=== PATIENT | male | born 1935 | race Hispanic/Latino ===

== ENCOUNTER 2017-01-18 07:43 | Day surgery (SDC) | payer MEDICARE, BC ==
[2017-01-09 13:12] VITALS: BMI 25.7
[2017-01-18] MEDS ORDERED: Propofol 10 mg/ml Inj (20 ML) ONE ×2 (09:16→09:31)
[2017-01-18] MEDS ORDERED: Lactated Ringer's 1,000 ML IV SCH (09:58)
[2017-01-18 11:49] VITALS: BP 160/62; PULSE 56; RESP 14; TEMP 97.8; O2SAT 98
== END 2017-01-18 11:45 | disposition home or self-care (01) ==
LOC: ENDO 07:43
PROVIDERS: ATTEND Specialist
DX: Z12.11 Encounter for screening for malignant neoplasm of colon (principal); D12.4 Benign neoplasm of descending colon; D12.3 Benign neoplasm of transverse colon; K64.8 Other hemorrhoids; K57.30 Diverticulosis of large intestine without perforation or abscess without bleeding; I10 Essential (primary) hypertension; M48.00 Spinal stenosis, site unspecified

== ENCOUNTER 2017-08-25 08:06 | Inpatient (IN) | payer MEDICARE, BC ==
--- NOTE | 2017-08-25 08:29 | ED PDOC ---
Arrival/HPI - General Chief Complaint: Abdominal Pain Time Seen by Provider: 08/25/17 08:14 Historian: Patient - History of Present Illness Narrative History of Present Illness (Text): 08/25/17 08:25 A 82 year old male, whose past medical history includes hypertension, presents to the emergency department complaining of intermittent abdominal pain for 1 month. Patient reports taking Gaviscon prescribed by his PMD with mild improvement of symptom. Patient notes poor appetite and weight loss but denies any fever, chills, nausea, vomiting, diarrhea, chest pain, shortness of breath or any other complaints. PMD: Dr. Bridgette Sanz Powerhouse Laborer: Dr. Prado Time/Duration: Other (1 month) Symptom Course: Unchanged, Intermittent Quality: Other Context: Home Past Medical History - Provider Review Nursing Documentation Reviewed: Yes - Infectious Disease Hx of Infectious Diseases: None - Cardiac Hx Pacemaker: No - Neurological Hx Paralysis: No - Hematological/Oncological Hx Blood Transfusions: No Hx Blood Transfusion Reaction: No - Musculoskeletal/Rheumatological Hx Musculoskeletal Disorders: Yes (SPINAL STENOSIS) - Gastrointestinal Hx Gastroesophageal Reflux: Yes - Psychiatric Hx Emotional Abuse: No Hx Physical Abuse: No Hx Substance Use: No - Anesthesia Hx Anesthesia Reactions: No Hx Malignant Hyperthermia: No - Suicidal Assessment Feels Threatened In Home Enviroment: No Family/Social History - Physician Review Nursing Documentation Reviewed: Yes Family/Social History: No Known Family HX Smoking Status: Unknown If Ever Smoked Hx Alcohol Use: Yes ("ALCOHOLIC" QUIT 40 YRS AGO) Hx Substance Use: No Allergies/Home Meds Allergies/Adverse Reactions: Allergies No Known Allergies Allergy (Verified 08/25/17 08:19) Home Medications: Home Meds Medication Instructions Recorded Confirmed Omeprazole [Prilosec] 40 mg PO QAM 11/04/15 08/25/17 Review of Systems - Physician Review All systems were reviewed & negative as marked: Yes - Review of Systems Constitutional: Weight Change. absent: Fevers, Night Sweats Respiratory: absent: SOB Cardiovascular: absent: Chest Pain Gastrointestinal: Abdominal Pain, Appetite Changes. absent: Diarrhea, Nausea, Vomiting Physical Exam Vital Signs Reviewed: Yes Vital Signs Temp Pulse Resp BP Pulse Ox 08/25/17 10:13 77 17 157/85 H 99 08/25/17 08:06 97.6 F 94 H 18 121/86 97 Temperature: Afebrile Blood Pressure: Normal Pulse: Tachycardic Respiratory Rate: Normal Appearance: Positive for: Well-Appearing, Non-Toxic, Comfortable Pain Distress: None Mental Status: Positive for: Alert and Oriented X 3 - Systems Exam Head: Present: Atraumatic, Normocephalic Pupils: Present: PERRL Extroacular Muscles: Present: EOMI Conjunctiva: Present: Normal Mouth: Present: Moist Mucous Membranes Neck: Present: Normal Range of Motion Respiratory/Chest: Present: Clear to Auscultation, Good Air Exchange. No: Respiratory Distress, Accessory Muscle Use Cardiovascular: Present: Regular Rate and Rhythm, Normal S1, S2. No: Murmurs Abdomen: Present: Normal Bowel Sounds. No: Tenderness, Distention, Peritoneal Signs Back: Present: Normal Inspection Upper Extremity: Present: Normal Inspection. No: Cyanosis, Edema Lower Extremity: Present: Normal Inspection. No: Edema Neurological: Present: GCS=15, CN II-XII Intact, Speech Normal Skin: Present: Warm, Dry, Normal Color. No: Rashes Psychiatric: Present: Alert, Oriented x 3, Normal Insight, Normal Concentration Medical Decision Making ED Course and Treatment: 08/25/17 08:25 Impression: A 82 year old male with intermittent abdominal for 1 month Plan: -- CT angio -- EKG -- Labs -- Urinalysis -- IV fluids -- Reassess and disposition Prior Visits: Notes and results from previous visits were reviewed. Patient had an outpatient CT on 08/18/17 which showed: Report Date : 08/18/2017 11:34:12 PROCEDURE: CT Abdomen and Pelvis without intravenous contrast Dictator : Cisco Zhang MD IMPRESSION: No bowel obstruction. 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 It is likely that the renal arteries arise from the true lumen. Additional minor findings as above. Progress Notes: EKG shows NSR at 99 BPM with RBBB. Interpreted by me. Report Date : 08/25/2017 10:50:51 PROCEDURE: CT Angiography Chest, Abdomen and Pelvis with and without intravenous contrast Dictator : Burt Garibay MD IMPRESSION: No evidence of aortic aneurysm or dissection. Focal stenoses at the origin of the celiac axis. Prominent abnormal appearing pancreatic head with dilated pancreatic duct. Elective follow-up MRI MRCP advised. 08/25/17 16:58 cta shows no e/o of dissection compared to outpt study. accepted by dr isael castro for onc and gi eval. - Lab Interpretations Lab Results: 08/25/17 08:40 08/25/17 08:40 Lab Results 08/25/17 10:30: Urine Color Yellow, Urine Appearance Clear, Urine pH 7.0, Ur Specific Spicer 1.010, Urine Protein Negative, Urine Glucose (UA) Negative, Urine Ketones Negative, Urine Blood Trace-intact H, Urine Nitrate Negative, Urine Bilirubin Negative, Urine Urobilinogen 0.2, Ur Leukocyte Esterase Negative , Urine RBC 0 - 2, Urine WBC Negative 08/25/17 09:05: PT 12.7 H, INR 1.15 H, APTT 34.8 08/25/17 08:40: Sodium 138, Potassium 4.6, Chloride 100, Carbon Dioxide 25, Anion Gap 18, BUN 17, Creatinine 1.3, Est GFR ( Amer) > 60, Est GFR (Non- Af Amer) 53, Random Glucose 156 H, Calcium 10.1, Total Bilirubin 1.5 H, AST 28, ALT 32, Alkaline Phosphatase 70, Lactate Dehydrogenase 335, Total Creatine Kinase 53, Troponin I 0.02, Total Protein 7.4, Albumin 4.4, Globulin 3.1, Albumin/Globulin Ratio 1.4, Amylase 79, Lipase 470 H 08/25/17 08:40: WBC 7.9, RBC 4.99, Hgb 15.3, Hct 44.8, MCV 89.8, MCH 30.7, MCHC 34.2, RDW 12.4, Plt Count 268, MPV 9.9, Gran % 68.2 H, Lymph % (Auto) 21.3 L, Noble % (Auto) 9.0 H, Eos % (Auto) 1.0 L, Baso % (Auto) 0.5, Gran # 5.36, Lymph # 1.7, Noble # 0.7 H, Eos # 0.1, Baso # 0.04 I have reviewed the lab results: Yes - RAD Interpretation Radiology Orders: 08/25/17 09:07 ANGIOGRAPHY DISECTION PROTOCOL [CT] Stat - Medication Orders Current Medication Orders: Pantoprazole Sodium (Protonix Inj) 40 mg IVP DAILY AIMEE Last Admin: 08/25/17 11:28 Dose: 40 mg IVP Administration Document 08/25/17 11:28 CNR (Rec: 08/25/17 11:28 CNR [id number]) Charges for Administration # of IVP Administrations 1 Discontinued Medications Sodium Chloride (Sodium Chloride 0.9%) 1,000 mls @ 250 mls/hr IV .Q4H ONE Stop: 08/25/17 12:58 Last Admin: 08/25/17 09:07 Dose: 250 mls/hr eMAR Start Stop Document 08/25/17 09:07 CNR (Rec: 08/25/17 09:07 CNR [id number]) Intravenous Solution Start Date 08/25/17 Start Time 09:07 Pneumococcal Polyvalent Vaccine (Pneumovax 23 Vaccine) 0.5 ml IM .ONCE ONE Stop: 08/25/17 13:20 - Scribe Statement The provider has reviewed the documentation as recorded by the Scribe Jaye Parra Provider Scribe Attestation: All medical record entries made by the Scribe were at my direction and personally dictated by me. I have reviewed the chart and agree that the record accurately reflects my personal performance of the history, physical exam, medical decision making, and the department course for this patient. I have also personally directed, reviewed, and agree with the discharge instructions and disposition. Disposition/Present on Arrival - Present on Arrival Any Indicators Present on Arrival: No History of DVT/PE: No History of Uncontrolled Diabetes: No Urinary Catheter: No History of Decub. Ulcer: No History Surgical Site Infection Following: None - Disposition Have Diagnosis and Disposition been Completed?: Yes Diagnosis: Abdominal pain, Elevated lipase Disposition: HOSPITALIZED Disposition Time: :29 Patient Problems: Current Active Problems Problem Status Onset Abdominal pain Acute Elevated lipase Acute Condition: STABLE
[2017-08-25 08:54] LABS: BASO # 0.04 K/mm3 (0.0-2.0); BASO % 0.5 % (0.0-3.0); EOS # 0.1 (0.0-0.7); GRAN # 5.36 (1.4-6.5); GRAN % 68.2 % (50.0-68.0); HEMOGLOBIN 15.3 g/dL (14.0-18.0); LYMPH # 1.7 (1.2-3.4); LYMPH % 21.3 % (22.0-35.0); MEAN CELL VOLUME 89.8 fl (80.0-105.0); MEAN CORPUSCULAR HEMOGLOBIN 30.7 pg (25.0-35.0); MEAN CORPUSCULAR HGB CONC 34.2 g/dl (31.0-37.0); MEAN PLATELET VOLUME 9.9 fl (7.0-11.0); MONO # 0.7 (0.1-0.6); RBC 4.99 10^6/uL (3.5-6.1); RED CELL DISTRIBUTION WIDTH 12.4 % (11.5-14.5); WHITE BLOOD COUNT 7.9 10^3/ul (4.5-11.0)
[2017-08-25] MEDS ORDERED: Sodium Chloride 0.9% 1,000 ML IV ONE (08:59)
[2017-08-25 09:03] LABS: ALB/GLOB RATIO 1.4 (1.1-1.8); ALBUMIN 4.4 g/dL (3.0-4.8); ALT/SGPT 32 U/L (7-56); AMYLASE 79 U/L (35-125); AST/SGOT 28 U/L (17-59); BLOOD UREA NITROGEN 17 mg/dL (7-21); CALCIUM 10.1 mg/dL (8.4-10.5); GFR AFRICAN-AMERICAN > 60; GFR NON-AFRICAN AMERICAN 53; LIPASE 470 U/L (23-300)
[2017-08-25 09:14] LABS: TROPONIN I 0.02 ng/mL
[2017-08-25 09:39] LABS: INR 1.15 (0.93-1.08); PARTIAL THROMBOPLASTIN TIME 34.8 Seconds (25.1-36.5); PROTHROMBIN TIME 12.7 SECONDS (9.4-12.5)
[2017-08-25 10:17] LABS: URINE BILIRUBIN NEGATIVE (NEGATIVE); URINE BLOOD TRACE-INTACT (NEGATIVE); URINE GLUCOSE (UA) NEGATIVE (NEGATIVE); URINE LEUKOCYTE ESTERASE NEGATIVE Leu/uL (NEGATIVE); URINE NITRATE NEGATIVE (NEGATIVE); URINE PROTEIN NEGATIVE mg/dL (<30 mg/dL); URINE UROBILINOGEN 0.2 E.U./dL (<1 E.U./dL)
[2017-08-25 10:42] LABS: URINE APPEARANCE CLEAR (CLEAR); URINE COLOR YELLOW (YELLOW); URINE RBC 0 - 2 /hpf (0-2); URINE WBC NEGATIVE /hpf (0-6)
--- NOTE | 2017-08-25 10:52 | CT ---
PROCEDURE: CT Angiography Chest, Abdomen and Pelvis with and without intravenous contrast Elliptical none HISTORY: Abdominal pain, aortic dissection suspected. COMPARISON: 08/18/2017 CT abdomen and pelvis. Summary of findings on the comparison examination. 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 It is likely that the renal arteries arise from the true lumen. TECHNIQUE: Contiguous axial images of the chest, abdomen and pelvis were obtained in the phase of aortic enhancement. A noncontrast enhanced CT of the chest was also obtained to evaluate for possible intramural thrombus. Coronal and sagittal reformats were generated. IV dose administered: 150 cc Omnipaque 350 Radiation dose: Total exam DLP = 758.40 mGy-cm. This CT exam was performed using one or more of the following dose reduction techniques: Automated exposure control, adjustment of the mA and/or kV according to patient size, and/or use of iterative reconstruction technique. FINDINGS: CT ANGIOGRAPHY OF THE CHEST WITH & WITHOUT CONTRAST: AORTA (CHEST AND ABDOMEN): The thoracic and abdominal aorta are unremarkable, without aneurysm, dissection or rupture. No intramural thrombus identified in the thoracic aorta on the non-contrast ct of the chest. The celiac axis, superior mesenteric artery, inferior mesenteric artery and the renal arteries are widely patent. The pelvic arteries are unremarkable. LUNGS: Clear. No nodule, mass or consolidation. 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 Normal luminal caliber descending aorta maximum diameter 2.6 cm. No evidence of dissection. LYMPH NODES: Unremarkable. PLEURA: Unremarkable. No pneumothorax. No pleural fluid. BONES: Non marginal osteophyte formation the overall appearance suggests ankylosing spondylitis. OTHER FINDINGS: None. CT ANGIOGRAPHY OF THE ABDOMEN AND PELVIS WITH CONTRAST: LIVER: Unremarkable. No gross lesion or ductal dilatation. GALLBLADDER AND BILE DUCTS: Unremarkable. PANCREAS: The pancreatic head is enlarged with abnormal contrast-enhancing characteristics. AP diameter 3.7 cm. Distal pancreatic duct is dilated 3.6 mm. Elective follow-up with abdominal MRI advised. SPLEEN: Unremarkable. ADRENALS: Unremarkable. No mass. KIDNEYS AND URETERS: Unremarkable. No hydronephrosis. No solid mass. Incidental finding(s): Simple right renal cysts. VASCULATURE: No evidence of abdominal aortic aneurysm or dissection. Maximum diameter of the abdominal aorta 2.5 cm. Focal narrowing at the origin of the celiac axis. Superior mesenteric artery widely patent common no branch vessel abnormalities identified. Patent and unremarkable renal arteries and branch vessels. STOMACH AND BOWEL: Unremarkable. No obstruction. No gross mural thickening. Postoperative, surgical changes likely related to resection, surgery of the right hemicolon. APPENDIX: Normal appendix. PERITONEUM: Unremarkable. No free fluid. No free air. LYMPH NODES: Unremarkable. No enlarged lymph nodes. BLADDER: Unremarkable. REPRODUCTIVE: Unremarkable. BONES: No acute fracture. OTHER FINDINGS: None. IMPRESSION: No evidence of aortic aneurysm or dissection. Focal stenoses at the origin of the celiac axis. Prominent abnormal appearing pancreatic head with dilated pancreatic duct. Elective follow-up MRI MRCP advised.
[2017-08-25 13:19] VITALS: BMI 22.1
[2017-08-25] MEDS ORDERED: Pneumococcal 23-Valent Vaccine IM ONE (13:19)
[2017-08-25] MEDS ORDERED: Influenza Vaccine 60 mcg/0.5 mL SYR (4YR UP) IM ONE (13:19)
--- NOTE | 2017-08-25 18:19 | CARD ---
APPROVED REPORT EKG Measurement Heart [id number] <Conclusion> Normal sinus rhythm Right bundle branch block Abnormal ECG
[2017-08-25] MEDS: Sodium Chloride 0.9% 1,000 ML IV SCH (18:29)
--- NOTE | 2017-08-26 02:51 | CON ---
DATE: 08/25/2017 REASON FOR CONSULTATION: Abdominal pain, weight loss. HISTORY OF PRESENT ILLNESS: This 82-year-old patient with past medical history of hypertension, status post EGD and colonoscopy this year, complaining of some epigastric discomfort. He said he has been seen by Dr. Robles and given omeprazole to take. He said it is not helping him and in fact only TUMS is helping him. The patient had a CAT scan done on 08/18/2017 a week ago and noticed to have suspected short segment of dissection of the abdominal aorta at the level of renal artery measuring about 3.[address] was done without a contrast, subsequently this admission, the patient had an CT angio done and no evidence of aneurysm or dissection noticed. Celiac. Superior mesenteric artery was widely patent. The patient was also noticed to have enlarged pancreatic head with abnormal contrast characteristics. Distal pancreatic duct dilated to 3.6 mm. The patient also gives reporting history of weight loss in the last 4 to 6 weeks and lost about 16 pounds in weight. The patient's was at the bedside. PAST MEDICAL HISTORY: Other past medical history significant as above. The patient had endoscopy done on 11/04/[address] Nolan Robles, found to have LA grade esophagitis and small hiatus hernia. He had a colonoscopy done on 01/20/2017, he was found to have multiple colonic polyps and also diverticulosis. ALLERGIES: NO KNOWN DRUG ALLERGIES. SOCIAL HISTORY: He was alcoholic heavy, quit about 40 years ago. No recent smoking. REVIEW OF SYSTEMS: Positive as above. Other systems reviewed. PHYSICAL EXAMINATION VITAL SIGNS: Temperature is afebrile. Blood pressure 159/83, pulse 74, respirations 20, O2 saturation 97%. HEENT: Atraumatic. Anicteric. NECK: Supple. HEART: S1 and S2 heard. LUNGS: Bilateral air entry present. ABDOMEN: Soft. There is no mass palpable. EXTREMITIES: No edema. No cyanosis. NEUROLOGICAL: Alert, oriented, moves all the extremities. LABORATORY DATA: Hemoglobin 15.3, hematocrit 44.8, WBC 7.9, platelets 268. Chemistry shows total bilirubin 1.5, blood glucose 156, otherwise unremarkable. Platelet is mildly elevated to 470. CEA was 4.1. CT scan findings were as described above. IMPRESSION: This 82-year-old patient admitted with abdominal discomfort, status post esophagogastroduodenoscopy, colonoscopy before, on proton pump inhibitor, not helping him much. He states significant weight loss, questionable abnormalities of the CT showing possible abnormalities in the pancreatic head. The initial CT done without a contrast was suggestive of dissection of the aorta, but repeat CT with the contrast was negative. Would recommend at this point; 1. Continue the hydration and we will repeat the MRI of the abdomen with and without contrast with the MRCP to further evaluate the pancreas. 2. We also consider endoscopic ultrasound after reviewing the above workup. Followup of the LFTs. The patient's bilirubin only was mildly elevated. We will also request for direct bilirubin in a.m., also request for ultrasound scan to further evaluate. Thank you very much for allowing us to participate in the care of the patient. Keon Prado MD [facility]
[2017-08-26 08:02] LABS: IRON 79 ug/dL (45-180)
[2017-08-26 08:04] LABS: BASO # 0.03 K/mm3 (0.0-2.0); BASO % 0.4 % (0.0-3.0); EOS # 0.1 (0.0-0.7); EOS % 1.5 % (1.5-5.0); GRAN # 5.55 (1.4-6.5); GRAN % 69.3 % (50.0-68.0); HEMOGLOBIN 14.8 g/dL (14.0-18.0); LYMPH # 1.7 (1.2-3.4); LYMPH % 21.8 % (22.0-35.0); MEAN CELL VOLUME 89.5 fl (80.0-105.0); MEAN CORPUSCULAR HEMOGLOBIN 30.5 pg (25.0-35.0); MEAN CORPUSCULAR HGB CONC 34.1 g/dl (31.0-37.0); MEAN PLATELET VOLUME 10.1 fl (7.0-11.0); MONO # 0.6 (0.1-0.6); RBC 4.85 10^6/uL (3.5-6.1); RED CELL DISTRIBUTION WIDTH 12.3 % (11.5-14.5)
[2017-08-26 08:05] LABS: BLOOD UREA NITROGEN 15 mg/dL (7-21); CALCIUM 9.6 mg/dL (8.4-10.5); GFR AFRICAN-AMERICAN > 60; GFR NON-AFRICAN AMERICAN 58
[2017-08-26 08:11] LABS: % IRON SATURATION 33 % (20-55); TOTAL IRON BINDING CAPACITY 240 ug/dL (261-462)
[2017-08-26] MEDS: Sodium Chloride 0.9% 1,000 ML IV SCH (09:26)
[2017-08-26] MEDS ORDERED: Gadodiamide 287 MG/ML VIAL (20ML) IV ONE (13:30)
--- NOTE | 2017-08-26 16:04 | MRI ---
PROCEDURE: Magnetic Resonance Cholangiopancreatography HISTORY: COMPARISON: None available. TECHNIQUE: Multiplanar, multisequence MR images of the abdomen were obtained, including heavily T2 weighted MRCP images of the biliary system. Rotating maximum intensity projection images of the biliary system were generated. FINDINGS: MRCP: Common bile duct normal in caliber. No intrahepatic biliary dilatation. No evidence of choledocholithiasis. LIVER: Normal size, contour and signal intensity. Small nonspecific high signal mass in the lateral left hepatic lobe, 8 mm diameter. Possible cyst. No other mass identified. Smooth contour. GALLBLADDER: Unremarkable. SPLEEN: Unremarkable. PANCREAS: There is a mass in the pancreatic head measuring roughly 2.7 x 3.2 cm in the transverse plane. It is relatively low in signal compared to enhancing pancreas on early post gadolinium images. There is dilatation of the pancreatic duct in the body and tail distal to this mass. This is strongly suspicious for a pancreatic malignancy. There is no involvement of the superior mesenteric artery or portal vein. There is no other pancreatic mass identified. There is no peripancreatic fluid or edema appreciated. ADRENALS: Unremarkable. KIDNEYS: 2.1 cm right upper pole renal cortical cyst. Several additional smaller right renal cortical cysts. Tiny left parapelvic renal cyst. No hydronephrosis. AORTA: No aneurysm. ASCITES: None. OTHER FINDINGS: None. IMPRESSION: 3.2 cm mass in the pancreatic head obstructing the pancreatic duct, with dilatation of the pancreatic duct in the body and tail of the pancreas. Strongly suspicious for pancreatic malignancy. Additional minor findings as above.
[2017-08-26 19:14] LABS: ALB/GLOB RATIO 1.5 (1.1-1.8); ALBUMIN 4.1 g/dL (3.0-4.8); BLOOD UREA NITROGEN 15 mg/dL (7-21); CALCIUM 9.7 mg/dL (8.4-10.5); GFR AFRICAN-AMERICAN > 60; GFR NON-AFRICAN AMERICAN 58
[2017-08-26 19:15] LABS: ALT/SGPT 29 U/L (7-56); AST/SGOT 30 U/L (17-59); LIPASE 655 U/L (23-300)
[2017-08-27] MEDS ORDERED: Sodium Chloride 0.9% 1,000 ML IV SCH (15:27)
--- NOTE | 2017-08-27 23:50 | PN ---
DATE: 08/27/2017 SUBJECTIVE: This patient was seen and evaluated earlier today. The patient's was at the bedside. No complaints of any abdominal pain. PHYSICAL EXAMINATION GENERAL: Tolerating the diet. VITAL SIGNS: Temperature is 97.6, blood pressure 135/75, pulse 70, respirations 18, and O2 saturation 97%. HEENT: Atraumatic. Anicteric. NECK: Supple. HEART: S1 and S2 heard. LUNGS: Bilateral air entry present. ABDOMEN: Soft. There is no tenderness. EXTREMITIES: No cyanosis. No clubbing. No edema. LABORATORY DATA: There is no recent labs now. IMPRESSION: The MRI scan was reviewed, it shows 3.2cm mass in the pancreatic head obstructing the pancreatic duct with the dilation of the pancreatic duct. Suspicious for malignancy. The patient's CA 19-9 was also significantly elevated. 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 The patient would benefit from endoscopic ultrasound with the possible fine needle aspiration of the lesion. I have discussed with the Dr. Berrios. The patient is very anxious, nervous and has been twice in the Emergency Room with the abdominal pain. It is reasonable to keep the patient in the hospital and the patient has been scheduled for the endoscopic ultrasound fine needle aspiration on Monday. We will keep the patient n.p.o. tomorrow midnight for the procedure. Keon Prado MD [facility]
[2017-08-28 13:57] LABS: BASO # 0.02 K/mm3 (0.0-2.0); BASO % 0.2 % (0.0-3.0); EOS # 0.1 (0.0-0.7); EOS % 1.4 % (1.5-5.0); GRAN # 6.92 (1.4-6.5); GRAN % 75.2 % (50.0-68.0); HEMOGLOBIN 14.2 g/dL (14.0-18.0); LYMPH # 1.5 (1.2-3.4); LYMPH % 16.1 % (22.0-35.0); MEAN CELL VOLUME 90.4 fl (80.0-105.0); MEAN CORPUSCULAR HEMOGLOBIN 30.2 pg (25.0-35.0); MEAN CORPUSCULAR HGB CONC 33.4 g/dl (31.0-37.0); MEAN PLATELET VOLUME 9.9 fl (7.0-11.0); MONO # 0.7 (0.1-0.6); MONO % 7.1 % (1.0-6.0); RBC 4.7 10^6/uL (3.5-6.1); RED CELL DISTRIBUTION WIDTH 12.4 % (11.5-14.5); WHITE BLOOD COUNT 9.2 10^3/ul (4.5-11.0)
[2017-08-28 14:01] LABS: IRON 56 ug/dL (45-180)
[2017-08-28 14:03] LABS: CALCIUM 9.6 mg/dL (8.4-10.5)
[2017-08-28 14:10] LABS: % IRON SATURATION 23 % (20-55); TOTAL IRON BINDING CAPACITY 241 ug/dL (261-462)
--- NOTE | 2017-08-28 23:04 | HP ---
DATE OF EVALUATION: 08/25/2017 HISTORY OF PRESENT ILLNESS: Mr. Bentley is an 82-year-old male, admitted to the hospital with abdominal pain which was for past 1 month. He had a CAT scan of the abdomen without contrast as an outpatient, which showed aortic dissection. He was admitted to the hospital for evaluation of aortic aneurysm. Repeat CAT scan CT angio with IV contrast did not show any aneurysm, but there was suspicion for pancreatic head mass and dilatation of biliary duct. He has 20-pound weight loss in past 1 month. No appetite. Occasional nausea. No vomiting. No fever, no cough with expectoration. He has hypertension which is controlled with current medications. He has history of spinal stenosis, has been asymptomatic from that. His sister of breast cancer. PAST MEDICAL HISTORY: Hypertension, spinal stenosis. PAST SURGICAL HISTORY: None. FAMILY HISTORY: Sister of breast cancer. PERSONAL HISTORY: Never smoked. No history of alcohol abuse. ALLERGIES: NO KNOWN DRUG ALLERGIES. HOME MEDICATIONS: Omeprazole 40 mg daily. REVIEW OF SYSTEMS: As per HPI. Rest of 12-point review of systems reviewed and negative. PHYSICAL EXAMINATION: GENERAL: Comfortable in bed, in no acute distress. VITAL SIGNS: Temperature 97.6, heart rate is 94 per minute, respiratory rate 18 per minute, blood pressure 120/86, and oxygen saturation 97% on room air. HEENT: Normal. No pallor. NECK: No lymphadenopathy. CHEST: Air entry present and equal bilaterally. No added sounds. CARDIOVASCULAR: S1 and S2 normal. No murmur. No gallop. ABDOMEN: Soft, nontender. No hepatosplenomegaly. EXTREMITIES: No edema. SPINE: Nontender. SKIN: No petechiae. No rash. CT of the abdomen and pelvis with IV contrast, CT angio protocol did not show any aortic dissection. EKG normal. LABORATORY DATA: White count 7.9, hemoglobin 15.3, hematocrit 44.8, blood sugar 268. UA negative. Total bilirubin 1.5, amylase 79, lipase 49. ASSESSMENT AND PLAN 1. Pancreatic head mass. 2. Hypertension. 3. Abnormal weight loss 20 pounds. 3. Nausea and vomiting. PLAN: He will be admitted to the hospital. We will get GI consultation with Dr. Prado. He had colonoscopy and EGD done recently with no abnormality. MRCP ordered for today. We will do the tumor markers, CEA, CA19-9. IV fluids at 80 mL an hour, Protonix 40 mg IV daily, liquid diet. Further plan will be as per [facility] results. Paty Berrios MD
--- NOTE | 2017-08-28 23:13 | PN ---
DATE: 08/26/2017 SUBJECTIVE: He is comfortable in bed, in no acute distress. No nausea and no vomiting. No abdominal pain. He is ambulating in the room. He reports 20 pounds of weight loss and no appetite. No difficulty in swallowing. CA 19.9 elevated to 2300 and CEA of 4.1. REVIEW OF SYSTEMS: As per HPI. Rest of 12-point review of systems reviewed and negative. MEDICATIONS: IV fluids at 6 mL an hour and Protonix 40 mg IV daily. PHYSICAL EXAMINATION: GENERAL: He is comfortable in bed, in no acute distress. VITAL SIGNS: Stable temperature of 98.7, heart rate of 80 per minute, blood pressure of 110/70, afebrile, and pulse oximetry is 98% room air. HEENT: Pallor positive. NECK: No lymphadenopathy. CHEST: Air entry is present and equal bilaterally. No added sounds. CARDIOVASCULAR: S1 and S2 normal. No murmur. No gallop. GASTROINTESTINAL: Abdomen is soft and nontender. No hepatosplenomegaly. EXTREMITIES: No edema. CENTRAL NERVOUS SYSTEM: Alert and oriented x3. No focal sensory or motor deficit. LABORATORY DATA: Sodium is 138, potassium is 4.6, and creatinine is 1.2. CA 19.9 is 2320. White count is 8000, hemoglobin is 14.8, hematocrit is 43.3, and platelets of 250. ASSESSMENT AND PLAN: 1. Pancreatic head mass. 2. Abnormal weight loss. 3. Hypertension. 4. Abdominal pain chronic for 1 month. PLAN: MRCP showed pancreatic head mass, I discussed at length with the and the patient about possibility of pancreatic cancer, he is very concerned and he has anxiety. He kept asking how much I have to live. I explained to him the workup in progress. He will need endoscopic biopsy, Dr. Prado's note appreciated. He will schedule EUS biopsy on Monday. He will need a PET scan which will be scheduled as an outpatient upon discharge from the hospital. Encourage ambulation: We will give morphine p.r.n. for abdominal pain and Zofran 4 mg IV p.r.n. for nausea. Paty Berrios MD [facility] # [id number]
--- NOTE | 2017-08-28 23:44 | PN ---
DATE OF EVALUATION: 08/28/2017 SUBJECTIVE: He is comfortable in bed, in no acute distress. He is very depressed since the news of pancreatic head tumor was disclosed to him. He is saying that his friend of pancreatic cancer recently, and he is not very hopeful that he will survive with this. He has family history of sister dying with breast cancer. His has non-Hodgkin's lymphoma. REVIEW OF SYSTEMS: As per HPI. Rest of 12-point review of systems reviewed and negative. PHYSICAL EXAMINATION GENERAL: Comfortable in bed, in no acute distress. VITAL SIGNS: Temperature 98.8, heart rate is 65 per minute, blood pressure 120/70, respiratory rate 18 per minute, and oxygen saturation 98% on room air HEENT: Normal. NECK: No lymphadenopathy. CHEST: Air entry present and equal bilateral. No added sounds. CARDIOVASCULAR: S1 and S2 normal. No murmur. No gallop. ABDOMEN: Soft, nontender. No hepatosplenomegaly. EXTREMITIES: No edema. GANG SUPERVISOR: Alert and oriented x3. No focal sensory or motor deficit. SPINE: Nontender. LABORATORY DATA: White count 9.2, hemoglobin 14.2, hematocrit 42.5, and platelet count 269. Sodium 136, potassium 4.5, creatinine 1.4, calcium 9.6, iron 79, iron saturation 33. MEDICATIONS: IV fluids of normal saline at 60 mL an hour, Protonix 40 mg IV daily. ASSESSMENT: 1. Pancreatic head mass. 2. Abnormal weight loss, 20 pounds. 3. Hypertension. PLAN: EUS with pancreatic head mass, FNA planned for tomorrow, he will be n.p.o. after midnight, IV fluids at 80 mL an hour starting in the morning, 6 a.m. in the morning. We will continue Zofran p.r.n. and Protonix IV daily. I had again a lengthy discussion with the patient about the treatment options. If it is pancreatic cancer, he was insistent on knowing the treatment option, I told him we do not even have a diagnosis, what kind of pancreatic mass is that. If it is a neuroendocrine tumor, it will be surgical resection. If it is pancreatic adenocarcinoma, then treatment options are surgical resection, chemotherapy and radiation therapy. I also discussed with him that due to his advanced age of 82 years, he might not be a candidate for surgery, which leads to option of chemotherapy plus/minus radiation therapy if it is pancreatic adenocarcinoma. We will schedule the PET scan as an outpatient upon discharge from the hospital. I answered all his questions to his satisfaction. We will continue to follow this. Paty Berrios MD
[2017-08-29] MEDS ORDERED: Sodium Chloride 0.9% 1,000 ML IV SCH ×2 (06:00→13:15)
--- NOTE | 2017-08-29 10:14 | PN ---
DATE: 08/26/2017 SUBJECTIVE: This patient was seen and evaluated earlier today. Patient is comfortable, had just finished the MRCP. At the time of the examination, patient's was at bedside. PHYSICAL EXAMINATION VITAL SIGNS: Temperature is 99, pulse is 80, blood pressure is 168/84. HEENT: Atraumatic and anicteric. NECK: Supple. HEART: S1, S2. LUNGS: Bilateral air entry present. ABDOMEN: Soft. There is no mass palpable or tenderness. EXTREMITIES: No cyanosis, no clubbing. NEUROLOGIC: Alert, oriented, moves all the extremities. LABORATORY DATA: Hemoglobin 14.8, hematocrit 43.4, WBC 8.0, platelets 250. Chemistry showed iron saturation 33 and CA 19-9 is significantly elevated 2320 and CEA is 4.1. IMPRESSION: This 82-year-old patient admitted with epigastric discomfort, had two CAT scans done, initially thought to be dissection, subsequent CAT scan with IV contrast did not show any dissection but however showed some iatrogenic signal in the head of the pancreas. Patient with some distal pancreatic ductal dilation. Patient had significant elevated CA 19-9. MRCP was ordered and results pending. We will review the study. 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 Patient had recently EGD and colonoscopy done by Dr. Robles. RECOMMENDATIONS: 1. Followup of the MRI report. 2. Patient would need endoscopical evaluation, which we will consider after reviewing the MRI scan. We would repeat the LFTs. LFTs were normal yesterday except total bilirubin 1.5. Thank you very much for allowing us to participate in the care of this patient. Keon Prado MD
[2017-08-29] MEDS ORDERED: Succinylcholine 200 mg/10 ml Inj IV ONE (10:30)
[2017-08-29] MEDS ORDERED: Etomidate 20 mg/10ml Inj IV ONE (10:31)
[2017-08-29] MEDS ORDERED: ePHEDrine 50 mg/ml Inj ONE ×2 (10:47→12:51)
--- NOTE | 2017-08-29 10:47 | PN ---
SUBJECTIVE: This patient was comfortable, tolerating the diet. Family was at bedside. PHYSICAL EXAMINATION VITAL SIGNS: Temperature was 98.7, pulse 74, blood pressure 129/79. HEENT: Atraumatic. Anicteric. NECK: Supple. HEART: S1, S2 heard. LUNGS: Bilateral air entry present. ABDOMEN: Soft. There is no tenderness. EXTREMITIES: No edema. No cyanosis. LABORATORY DATA: Hemoglobin 14.2, hematocrit 42.5, WBC 9.2, platelets 269, BUN 18, creatinine 1.4. IMPRESSION: This 82-year-old patient who has 3.2 cm mass in the pancreatic head obstructing the pancreatic duct with a very high elevated CA 19-9 clinically more suggestive of pancreatic malignancy. Patient is scheduled for an endoscopic ultrasound-guided FNA in a.m. I had a detailed discussion with the patient's son and also patient's , and patient agreed for the procedure. Risks, benefits, alternatives explained. I have also discussed with Dr. Berrios further evaluation and management will be based on the results after reviewing the findings of the EUS and also the biopsy report. Keon Prado MD MTDD
[2017-08-29 16:22] VITALS: BP 131/70; PULSE 88; RESP 18; TEMP 98.3; O2SAT 96
--- NOTE | 2017-08-30 08:45 | PN ---
DATE: 08/29/2017 This patient had an upper GI endoscopic ultrasound evaluation done. The patient had grade A esophagitis. Endoscopic ultrasound revealed 3 cm mass in the head of the pancreas, it is involving portal vein noticed. Three trials of FNA done but there was a concern about the adequacy of the biopsy of the specimen. The patient subsequently had 2 passes of fine-needle aspiration biopsy done using Condomani Acquire needle. The patient tolerated the procedure well. PLAN: Discussed with the patient the findings of the biopsy. Discussed with the patient postprocedure. Also, discussed with Dr. Berrios follow up of the pathology. Thank you very much for allowing us to participate in the care of the patient. Keon Prado MD BETH
== END 2017-08-29 18:41 | disposition home or self-care (01) | DRG 437 ==
LOC: ED 08:06 → ERH 10:59 → 5RSO 12:46 → OBSVTOIN 08-28 12:22
PROVIDERS: ADMIT Hospitalist; ATTEND Internal Medicine Medical Oncology
PROC: 0F9G8ZZ Drainage of Pancreas, Via Natural or Artificial Opening Endoscopic (ICD-10-PCS; principal; 2017-08-29 09:00)
PROC: 0DJ08ZZ Inspection of Upper Intestinal Tract, Via Natural or Artificial Opening Endoscopic (ICD-10-PCS; 2017-08-29 09:00)
DX: C25.9 Malignant neoplasm of pancreas, unspecified (principal); F32.89 Other specified depressive episodes; I10 Essential (primary) hypertension; K57.30 Diverticulosis of large intestine without perforation or abscess without bleeding; I71.9 Aortic aneurysm of unspecified site, without rupture; K21.0 Gastro-esophageal reflux disease with esophagitis; Z79.899 Other long term (current) drug therapy; Z80.3 Family history of malignant neoplasm of breast; Z86.010 Personal history of colon polyps; R40.2412 Glasgow coma scale score 13-15, at arrival to emergency department; K20.9 Esophagitis, unspecified; K29.70 Gastritis, unspecified, without bleeding

== ENCOUNTER 2017-09-08 11:48 | Inpatient (IN) | payer MEDICARE, BC ==
--- NOTE | 2017-09-08 12:28 | ED PDOC ---
Arrival/HPI - General Chief Complaint: Trauma Time Seen by Provider: 09/08/17 12:11 Historian: Patient - History of Present Illness Narrative History of Present Illness (Text): 09/08/17 12:21 82 year old male, with past medical history of spinal stenosis and GERD, presents to the Emergency department accompanied by complaining of left lower back discomfort secondary to fall prior to arrival. Patient states he slipped and fell on his back while attempting to tie his shoe standing up. Patient informs being ambulatory after the fall but experienced mild discomfort on his left lower back/flank when breathing. Patient denies any dizziness/ lightheadedness during the event or loss of consciousness. Patient denies any head trauma, fever, chills, nausea, vomiting, chills, abdominal pain, chest pain , shortness of breath, changes in appetite or any other complaints. Time/Duration: Prior to Arrival Symptom Onset: Sudden Symptom Course: Unchanged Context: Home Past Medical History - Provider Review Nursing Documentation Reviewed: Yes - Infectious Disease Hx of Infectious Diseases: None - Cardiac Hx Pacemaker: No - Neurological Hx Paralysis: No - HEENT Hx HEENT Disorder: Yes ([place] b/l hearing aids) - Hematological/Oncological Hx Blood Transfusions: No Hx Blood Transfusion Reaction: No Other/Comment: pacrease mass - Integumentary Other/Comment: thick hard toenails, tatoo right arm - Musculoskeletal/Rheumatological Hx Musculoskeletal Disorders: Yes (SPINAL STENOSIS) - Gastrointestinal Hx Gastroesophageal Reflux: Yes - Psychiatric Hx Emotional Abuse: No Hx Physical Abuse: No Hx Substance Use: No - Surgical History Other/Comment: epidural 04/2015, multiple colonoscopies last one on 01/18/17 with polypectomy dx hemorrhoids, diverticulosis, egd x7 - Anesthesia Hx Anesthesia Reactions: No Hx Malignant Hyperthermia: No - Suicidal Assessment Feels Threatened In Home Enviroment: No Family/Social History - Physician Review Nursing Documentation Reviewed: Yes Family/Social History: No Known Family HX Smoking Status: Unknown If Ever Smoked Hx Alcohol Use: Yes ("ALCOHOLIC" QUIT 40 YRS AGO) Hx Substance Use: No Allergies/Home Meds Allergies/Adverse Reactions: Allergies No Known Allergies Allergy (Verified 09/08/17 12:04) Home Medications: Home Meds Medication Instructions Recorded Confirmed Omeprazole [Prilosec] 40 mg PO QAM 11/04/15 09/08/17 Review of Systems - Physician Review All systems were reviewed & negative as marked: Yes - Review of Systems Constitutional: absent: Fevers Eyes: absent: Vision Changes ENT: absent: Sore Throat, Rhinorrhea Respiratory: absent: SOB, Cough Cardiovascular: Chest Pain. absent: CHARLES Gastrointestinal: absent: Abdominal Pain, Diarrhea, Nausea, Vomiting, Appetite Changes Musculoskeletal: Back Pain. absent: Neck Pain Skin: absent: Rash Neurological: absent: Headache, Dizziness Endocrine: absent: Polyuria, Polydipsia Hemo/Lymphatic: absent: Easy Bleeding Psychiatric: absent: Depression Physical Exam Vital Signs Reviewed: Yes Vital Signs Temp Pulse Resp BP Pulse Ox 09/08/17 15:13 90 18 121/67 100 09/08/17 13:48 97 H 18 136/79 99 09/08/17 12:00 98.4 F 96 H 20 100/56 L 98 Temperature: Afebrile Blood Pressure: Hypotensive Pulse: Regular Respiratory Rate: Normal Appearance: Positive for: Well-Appearing, Non-Toxic, Comfortable Pain Distress: Mild Mental Status: Positive for: Alert and Oriented X 3 - Systems Exam Head: Present: Atraumatic Pupils: Present: PERRL Mouth: Present: Moist Mucous Membranes Pharnyx: No: ERYTHEMA Nose (Internal): Present: Normal Inspection Neck: Present: Normal Range of Motion Respiratory/Chest: Present: Clear to Auscultation, Good Air Exchange. No: Respiratory Distress, Accessory Muscle Use, Wheezes, Decreased Breath Sounds, Retracting, Rhonchi, Tachypneic, Tender to Palpation Cardiovascular: Present: Regular Rate and Rhythm Abdomen: No: Tenderness, Distention Rectal: No: Gross Blood Upper Extremity: No: Cyanosis, Edema Lower Extremity: No: Edema, CALF TENDERNESS Neurological: Present: Motor Func Grossly Intact, Normal Sensory Function Skin: Present: Warm Psychiatric: Present: Alert, Oriented x 3, Normal Insight, Normal Concentration Medical Decision Making ED Course and Treatment: 09/08/17 12:33 Impression: 82 year old male presents to the Emergency department for left back and chest pain after fall Plan: -- EKG -- Labs -- X-Ray of left ribs -- Reassess and disposition Prior Visits: Notes and results from previous visits were reviewed. On 08/25/17 patient presented to the Emergency department for intermittent abdominal pain. Patient was hospitalized for abdominal pain and elevated lipase. Progress Notes: Patient's prior admission noted. He reports that he feels "dizziness every morning for the past year" and is adamant he did not have acute dizziness or any symptoms prior to fall. He states that he was bending over when he fell onto his left side. On exam there is NO PALPABLE CHEST OR BACK PAIN. No crepitus. No ecchymosis or edema. Xray ordered for left sided pain. Pain is worse with movement and deep breaths. 09/08/17 13:57 X-Ray of left ribs and chest reviewed by radiologist, shows small left-sided pneumothorax. No visible rib fracture. 09/08/17 14:14 Upon reassessment, patient denies any pain or shortness of breath. He is saturating at 99% in room air and is currently cardiovascularly stable with BP of 125/70. Given associated co-morbidities, he will be admitted to Telemetry Observation for evaluation of pneumothorax with pulmonary and surgery consult. Case discussed with Dr. Escalera, who is aware and agrees with plan. Surgery and pulmunology consulted. Case d/w Dr. Warren. Patient with serial exams with no headache no abdominal pain, no urinary symptoms. - Lab Interpretations Lab Results: 09/08/17 12:30 09/08/17 12:30 Lab Results 09/08/17 12:30: Sodium 134, Potassium 4.3, Chloride 97 L, Carbon Dioxide 25, Anion Gap 16, BUN 27 H, Creatinine 1.3, Est GFR ( Amer) > 60, Est GFR ( Non-Af Amer) 53, Random Glucose 158 H, Calcium 9.8, Total Bilirubin 1.3, AST 39 , ALT 34, Alkaline Phosphatase 56, Lactate Dehydrogenase 380, Total Creatine Kinase 70, Troponin I 0.02, Total Protein 6.6, Albumin 4.0, Globulin 2.6, Albumin/Globulin Ratio 1.6 09/08/17 12:30: PT 12.7 H, INR 1.10 H, APTT 31.7 09/08/17 12:30: WBC 9.9, RBC 4.56, Hgb 13.8 L, Hct 40.9 L, MCV 89.7, MCH 30.3, MCHC 33.7, RDW 12.7, Plt Count 282, MPV 9.3, Gran % 79.8 H, Lymph % (Auto) 11.5 L, Gila % (Auto) 8.3 H, Eos % (Auto) 0.3 L, Baso % (Auto) 0.1, Gran # 7.86 H, Lymph # 1.1 L, Gila # 0.8 H, Eos # 0.0, Baso # 0.01 - RAD Interpretation Radiology Orders: 09/08/17 12:23 RIBS LEFT & PA CHEST [RAD] Stat Fire Investigation Lieutenant: ED Physician, Radiologist - EKG Interpretation EKG Interpretation (Text): EKG at 12:29 normal sinus rhythm rate of 90 with right bundle branch block Interpreted by ED Physician: Yes Type: 12 lead EKG - Medication Orders Current Medication Orders: Discontinued Medications Pneumococcal Polyvalent Vaccine (Pneumovax 23 Vaccine) 0.5 ml IM .ONCE ONE Stop: 09/08/17 19:46 - Scribe Statement The provider has reviewed the documentation as recorded by the Scribe Av Sims. All medical record entries made by the Scribe were at my direction and personally dictated by me. I have reviewed the chart and agree that the record accurately reflects my personal performance of the history, physical exam, medical decision making, and the department course for this patient. I have also personally directed, reviewed, and agree with the discharge instructions and disposition. Disposition/Present on Arrival - Present on Arrival Any Indicators Present on Arrival: No History of DVT/PE: No History of Uncontrolled Diabetes: No Urinary Catheter: No History of Decub. Ulcer: No History Surgical Site Infection Following: None - Disposition Have Diagnosis and Disposition been Completed?: Yes Diagnosis: Pneumothorax Disposition: HOSPITALIZED Disposition Time: 14:00 Patient Plan: Admission Condition: FAIR
[2017-09-08 12:46] LABS: BASO # 0.01 K/mm3 (0.0-2.0); BASO % 0.1 % (0.0-3.0); EOS % 0.3 % (1.5-5.0); GRAN # 7.86 (1.4-6.5); GRAN % 79.8 % (50.0-68.0); HEMOGLOBIN 13.8 g/dL (14.0-18.0); LYMPH # 1.1 (1.2-3.4); LYMPH % 11.5 % (22.0-35.0); MEAN CELL VOLUME 89.7 fl (80.0-105.0); MEAN CORPUSCULAR HEMOGLOBIN 30.3 pg (25.0-35.0); MEAN CORPUSCULAR HGB CONC 33.7 g/dl (31.0-37.0); MEAN PLATELET VOLUME 9.3 fl (7.0-11.0); MONO # 0.8 (0.1-0.6); MONO % 8.3 % (1.0-6.0); RBC 4.56 10^6/uL (3.5-6.1); RED CELL DISTRIBUTION WIDTH 12.7 % (11.5-14.5); WHITE BLOOD COUNT 9.9 10^3/ul (4.5-11.0)
[2017-09-08 12:58] LABS: INR 1.1 (0.93-1.08); PARTIAL THROMBOPLASTIN TIME 31.7 Seconds (25.1-36.5); PROTHROMBIN TIME 12.7 SECONDS (9.4-12.5)
[2017-09-08 13:08] LABS: TROPONIN I 0.02 ng/mL
[2017-09-08 13:12] LABS: ALB/GLOB RATIO 1.6 (1.1-1.8); ALT/SGPT 34 U/L (7-56); AST/SGOT 39 U/L (17-59); BLOOD UREA NITROGEN 27 mg/dL (7-21); CALCIUM 9.8 mg/dL (8.4-10.5); GFR AFRICAN-AMERICAN > 60; GFR NON-AFRICAN AMERICAN 53
--- NOTE | 2017-09-08 13:44 | RAD ---
PROCEDURE: Radiographs of the Chest and Left Ribs. HISTORY: left sided chest pain after fall COMPARISON: None available. TECHNIQUE: Frontal radiograph of the chest and multiple oblique radiographs of the left ribs were obtained. FINDINGS: LEFT RIBS: No fracture or focal lesion visualized. LUNGS: Clear. PLEURA: There is a small left-sided pneumothorax. The edge of the lung is 9 mm from the chest wall. This was discussed with Dr. Mahmood at 1:40 p.m. CARDIOVASCULAR: Normal sized heart. No pulmonary vascular congestion. OTHER FINDINGS: None. IMPRESSION: Small left-sided pneumothorax. No visible rib fracture
[2017-09-08 19:45] VITALS: BMI 22.3
[2017-09-08] MEDS ORDERED: Pneumococcal 23-Valent Vaccine IM ONE (19:45)
[2017-09-08] MEDS ORDERED: Influenza Vaccine 60 mcg/0.5 mL SYR (4YR UP) IM ONE (19:45)
--- NOTE | 2017-09-08 20:01 | CARD ---
APPROVED REPORT EKG Measurement Heart [id number] ID [id number] <Conclusion> Normal sinus rhythm Right bundle branch block Abnormal ECG
--- NOTE | 2017-09-09 13:12 | RAD ---
HISTORY: pneumo thorax COMPARISON: 09/08/2017 TECHNIQUE: Chest PA and lateral FINDINGS: LUNGS: There has been an increase in the left-sided pneumothorax. The edge of the lung is now 23 mm from the chest wall and was previously 9 mm. There is no mediastinal shift PLEURA: No significant pleural effusion identified. No pneumothorax apparent. CARDIOVASCULAR: Normal. OSSEOUS STRUCTURES: No significant abnormalities. VISUALIZED UPPER ABDOMEN: Normal. OTHER FINDINGS: None. IMPRESSION: There has been an increase in the left-sided pneumothorax. The edge of the lung is now 23 mm from the chest wall and was previously 9 mm. There is no mediastinal shift
--- NOTE | 2017-09-09 14:46 | CP.PCM.CON ---
History of Present Illness - History of Present Illness History of Present Illness: Surgery Consult: Dr. Warren Pt is an 82M with PMHx of spinal stenosis & GERD who presented to [facility] [place] s/p fall onto his left side. As per the pt, he has been getting dizzy spells lately and yesterday that's what caused him to fall onto his left side while standing in the kitchen. He denies any LOC and states that the only reason he came was secondary to the pain on the Left side of his chest. He states he has not been having any difficulty breathing and pain has improved since admission. He denies any other complaints. Tolerating diet, denies N/V, F/C. In the ER, pt had a CXR that showed small apical L pneumothorax, surgery consulted to evaluate. PMHx: as stated above PSHx: denies SocialHx: hx of alcohol abuse in the past All: denies Review of Systems - Review of Systems All systems: reviewed and no additional remarkable complaints except (as per HPI ) Past Patient History - Infectious Disease Hx of Infectious Diseases: None - Past Social History Smoking Status: Unknown If Ever Smoked - CARDIAC Hx Pacemaker: No - NEUROLOGICAL Hx Paralysis: No - HEENT Hx HEENT Problems: Yes ([place] wears b/l hearing aids) - HEMATOLOGICAL/ONCOLOGICAL Hx Blood Transfusions: No Hx Blood Transfusion Reaction: No Other/Comment: pacrease mass - INTEGUMENTARY Other/Comment: thick hard toenails, tatoo right arm - MUSCULOSKELETAL/RHEUMATOLOGICAL Hx Musculoskeletal Disorders: Yes (SPINAL STENOSIS) - GASTROINTESTINAL Hx Gastroesophageal Reflux: Yes - PSYCHIATRIC Hx Emotional Abuse: No Hx Physical Abuse: No Hx Substance Use: No - SURGICAL HISTORY Other/Comment: epidural 04/2015, multiple colonoscopies last one on 01/18/17 with polypectomy dx hemorrhoids, diverticulosis, egd x7 - ANESTHESIA Hx Anesthesia Reactions: No Hx Malignant Hyperthermia: No Meds Allergies/Adverse Reactions: Allergies Allergy/AdvReac Type Severity Reaction Status Date / Time No Known Allergies Allergy Verified 09/08/17 12:04 - Medications Medications: Current Medications Acetaminophen (Tylenol 325mg Tab) 650 mg PO Q4H PRN PRN Reason: Pain, Mild (1-3) Pantoprazole Sodium (Protonix Ec Tab) 40 mg PO QAM AIMEE Physical Exam - Constitutional Appears: Well, No Acute Distress - Head Exam Head Exam: ATRAUMATIC, NORMOCEPHALIC - Eye Exam Eye Exam: Normal appearance - ENT Exam ENT Exam: Mucous Membranes Moist - Respiratory Exam Respiratory Exam: Chest Wall Tenderness, Clear to Auscultation Bilateral, NORMAL BREATHING PATTERN. absent: Accessory Muscle Use, Decreased Breath Sounds - Cardiovascular Exam Cardiovascular Exam: RRR - GI/Abdominal Exam GI & Abdominal Exam: Soft. absent: Tenderness - Extremities Exam Extremities exam: Positive for: full ROM. Negative for: tenderness - Neurological Exam Neurological exam: Alert, Oriented x3 - Skin Skin Exam: Dry, Warm Results - Vital Signs Recent Vital Signs: Last Vital Signs Temp 98.3 F 09/09/17 06:00 Pulse 74 09/09/17 10:00 Resp 18 09/09/17 06:00 BP 128/67 09/09/17 06:00 Pulse Ox 96 09/09/17 06:00 - Labs Result Diagrams: 09/08/17 12:30 09/08/17 12:30 - Imaging and Cardiology Chest x-ray Status: Image reviewed by me, Report reviewed by me Assessment & Plan - Assessment and Plan (Free Text) Assessment: 82M with small L sided pneumothorax s/p fall at home Plan: - f/u CT chest to better assess pneumo - pt currently stable and does not need a chest tube - work up for syncopal episode per medicine - encourage IS Talita Barreto, PGY-3 Surgery
--- NOTE | 2017-09-09 15:26 | CT ---
PROCEDURE: CT Chest without contrast HISTORY: L Chest Pneumothorax COMPARISON: 08/18/2017 TECHNIQUE: Contiguous axial images were obtained through the chest without intravenous contrast enhancement. Sagittal and coronal reconstructions were performed. Radiation dose (DLP): 425 mGy-cm. This CT exam was performed using one or more of the following dose reduction techniques: Automated exposure control, adjustment of the mA and/or kV according to patient size, and/or use of iterative reconstruction technique. FINDINGS: LUNGS: There is a small to moderate left-sided pneumothorax. The edge of the lung is 3 cm from the anterior chest wall as seen on image 76 series 3. There is no mediastinal shift MEDIASTINUM: Unremarkable thoracic aorta. No aneurysm. Normal sized heart. Main pulmonary artery unremarkable. No vascular congestion. No lymphadenopathy. PLEURA: As above BONES: There is no evidence of rib fracture UPPER ABDOMEN: Grossly unremarkable. OTHER FINDINGS: None. IMPRESSION: Small to moderate left-sided pneumothorax. No evidence of lung lesion or rib fracture.
[2017-09-09 17:52] VITALS: RESP 20
--- NOTE | 2017-09-09 22:45 | CON ---
DATE: HISTORY OF PRESENT ILLNESS: The patient is admitted for a spontaneous pneumothorax. Presently, he has no chest pain, shortness of breath, PND or orthopnea. He is an 82-year-old gentleman, who was recently diagnosed with a pancreatic mass, cytology x2 showed atypical cells, but not clearly defined as cancer. There is obstruction of his pancreatic duct. He is being worked up by Dr. Prado at this time. Presently, he had a little fall, not hitting his head, arms, legs but might have hit his chest, it s a little bit unclear. PAST MEDICAL HISTORY: Remarkable for multiple colonoscopies and polypectomy, hemorrhoids, diverticulosis and epidural. FAMILY HISTORY: Relatively unremarkable. SOCIAL HISTORY: He was an alcoholic but quit 40 years ago, was a smoker over 40 years ago. ALLERGIES: NONE. PHYSICAL EXAMINATION: VITAL SIGNS: Vital signs are normal. O2 saturation on room air is 96, 151 pounds. Pulse ox 100%. HEENT: Negative. CHEST: Clear. HEART: Without murmur. ABDOMEN: Soft, nontender. EXTREMITIES: No clubbing, cyanosis or edema. RECTAL: Deferred. LABORATORY DATA: White count is 9, hemoglobin 13.8. PT normal. SMA-18 Shows a BUN of 27 and a glucose of 158. There is an x-ray that showed minimal x-ray on the left side that is recorded by 10%, by . IMPRESSION: Spontaneous pneumothorax. I am not inclined to put a chest tube in because I can barely see on the CAT scan. Repeat the x-ray in the morning, if it is improved would discharge. At the moment, he has no chest pain or shortness of breath. Evin Warren MD
--- NOTE | 2017-09-10 00:03 | HP ---
HISTORY OF PRESENT ILLNESS: Mr. Bentley is 82 meters old male recently discharged from the hospital, and he was found to have pancreatic head mass. He presented to the ED with lower left back discomfort secondary to fall prior to arrival to the hospital. He slipped and fell, it was a mechanical fall. Chest x-ray showed left-sided pneumothorax. Denies any shortness of breath. No chest pain. No nausea, no vomiting. He has history of 20-pound weight loss in past 1 month. Pancreatic head mass was biopsied and pathology is inconclusive. There is high suspicion for pancreatic carcinoma. 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 PAST MEDICAL HISTORY: Pancreatic head mass, spinal stenosis, GERD. PAST SURGICAL HISTORY: Epidural injection, polypectomy, hemorrhoidectomy, multiple colonoscopies. FAMILY HISTORY: Noncontributory. No positive family history in mother and father. ALLERGIES: NO KNOWN DRUG ALLERGIES. PERSONAL HISTORY: Nonsmoker. No history of alcohol abuse. REVIEW OF SYSTEMS: As per HPI. Rest of 12-point review of systems reviewed negative. HOME MEDICATIONS: Omeprazole 40 mg daily. PHYSICAL EXAMINATION: GENERAL: Comfortable in bed, in no acute distress. VITAL SIGNS: Temperature 98.4, heart rate is 96 per minute, respiratory 20 per minute, blood pressure 100/56, pulse ox is 98% room air. HEENT: Pallor positive. NECK: No lymphadenopathy. CHEST: Air entry present and equal bilaterally. No added sounds. CARDIOVASCULAR: S1, S2 normal. No murmur. No gallop. ABDOMEN: Soft, nontender. No hepatosplenomegaly. EXTREMITIES: No edema. SECURITY TRAINER: Alert and oriented x3. No focal sensorimotor deficit. SKIN: No petechiae. No rash. Spine nontender. Chest x-ray showed small left-sided pneumothorax. LABORATORY DATA: White count 9.9, hemoglobin 13.8, hematocrit 40.9, platelet 282. Sodium 134, potassium 3.4, BUN 27, creatinine 1.3, glucose 158. ASSESSMENT/PLAN: 1. Left-sided pneumothorax. 2. 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 3. Gastroesophageal reflux disease. 4. Spinal stenosis. PLAN: He will be admitted to the hospital. Repeat CT scan of the chest ordered. CT chest reviewed small left-sided [id number] size pneumothorax. Surgery consultation Dr. Warren requested.: Tylenol 650 q. 6 hours p.r.n. for pain. Senna and Colace, Protonix 40 mg daily. We will continue to monitor for shortness of breath. If stable, we will plan discharge tomorrow. Discussed with the patient and . Paty Berrios MD
[2017-09-10 06:41] VITALS: O2SAT 96
[2017-09-10] MEDS ORDERED: Pantoprazole 40 mg EC Tab PO SCH (10:00)
[2017-09-10] MEDS ORDERED: POLYETHYLENE GLYCOL 3350 17 GM/Dose PACKET PO SCH (10:00)
--- NOTE | 2017-09-10 10:05 | RAD ---
HISTORY: interval changes, L pneumo COMPARISON: 09/09/2017 TECHNIQUE: Chest PA and lateral FINDINGS: LUNGS: There is improvement in the left-sided pneumothorax. The edge of the lung is 7 mm from the chest wall PLEURA: No significant pleural effusion identified. No pneumothorax apparent. CARDIOVASCULAR: Normal. OSSEOUS STRUCTURES: No significant abnormalities. VISUALIZED UPPER ABDOMEN: Normal. OTHER FINDINGS: None. IMPRESSION: Improved left-sided pneumothorax
[2017-09-10 12:36] VITALS: BP 171/93; TEMP 97.1
[2017-09-10 14:40] VITALS: PULSE 83
--- NOTE | 2017-09-10 15:26 | CP.PCM.CON ---
History of Present Illness - History of Present Illness History of Present Illness: Mr. Bentley ayo 82 y/o fabian with pancreatic head mass s/p non-diagnostic EUS guided FNA biopsy currently admitted to the hospital after a mechanical fall and subsequetnly found to have a CXR L-sided pneumothorax. There is suspicion for pancreatic carcinoma. Patient currently breathing fine on room air w/o and problems ROS: 12 ROS negative Pain: denies Review of Systems - Constitutional Constitutional: absent: As Per HPI, Anorexia, Chills, Daytime Sleepiness, Excessive Sweating, Fatigue, Fever, Frequent Falls, Headache, Increased Appetite , Lethargy, Malaise, Night Sweats, Snoring, Sleep Apnea, Weight Gain, Weight Loss, Weakness, Other - Cardiovascular Cardiovascular: As Per HPI - Respiratory Respiratory: absent: Cough, Hemoptysis, Wheezing - Gastrointestinal Gastrointestinal: As Per HPI - Genitourinary Genitourinary: As Per HPI, Hematuria - Musculoskeletal Musculoskeletal: As Per HPI Past Patient History - Infectious Disease Hx of Infectious Diseases: None - Past Social History Smoking Status: Unknown If Ever Smoked - CARDIAC Hx Pacemaker: No - NEUROLOGICAL Hx Paralysis: No - HEENT Hx HEENT Problems: Yes ([place] wears b/l hearing aids) - HEMATOLOGICAL/ONCOLOGICAL Hx Blood Transfusions: No Hx Blood Transfusion Reaction: No Other/Comment: pacrease mass - INTEGUMENTARY Other/Comment: thick hard toenails, tatoo right arm - MUSCULOSKELETAL/RHEUMATOLOGICAL Hx Musculoskeletal Disorders: Yes (SPINAL STENOSIS) - GASTROINTESTINAL Hx Gastroesophageal Reflux: Yes - PSYCHIATRIC Hx Emotional Abuse: No Hx Physical Abuse: No Hx Substance Use: No - SURGICAL HISTORY Other/Comment: epidural 04/2015, multiple colonoscopies last one on 01/18/17 with polypectomy dx hemorrhoids, diverticulosis, egd x7 - ANESTHESIA Hx Anesthesia Reactions: No Hx Malignant Hyperthermia: No Meds Allergies/Adverse Reactions: Allergies Allergy/AdvReac Type Severity Reaction Status Date / Time No Known Allergies Allergy Verified 09/08/17 12:04 Physical Exam - Head Exam Head Exam: ATRAUMATIC - Respiratory Exam Respiratory Exam: Accessory Muscle Use, Clear to Auscultation Bilateral. absent : Chest Wall Tenderness, Respiratory Distress - GI/Abdominal Exam GI & Abdominal Exam: Normal Bowel Sounds. absent: Diminished Bowel Sounds, Hypoactive Bowel Sounds, Tenderness Results - Vital Signs Recent Vital Signs: Last Vital Signs Temp 97.1 F L 09/10/17 12:00 Pulse 83 09/10/17 14:00 Resp 20 09/10/17 12:00 BP 171/93 H 09/10/17 12:00 Pulse Ox 96 09/10/17 06:00 - Labs Result Diagrams: 09/08/17 12:30 09/08/17 12:30 Assessment & Plan - Assessment and Plan (Free Text) Assessment: Height ayo 82 y/o fabian with pancreatic head mass s/p non-diagnostic FNA biopsy currently admitted to the hospital after a mechanical fall and subsequently found to have a CXR L-sided pneumothorax. There is suspcion for pancreatic carcinoma. Patient will be scheduled as an outpatient fora repeat biopsy either endoscopcially our via intervnetional radiology. Interim agree with surgical consultation and medical management for pneumothorax which while slightly increased in size -- the patient shows no clinical change. [facility]
--- NOTE | 2017-09-10 15:30 | CP.PCM.PN ---
Subjective - Date & Time of Evaluation Date of Evaluation: 09/10/17 Time of Evaluation: 14:00 - Subjective Subjective: No acute issues. Continues to have no problem breathing. On room air. ROS: 12 ROS negative Pain: denies Objective - Vital Signs/Intake and Output Vital Signs (last 24 hours): Temp Pulse Resp BP Pulse Ox 97.1 F L 83 20 171/93 H 96 09/10/17 12:00 09/10/17 14:00 09/10/17 12:00 09/10/17 12:00 09/10/17 06:00 Intake and Output: 09/10/17 09/10/17 06:59 18:59 Intake Total 240 Output Total 3 Balance 237 - Labs Labs: PT 12.7 SECONDS (9.4-12.5) H 09/08/17 12:30 INR 1.10 (0.93-1.08) H 09/08/17 12:30 APTT 31.7 Seconds (25.1-36.5) 09/08/17 12:30 - Constitutional Appears: Well - Head Exam Head Exam: ATRAUMATIC - Neck Exam Neck Exam: Full ROM - Respiratory Exam Respiratory Exam: Clear to Ausculation Bilateral. absent: Accessory Muscle Use , Chest Wall Tenderness, Wheezes, Respiratory Distress - GI/Abdominal Exam GI & Abdominal Exam: Soft, Normal Bowel Sounds. absent: Tenderness - Extremities Exam Extremities Exam: Full ROM, Normal Capillary Refill, Normal Inspection. absent : Joint Swelling, Pedal Edema Assessment and Plan - Assessment and Plan (Free Text) Assessment: Height ayo 82 y/o fabian with pancreatic head mass s/p non-diagnostic FNA biopsy currently admitted to the hospital after a mechanical fall and subsequently found to have a CXR L-sided pneumothorax. There is suspicion for pancreatic carcinoma. Patient will be scheduled as an outpatient fora repeat biopsy either endoscopically our via interventional radiology. Repeat CXR shows PTX decreasing in size and per surgical team patient will be discharged home ( no need for chest tube placement). Will follow up patient with regarding on going oncologic w/up and evaluation [facility]
--- NOTE | 2017-09-10 17:43 | CP.PCM.PN ---
Subjective - Date & Time of Evaluation Date of Evaluation: 09/10/17 Time of Evaluation: 07:00 - Subjective Subjective: GENERAL SURGERY PROGRESS NOTE FOR DR. HUANG Patient seen and examined at bedside. He denies SOB or CP. He is using the IS and ambulating. He wants to go home. Objective - Vital Signs/Intake and Output Vital Signs (last 24 hours): Temp Pulse Resp BP Pulse Ox 97.1 F L 83 20 171/93 H 96 09/10/17 12:00 09/10/17 14:00 09/10/17 12:00 09/10/17 12:00 09/10/17 06:00 Intake and Output: 09/10/17 09/10/17 06:59 18:59 Intake Total 240 Output Total 3 Balance 237 - Labs Labs: PT 12.7 SECONDS (9.4-12.5) H 09/08/17 12:30 INR 1.10 (0.93-1.08) H 09/08/17 12:30 APTT 31.7 Seconds (25.1-36.5) 09/08/17 12:30 - Constitutional Appears: Well, Non-toxic, No Acute Distress - Head Exam Head Exam: ATRAUMATIC, NORMAL INSPECTION - Respiratory Exam Respiratory Exam: NORMAL BREATHING PATTERN. absent: Respiratory Distress - Cardiovascular Exam Cardiovascular Exam: +S1, +S2 - GI/Abdominal Exam GI & Abdominal Exam: Soft. absent: Tenderness - Neurological Exam Neurological Exam: Alert, Awake - Psychiatric Exam Psychiatric exam: Normal Affect, Normal Mood Assessment and Plan - Assessment and Plan (Free Text) Assessment: 82yo M with left pneumothorax - CXR this AM showed improving left pneumothorax - Patient asymptomatic - No chest tube necessary at this time - Recommend follow up with thoracic surgery as outpatient - Discussed plan with Dr. Kelvin Salinas PGY-3
--- NOTE | 2017-09-10 19:17 | DS ---
DISCHARGE DIAGNOSES: 1. Left-sided pneumothorax. 2. Pancreatic head mass. 3. Gastritis. 4. History of spinal stenosis. HOSPITAL COURSE: The patient was admitted to the hospital after he fell. He tripped at the house and fell. He got serial chest x-rays and CAT scan of the chest. Pneumothorax has been stable for past 2 x-rays. He does not have chest pain or shortness of breath. He was followed by Surgery, Dr. Warren. He was cleared by Surgery for discharge home. PHYSICAL EXAMINATION: GENERAL: Comfortable in bed in no acute distress. VITAL SIGNS: Temperature 98.7, heart rate 80 per minute, blood pressure 120/70, respiratory rate 16 per minute. HEENT: Normal. NECK: No lymphadenopathy. CHEST: Fair entry present and equal bilateral. No added sounds. CARDIOVASCULAR: S1 and S2 normal. No murmur, no gallop. ABDOMEN: Soft, nontender. No hepatosplenomegaly. EXTREMITIES: No edema. SPINE: Nontender. SKIN: No petechiae. No rash. CONDITION ON DISCHARGE: Stable. DISPOSITION: Discharged home. FOLLOWUP: With Dr. Weinstein in one week. DIET: As tolerated. DISCHARGE MEDICATIONS: Continue home medications. Discussed with the patient. Discussed with the staff nurse. Time spent in preparing discharge and coordinating care, 50 minutes. Paty Berrios MD
--- NOTE | 2017-09-11 09:23 | CON ---
DATE: 09/09/2017 PULMONARY CONSULTATION We were asked by Dr. Escalera, music agent to evaluate and treat this 82-year-old man who was admitted to [facility] with diagnosis of chest contusion and right-sided pneumothorax. ALLERGIES: NO KNOWN ALLERGIES. ACTIVE MEDICATIONS: He is only on omeprazole at home. SOCIAL HISTORY: He is a former smoker and former alcohol user. No drugs. FAMILY HISTORY: Negative for inherited diseases. HISTORY OF PRESENT ILLNESS: The patient was admitted via Emergency Room. He was brought in by his after sustaining a fall at home. He was attempting to tie his shoes when he slipped and fell injuring his right chest. He denied shortness of breath and admitted only to mild discomfort. There was no loss of consciousness. PAST MEDICAL HISTORY: The patient denied any serious illnesses in the past. REVIEW OF SYSTEMS: Conducted by reviewing all sources. CONSTITUTIONAL: No fevers or chills. EYES, EARS, NOSE AND THROAT: Negative. RESPIRATORY: Denies shortness of breath. Denies cough. CARDIOVASCULAR: Chest pain present secondary to fall. GASTROINTESTINAL: No diarrhea. No nausea. No vomiting. The rest of the systems were reviewed and found to be negative. PHYSICAL EXAMINATION VITAL SIGNS: His temperature is 98.4, pulse is 90, respirations are 18, blood pressure 120/70 and pulse oximetry is 99% on room air. HEENT: His head is atraumatic and normocephalic. NECK: Supple with no jugular vein distention. CHEST: Symmetrical. There is mild right-sided tenderness on palpation. LUNGS: Clear on auscultation. CARDIOVASCULAR: S1 and S2. No S3, regular. GASTROINTESTINAL: Soft and nontender. No organomegaly. EXTREMITIES: No pedal edema. NEUROLOGIC: No focal deficits. SKIN: Clear with no skin rashes. No cyanosis. LABORATORY DATA: I reviewed his laboratory data. His hemoglobin is 13.8, white count is 9.9 and platelet count is 282,000. His chemistries are all normal. Evaluation of chest x-ray reveals no infiltrates, no cardiomegaly and small right-sided pneumothorax is reported by Radiology. The patient had also rib series, which were reviewed by me. The amount of air in his chest appears minimal and requires a followup chest x-ray. The followup chest x-ray will be ordered. ASSESSMENT: Status post fall, small loculated pneumothorax, but does not produce any shortness of breath or any instability. Unless the pneumothorax worsens, the patient is stable enough for discharge disposition. The discharged plans will be per Dr. Escalera. Marshall Rocha MD
--- NOTE | 2017-09-11 09:43 | PN ---
DATE: 09/10/2017 PULMONARY PROGRESS NOTE SUBJECTIVE: The patient was seen and examined at the bedside. He is still asymptomatic. He does not have shortness of breath. He does not have pleuritic chest pain. The breath sounds are slightly diminished on left side. PHYSICAL EXAMINATION: VITAL SIGNS: Other than his oxygen saturation on room air is 96%. HEENT: Head normocephalic and atraumatic. NECK: Supple with no jugular vein distention. No adenopathy. CARDIAC: S1, S2. No S3. Regular. GASTROINTESTINAL: Soft, nontender. No organomegaly. EXTREMITIES: No clubbing, cyanosis or edema. NEUROLOGIC: No focal deficits. LABORATORY DATA: WBC is 9, hemoglobin 13.8, glucose is slightly elevated to 158. X-ray reviewed. There was slight increase in the left-sided pneumothorax compared to yesterday's chest x-ray. ASSESSMENT: The patient is still asymptomatic; however, the pneumothorax has increased slightly on chest x-ray. Close followup is required with repeat chest x-ray. I also reviewed his CT chest, which reveals small to moderate pneumothorax continues to increase or does not resolve. The options are aspiration by Interventional Radiology. Second option is placement of PleurX catheter, catheter evaluation. Third, surgical chest tube by Dr. Warren. This will be discussed further after new x-ray is available. Marshall Rocha MD
== END 2017-09-10 15:06 | disposition home or self-care (01) | DRG 200 ==
LOC: ED 11:48 → ERH 13:45 → 2RSO 15:30
PROVIDERS: ADMIT Internal Medicine Nephrology; ATTEND Internal Medicine Nephrology
DX: S27.0XXA Traumatic pneumothorax, initial encounter (principal); C25.0 Malignant neoplasm of head of pancreas; K21.9 Gastro-esophageal reflux disease without esophagitis; K29.70 Gastritis, unspecified, without bleeding; M48.00 Spinal stenosis, site unspecified; S20.219A Contusion of unspecified front wall of thorax, initial encounter; W01.0XXA Fall on same level from slipping, tripping and stumbling without subsequent striking against object, initial encounter; Y92.000 Kitchen of unspecified non-institutional (private) residence as the place of occurrence of the external cause; Z87.891 Personal history of nicotine dependence

== ENCOUNTER 2017-09-15 08:55 | Day surgery (SDC) | payer MEDICARE, BC ==
[2017-09-12 11:44] VITALS: BMI 21.0
[2017-09-15 09:23] LABS: BASO # 0.05 K/mm3 (0.0-2.0); BASO % 0.5 % (0.0-3.0); EOS # 0.4 (0.0-0.7); EOS % 3.4 % (1.5-5.0); GRAN # 7.02 (1.4-6.5); GRAN % 69.1 % (50.0-68.0); HEMOGLOBIN 15.3 g/dL (14.0-18.0); LYMPH % 19.3 % (22.0-35.0); MEAN CELL VOLUME 90.4 fl (80.0-105.0); MEAN CORPUSCULAR HEMOGLOBIN 31.2 pg (25.0-35.0); MEAN CORPUSCULAR HGB CONC 34.5 g/dl (31.0-37.0); MEAN PLATELET VOLUME 9.5 fl (7.0-11.0); MONO # 0.8 (0.1-0.6); MONO % 7.7 % (1.0-6.0); RBC 4.91 10^6/uL (3.5-6.1); RED CELL DISTRIBUTION WIDTH 12.9 % (11.5-14.5); WHITE BLOOD COUNT 10.2 10^3/ul (4.5-11.0)
[2017-09-15 09:27] LABS: CALCIUM 9.9 mg/dL (8.4-10.5); GFR AFRICAN-AMERICAN > 60; GFR NON-AFRICAN AMERICAN 58; INR 1.14 (0.93-1.08); PARTIAL THROMBOPLASTIN TIME 32.9 Seconds (25.1-36.5); PROTHROMBIN TIME 13.2 SECONDS (9.4-12.5)
[2017-09-15 09:35] LABS: BLOOD UREA NITROGEN 26 mg/dL (7-21)
[2017-09-15 09:36] VITALS: RESP 18
[2017-09-15] MEDS ORDERED: Midazolam 2 MG/2 ML VIAL ONE (11:25)
[2017-09-15] MEDS ORDERED: Oxycodone/Acetaminophen 5/325 mg Tab PO PRN (12:07)
[2017-09-15] MEDS ORDERED: Sodium Chloride 0.45% 1,000 ML IV SCH (12:15)
[2017-09-15 13:04] VITALS: TEMP 98.1; O2SAT 98
--- NOTE | 2017-09-15 14:00 | RAD ---
HISTORY: r/o rt PTX post pancreatic bx COMPARISON: No prior. FINDINGS: LUNGS: No active pulmonary disease. PLEURA: No significant pleural effusion identified, no pneumothorax apparent. CARDIOVASCULAR: Normal. OSSEOUS STRUCTURES: No significant abnormalities. VISUALIZED UPPER ABDOMEN: Normal. OTHER FINDINGS: None. IMPRESSION: No evidence of pneumothorax
[2017-09-15 14:20] VITALS: BP 144/78; PULSE 72
--- NOTE | 2017-09-15 18:20 | CT ---
PROCEDURE: CT guided pancreatic biopsy. HISTORY: 3.7 cm mass in the head of the pancreas. Evaluate for malignancy PHYSICIAN(S): Cisco Leonard MD. TECHNIQUE: The relative risks and indications of the procedure were explained to the patient and consent obtained. The patient was placed prone on the CT scanner and preliminary images through the upper abdomen obtained. Conscious sedation and monitoring were provided throughout the procedure by a nurse. There is a 3.7 cm solid mass in the head of the pancreas.. A right paraspinal approach was selected and the area prepped and draped in the usual sterile fashion. 1% Xylocaine was used to anesthetize the skin and soft tissues. A 17-gauge guiding needle was advanced into the a 0.7 cm pancreatic mass lateral segment of the left lobe of the liver. Its position was confirmed with CT. Using coaxial technique, multiple core biopsies were obtained. The postprocedure images show no evidence of significant hemorrhage. IMPRESSION: 1. CT-guided pancreatic biopsy as described above.
== END 2017-09-15 15:00 | disposition home or self-care (01) ==
LOC: SDS 08:55
PROVIDERS: ATTEND Radiology Vascular & Interventional Radiology
DX: C25.0 Malignant neoplasm of head of pancreas (principal); I10 Essential (primary) hypertension; K21.9 Gastro-esophageal reflux disease without esophagitis
CPT/HCPCS: 36415; 48102; 71045; 77012; 80048; 85025; 85610; 85730; 88307; J2250; J2405; J3010; J7030

== ENCOUNTER 2017-10-20 10:03 | Observation (INO) | payer MEDICARE, BC ==
[2017-10-20] MEDS ORDERED: Sodium Chloride 0.9% 500 ML IV STA (10:15)
--- NOTE | 2017-10-20 10:19 | ED PDOC ---
Arrival/HPI - General Chief Complaint: Trauma Time Seen by Provider: 10/20/17 10:12 Historian: Patient, Spouse - History of Present Illness Narrative History of Present Illness (Text): 10/20/17 10:20 pt is a [facility] patient, was at outpatient radiation treatment facility just prior to ED arrival, pt states he felt very dizzy/lightheaded and proceeded to fall, brace his fall with his arms and knees, pt states no head injury; pt awoke this morning not feeling well, stating he felt very dizzy/lightheaded, no headache, no neck pain, no vision changes, + weakness/fatigued, no cp/sob/ palpitations, no abd pain, no n/v, no numbness/tingling, no urinary/bowel changes, no sick contact, no travel; pt states for the past month, he would occasionally get these violent spasms to his mid abd section; and it happened this morning prior to arriving at the outpt clinic facility; pt is scheduled for his 14th radiation therapy session and also receiving chemo treatment as well for his pancreatic CA. pt did not receive his radiation treatment session today PCP: Thuy Escalera/Dr Neil pt is right hand dominate 10/20/17 10:39 Time/Duration: Prior to Arrival Symptom Onset: Sudden Symptom Course: Improving Activities at Onset: Other (while walking) Context: Other (at the outpt facility of the hospital) Past Medical History - Provider Review Nursing Documentation Reviewed: Yes - Travel History Have you recently traveled outside [place] w/in the past 3 mons?: No - Past History Past History: No Previous - Infectious Disease Hx of Infectious Diseases: None - Cardiac Hx Pacemaker: No - Neurological Hx Paralysis: No - HEENT Hx HEENT Disorder: Yes ([place] wears b/l hearing aids) - Hematological/Oncological Hx Blood Transfusions: No Hx Blood Transfusion Reaction: No - Integumentary Other/Comment: thick hard toenails, tatoo right arm - Musculoskeletal/Rheumatological Hx Musculoskeletal Disorders: Yes (SPINAL STENOSIS) - Gastrointestinal Hx Gastroesophageal Reflux: Yes - Psychiatric Hx Emotional Abuse: No Hx Physical Abuse: No Hx Substance Use: No - Surgical History Other/Comment: epidural 04/2015, multiple colonoscopies last one on 01/18/17 with polypectomy dx hemorrhoids, diverticulosis, egd x7 - Anesthesia Hx Anesthesia: Yes Hx Anesthesia Reactions: No Hx Malignant Hyperthermia: No - Suicidal Assessment Feels Threatened In Home Enviroment: No Family/Social History - Physician Review Nursing Documentation Reviewed: Yes Family/Social History: No Known Family HX Smoking Status: Unknown If Ever Smoked Hx Alcohol Use: Yes ("ALCOHOLIC" QUIT 40 YRS AGO) Hx Substance Use: No Hx Substance Use Treatment: No Allergies/Home Meds Allergies/Adverse Reactions: Allergies No Known Allergies Allergy (Verified 09/08/17 12:04) Home Medications: Home Meds Medication Instructions Recorded Confirmed Omeprazole [Prilosec] 40 mg PO QAM 11/04/15 10/20/17 Alprazolam [Xanax] 0.25 mg PO BID PRN 10/20/17 10/20/17 Meclizine [Antivert] 12.5 mg PO BID 10/20/17 10/20/17 Ondansetron HCl [Zofran] 4 mg PO Q8 PRN 10/20/17 10/20/17 Progesterone, Micronized [Crinone] 3,000 units PO PC 10/20/17 10/20/17 Review of Systems - Review of Systems Constitutional: Fatigue. absent: Fevers, Night Sweats Eyes: Normal ENT: Normal Respiratory: Normal Cardiovascular: Normal Gastrointestinal: Normal Genitourinary Male: Normal Musculoskeletal: Normal Skin: Normal Neurological: Dizziness. absent: Headache, Focal Weakness Endocrine: Normal Hemo/Lymphatic: Normal Psychiatric: Normal Physical Exam Vital Signs Reviewed: Yes Vital Signs Temp Pulse Resp BP Pulse Ox 10/20/17 12:09 86 18 155/73 H 97 10/20/17 10:03 98.1 F 92 H 18 108/63 98 Temperature: Afebrile Blood Pressure: Hypotensive Pulse: Regular Respiratory Rate: Normal Appearance: Positive for: Other (thin male, alert/awake, cooperative, follows command with ease, NAD, mildly uncomfortable) Pain Distress: None Mental Status: Positive for: Alert and Oriented X 3 - Systems Exam Head: Present: Atraumatic, Normocephalic, Other (mild bi-temporal wasting) Pupils: Present: PERRL, Other (no nystagmu, no photophobia, visual field intact b/l) Extroacular Muscles: Present: EOMI Conjunctiva: Present: Icteric, Other (slight icteric) Ears: Present: Normal Mouth: Present: Other (dry oral mucosa, fair dentitions, no drooling/stridor, no exudate/lesions) Pharnyx: Present: Normal Nose (External): Present: Atraumatic Nose (Internal): Present: Normal Inspection Neck: Present: Normal Range of Motion, Trachea Midline, Other (no step off, no meningeal signs, no midline tenderness, no nuchal rigidity). No: MIDLINE TENDERNESS Respiratory/Chest: Present: Clear to Auscultation, Good Air Exchange, Other ( CTA b/l, no w/r/r, no accessory muscle use noted, no tachypenia) Cardiovascular: Present: Regular Rate and Rhythm, Murmurs (+3/6 systolic murmur) , Normal S1, S2 Abdomen: Present: Normal Bowel Sounds, Other (thin male, + mid abd tenderness, no zepeda's sign, no mcburney's point tenderness, no masses/rebound/guarding/ rigidity) Back: Present: Normal Inspection. No: Midline Tenderness Upper Extremity: Present: Normal Inspection, Normal ROM, NORMAL PULSES, Neurovascularly Intact, Capillary Refill < 2s Lower Extremity: Present: Normal Inspection, NORMAL PULSES, Normal ROM, Neurovascularly Intact, Capillary Refill < 2 s, Other (strength 5/5 grossly intact in all limbs, neurovasc intact b/l, reflex +2/2 b/l; no swelling/edema noted) Neurological: Present: GCS=15, CN II-XII Intact, Speech Normal, Other (NIH stroke scale ~ 0) Skin: Present: Warm, Other (cap refill ~ 1sec, no pallor noted, no lesions/ ulcerations, no petechiae) Psychiatric: Present: Alert, Oriented x 3 Medical Decision Making ED Course and Treatment: 10/20/17 10:16 Impression: dizziness, fall, pancreatic ca patient i have consider all the differential diagnosis regarding pt's chief medical complaints/clinical findings, including but are not limited to: dizziness, fall A/P: dizziness, fall, pancreatic ca patient - labs - iv - xray - ct - ekg - acs eval - observe - supportive care 10/20/2017 10:[address] IMPRESSION: No acute findings. Dictator: Rodrigo Alonso MD 10/20/2017 12:09 Chest X-ray IMPRESSION: No active disease. Dictator: Rodrigo Alonso MD 10/20/17 12:46 pt is feeling slight improvement pt's vital signs is improving pt/ are made aware of pt's medical results agrees with admission/obs I spoke with Dr Escalera, pt's PCP, made aware, agrees with admission/obs placement Re-evaluation Time: 11:49 Reassessment Condition: Improved - Lab Interpretations Lab Results: 10/20/17 10:15 10/20/17 10:15 Lab Results 10/20/17 12:05: Urine Color Yellow, Urine Appearance Clear, Urine pH 6.5, Ur Specific [place] 1.010, Urine Protein Negative, Urine Glucose (UA) Negative, Urine Ketones Negative, Urine Blood Negative, Urine Nitrate Negative, Urine Bilirubin Negative, Urine Urobilinogen 0.2, Ur Leukocyte Esterase Negative 10/20/17 10:15: Sodium 133, Chloride 98, Potassium 4.2, Carbon Dioxide 23, Anion Gap 16, BUN 26 H, Creatinine 1.0, Est GFR ( Amer) > 60, Est GFR ( Non-Af Amer) > 60, Random Glucose 208 H, Calcium 9.6, Phosphorus 3.2, Magnesium 2.2, Total Bilirubin 1.1, AST 23, ALT 37, Alkaline Phosphatase 55, Troponin I 0.04 D, NT-Pro-B Natriuret Pep 867 H, Total Protein 6.0, Albumin 3.4, Globulin 2.5, Albumin/Globulin Ratio 1.4, Lipase < 10 L 10/20/17 10:15: pO2 34, VBG pH 7.34, VBG pCO2 45.0, VBG HCO3 24.3, VBG Total CO2 25.7, VBG O2 Sat (Calc) 71.1 H, VBG Base Excess -1.7 L, VBG Potassium 4.2, Sodium 130.0 L, Chloride 100.0, Glucose 223 H, Lactate 2.7 H, FiO2 21.0, Venous Blood Potassium 4.2 10/20/17 10:15: PT 11.7, INR 1.02, APTT 27.9 10/20/17 10:15: WBC 5.3 D, RBC 3.46 L, Hgb 10.6 L D, Hct 31.5 L, MCV 91.0, MCH 30.6, MCHC 33.7, RDW 12.9, Plt Count 174, MPV 9.9, Gran % 92.1 H, Lymph % (Auto ) 6.6 L, Rogers % (Auto) 1.1, Eos % (Auto) 0.2 L, Baso % (Auto) 0.0, Gran # 4.89, Lymph # (Auto) 0.4 L, Rogers # (Auto) 0.1, Eos # (Auto) 0.0, Baso # (Auto) 0.00, Neutrophils % (Manual) Pending, Lymphocytes % (Manual) Pending, Monocytes % ( Manual) Pending I have reviewed the lab results: Yes Interpretation: Abnormal lab values (slightly elevated BNP/lactate) - RAD Interpretation Narrative RAD Interpretations (Text): 10/20/17 11:40 PROCEDURE: CT HEAD WITHOUT CONTRAST. HISTORY: near syncope COMPARISON: None available. TECHNIQUE: Axial computed tomography images were obtained through the head/brain without intravenous contrast. Radiation dose: Total exam DLP = 1004 mGy-cm. This CT exam was performed using one or more of the following dose reduction techniques: Automated exposure control, adjustment of the mA and/or kV according to patient size, and/or use of iterative reconstruction technique. FINDINGS: HEMORRHAGE: No intracranial hemorrhage. BRAIN: No mass effect or edema. No atrophy or chronic microvascular ischemic changes. VENTRICLES: Unremarkable. No hydrocephalus. CALVARIUM: Unremarkable. PARANASAL SINUSES: Unremarkable as visualized. No significant inflammatory changes. MASTOID AIR CELLS: Unremarkable as visualized. No inflammatory changes. OTHER FINDINGS: None. IMPRESSION: No acute finding 10/20/17 12:45 HISTORY: ??Sepsis Patient/dizziness COMPARISON: No prior. TECHNIQUE: Chest PA and lateral FINDINGS: LUNGS: No active pulmonary disease. PLEURA: No significant pleural effusion identified. No pneumothorax apparent. CARDIOVASCULAR: Normal. OSSEOUS STRUCTURES: No significant abnormalities. VISUALIZED UPPER ABDOMEN: Normal. OTHER FINDINGS: None. IMPRESSION: No active disease. Radiology Orders: 10/20/17 10:13 CHEST TWO VIEWS (PA/LAT) [RAD] Stat 10/20/17 10:19 HEAD W/O CONTRAST [CT] Stat Coding Compliance Auditor: Radiologist - EKG Interpretation EKG Interpretation (Text): 10/20/17 10:31 NSR at 75 bpm, LAD, no ectopy, RBBB, non-specific st-t changes, ABNL EKG; unchanged compare with old ekg 08/2017 Interpreted by ED Physician: Yes Type: 12 lead EKG Comparison: Similar to previous EKG - Medication Orders Current Medication Orders: Sodium Chloride (Sodium Chloride 0.9%) 1,000 mls @ 100 mls/hr IV .Q10H [facility] Last Admin: 10/20/17 11:52 Dose: 100 mls/hr eMAR Start Stop Document 10/20/17 11:52 SRE (Rec: 10/20/17 11:52 SRE [id number]) Intravenous Solution Start Date 10/20/17 Start Time 11:52 Discontinued Medications Sodium Chloride (Sodium Chloride 0.9%) 500 mls @ 999 mls/hr IV .Q31M STA Stop: 10/20/17 10:45 Last Admin: 10/20/17 10:38 Dose: 999 mls/hr eMAR Start Stop Document 10/20/17 10:38 SRE (Rec: 10/20/17 10:38 SRE [id number]) Intravenous Solution Start Date 10/20/17 Start Time 10:30 End Date 10/20/17 End time 11:00 Total Infusion Time 30 Disposition/Present on Arrival - Present on Arrival Any Indicators Present on Arrival: No History of DVT/PE: No History of Uncontrolled Diabetes: No Urinary Catheter: No History of Decub. Ulcer: No History Surgical Site Infection Following: None - Disposition Have Diagnosis and Disposition been Completed?: Yes Diagnosis: Near syncope, Dizziness, Pancreatic cancer Disposition: HOSPITALIZED Disposition Time: 12:30 Patient Plan: Admission, Observation Patient Problems: Current Active Problems Problem Status Onset Dizziness Acute Near syncope Acute Condition: STABLE Referrals: Bridgette Sanz MD [Primary Care Provider] - Follow up with primary Forms: [employer] (Kyrgyz)
[2017-10-20 10:43] LABS: VENOUS BLOOD GAS BASE EXCESS -1.7 mmol/L (0.0-2.0); VENOUS BLOOD GAS PO2 34 mm/Hg (30-55); VENOUS BLOOD PH 7.34 (7.32-7.43)
[2017-10-20 10:55] LABS: ALB/GLOB RATIO 1.4 (1.1-1.8); ALBUMIN 3.4 g/dL (3.0-4.8); ALT/SGPT 37 U/L (7-56); AST/SGOT 23 U/L (17-59); BLOOD UREA NITROGEN 26 mg/dL (7-21); CALCIUM 9.6 mg/dL (8.4-10.5); GFR AFRICAN-AMERICAN > 60; GFR NON-AFRICAN AMERICAN > 60; LIPASE < 10 U/L (23-300); MAGNESIUM 2.2 mg/dL (1.7-2.2)
[2017-10-20 10:59] LABS: INR 1.02 (0.93-1.08); PARTIAL THROMBOPLASTIN TIME 27.9 Seconds (25.1-36.5); PROTHROMBIN TIME 11.7 SECONDS (9.4-12.5)
--- NOTE | 2017-10-20 10:59 | CT ---
PROCEDURE: CT HEAD WITHOUT CONTRAST. HISTORY: near syncope COMPARISON: None available. TECHNIQUE: Axial computed tomography images were obtained through the head/brain without intravenous contrast. Radiation dose: Total exam DLP = 1004 mGy-cm. This CT exam was performed using one or more of the following dose reduction techniques: Automated exposure control, adjustment of the mA and/or kV according to patient size, and/or use of iterative reconstruction technique. FINDINGS: HEMORRHAGE: No intracranial hemorrhage. BRAIN: No mass effect or edema. No atrophy or chronic microvascular ischemic changes. VENTRICLES: Unremarkable. No hydrocephalus. CALVARIUM: Unremarkable. PARANASAL SINUSES: Unremarkable as visualized. No significant inflammatory changes. MASTOID AIR CELLS: Unremarkable as visualized. No inflammatory changes. OTHER FINDINGS: None. IMPRESSION: No acute finding
[2017-10-20 11:03] LABS: EOS % 0.2 % (1.5-5.0); GRAN # 4.89 (1.4-6.5); GRAN % 92.1 % (50.0-68.0); HEMOGLOBIN 10.6 g/dL (14.0-18.0); LYMPH # 0.4 (1.2-3.4); LYMPH % 6.6 % (22.0-35.0); MEAN CORPUSCULAR HEMOGLOBIN 30.6 pg (25.0-35.0); MEAN CORPUSCULAR HGB CONC 33.7 g/dl (31.0-37.0); MEAN PLATELET VOLUME 9.9 fl (7.0-11.0); MONO # 0.1 (0.1-0.6); MONO % 1.1 % (1.0-6.0); PLATELET COUNT 174 10^3/uL (120.0-450.0); RBC 3.46 10^6/uL (3.5-6.1); RED CELL DISTRIBUTION WIDTH 12.9 % (11.5-14.5); WHITE BLOOD COUNT 5.3 10^3/ul (4.5-11.0)
[2017-10-20 11:05] LABS: B-TYPE NATRIURETIC PEPTIDE 867 pg/mL (0-450); TROPONIN I 0.04 ng/mL
[2017-10-20] MEDS: Sodium Chloride 0.9% 1,000 ML IV SCH ×2 (11:52→22:56)
--- NOTE | 2017-10-20 12:11 | RAD ---
HISTORY: ??Sepsis Patient/dizziness COMPARISON: No prior. TECHNIQUE: Chest PA and lateral FINDINGS: LUNGS: No active pulmonary disease. PLEURA: No significant pleural effusion identified. No pneumothorax apparent. CARDIOVASCULAR: Normal. OSSEOUS STRUCTURES: No significant abnormalities. VISUALIZED UPPER ABDOMEN: Normal. OTHER FINDINGS: None. IMPRESSION: No active disease.
[2017-10-20 12:23] LABS: PH,URINE 6.5 (4.7-8.0); URINE APPEARANCE CLEAR (CLEAR); URINE BILIRUBIN NEGATIVE (NEGATIVE); URINE BLOOD NEGATIVE (NEGATIVE); URINE COLOR YELLOW (YELLOW); URINE GLUCOSE (UA) NEGATIVE (NEGATIVE); URINE LEUKOCYTE ESTERASE NEGATIVE Leu/uL (NEGATIVE); URINE NITRATE NEGATIVE (NEGATIVE); URINE PROTEIN NEGATIVE mg/dL (<30 mg/dL); URINE UROBILINOGEN 0.2 E.U./dL (<1 E.U./dL)
[2017-10-20 13:26] LABS: LYMPHOCYTE 2 % (22.0-35.0); MONOCYTE 4 % (1.0-6.0); NEUTROPHIL 94 % (50.0-70.0); PLATELET ESTIMATE NORMAL (NORMAL)
[2017-10-20 14:00] LABS: VENOUS BLOOD GAS PO2 43 mm/Hg (30-55); VENOUS BLOOD PH 7.38 (7.32-7.43)
[2017-10-20 14:09] VITALS: BMI 20.5
[2017-10-20] MEDS ORDERED: Pneumococcal 23-Valent Vaccine IM ONE (14:09)
[2017-10-20] MEDS ORDERED: Influenza Vaccine 60 mcg/0.5 mL SYR (4YR UP) IM ONE (14:09)
--- NOTE | 2017-10-20 19:03 | CON ---
DATE: 10/20/2017 NEUROLOGY CONSULTATION CHIEF COMPLAINT: Near syncope. HISTORY OF PRESENT ILLNESS: This is an 82-year-old man with past medical history of vertigo in the past, on meclizine; history of spinal stenosis, status post epidural injection in 04/2015; history of multiple colonoscopies with polypectomies, hemorrhoids, diverticulosis; questionable pancreatic CA, undergoing radiation therapy and chemotherapy. He came from an outpatient treatment facility today because the patient felt light headed prior and proceeded to fall arms and his knees. The patient had no head injury. He said when he woke up this morning, he felt generalized weakness, lightheadedness, fatigued, and was mildly dehydrated his CAT scan of the head showed no acute intracranial abnormalities. We will recommend orthostatic vital signs and also recommend him to get dehydration throughout the day. PAST MEDICAL HISTORY: As above. SOCIAL HISTORY: No illicit drug use, smoking, or EtOH abuse. ALLERGIES: NO KNOWN DRUG ALLERGIES. MEDICATIONS: Reviewed by nurse's reconciliation sheet. REVIEW OF SYSTEMS: A 14-point review of systems is negative except as per the HPI. FAMILY HISTORY: Noncontributory. PHYSICAL EXAMINATION: VITAL SIGNS: Temperature is 98.1, pule is 72, blood pressure of 108/60, respiratory rate 18, oxygen saturation 98% by room air. GENERAL: The patient is sitting up in bed, in no acute distress. HEENT: Head is atraumatic, normocephalic. PERRLA. Extraocular muscles intact. NECK: Supple. No JVD, no adenopathy noted. LUNGS: Clear to auscultation. No adventitious sounds. HEART: S1 and S2. Normal rate and rhythm. No murmurs, rubs, or gallops. ABDOMEN: Soft, nontender, nondistended. Bowel sounds are present. EXTREMITIES: No clubbing, no cyanosis. Peripheral pulses 2+ felt bilaterally. NEUROLOGIC: The patient is alert and oriented to person, place, month, and year. Speech is fluent without any errors. Cranial nerves II through XII intact. Motor exam: Moves all extremities equally. No pronator drift seen. Sensory exam: Light touch, pinprick, proprioception and vibration intact. DTRs are 1+ throughout. Coordination: Zocfsx-of-ndxv intact. Gait is deferred for now. LABORATORY DATA: Sodium is 133, potassium is 4.2, chloride of 98, carbon dioxide 23. BUN of 26, creatinine 1. Random glucose 208. ASSESSMENT AND PLAN: An 82-year-old man with history of spinal stenosis, underwent epidural; diverticulosis; hypertension; pancreatic cancer, undergoing chemotherapy and magnesium therapy; had a near syncopal event where he felt light headed and generalized weakness and proceeded to fall his arms and knees, do not have any head injury, he is mildly dehydrated as well. At this time, he had a near syncopal event causing mild vasovagal component response with a possible to hyperperfusion of the brain. At this time, recommend; 1. Adequate hydration. 2. Orthostatic vital signs. 3. Carotid Dopplers. 4. Follow with PT/OT evaluation. 5. Follow with Oncology. Thank you for this consult. Jan Richardson MD
--- NOTE | 2017-10-20 22:28 | CARD ---
APPROVED REPORT EKG Measurement Heart [id number] <Conclusion> Poor data quality, interpretation may be adversely affected Normal sinus rhythm Right bundle branch block Minimal voltage criteria for LVH, may be normal variant Abnormal ECG
[2017-10-21] MEDS ORDERED: Pantoprazole 40 mg EC Tab PO SCH (07:30)
--- NOTE | 2017-10-21 10:17 | PCM.FALL ---
Post Fall Progress Note - Post Fall Fall Date: 10/20/17 - Post Fall Exam Vital Sign: Temp Pulse Resp BP Pulse Ox 97.5 F L 81 20 126/79 99 10/21/17 07:58 10/21/17 07:58 10/21/17 07:58 10/21/17 07:58 10/21/17 07:58 Skull Exam: Negative for: Scalp wound, Scalp hematoma, Scalp depression, Ridge in skull Eye Exam: Positive for: Pupils equal, Pupils reactive Ear Exam: Negative for: Discharge, Bleeding Nose Exam: Negative for: Discharge, Bleeding Skin Exam: Negative for: Colour, Lacerations, Grazes, Bruising Mouth Exam: Negative for: Tongue bitten, Teeth dislodge Neck Exam: Negative for: Tenderness, Tingling, Weakness Spinal Exam: Negative for: Tenderness, Tingling, Weakness Chest Exam: Negative for: Difficulty breathing, Tenderness in collar bones, Tenderness in ribs Abdomen Exam: Negative for: Tenderness Pelvic Exam: Negative for: Tenderness, Hematuria Arm Exam: Negative for: Deformity, Alteration in range of movement Leg Exam: Negative for: Deformity, Alteration in range of movement
--- NOTE | 2017-10-21 12:31 | US ---
PROCEDURE: Bilateral carotid artery duplex ultrasound HISTORY: Carotid stenosis PHYSICIAN(S): Cisco Leonard MD. TECHNIQUE: Duplex sonography and color-flow Doppler were used to evaluate the carotid bifurcations and limited segments of the vertebral arteries bilaterally. FINDINGS: There is moderate to extensive smooth diffuse heterogeneous plaque noted at the carotid bifurcations bilaterally. The origins of the internal carotid arteries are somewhat obscured by shadowing plaque The peak systolic velocity in the proximal right internal carotid artery is 97cm/sec. This corresponds to a 20 to 39% proximal right ICA stenosis. Normal systolic velocities are noted in the proximal right external carotid artery. There is antegrade flow in the right vertebral artery. The peak systolic velocity in the proximal left internal carotid artery is 76 cm/sec. This corresponds to a 20 to 39% proximal left ICA stenosis. Normal systolic velocities are noted in the proximal left external carotid artery. There is antegrade flow in the left vertebral artery. IMPRESSION: 1. Bilateral 20-39% proximal ICA stenoses. 2. Antegrade flow in both vertebral arteries.
[2017-10-21] MEDS ORDERED: Sucralfate 1 gm/10 ml Oral Susp UD PO ONE (14:15)
[2017-10-21] MEDS: Sucralfate 1 gm/10 ml Oral Susp UD PO SCH ×2 (15:33→22:26)
[2017-10-21 16:27] LABS: EOS % 0.5 % (1.5-5.0); GRAN # 6.03 (1.4-6.5); GRAN % 94.6 % (50.0-68.0); HEMOGLOBIN 11.8 g/dL (14.0-18.0); LYMPH # 0.3 (1.2-3.4); LYMPH % 4.6 % (22.0-35.0); MEAN CELL VOLUME 89.5 fl (80.0-105.0); MEAN CORPUSCULAR HGB CONC 34.6 g/dl (31.0-37.0); MEAN PLATELET VOLUME 8.9 fl (7.0-11.0); MONO % 0.3 % (1.0-6.0); RBC 3.81 10^6/uL (3.5-6.1); RED CELL DISTRIBUTION WIDTH 12.9 % (11.5-14.5); WHITE BLOOD COUNT 6.4 10^3/ul (4.5-11.0)
[2017-10-21 16:33] LABS: ALB/GLOB RATIO 1.3 (1.1-1.8); ALBUMIN 3.3 g/dL (3.0-4.8); ALT/SGPT 39 U/L (7-56); AST/SGOT 23 U/L (17-59); BLOOD UREA NITROGEN 21 mg/dL (7-21); CALCIUM 9.3 mg/dL (8.4-10.5); GFR AFRICAN-AMERICAN > 60; GFR NON-AFRICAN AMERICAN > 60
--- NOTE | 2017-10-21 21:38 | HP ---
HISTORY OF PRESENT ILLNESS: Mr. Bentley is an 82-year-old male, presented to ED with history of dizziness, light headedness and tendency to fall. CAT scan of the head done in the ED was unremarkable. He has history of pancreatic cancer, currently undergoing radiation treatment. He has poor appetite, also complaining of epigastric pain. PAST MEDICAL HISTORY: Pancreatic cancer, abnormal weight loss, history of spinal stenosis, GE reflux. PAST SURGICAL HISTORY: Multiple colonoscopy, polypectomy, diverticulosis, hemorrhoids. ALLERGIES: NO KNOWN DRUG ALLERGIES. HOME MEDICATIONS: Prilosec 40 mg daily, Xanax 0.25 mg p.o. b.i.d, meclizine 12.5 mg p.o. b.i.d., Zofran p.r.n. REVIEW OF SYSTEMS: As per HPI. Rest of the 12-point review of systems reviewed and negative. PHYSICAL EXAMINATION: GENERAL: Comfortable in bed, in no acute distress. VITAL SIGNS: Temperature is 98.1, heart rate is 86 per minute, respiratory rate 18 per minute, blood pressure 155/70, pulse ox is 98% on room air. HEENT: Pallor positive. NECK: No lymphadenopathy. CHEST: Air entry present and equal bilaterally. No added sound. CARDIOVASCULAR: S1 and S2 normal. No murmur. No gallop. ABDOMEN: Soft, nontender. No hepatosplenomegaly. EXTREMITIES: No edema. CENTRAL NERVOUS SYSTEM: Alert and oriented x3. No focal sensory or motor deficit. SKIN: No petechiae. No rash. SPINE: Nontender. LABORATORY DATA: White count 5.3, hemoglobin 10.6, hematocrit 31.5, platelets 174. Sodium 133, potassium 4.2, BUN 26, creatinine 1, glucose 208. IMAGING DATA: As per HPI. ASSESSMENT AND PLAN: 1. Pancreatic cancer. 2. Dizziness. 3. Syncope. 4. Epigastric pain. PLAN: He will be admitted to the hospital. IV fluid 800 mL an hour. He has poor nutrition, poor p.o. intake. Protonix 40 mg IV b.i.d. We will add Carafate to the regimen 1 g p.o. q.i.d. Zofran 4 mg IV q.6 hours scheduled. Antivert to continue 12.5 mg p.o. b.i.d., Xanax 2.5 mg b.i.d. Blood count stable. He is not leukopenic. Hemoglobin and hematocrit stable, platelet count good. Renal function is within normal limits. UA negative. Neurology consultation, Dr. Richardson requested. Paty Berrios MD MTDD
[2017-10-22] MEDS: Sucralfate 1 gm/10 ml Oral Susp UD PO SCH ×4 (06:27→21:29)
[2017-10-22 07:23] LABS: EOS % 0.6 % (1.5-5.0); GRAN # 4.3 (1.4-6.5); GRAN % 89.6 % (50.0-68.0); HEMOGLOBIN 10.6 g/dL (14.0-18.0); LYMPH # 0.4 (1.2-3.4); LYMPH % 8.5 % (22.0-35.0); MEAN CORPUSCULAR HEMOGLOBIN 30.3 pg (25.0-35.0); MEAN CORPUSCULAR HGB CONC 33.7 g/dl (31.0-37.0); MONO # 0.1 (0.1-0.6); MONO % 1.3 % (1.0-6.0); RBC 3.5 10^6/uL (3.5-6.1); RED CELL DISTRIBUTION WIDTH 12.7 % (11.5-14.5); WHITE BLOOD COUNT 4.8 10^3/ul (4.5-11.0)
[2017-10-22 07:38] LABS: BLOOD UREA NITROGEN 21 mg/dL (7-21); GFR AFRICAN-AMERICAN > 60; GFR NON-AFRICAN AMERICAN > 60
[2017-10-22 07:59] VITALS: O2SAT 98
[2017-10-22] MEDS: Sodium Chloride 0.9% 1,000 ML IV SCH (10:21)
--- NOTE | 2017-10-22 17:37 | CP.PCM.PN ---
Subjective - Date & Time of Evaluation Date of Evaluation: 10/22/17 Time of Evaluation: 11:00 - Subjective Subjective: 10/22/2014 HISTORY OF PRESENT ILLNESS: Mr. Bentley is an 82-year-old male, presented to ED with history of dizziness, light headedness and tendency to fall. CAT scan of the head done in the ED was unremarkable. He has history of pancreatic cancer, currently undergoing radiation treatment. Epigastric pain resolved. nausea resolved. No diziness today. carotid USG no stenosis. PAST MEDICAL HISTORY: Pancreatic cancer, abnormal weight loss, history of spinal stenosis, GE reflux. PAST SURGICAL HISTORY: Multiple colonoscopy, polypectomy, diverticulosis, hemorrhoids. ALLERGIES: NO KNOWN DRUG ALLERGIES. HOME MEDICATIONS: reviewed. REVIEW OF SYSTEMS: As per HPI. Rest of the 12-point review of systems reviewed and negative. PHYSICAL EXAMINATION: GENERAL: Comfortable in bed, in no acute distress. VITAL SIGNS: reviewed HEENT: Pallor positive. NECK: No lymphadenopathy. CHEST: Air entry present and equal bilaterally. No added sound. CARDIOVASCULAR: S1 and S2 normal. No murmur. No gallop. ABDOMEN: Soft, nontender. No hepatosplenomegaly. EXTREMITIES: No edema. CENTRAL NERVOUS SYSTEM: Alert and oriented x3. No focal sensory or motor deficit. SKIN: No petechiae. No rash. SPINE: Nontender. LABORATORY DATA: reviewed. IMAGING DATA: As per HPI. ASSESSMENT AND PLAN: 1. Pancreatic cancer. 2. Dizziness. 3. Syncope. 4. Epigastric pain likely radiation induced. 5. Nausea PLAN: Continue IVF 100 NS Protonix 40 mg IV b.i.d. Carafate 1 g p.o. q.i.d. Zofran 4 mg IV q.6 hours scheduled. Epigastric pain and nausea resolved. Antivert to continue 12.5 mg p.o. b.i.d., Xanax 2.5 mg b.i.d. Blood count stable. He is not leukopenic. Hemoglobin and hematocrit stable, platelet count good. Renal function is within normal limits. UA negative. Neurology consultation, Dr. Richardson appreciated. CT head unremarkable. Carotid , vertebral doppler no stenosis. Hold radiation for few days. He is stating that he shakes right before radiation. Likely he has anxiety. Xanax prn. Possible discharge tomorrow. Paty Berrios MD Objective - Vital Signs/Intake and Output Vital Signs (last 24 hours): Temp Pulse Resp BP Pulse Ox 98.3 F 78 20 127/68 98 10/22/17 16:00 10/22/17 16:00 10/22/17 16:00 10/22/17 16:00 10/22/17 16:00 Intake and Output: 10/22/17 10/22/17 06:59 18:59 Intake Total 120 480 Output Total 525 500 Balance -405 -20 - Medications Medications: Current Medications Alprazolam (Xanax) 0.25 mg PO BID PRN; Protocol PRN Reason: Anxiety Stop: 10/27/17 15:59 Sodium Chloride (Sodium Chloride 0.9%) 1,000 mls @ 100 mls/hr IV .Q10H [facility] Last Admin: 10/22/17 10:21 Dose: 100 mls/hr Meclizine HCl (Antivert) 12.5 mg PO BID PRN PRN Reason: Dizziness Ondansetron HCl (Zofran Inj) 4 mg IVP Q6H [facility] Last Admin: 10/22/17 10:27 Dose: 4 mg Oxybutynin Chloride (Ditropan Tab) 5 mg PO DAILY [facility] Last Admin: 10/22/17 10:20 Dose: 5 mg Pantoprazole Sodium (Protonix Inj) 40 mg IVP Q12 [facility] Last Admin: 10/22/17 10:21 Dose: 40 mg Sucralfate (Carafate Oral Susp) 1 gm PO 0630,1130,1630,2200 [facility] Last Admin: 10/22/17 12:30 Dose: 1 gm - Labs Labs: 10/22/17 07:00 10/22/17 07:00 PT 11.7 SECONDS (9.4-12.5) 10/20/17 10:15 INR 1.02 (0.93-1.08) 10/20/17 10:15 APTT 27.9 Seconds (25.1-36.5) 10/20/17 10:15
[2017-10-23] MEDS: Sucralfate 1 gm/10 ml Oral Susp UD PO SCH ×2 (05:51→13:44)
[2017-10-23 08:27] VITALS: BP 137/78; RESP 18; TEMP 98.2
--- NOTE | 2017-10-23 09:41 | PN ---
DATE: 10/23/2017 SUBJECTIVE: The patient has no complaints of any chest pain, no shortness of breath, no headaches or dizziness. He says that he has a difficult time in tasting. PHYSICAL EXAMINATION VITAL SIGNS: Temperature is 98.2, pulse of 89, blood pressure is 137/78, respirations 18. O2 saturation 98%. GENERAL: The patient is lying in bed, flat, comfortable. HEENT: No oral lesion. Anicteric sclerae. Moist mucosa. NECK: No JVD, adenopathy, or thyromegaly. CARDIOVASCULAR: S1 and S2, regular. No murmurs, rubs, or gallops. LUNGS: Clear to auscultation bilaterally. No wheeze, rales, or rhonchi. ABDOMEN: Bowel sounds are positive, soft, nontender and nondistended. EXTREMITIES: No cyanosis, clubbing or edema. ASSESSMENT: 1. Pancreatic cancer. 2. Dizziness. 3. Gait dysfunction. PLAN: The patient is currently comfortable. He is on meclizine for dizziness. The patient has received flu shot, pneumococcal shot. The patient is going to be on Protonix. He is on Xanax as needed. He is waiting for physical therapy. We will assess to see if he qualifies for TCU or rehab. I will discontinue the IV fluids. Augie Escalera MD
[2017-10-23 12:00] VITALS: PULSE 76
== END 2017-10-23 15:52 | disposition home or self-care (01) ==
LOC: ED 10:03 → ERH 12:43 → 3RNO 15:11
PROVIDERS: ADMIT Internal Medicine Nephrology; ATTEND Internal Medicine Nephrology
DX: E86.0 Dehydration (principal); I10 Essential (primary) hypertension; K21.9 Gastro-esophageal reflux disease without esophagitis; R10.13 Epigastric pain; Y84.2 Radiological procedure and radiotherapy as the cause of abnormal reaction of the patient, or of later complication, without mention of misadventure at the time of the procedure; C25.9 Malignant neoplasm of pancreas, unspecified; Z79.899 Other long term (current) drug therapy; R42 Dizziness and giddiness; R26.9 Unspecified abnormalities of gait and mobility
CPT/HCPCS: 36415; 70450; 71046; 80048; 80053; 81003; 82803; 83690; 83735; 83880; 84100; 84145; 84484; 85025; 85610; 85730; 87086; 93005; 93880; 99285; C9113; G0378; J2405; J7040

== ENCOUNTER 2017-10-28 14:21 | Emergency (ER) | payer MEDICARE, BC ==
[2017-10-28 14:22] VITALS: BMI 20.5
[2017-10-28 14:44] VITALS: TEMP 97.7; O2SAT 100
[2017-10-28] MEDS ORDERED: Sodium Chloride 0.9% 1,000 ML IV STA (15:08)
[2017-10-28 15:27] LABS: EOS # 0.1 (0.0-0.7); EOS % 1.8 % (1.5-5.0); GRAN # 3.36 (1.4-6.5); GRAN % 87.8 % (50.0-68.0); HEMOGLOBIN 9.8 g/dL (14.0-18.0); LYMPH # 0.4 (1.2-3.4); LYMPH % 9.4 % (22.0-35.0); MEAN CELL VOLUME 91.7 fl (80.0-105.0); MEAN CORPUSCULAR HEMOGLOBIN 31.3 pg (25.0-35.0); MEAN CORPUSCULAR HGB CONC 34.1 g/dl (31.0-37.0); MEAN PLATELET VOLUME 9.3 fl (7.0-11.0); RBC 3.13 10^6/uL (3.5-6.1); RED CELL DISTRIBUTION WIDTH 13.6 % (11.5-14.5); WHITE BLOOD COUNT 3.8 10^3/ul (4.5-11.0)
[2017-10-28 15:32] LABS: ALB/GLOB RATIO 1.3 (1.1-1.8); ALBUMIN 2.8 g/dL (3.0-4.8); ALT/SGPT 44 U/L (7-56); AST/SGOT 26 U/L (17-59); BLOOD UREA NITROGEN 18 mg/dL (7-21); CALCIUM 8.5 mg/dL (8.4-10.5); GFR AFRICAN-AMERICAN > 60; GFR NON-AFRICAN AMERICAN > 60
[2017-10-28] MEDS ORDERED: Sodium Chloride 0.9% 500 ML IV STA (16:01)
[2017-10-28 17:01] VITALS: BP 154/77; PULSE 81; RESP 15
--- NOTE | 2017-10-28 17:34 | ED PDOC ---
Arrival/HPI - General Chief Complaint: GI Problem Time Seen by Provider: 10/28/17 14:42 Historian: Patient, Family - History of Present Illness Narrative History of Present Illness (Text): 10/28/17 18:17 Patient is an 82 yo male with past medical history of pancreatic cancer, receiving chemotherapy and radiation treatment for past several weeks, presents to the Emergency Department for history of decreased oral intake. Patient communicated with his oncologist and was sent for iv fluids. Patient reports that he has diminished appetite "since diagnosis in July". He states that he periodically will receive IV fluids, last received at Dr. Robertson's office yesterday. He states he typically will eat Ensure and had some pasta last night "but not that much". Denies fever. Denies choking or difficulty swallowing. Denies chest pain or shortness of breath. Denies abdominal pain. Last moved bowels yesterday, no bloody stool or melena noted. Denies lightheadedness or dizziness. Past Medical History - Past History Past History: No Previous - Infectious Disease Hx of Infectious Diseases: None - Cardiac Hx Pacemaker: No - Pulmonary Hx Respiratory Disorders: (denies left pneumothorax) - Neurological Hx Dizziness: Yes - HEENT Hx HEENT Disorder: Yes ([place] wears b/l hearing aids) - Hematological/Oncological Hx Cancer: Yes (head of pancreas dx 08/2017) Hx Chemotherapy: Yes (every monday, radiation monday thru monday) Other/Comment: pacrease mass, pt has had 14 radiation treatments, was unable to receive #15 today due to fal in radiation oncology - Integumentary Other/Comment: thick hard toenails, tatoo right arm, radiation markings to abd - Musculoskeletal/Rheumatological Hx Musculoskeletal Disorders: Yes (SPINAL STENOSIS) Hx Falls: Yes (recent frequent and today) Hx Unsteady Gait: Yes Other/Comment: epidural 04/2015 - Gastrointestinal Hx Gastrointestinal Disorders: (poor appetite weight loss) Hx Diverticulitis: Yes Hx Gastroesophageal Reflux: Yes Hx Gastrointestinal Ulcer: Yes Hx Pancreatitis: (pancreatic ca) - Psychiatric Hx Emotional Abuse: No Hx Physical Abuse: No Hx Substance Use: No - Surgical History Other/Comment: epidural 04/2015, multiple colonoscopies last one on 01/18/17 with polypectomy dx hemorrhoids, diverticulosis, egd x7, ct scan guided bx of pancreas 09/15/17 - Anesthesia Hx Anesthesia: Yes Hx Anesthesia Reactions: No Hx Malignant Hyperthermia: No - Suicidal Assessment Feels Threatened In Home Enviroment: No Family/Social History Family/Social History: Unknown Family HX Smoking Status: Former Smoker Hx Alcohol Use: No (quit 40 yrs ago) Hx Substance Use: No Hx Substance Use Treatment: No Allergies/Home Meds Allergies/Adverse Reactions: Allergies No Known Allergies Allergy (Verified 10/28/17 14:44) Home Medications: Home Meds Medication Instructions Recorded Confirmed Omeprazole [Prilosec] 40 mg PO QAM 11/04/15 10/28/17 Alprazolam [Xanax] 0.25 mg PO BID PRN 10/20/17 10/28/17 Meclizine [Antivert] 12.5 mg PO BID 10/20/17 10/28/17 Ondansetron HCl [Zofran] 4 mg PO Q8 PRN 10/20/17 10/28/17 Oxybutynin [Ditropan Tab] 5 mg PO DAILY 10/20/17 10/28/17 Review of Systems - Review of Systems Constitutional: Fatigue, Weight Change. absent: Fevers Eyes: absent: Vision Changes Respiratory: absent: SOB, Cough Cardiovascular: absent: Chest Pain, Edema Gastrointestinal: Constipation, Nausea, Appetite Changes. absent: Abdominal Pain, Diarrhea, Vomiting, Hematochezia, Hematemesis, Food Intolerance Genitourinary Male: absent: Dysuria, Frequency Musculoskeletal: absent: Back Pain Skin: absent: Rash Neurological: absent: Headache, Dizziness, Focal Weakness Endocrine: absent: Polyuria Hemo/Lymphatic: absent: Easy Bleeding Physical Exam Vital Signs Reviewed: Yes Vital Signs Temp Pulse Resp BP Pulse Ox 10/28/17 17:01 81 15 154/77 H 100 10/28/17 14:36 97.7 F 100 H 20 91/62 L 100 10/28/17 14:22 85 19 134/71 100 Temperature: Afebrile Appearance: Positive for: Non-Toxic Pain Distress: None Mental Status: Positive for: Alert and Oriented X 3 - Systems Exam Head: Present: Atraumatic Pupils: Present: PERRL Mouth: Present: Dry Pharnyx: No: ERYTHEMA, EXUDATE, Muffled/Hoarse Voice, [place] Neck: Present: Normal Range of Motion. No: Meningeal Signs Respiratory/Chest: Present: Clear to Auscultation. No: Respiratory Distress Cardiovascular: Present: Regular Rate and Rhythm, Murmurs Abdomen: No: Tenderness, Peritoneal Signs Upper Extremity: No: Edema Lower Extremity: No: Edema Neurological: Present: Motor Func Grossly Intact, Normal Sensory Function Skin: Present: Warm Psychiatric: Present: Alert, Normal Insight, Normal Concentration Medical Decision Making ED Course and Treatment: 10/28/17 18:22 Patient's history reviewed with patient and family. Case immediately discussed with Dr. Neil, who requests iv fluids 1.5 ml and discharge. As he has no other new acute symptoms, no fever, no pain, have observed and hydrated patient in Emergency department. On re-exam, no pain or discomfort. Anemia noted but at baseline with no history of active bleeding. Stressed need for follow-up with Dr. Neil, family and patient updated. - Lab Interpretations Lab Results: 10/28/17 15:10 10/28/17 15:10 Lab Results 10/28/17 15:10: Sodium 132, Potassium 3.7, Chloride 101, Carbon Dioxide 21, Anion Gap 14, BUN 18, Creatinine 0.9, Est GFR ( Amer) > 60, Est GFR (Non- Af Amer) > 60, Random Glucose 174 H, Calcium 8.5, Total Bilirubin 0.6, AST 26, ALT 44, Alkaline Phosphatase 53, Total Protein 5.1 L, Albumin 2.8 L, Globulin 2.3, Albumin/Globulin Ratio 1.3 10/28/17 15:10: WBC 3.8 L D, RBC 3.13 L, Hgb 9.8 L, Hct 28.7 L, MCV 91.7, MCH 31.3, MCHC 34.1, RDW 13.6, Plt Count 205, MPV 9.3, Gran % 87.8 H, Lymph % (Auto ) 9.4 L, [place] % (Auto) 1.0, Eos % (Auto) 1.8, Baso % (Auto) 0.0, Gran # 3.36, Lymph # (Auto) 0.4 L, [place] # (Auto) 0.0 L, Eos # (Auto) 0.1, Baso # (Auto) 0.00 - Medication Orders Current Medication Orders: Discontinued Medications Sodium Chloride (Sodium Chloride 0.9%) 1,000 mls @ 1,000 mls/hr IV .Q1H STA Stop: 10/28/17 16:07 Last Admin: 10/28/17 15:10 Dose: 1,000 mls/hr eMAR Start Stop Document 10/28/17 15:10 SRE (Rec: 10/28/17 15:40 SRE [id number]) Intravenous Solution Start Date 10/28/17 Start Time 15:10 End Date 10/28/17 End time 16:10 Total Infusion Time 60 Sodium Chloride (Sodium Chloride 0.9%) 500 mls @ 1,000 mls/hr IV .Q30M STA Stop: 10/28/17 16:30 Last Admin: 10/28/17 16:42 Dose: 1,000 mls/hr eMAR Start Stop Document 10/28/17 16:42 SRE (Rec: 10/28/17 16:42 SRE [id number]) Intravenous Solution Start Date 10/28/17 Start Time 16:42 End Date 10/28/17 End time 17:15 Total Infusion Time 33 Ondansetron HCl (Zofran Inj) 4 mg IVP ONCE ONE Stop: 10/28/17 15:16 Last Admin: 10/28/17 15:40 Dose: 4 mg IVP Administration Document 10/28/17 15:40 SRE (Rec: 10/28/17 15:40 SRE [id number]) Charges for Administration # of IVP Administrations 1 Disposition/Present on Arrival - Present on Arrival Any Indicators Present on Arrival: No History of DVT/PE: No History of Uncontrolled Diabetes: No Urinary Catheter: No History of Decub. Ulcer: No History Surgical Site Infection Following: None - Disposition Have Diagnosis and Disposition been Completed?: Yes Diagnosis: Dehydration Disposition: HOME/ ROUTINE Disposition Time: 17:33 Patient Plan: Discharge Condition: GOOD Discharge Instructions (ExitCare): Dehydration, Adult (DC) Additional Instructions: For any fevers, chest pain, shortness of breath, abdominal pain, dizziness, lightheadedness, leg pain or swelling bloody urine or stool, new or persistent symptoms, get rechecked. Follow-up with Dr. Neil as directed. Referrals: Marta Neil MD [Staff Provider] - Follow up with primary Forms: [facility] (Turkmen)
--- NOTE | 2017-10-29 11:53 | CARD ---
APPROVED REPORT EKG Measurement Heart [id number] <Conclusion> Normal sinus rhythm Right bundle branch block Abnormal ECG
== END 2017-10-28 17:59 | disposition home or self-care (01) ==
LOC: ED 14:21
DX: E86.0 Dehydration (principal); Z87.891 Personal history of nicotine dependence; Z85.07 Personal history of malignant neoplasm of pancreas
CPT/HCPCS: 80053; 85025; 93005; 96361; 96374; 99283; J2405; J7040

== ENCOUNTER 2017-11-05 16:13 | Inpatient (IN) | payer MEDICARE, BC ==
[2017-11-05] MEDS ORDERED: Sodium Chloride 0.9% 500 ML IV ONE (16:37)
--- NOTE | 2017-11-05 16:57 | ED PDOC ---
Arrival/HPI - General Chief Complaint: Weakness/Neurological Deficit Time Seen by Provider: 11/05/17 16:20 Historian: Patient - History of Present Illness Narrative History of Present Illness (Text): 11/05/17 16:59 82 year old male, whose history includes pancreatic cancer being treated with radiation and chemotherapy but not surgery, presents to the Emergency department complaining of weakness, fatigue, nausea, and decreased PO intake for a couple of days. Patient denies any fever, chills, chest pain, shortness of breath, vomiting, diarrhea, urinary symptoms, back pain, neck pain, headache , dizziness, or any other complaints. Patient is DNR. Time/Duration: < week Symptom Onset: Gradual Symptom Course: Unchanged Context: Home Associated Symptoms (Text): 11/05/17 17:23 Patient presents from home accompanied by his and daughter. History of pancreatic cancer being treated with radiation therapy and chemotherapy only. He does have a living will and is a DNR. There is generalized weakness and fatigue along with nausea and diarrhea and poor by mouth intake. Falling with no injuries. Past Medical History - Provider Review Nursing Documentation Reviewed: Yes - Past History Past History: No Previous - Infectious Disease Hx of Infectious Diseases: None - Cardiac Hx Pacemaker: No - Pulmonary Hx Respiratory Disorders: (denies left pneumothorax) - Neurological Hx Dizziness: Yes - HEENT Hx HEENT Disorder: Yes ([place] wears b/l hearing aids) - Hematological/Oncological Hx Cancer: Yes (head of pancreas dx 08/2017) Hx Chemotherapy: Yes (every monday, radiation monday thru monday) Other/Comment: Last radiatiion Tx was 10/30/17. Per family the patient has 5 more treatments to go. - Integumentary Other/Comment: thick hard toenails, tatoo right arm, radiation markings to abd - Musculoskeletal/Rheumatological Hx Musculoskeletal Disorders: Yes (SPINAL STENOSIS) Hx Falls: Yes (recent frequent and today) Hx Unsteady Gait: Yes Other/Comment: epidural 04/2015 - Gastrointestinal Hx Gastrointestinal Disorders: (poor appetite weight loss) Hx Diverticulitis: Yes Hx Gastroesophageal Reflux: Yes Hx Gastrointestinal Ulcer: Yes Hx Pancreatitis: (pancreatic ca) - Genitourinary/Gynecological Hx Genitourinary Disorders: No - Psychiatric Hx Psychophysiologic Disorder: No Hx Substance Use: No - Surgical History Other/Comment: epidural 04/2015, multiple colonoscopies last one on 01/18/17 with polypectomy dx hemorrhoids, diverticulosis, egd x7, ct scan guided bx of pancreas 09/15/17 - Anesthesia Hx Anesthesia: Yes Hx Anesthesia Reactions: No Hx Malignant Hyperthermia: No - Suicidal Assessment Feels Threatened In Home Enviroment: No Family/Social History - Physician Review Nursing Documentation Reviewed: Yes Family/Social History: Unknown Family HX Smoking Status: Former Smoker Hx Alcohol Use: No (quit 40 yrs ago) Hx Substance Use: No Hx Substance Use Treatment: No Allergies/Home Meds Allergies/Adverse Reactions: Allergies No Known Allergies Allergy (Verified 11/05/17 16:31) Home Medications: Home Meds Medication Instructions Recorded Confirmed Omeprazole [Prilosec] 40 mg PO QAM 11/04/15 10/28/17 Alprazolam [Xanax] 0.25 mg PO BID PRN 10/20/17 10/28/17 Meclizine [Antivert] 12.5 mg PO BID 10/20/17 10/28/17 Ondansetron HCl [Zofran] 4 mg PO Q8 PRN 10/20/17 10/28/17 Oxybutynin [Ditropan Tab] 5 mg PO DAILY 10/20/17 10/28/17 Review of Systems - Physician Review All systems were reviewed & negative as marked: Yes - Review of Systems Constitutional: Fatigue. absent: Fevers, Night Sweats Respiratory: absent: SOB, Cough Cardiovascular: absent: Chest Pain, Palpitations, Syncope Gastrointestinal: Diarrhea, Nausea. absent: Abdominal Pain, Constipation, Vomiting Genitourinary Male: absent: Dysuria Musculoskeletal: absent: Back Pain, Neck Pain Neurological: Other (generalized weakness). absent: Headache, Dizziness Physical Exam Vital Signs Reviewed: Yes Vital Signs Temp Pulse Resp BP Pulse Ox 11/05/17 17:58 79 18 120/53 L 97 11/05/17 16:48 99.2 F 11/05/17 16:39 97.8 F 87 18 101/67 98 Temperature: Afebrile Blood Pressure: Normal Pulse: Regular Respiratory Rate: Normal Appearance: Positive for: Ill-Appearing (chronic) Pain Distress: None Mental Status: Positive for: Alert and Oriented X 3 - Systems Exam Head: Present: Atraumatic, Normocephalic Pupils: Present: PERRL Extroacular Muscles: Present: EOMI Conjunctiva: Present: Normal Mouth: Present: Dry. No: Moist Mucous Membranes Pharnyx: No: ERYTHEMA, EXUDATE, TONSILS ENLARGED Neck: Present: Normal Range of Motion Respiratory/Chest: Present: Clear to Auscultation, Good Air Exchange, Decreased Breath Sounds. No: Respiratory Distress, Accessory Muscle Use Cardiovascular: Present: Regular Rate and Rhythm, Normal S1, S2. No: Murmurs Abdomen: Present: Normal Bowel Sounds. No: Tenderness, Distention, Peritoneal Signs, Rebound, Guarding Back: Present: Normal Inspection Upper Extremity: Present: Normal Inspection. No: Cyanosis, Edema Lower Extremity: Present: Normal Inspection. No: Edema Neurological: Present: GCS=15, CN II-XII Intact, Speech Normal, Motor Func Grossly Intact Skin: Present: Warm, Dry, Normal Color. No: Rashes Psychiatric: Present: Alert, Oriented x 3, Normal Insight, Normal Concentration Medical Decision Making ED Course and Treatment: 11/05/17 16:43 Impression: 82 year old male presents to the Emergency department complaining of weakness, fatigue, nausea, and decreased PO intake. Plan: -- Chest xray -- EKG -- Zofran, Sodium Chloride IV fluids -- Labs -- Reassess and disposition Prior Visits: Notes and results from previous visits were reviewed. Patient was last seen in the emergency department on 10/28/17, was diagnosed with dehydration, and was discharged home. Progress Notes: 11/05/17 16:45 Discussed case in detail with Dr. Marty Orona here in the emergency department and who will admit the patient to his service. 11/05/17 17:24 EKG shows normal sinus rhythm rate approximately 90 with a right bundle branch block and Q waves inferiorly with no acute ST or T-wave changes. 11/05/17 17:45 Dr. Prado here with patient now. - Lab Interpretations Lab Results: 11/05/17 17:00 11/05/17 17:00 Lab Results 11/05/17 17:00: Sodium 132, Potassium 3.6, Chloride 99, Carbon Dioxide 26, Anion Gap 11, BUN 20, Creatinine 0.9, Est GFR ( Amer) > 60, Est GFR (Non- Af Amer) > 60, Random Glucose 90, Calcium 8.4, Total Bilirubin 0.5, AST 41, ALT 39, Alkaline Phosphatase 70, Lactate Dehydrogenase 1007 H, Total Creatine Kinase 30 L, Troponin I Pending, Total Protein 5.1 L, Albumin 2.7 L, Globulin 2.3, Albumin/Globulin Ratio 1.2 11/05/17 17:00: WBC 17.3 H D, RBC 3.20 L, Hgb 10.0 L, Hct 30.5 L, MCV 95.3 D, MCH 31.3, MCHC 32.8, RDW 15.6 H, Plt Count 154, MPV 10.5, Neutrophils % (Manual ) Pending, Lymphocytes % (Manual) Pending, Monocytes % (Manual) Pending - RAD Interpretation Narrative RAD Interpretations (Text): 11/05/2017 17:49:53 Chest Xray FINDINGS: LUNGS: No active pulmonary disease. PLEURA: No significant pleural effusion identified, no pneumothorax apparent. CARDIOVASCULAR: No radiographic findings to suggest acute or significant cardiovascular disease. OSSEOUS STRUCTURES: No significant abnormalities. VISUALIZED UPPER ABDOMEN: Normal. OTHER FINDINGS: None. IMPRESSION: No active disease. No significant interval change compared to the prior examination(s). Radiology Orders: 11/05/17 16:37 CHEST PORTABLE [RAD] Stat - Medication Orders Current Medication Orders: Acetaminophen (Tylenol 325mg Tab) 650 mg PO Q6H PRN PRN Reason: Fever >100.4 F Alprazolam (Xanax) 0.25 mg PO BID PRN; Protocol PRN Reason: Anxiety Stop: 11/12/17 17:14 Sodium Chloride (Sodium Chloride 0.9%) 1,000 mls @ 70 mls/hr IV .[id number] AIMEE Last Admin: 11/05/17 18:11 Dose: 70 mls/hr eMAR Start Stop Document 11/05/17 18:11 SRE (Rec: 11/05/17 18:11 SRE [id number]) Intravenous Solution Start Date 11/05/17 Start Time 17:30 Pantoprazole Sodium (Protonix Ec Tab) 20 mg PO DAILY AIMEE Sucralfate (Carafate Oral Susp) 1 gm PO ACBD AIMEE Last Admin: 11/05/17 18:12 Dose: 1 gm Discontinued Medications Sodium Chloride (Sodium Chloride 0.9%) 500 mls @ 500 mls/hr IV ONCE ONE Stop: 11/05/17 17:36 Last Admin: 11/05/17 17:00 Dose: 500 mls/hr eMAR Start Stop Document 11/05/17 17:00 SRE (Rec: 11/05/17 17:05 SRE [id number]) Intravenous Solution Start Date 11/05/17 Start Time 17:00 End Date 11/05/17 End time 17:30 Total Infusion Time 30 Ondansetron HCl (Zofran Inj) 4 mg IVP ONCE ONE Stop: 11/05/17 16:38 Last Admin: 11/05/17 17:03 Dose: 4 mg IVP Administration Document 11/05/17 17:03 SRE (Rec: 11/05/17 17:03 SRE [id number]) Charges for Administration # of IVP Administrations 1 - Scribe Statement The provider has reviewed the documentation as recorded by the Walter Albert Provider Scribe Attestation: All medical record entries made by the Scribe were at my direction and personally dictated by me. I have reviewed the chart and agree that the record accurately reflects my personal performance of the history, physical exam, medical decision making, and the department course for this patient. I have also personally directed, reviewed, and agree with the discharge instructions and disposition. Disposition/Present on Arrival - Present on Arrival Any Indicators Present on Arrival: No History of DVT/PE: No History of Uncontrolled Diabetes: No Urinary Catheter: No History of Decub. Ulcer: No History Surgical Site Infection Following: None - Disposition Have Diagnosis and Disposition been Completed?: Yes Diagnosis: Anemia, Leukocytosis, Diarrhea, Weakness, Pancreatic cancer Disposition: HOSPITALIZED Disposition Time: 18:19 Patient Plan: Observation Condition: FAIR Discharge Instructions (ExitCare): Weakness (ED) Referrals: Marta Neil MD [Primary Care Provider] - Follow up with primary Forms: [employer] (Kyrgyz)
[2017-11-05 17:31] LABS: MEAN CELL VOLUME 95.3 fl (80.0-105.0); MEAN CORPUSCULAR HEMOGLOBIN 31.3 pg (25.0-35.0); MEAN CORPUSCULAR HGB CONC 32.8 g/dl (31.0-37.0); MEAN PLATELET VOLUME 10.5 fl (7.0-11.0); PLATELET COUNT 154 10^3/uL (120.0-450.0); RED CELL DISTRIBUTION WIDTH 15.6 % (11.5-14.5); WHITE BLOOD COUNT 17.3 10^3/ul (4.5-11.0)
--- NOTE | 2017-11-05 17:51 | RAD ---
HISTORY: Admit COMPARISON: 10/20/2012 FINDINGS: LUNGS: No active pulmonary disease. PLEURA: No significant pleural effusion identified, no pneumothorax apparent. CARDIOVASCULAR: No radiographic findings to suggest acute or significant cardiovascular disease. OSSEOUS STRUCTURES: No significant abnormalities. VISUALIZED UPPER ABDOMEN: Normal. OTHER FINDINGS: None. IMPRESSION: No active disease. No significant interval change compared to the prior examination(s).
[2017-11-05 17:55] LABS: ALB/GLOB RATIO 1.2 (1.1-1.8); ALBUMIN 2.7 g/dL (3.0-4.8); ALT/SGPT 39 U/L (7-56); AST/SGOT 41 U/L (17-59); BLOOD UREA NITROGEN 20 mg/dL (7-21); CALCIUM 8.4 mg/dL (8.4-10.5); GFR AFRICAN-AMERICAN > 60; GFR NON-AFRICAN AMERICAN > 60
[2017-11-05] MEDS: Sodium Chloride 0.9% 1,000 ML IV SCH (18:11)
[2017-11-05] MEDS: Sucralfate 1 gm/10 ml Oral Susp UD PO SCH (18:12)
[2017-11-05 19:11] LABS: NEUTROPHIL 48 % (50.0-70.0)
[2017-11-05 19:12] LABS: TROPONIN I 3.79 ng/mL
[2017-11-05 19:14] LABS: ATYPICAL LYMPHOCYTE 13 % (0.0-0.0); BAND 18 % (0-2); LYMPHOCYTE 12 % (22.0-35.0); MONOCYTE 9 % (1.0-6.0)
[2017-11-05 19:16] LABS: MICROCYTOSIS SLIGHT; OVALOCYTES SLIGHT; PLATELET ESTIMATE NORMAL (NORMAL); SPHEROCYTE 1+; STOMATOCYTE SLIGHT; TARGET CELLS SLIGHT
[2017-11-05 19:17] LABS: ACANTHROCYTES SLIGHT
[2017-11-05 22:50] VITALS: BMI 21.1
--- NOTE | 2017-11-06 05:16 | HP ---
For Dr. Neil. CHIEF COMPLAINT: Fall at home, incontinence of stool. HISTORY OF PRESENT ILLNESS: The patient is an 82-year-old male with recently diagnosed adenocarcinoma of the pancreas having radiation treatments with Dr. Rebeca House with continued problems with fall probably related to orthostatic hypotension, for which he was recently admitted. 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 He has been in Dr. Neil's office for hydration recently, with the patient at present resting in the Emergency Room department where this evaluation was done with the daughter and the patient's at the bedside. It should be noted that the patient was just discharged for hospitalization in late September when it was referred to those notes. PAST MEDICAL HISTORY: His past medical history is that for recent diagnosed pancreatic cancer with radiation; syncopal episode/hypotensive episodes, multiple; epigastric pain; left abdominal discomfort along with weight loss, not intentional; history of spinal stenosis; DJD; gastroesophageal reflux; diverticulosis with polypectomy; hemorrhoids. FAMILY HISTORY AND SOCIAL HISTORY: Nonsmoker, non-ethanolic. and daughter at bedside, otherwise noncontributory. REVIEW OF SYSTEMS: A 12-point review of systems is done, which is negative to question except for items mentioned in the history of present illness. PHYSICAL EXAMINATION: VITAL SIGNS: Temperature 99.2 rectal, pulse 87, respirations 18, blood pressure 101/67, pulse ox 98%. HEENT: Unremarkable. NECK: Supple. HEART: Regular rate. Occasional ectopic beats. LUNGS: Clear. ABDOMEN: Soft, and nontender with minimal discomfort with gentle palpation to the left mid upper abdomen. EXTREMITIES: No edema. SKIN: Warm and dry, and clear. NEUROLOGIC: Awake, alert and oriented; however, the patient appears withdrawn with questionable early dementia history. LABORATORY DATA: The patient's labs will be drawn and sent and reviewed upon return. His most recent labs from 10/28/2017 showed white blood cell count of 3.8, hemoglobin of 9.8, hematocrit of 28.7, platelet count of 205,000. Labs were done on 11/03/2017 with alkaline phosphatase of 146, uric acid of 3.3, percent iron saturation 87% after IV iron was given. Albumin 2.9, LDH of 1579. It should be noted that the patient did have a CA-19-9 value of 4980 on 10/24/2017, but a CEA at that time was 7.8. These will be repeated. The patient's pathology report from 09/15/2017 was read as 4 cm pancreatic mass, CT guided biopsy, invasive adenocarcinomas, moderately differentiated. ASSESSMENT: Multiple falls, possible orthostatic hypotension, recently diagnosed adenocarcinoma of the pancreas with radiation treatments. Failure to thrive, questionable syncope, epigastric pain secondary to pancreatic carcinoma, questionable early dementia. PLAN: The plan for this patient after conversation with Dr. Neil is to admit to the [facility] with the patient's resuscitation status to be DNR as per the patient's and family's request, with consults requested with Dr. Prado, gastrointestinal, Dr. Rodriguez, Renal, for orthostatic hypotension, Dr. Jan Richardson for recurrent falls and syncope and Dr. Rebeca House for followup of his radiation. We will continue present medical regimen with IV fluids with regular soft diet and dietary supplements with Ensure pudding, with workup as per consultants' recommendations. The prognosis for this patient is guarded. This is a complex patient with a comprehensive medically necessary and appropriate visit carried out in excess of 45 minutes [id number] time with the patient and his family with the prognosis for this patient is guarded. All patient's and family's questions were answered to their satisfaction. Marty Orona MD
[2017-11-06 07:04] LABS: HEMOGLOBIN 9.7 g/dL (14.0-18.0); MEAN CELL VOLUME 95.8 fl (80.0-105.0); MEAN CORPUSCULAR HEMOGLOBIN 31.2 pg (25.0-35.0); MEAN CORPUSCULAR HGB CONC 32.6 g/dl (31.0-37.0); MEAN PLATELET VOLUME 10.3 fl (7.0-11.0); PLATELET COUNT 139 10^3/uL (120.0-450.0); RBC 3.11 10^6/uL (3.5-6.1); RED CELL DISTRIBUTION WIDTH 16.2 % (11.5-14.5); WHITE BLOOD COUNT 16.9 10^3/ul (4.5-11.0)
[2017-11-06 07:26] LABS: ALB/GLOB RATIO 1.1 (1.1-1.8); ALBUMIN 2.4 g/dL (3.0-4.8); ALT/SGPT 35 U/L (7-56); AMYLASE < 30 U/L (35-125); AST/SGOT 29 U/L (17-59); BLOOD UREA NITROGEN 17 mg/dL (7-21); CALCIUM 8.3 mg/dL (8.4-10.5); GFR AFRICAN-AMERICAN > 60; GFR NON-AFRICAN AMERICAN > 60; LIPASE < 10 U/L (23-300)
[2017-11-06 08:58] LABS: TROPONIN I 3.58 ng/mL
[2017-11-06 09:31] LABS: ATYPICAL LYMPHOCYTE 4 % (0.0-0.0); BAND 8 % (0-2); LYMPHOCYTE 25 % (22.0-35.0); METAMYELOCYTE 5 %; MONOCYTE 11 % (1.0-6.0); NEUTROPHIL 42 % (50.0-70.0)
[2017-11-06 09:32] LABS: ANISOCYTOSIS SLIGHT; HYPOCHROMIA SLIGHT; MYELOCYTE 5 %; NUCLEATED RED BLOOD CELL 1 %; POIKILOCYTOSIS SLIGHT; POLYCHROMASIA SLIGHT; TOXIC GRANULATION 1+
--- NOTE | 2017-11-06 09:39 | CP.PCM.CON ---
History of Present Illness - History of Present Illness History of Present Illness: Mr Bentley is known to our department. He has a pancreatic cancer and has been on radiation. The last week, he was on break due to neutropenia. He was scheduled to resume today, however he was admitted over the weekend with 2-3 episodes of diarrhea. He fell in the kitchen as well. Today, he has not had any further episodes of diarrhea. He reports only poor appetite which has been a chronic issue since his cancer diagnosis. Past Patient History - Infectious Disease Hx of Infectious Diseases: None - Past Social History Smoking Status: Never Smoked - CARDIAC Hx Pacemaker: No - PULMONARY Hx Respiratory Disorders: (denies left pneumothorax) - NEUROLOGICAL Hx Dizziness: Yes - HEENT Hx HEENT Problems: Yes ([place] wears b/l hearing aids) - HEMATOLOGICAL/ONCOLOGICAL Hx Cancer: Yes (head of pancreas dx 08/2017) Hx Chemotherapy: Yes (every monday, radiation monday thru monday) Other/Comment: Last radiatiion Tx was 10/30/17. Per family the patient has 5 more treatments to go. - INTEGUMENTARY Other/Comment: thick hard toenails, tatoo right arm, radiation markings to abd - MUSCULOSKELETAL/RHEUMATOLOGICAL Hx Falls: Yes (recent frequent and today) - GASTROINTESTINAL Hx Gastrointestinal Disorders: (poor appetite weight loss) Hx Diverticulitis: Yes Hx Gastroesophageal Reflux: Yes Hx Pancreatitis: (pancreatic ca) - GENITOURINARY/GYNECOLOGICAL Hx Genitourinary Disorders: No - PSYCHIATRIC Hx Psychophysiologic Disorder: No - SURGICAL HISTORY Other/Comment: epidural 04/2015, multiple colonoscopies last one on 01/18/17 with polypectomy dx hemorrhoids, diverticulosis, egd x7, ct scan guided bx of pancreas 09/15/17 - ANESTHESIA Hx Anesthesia: Yes Hx Anesthesia Reactions: No Hx Malignant Hyperthermia: No Meds Allergies/Adverse Reactions: Allergies Allergy/AdvReac Type Severity Reaction Status Date / Time No Known Allergies Allergy Verified 11/05/17 16:31 - Medications Medications: Current Medications Acetaminophen (Tylenol 325mg Tab) 650 mg PO Q6H PRN PRN Reason: Fever >100.4 F Alprazolam (Xanax) 0.25 mg PO BID PRN; Protocol PRN Reason: Anxiety Stop: 11/12/17 17:14 Aspirin (Aspirin Chewable) 81 mg PO DAILY [facility] Sodium Chloride (Sodium Chloride 0.9%) 1,000 mls @ 70 mls/hr IV .[id number] [facility] Last Admin: 11/05/17 18:11 Dose: 70 mls/hr Pantoprazole Sodium (Protonix Ec Tab) 20 mg PO DAILY [facility] Sucralfate (Carafate Oral Susp) 1 gm PO ACBD [facility] Last Admin: 11/05/17 18:12 Dose: 1 gm Results - Vital Signs Recent Vital Signs: Last Vital Signs Temp 98.5 F 11/06/17 08:27 Pulse 65 11/06/17 08:27 Resp 18 11/06/17 08:27 BP 123/65 11/06/17 08:27 Pulse Ox 97 11/06/17 08:27 - Labs Result Diagrams: 11/06/17 06:00 11/06/17 06:00 Labs: Laboratory Results - last 24 hr 11/06/17 11/06/17 11/06/17 06:00 06:00 06:00 WBC 16.9 H RBC 3.11 L Hgb 9.7 L Hct 29.8 L MCV 95.8 MCH 31.2 MCHC 32.6 RDW 16.2 H Plt Count 139 MPV 10.3 Neutrophils % (Manual) 42 L Band Neutrophils % 8 H Lymphocytes % (Manual) 25 Atypical Lymphs % 4 H Monocytes % (Manual) 11 H Metamyelocytes % 5 Myelocytes % 5 Nucleated RBC % 1 Toxic Granulation 1+ Polychromasia Slight Hypochromasia Slight Poikilocytosis (manual Slight Anisocytosis (manual) Slight Sodium 136 Potassium 3.7 Chloride 104 Carbon Dioxide 25 Anion Gap 10 BUN 17 Creatinine 0.9 Est GFR ( Amer) > 60 Est GFR (Non-Af Amer) > 60 Random Glucose 91 Calcium 8.3 L Total Bilirubin 0.4 AST 29 ALT 35 Alkaline Phosphatase 71 Lactate Dehydrogenase Total Creatine Kinase Troponin I Total Protein 4.6 L Albumin 2.4 L Globulin 2.2 Albumin/Globulin Ratio 1.1 Amylase < 30 L Lipase < 10 L Carcinoembryonic Ag 7.8 H 11/06/17 08:10 WBC RBC Hgb Hct MCV MCH MCHC RDW Plt Count MPV Neutrophils % (Manual) Band Neutrophils % Lymphocytes % (Manual) Atypical Lymphs % Monocytes % (Manual) Metamyelocytes % Myelocytes % Nucleated RBC % Toxic Granulation Polychromasia Hypochromasia Poikilocytosis (manual Anisocytosis (manual) Sodium Potassium Chloride Carbon Dioxide Anion Gap BUN Creatinine Est GFR ( Amer) Est GFR (Non-Af Amer) Random Glucose Calcium Total Bilirubin AST ALT Alkaline Phosphatase Lactate Dehydrogenase 904 H Total Creatine Kinase 25 L Troponin I 3.58 H* Total Protein Albumin Globulin Albumin/Globulin Ratio Amylase Lipase Carcinoembryonic Ag Assessment & Plan - Assessment and Plan (Free Text) Assessment: Mr Bentley has a pancreatic cancer. He has been on break for the past week. He has been getting daily IV hydration w/ Dr Neil. Today, he appears better than yesterday when he was admitted, however he continues to struggle with hydration and decreased PO intake. We spoke to Dr Neil about resuming RT. At the moment, his chemo is on hold. We will resume his radiation for now, however will need to monitor him closely. We spoke to his daughter who is aware of his situation. A number of specialists have been consulted regarding his case as well.
[2017-11-06] MEDS: Sodium Chloride 0.9% 1,000 ML IV SCH (10:20)
[2017-11-06] MEDS: Pantoprazole 20 mg EC Tab PO SCH (10:22)
[2017-11-06] MEDS: Sucralfate 1 gm/10 ml Oral Susp UD PO SCH ×2 (10:22→17:15)
--- NOTE | 2017-11-06 12:17 | CP.PCM.PN ---
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 Patient seen and examined at bedside. No acute events reported overnight. Today, patient denies acute complaints, including chest pain, shortness of breath, nausea, emesis, diarrhea, hematochezia, melena, hemoptysis, or hematuria. No lightheadedness or dizziness at rest. Objective - Vital Signs/Intake and Output Vital Signs (last 24 hours): Temp Pulse Resp BP Pulse Ox 98.5 F 65 18 123/65 97 11/06/17 08:27 11/06/17 08:27 11/06/17 08:27 11/06/17 08:27 11/06/17 08:27 Intake and Output: 11/06/17 11/06/17 06:59 18:59 Intake Total 480 Output Total 200 600 Balance -200 -120 - Medications Medications: Current Medications Acetaminophen (Tylenol 325mg Tab) 650 mg PO Q6H PRN PRN Reason: Fever >100.4 F Alprazolam (Xanax) 0.25 mg PO BID PRN; Protocol PRN Reason: Anxiety Stop: 11/12/17 17:14 Aspirin (Aspirin Chewable) 81 mg PO DAILY [facility] Last Admin: 11/06/17 10:22 Dose: 81 mg Sodium Chloride (Sodium Chloride 0.9%) 1,000 mls @ 70 mls/hr IV .[id number] [facility] Last Admin: 11/06/17 10:20 Dose: 70 mls/hr Pantoprazole Sodium (Protonix Ec Tab) 20 mg PO DAILY [facility] Last Admin: 11/06/17 10:22 Dose: 20 mg Sucralfate (Carafate Oral Susp) 1 gm PO ACBD [facility] Last Admin: 11/06/17 10:22 Dose: 1 gm - Labs Labs: 11/06/17 06:00 11/06/17 06:00 - Constitutional Appears: Non-toxic, No Acute Distress - Head Exam Head Exam: ATRAUMATIC, NORMAL INSPECTION, NORMOCEPHALIC - Eye Exam Eye Exam: EOMI, Normal appearance. absent: Conjunctival injection, Scleral icterus Pupil Exam: absent: Irregular, Unequal - ENT Exam ENT Exam: Mucous Membranes Moist Additional comments: no petechiae noted, dentition intact - Neck Exam Neck Exam: Full ROM. absent: Lymphadenopathy, Thyromegaly - Respiratory Exam Respiratory Exam: Clear to Ausculation Bilateral, NORMAL BREATHING PATTERN. absent: Accessory Muscle Use, Decreased Breath Sounds, Rales, Rhonchi, Wheezes, Respiratory Distress - Cardiovascular Exam Cardiovascular Exam: REGULAR RHYTHM, RRR, +S1, +S2, Murmur (holosystolic murmur covering entire S1 sound, no single site of prominence on auscultation). absent : Bradycardia, Tachycardia, Irregular Rhythm, JVD, +S4 - GI/Abdominal Exam GI & Abdominal Exam: Soft, Normal Bowel Sounds. absent: Distended, Firm, Rigid , Tenderness - Extremities Exam Extremities Exam: Normal Inspection. absent: Calf Tenderness, Pedal Edema, Tenderness - Neurological Exam Neurological Exam: Alert, Awake, Oriented x3 Additional comments: following all commands appropriately - Psychiatric Exam Psychiatric exam: Normal Affect, Normal Mood - Skin Skin Exam: Dry, Intact, Normal Color, Warm Assessment and Plan - Assessment and Plan (Free Text) Assessment: This is an 82 yo M with PMH of spinal stenosis, GERD, Pancreatic adenocarcinoma of the pancreatic head (on chemo and radiation tx), and hx of gastric ulcers who presented to [facility] for weakness, lack of appetite, fatigue, and nausea for several days, followed by several episodes of diarrhea and a fall in his kitchen , possibly 2/2 syncope. Plan: Adenocarcinoma of the pancreatic head Neutropenia - resolved Possible syncopal episode with fall Elevated trop with unclear etiology Decreased PO intake vs failure to thrive -Was previously on chemo (Gemcitabine) and radiation treatments, on hold last week due to neutropenia, appears to be resolved -As per Dr. House, cleared to resume radiation therapy, but will require close monitoring -Elevated trops, downtrending (3.79, now 3.58); Cardio consulted, appreciate their recs; currently pt denies any cardiac symptoms, and appears hemodynamically stable -GI consulted, appreciate all recs -Repeated falls at home, possible syncope; in setting of decreased PO intake and diarrhea, concern for orthostatic hypotension -Neuro and Nephro consulted, appreciate all recs -Continue gentle hydration at 70cc/hr -Continue carafate for PO intolerance Patient reviewed and discussed at length with attending, Dr. Neil
[2017-11-06 17:30] LABS: TROPONIN I 2.77 ng/mL
--- NOTE | 2017-11-06 19:13 | CON ---
DATE: HISTORY OF PRESENT ILLNESS: This is an 82-year-old man admitted to the hospital yesterday through the emergency room because of weakness, fatigue, nausea, diarrhea, diminished appetite, poor oral intake, failure to thrive at home, recent falls. He has pancreatic cancer, being treated with x-ray therapy and chemotherapy, under the care of Dr. Neil. This morning, he is resting comfortably in bed without symptoms. He is on telemetry. There has been no significant arrhythmia. There is no chest pain, shortness of breath, orthopnea, PND, edema, fever, chills, sputum production, or hemoptysis. There is no vomiting, diarrhea, constipation, or melena. PAST MEDICAL HISTORY: Notable for pancreatic cancer, recently diagnosed, getting chemotherapy and radiation therapy. He is DNR status. He has had dizziness and falls at home. He has had recent [facility] admission for a fall. He had a small pneumothorax. Additional diagnoses include GERD, diverticulosis, colonic polypectomy, hemorrhoids, spinal stenosis, and degenerative joint disease. There is no history of rheumatic fever, myocardial infarction, angina, congestive heart failure, arrhythmia, stroke, TIA, diabetes, or gout. MEDICATIONS: At the time of admission include meclizine, Ditropan, omeprazole, Xanax, Zofran. He is getting chemotherapy. ALLERGIES: THERE ARE NO MEDICATION ALLERGIES REPORTED. SOCIAL HISTORY: He lives at home with his . He does not smoke. He does not drink. REVIEW OF SYSTEMS: Ten-point review of systems is otherwise unremarkable. FAMILY HISTORY: Noncontributory. PHYSICAL EXAMINATION: GENERAL: He is a well-developed male, lying in bed, on telemetry, in no acute distress. VITAL SIGNS: Notable for sinus rhythm. He is afebrile. Blood pressure 123/65, respirations 18, O2 sat 97% on room air. HEENT: Reveals no neck vein distention, thyromegaly, or carotid bruits. Mucous membranes moist. Conjunctivae pink. NECK: Supple. LUNGS: Lung cohen clear. HEART: Reveals normal first and second heart sounds without murmur, gallop, rub, or click. ABDOMEN: Soft. Bowel sounds present. No mass, organomegaly, tenderness, rebound, or guarding. EXTREMITIES: No cyanosis, clubbing, or edema. NEUROLOGIC: Awake, alert, and oriented. PSYCHIATRIC: Normal as to mood and affect. SKIN: Warm and dry. No rash or cellulitis. LABORATORY AND IMAGING: EKG demonstrates regular sinus rhythm with right bundle-branch block, left axis deviation, nonspecific ST-wave changes. No change from a previous EKG. A portable chest x-ray revealed no active disease. No change from a prior chest x-ray. White count 16,900, hemoglobin 9.7, hematocrit 29.8, platelet count 139,000. Electrolytes: BUN, creatinine, blood sugar, LFTs unremarkable. LDH is elevated. CK is 30, repeat 25. Troponin 3.79, repeat 3.58. Amylase and lipase unremarkable. IMPRESSION: Mohinder Bentley is an 82-year-old man with pancreatic cancer, undergoing x-ray therapy and chemotherapy who presents with nonspecific symptoms including weakness, fatigue, nausea, diarrhea, diminished appetite, poor oral intake, was found to have a mildly elevated troponin, but normal CK. His EKG shows chronic abnormalities, unchanged from a prior EKG. PLAN: At this time, I will get an echocardiogram to further assess LV function in the setting of possible acute or subacute myocardial infarction. I would add aspirin to his medical regimen if that is not contraindicated. I will monitor I's and O's. He is getting Protonix, IV fluids, Tylenol, Xanax, Zofran as needed. He is having a neurologic evaluation. He is having GI and Renal evaluations. He is DNR status. I would be conservative with regard to his cardiac care. I will follow along with you. I will make additional recommendations based on his clinical course. Check stool for occult blood and review the echocardiogram once it has been done. Cole Olivares MD [facility]
--- NOTE | 2017-11-06 22:29 | CARD ---
APPROVED REPORT EKG Measurement Heart [id number] <Conclusion> Sinus rhythm with premature atrial complexes Right bundle branch block Inferior infarct, age undetermined Abnormal ECG
--- NOTE | 2017-11-07 01:42 | CON ---
DATE: 11/06/2017 Patient is admitted for Dr. Neil and Dr. Marty Orona. REFERRING MD: Marty Orona MD. REASON FOR CONSULTATION: Evaluation of a patient who presents with possible orthostatic hypotension in the setting of dizziness and diarrhea in the setting of pancreatic cancer who is unknown to me. HISTORY OF PRESENT ILLNESS: Patient is a very pleasant 82-year-old white male with a history of pancreatic cancer diagnosed in 08/2017. Patient is presently receiving radiation therapy and had received chemotherapy according to the charts. Patient has had progressive weight loss about 30 pounds since Thanksgiving of this past year. Patient presented to the hospital post falling at home, post episodes of diarrhea, post episodes of increased weakness. Patient was felt to have orthostatic hypotension with a blood pressure as low as 101/67, supine. Patient is currently receiving IV fluid normal saline. He feels better. He no longer feels lightheaded or dizzy. Patient has been lying supine in bed. He has not had his orthostatic vital signs checked today as of yet. We are asked to evaluate patient to comment on his orthostatic hypotension, which is likely secondary to volume depletion secondary to diarrhea with decreased p.o. fluid intake. 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 MEDICATIONS AT HOME: Include that of Ditropan, Zofran p.r.n., Prilosec, Antivert, and Xanax. ALLERGIES: NO KNOWN ALLERGIES TO MEDICATIONS. CURRENT MEDICATIONS IN THE HOSPITAL: Include that of aspirin, Carafate, Protonix, normal saline 70 mL an hour, Tylenol p.r.n., and Xanax p.r.n. SOCIAL HISTORY: No history of cigarette smoking. No history of alcohol use. FAMILY HISTORY: Mother of complications of a blood disease, unknown to patient. Father of complications of COPD. REVIEW OF SYSTEMS: GENERAL: Patient states progressive weight loss secondary to decreased appetite. ENT: Denies any hearing or visual problems. PULMONARY No shortness of breath. No history of COPD, bronchitis, emphysema, or pneumonia. CARDIAC: No known history of coronary artery disease. GASTROINTESTINAL: History of diarrhea as noted above. No nausea, vomiting. No abdominal pain. GENITOURINARY: No history of chronic kidney disease. ENDOCRINE: No history of diabetes. MUSCULOSKELETAL: No complaints. NEUROLOGICAL: No history of CVA, TIA, seizures, or syncope. HEMATOLOGIC AND ONCOLOGIC: History of pancreatic cancer. History of anemia likely secondary to malignancy. PSYCHIATRIC: History is negative. PHYSICAL EXAMINATION: GENERAL: Patient is currently seen lying supine, comfortable in bed with no acute issues. He is no longer dizzy, lightheaded, and he does not feel orthostatic when he sits up in bed. VITAL SIGNS: Last blood pressure 123/65 that is supine in bed. Temperature 98.5, respiratory rate is 18 with an oxygen saturation of 97%. HEENT: Exam shows him to be normocephalic, atraumatic. Conjunctivae are pale. Sclerae are nonicteric. Pupils are equal, reactive to light, and accommodation. Extraocular muscles are intact. Posterior pharynx is normal. NECK: Supple. No neck vein distention. No thyromegaly. No lymphadenopathy. No bruits. CHEST: Clear to auscultation and percussion. No rales, rhonchi, or wheezing. CARDIOVASCULAR: Shows a regular rate and rhythm without murmurs, rubs, or gallops. ABDOMEN: Soft. Bowel sounds normal. No rebound, no guarding, no masses. No pain or tenderness over his mid epigastric area on palpation. BACK: No CVAT. No spinal tenderness. EXTREMITIES: Show no cyanosis, clubbing, or edema. Distal lower extremity pulses are 2+ bilaterally. NEUROLOGIC: Shows him to be alert, oriented x3 with no gross focal motor or sensory deficits noted. LABORATORY DATA AND IMAGING: Admitting chest x-ray from the emergency room shows no acute pulmonary disease. Admitting labs, white blood cell count 17.3, repeat 16.9. Hemoglobin is 9.7. Platelet count is 139,000. Chemistry showed normal electrolytes. BUN 17 with a creatinine of 0.9. Calcium 8.3 with an albumin of 2.4, corrects to normal. Liver enzymes are normal. Troponin levels are elevated at 3.79 and now 3.58. Amylase and lipase are nondetectable. CEA level is 7.8. ASSESSMENT: 1. Recurrent falls secondary to volume depletion associated with diarrhea and decreased p.o. fluid intake. In all likelihood, patient was orthostatic when he presented to the hospital. Orthostatic vital signs were not done as of yet. I agree with decision to continue patient on IV fluid replacement with normal saline. I will have orthostatic vital signs checked later today. It does not appear that patient will require anything, but volume. He will likely not require a vasoconstrictor such as ProAmatine to raise his blood pressure. 2. History of pancreatic cancer. Patient is receiving radiation therapy and by review of the old chart, he had received questionable chemotherapy. 3. Continued loss of appetite and weight loss secondary to pancreatic cancer. Albumin level is low. Encouraged to increased p.o. intake and protein intake. 4. History of anemia likely secondary to malignancy. 5. Past history of borderline hypertension. Patient was never treated for hypertension with medical therapy. 6. History of spinal stenosis, currently stable. 7. History of gastroesophageal reflux disease, currently stable. PLAN: 1. We will obtain orthostatic vital signs. Once his orthostatic hypotension has resolved clinically and by documentation with his vital signs, IV fluids may be discontinued assuming that patient could keep down oral fluid hydration. 2. Perhaps patient should receive medication on a p.r.n. basis for nausea and vomiting, monitor for any further diarrhea. Apparently, he has had none since admission. 3. Management of his pancreatic malignancy as per Dr. Neil and Radiation Oncology. 4. Evaluation of his anemia by his oncologist. Thank you for letting me partake and share in the care of your patient. Narciso Menendez MD [facility]
[2017-11-07] MEDS: Sodium Chloride 0.9% 1,000 ML IV SCH (02:44)
[2017-11-07 06:34] LABS: BASO # 0.13 K/mm3 (0.0-2.0); BASO % 0.9 % (0.0-3.0); EOS # 0.2 (0.0-0.7); GRAN # 11.36 (1.4-6.5); GRAN % 79.3 % (50.0-68.0); HEMOGLOBIN 9.5 g/dL (14.0-18.0); LYMPH # 1.3 (1.2-3.4); LYMPH % 8.9 % (22.0-35.0); MEAN CELL VOLUME 96.7 fl (80.0-105.0); MEAN CORPUSCULAR HGB CONC 32.1 g/dl (31.0-37.0); MEAN PLATELET VOLUME 10.2 fl (7.0-11.0); MONO # 1.4 (0.1-0.6); MONO % 9.9 % (1.0-6.0); PLATELET COUNT 157 10^3/uL (120.0-450.0); RBC 3.06 10^6/uL (3.5-6.1); RED CELL DISTRIBUTION WIDTH 16.6 % (11.5-14.5); WHITE BLOOD COUNT 14.3 10^3/ul (4.5-11.0)
[2017-11-07 06:53] LABS: ALB/GLOB RATIO 1.1 (1.1-1.8); ALBUMIN 2.3 g/dL (3.0-4.8); ALT/SGPT 35 U/L (7-56); AST/SGOT 27 U/L (17-59); BLOOD UREA NITROGEN 14 mg/dL (7-21); CALCIUM 8.2 mg/dL (8.4-10.5); GFR AFRICAN-AMERICAN > 60; GFR NON-AFRICAN AMERICAN > 60
--- NOTE | 2017-11-07 08:23 | CON ---
DATE: 11/06/2017 REASON FOR CONSULTATION: Weakness with history of pancreatic cancer, episodes of loose bowel movements. HISTORY OF PRESENT ILLNESS: This 82-year-old patient with adenocarcinoma of the pancreas, locally advanced. He has been receiving radiation therapy and also chemotherapy, admitted with falls, probably the patient also has episodes of loose bowel movements. GI consult was requested to evaluate this. The patient has some mild abdominal discomfort. Complaining of "gas and bloating." No history of bleeding per rectum. PAST MEDICAL HISTORY: Other past medical history is significant as above, gastroesophageal reflux disease, weight loss, degenerative joint disease, diverticulosis, colon polyp. FAMILY HISTORY: Noncontributory. SOCIAL HISTORY: Denies smoking. No alcohol. REVIEW OF SYSTEMS: Positive as above. There are other 12-point systems reviewed, negative. PHYSICAL EXAMINATION GENERAL: The patient is lying on the bed, not in acute distress. VITAL SIGNS: Temperature is 98.2, blood pressure 111/61, pulse 71, respirations 18, O2 saturation 97%. HEENT: Atraumatic, anicteric. NECK: Supple. HEART: S1 and S2 heard. LUNGS: Bilateral air entry present. ABDOMEN: Soft. There is no mass palpable. No tenderness. LABORATORY DATA: Hemoglobin 9.7, hematocrit 29.8, WBC 16.9, platelets 139. Troponin is elevated to 2.77. CA19-9 is 3630. IMPRESSION: This 82-year-old patient with pancreatic cancer, on chemoradiation therapy, admitted with following a fall. The patient does have elevated CPK levels. The patient has episodes of loose bowel movements. The differential diagnosis for the diarrhea should include Clostridium difficile colitis and steatorrhea. It could be related to malabsorption, steatorrhea, would recommend: 1. Stool for Clostridium difficile. 2. Would encourage p.o. pancreatic enzyme supplement. 3. We will continue the PPI. Continue to closely follow up his care and suggest further management based on the clinical course. Keon Prado MD [facility]
[2017-11-07] MEDS: Sucralfate 1 gm/10 ml Oral Susp UD PO SCH ×2 (08:29→18:23)
--- NOTE | 2017-11-07 08:53 | CP.PCM.PN ---
Subjective - Date & Time of Evaluation Date of Evaluation: 11/07/17 Time of Evaluation: 07:00 - Subjective Subjective: Stable on 3R. No CP or SOB. V/S noted. RSR. + orthostatsis PE: Lungs: clear Cor.: S1S2 Abd: soft Ext.: no edema Neuro.: alert I/O= 480/1375 Labs noted. Stool for OB: + Objective - Vital Signs/Intake and Output Vital Signs (last 24 hours): Temp Pulse Resp BP Pulse Ox 98.2 F 70 19 111/61 97 11/06/17 16:00 11/07/17 05:02 11/06/17 16:00 11/06/17 16:00 11/06/17 16:00 Intake and Output: 11/07/17 11/07/17 06:59 18:59 Intake Total 0 Output Total 775 Balance -775 - Medications Medications: Current Medications Acetaminophen (Tylenol 325mg Tab) 650 mg PO Q6H PRN PRN Reason: Fever >100.4 F Alprazolam (Xanax) 0.25 mg PO BID PRN; Protocol PRN Reason: Anxiety Stop: 11/12/17 17:14 Aspirin (Aspirin Chewable) 81 mg PO DAILY [facility] Last Admin: 11/06/17 10:22 Dose: 81 mg Sodium Chloride (Sodium Chloride 0.9%) 1,000 mls @ 70 mls/hr IV .[id number] [facility] Last Admin: 11/07/17 02:44 Dose: 70 mls/hr Pantoprazole Sodium (Protonix Ec Tab) 20 mg PO DAILY [facility] Last Admin: 11/06/17 10:22 Dose: 20 mg Sucralfate (Carafate Oral Susp) 1 gm PO ACBD [facility] Last Admin: 11/07/17 08:29 Dose: 1 gm - Labs Labs: 11/07/17 05:45 11/07/17 05:45 Assessment and Plan - Assessment and Plan (Free Text) Assessment: Weak/Dizzy/Falls/Diarrhea/Diminished Appetite and Poor Oral Intake at home Orthostsis Stool + OB + trops/R/O MS Pancreatic cancre/Chemoradiation underway GERD Diverticulosis Colonic Polyps Hemorrhoids Plan: As per Onc., GI and Renal IVF Check Echo ASA if OK with other physicians Monitor: I/O, H/H, labs, orthostatic V/S, etc.
[2017-11-07 09:04] LABS: BAND 6 % (0-2); EOSINOPHIL 1 % (0.0-3.0); LYMPHOCYTE 7 % (22.0-35.0); METAMYELOCYTE 4 %; MONOCYTE 14 % (1.0-6.0); MYELOCYTE 7 %; NEUTROPHIL 61 % (50.0-70.0)
--- NOTE | 2017-11-07 09:04 | CON ---
DATE: 11/06/2017 NEUROLOGY CONSULTATION CHIEF COMPLAINT: Falls and near syncope. HISTORY OF PRESENT ILLNESS: This is an 82-year-old man with past medical history of falls, stenosis, GERD, pancreatic adenocarcinoma of the pancreas head on chemoradiation therapy and history of gastric ulcer presented to [facility] with generalized weakness, lack of appetite, fatigue, nausea for several days, had several episodes of diarrhea, had a fall on the kitchen. He had recent carotid Doppler on 10/19/2017, which just showed proximal ICA stenosis with vertebral artery as well as CAT scan of head, which showed no acute intracranial abnormality. 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 He also had some neutropenia, which his radiation therapy has placed on hold. Radiation/Oncology on board as well as Oncology. PAST MEDICAL HISTORY: Fall, stenosis, GERD, pancreatic adenocarcinoma of the pancreas head, gastric ulcers. MEDICATIONS: Reviewed by nurse reconciliation sheet. ALLERGIES: NO KNOWN DRUG ALLERGIES. SOCIAL HISTORY: No illicit drug use, smoking or EtOH abuse at this time. FAMILY HISTORY: Noncontributory. REVIEW OF SYSTEMS: A 14-point review of systems negative except for the HPI. PHYSICAL EXAMINATION: VITAL SIGNS: Temperature 98.5, pulse rate 65, blood pressure 122/65, respiratory rate 18 and oxygen saturation 97% on room air. GENERAL: The patient is sitting up in bed, in no acute distress. HEENT: Atraumatic and normocephalic. PERRLA. Extraocular muscles intact. NECK: Supple. No JVD. No adenopathy noted. LUNGS: Clear to auscultation. No adventitious sounds. HEART: S1 and S2. Normal rate and rhythm. No murmur, rubs, or gallops. ABDOMEN: Soft, nontender and nondistended. Bowel sounds are present. EXTREMITIES: No clubbing. No cyanosis. Peripheral pulses 2+ bilaterally. NEUROLOGIC: The patient is alert, oriented to person and place and year. Recall after 5 minutes 0/3. Poor attention span. Slow thought process. Speech is fluent without any errors. Cranial nerves II through XII intact. Motor exam: Slight increased tone throughout, moves all extremities equally. No pronator drift seen. Sensory: Light touch, pinprick and proprioception are decreased at the calves bilaterally. Bilateral decreased vibration of the toes but proprioception is intact bilaterally. DTRs are 2+ throughout. Coordination: [id number] intact. Gait is deferred for now. No dysmetria noted. LABORATORY DATA: Sodium is 136, potassium 3.7, chloride 104, carbon dioxide 25, BUN of 17, creatinine of 0.9, random glucose of 91. ASSESSMENT AND PLAN: This is an 82-year-old man history of spinal stenosis, gastroesophageal reflux disease, pancreatic adenocarcinoma of the pancreas head on chemoradiation therapy, history gastric ulcers. He came to [facility], weakness, lack of appetite, fatigue, nausea for several days followed by several episodes of diarrhea and a fall on the kitchen likely secondary to syncope. He has positive orthostatic vital signs as well as decreased p.o. intake, which I think also make him dehydrated as well as neutropenia which can be resolved. At this time, his syncope is most likely secondary to underlying vasovagal component from orthostatic hypotension superimposed on deconditioning for underlying pancreatic cancer. RECOMMENDATIONS: At this time, recommend: 1. Adequate hydration. 2. Compression stockings to avid orthostatic hypotension. 3. Keep blood pressure above 120 to 130 systolic and diastolics 70 to 80s. 4. PT and OT likely recommend subacute rehab. Continue the Radiation/Oncology, Oncology followup for underlying cancer. Thank you for this consult.. Jan Richardson MD
[2017-11-07 09:05] LABS: ANISOCYTOSIS SLIGHT; HYPOCHROMIA SLIGHT; LARGE PLATELETS PRESENT; MICROCYTOSIS SLIGHT; OVALOCYTES SLIGHT; POIKILOCYTOSIS SLIGHT; POLYCHROMASIA 1+
[2017-11-07 09:06] LABS: TOXIC GRANULATION SLIGHT
[2017-11-07] MEDS: Pantoprazole 20 mg EC Tab PO SCH (11:24)
--- NOTE | 2017-11-07 13:55 | CP.PCM.PN ---
<Dilip Nolasco - Last Filed: 11/07/17 13:47> Subjective - Date & Time of Evaluation Date of Evaluation: 11/07/17 Time of Evaluation: 13:30 - Subjective Subjective: Heme-onc Progress Note, Dilip Nolasco DO, PGY-2 This is an 82 yo M with PMH of spinal stenosis, GERD, Pancreatic adenocarcinoma of the pancreatic head (on chemo and radiation tx), and hx of gastric ulcers who presented to [facility] for weakness, lack of appetite, fatigue, and nausea for several days, followed by several episodes of diarrhea and a fall in his kitchen (unclear if syncopized). Patient seen and examined at bedside. No acute events reported overnight. Underwent scheduled radiation therapy today. Denies acute complaints at time of exam, including chest pain, shortness of breath, emesis, hematochezia, melena , hemoptysis, hematuria, or lightheadedness/dizziness at rest. Does admit to nausea, lack of appetite, and an episode of diarrhea yesterday later in the day. Objective - Vital Signs/Intake and Output Vital Signs (last 24 hours): Temp Pulse Resp BP Pulse Ox 97.5 F L 67 20 140/90 97 11/07/17 09:20 11/07/17 09:20 11/07/17 09:20 11/07/17 09:20 11/07/17 09:20 Intake and Output: 11/07/17 11/07/17 06:59 18:59 Intake Total 0 Output Total 775 Balance -775 - Medications Medications: Current Medications Acetaminophen (Tylenol 325mg Tab) 650 mg PO Q6H PRN PRN Reason: Fever >100.4 F Alprazolam (Xanax) 0.25 mg PO BID PRN; Protocol PRN Reason: Anxiety Stop: 11/12/17 17:14 Aspirin (Aspirin Chewable) 81 mg PO DAILY [facility] Last Admin: 11/07/17 11:24 Dose: 81 mg Potassium Chloride 10 meq/ (Sodium Chloride) 1,005 mls @ 100 mls/hr IV .Q10H3M [facility] Ondansetron HCl (Zofran Tab) 4 mg PO Q8 PRN PRN Reason: Nausea/Vomiting Pantoprazole Sodium (Protonix Ec Tab) 20 mg PO DAILY [facility] Last Admin: 11/07/17 11:24 Dose: 20 mg Sucralfate (Carafate Oral Susp) 1 gm PO ACBD [facility] Last Admin: 11/07/17 08:29 Dose: 1 gm - Labs Labs: 11/07/17 05:45 11/07/17 05:45 - Additional Findings Additional findings: - Constitutional Appears: Non-toxic, No Acute Distress, Lethargic - Head Exam Head Exam: ATRAUMATIC, NORMAL INSPECTION, NORMOCEPHALIC - Eye Exam Eye Exam: EOMI, Normal appearance. absent: Conjunctival injection, Scleral icterus Pupil Exam: absent: Irregular, Unequal - ENT Exam ENT Exam: Mucous Membranes Moist, no petechiae noted, dentition intact - Neck Exam Neck Exam: Full ROM. absent: Lymphadenopathy, Thyromegaly - Respiratory Exam Respiratory Exam: Clear to Ausculation Bilateral, NORMAL BREATHING PATTERN. absent: Accessory Muscle Use, Decreased Breath Sounds, Rales, Rhonchi, Wheezes, Respiratory Distress - Cardiovascular Exam Cardiovascular Exam: REGULAR RHYTHM, RRR, +S1, +S2, Murmur (holosystolic murmur covering entire S1 sound, no single site of prominence on auscultation). absent : Bradycardia, Tachycardia, Irregular Rhythm, JVD, +S4 - GI/Abdominal Exam GI & Abdominal Exam: Soft, Hyperactive Bowel Sounds, Static abdominal discomfort but not acutely tender to palpation. absent: Distended, Firm, Rigid - Extremities Exam Extremities Exam: Normal Inspection. absent: Calf Tenderness, Pedal Edema, Tenderness - Neurological Exam Neurological Exam: Alert, Awake, Oriented x3, following all commands appropriately - Psychiatric Exam Psychiatric exam: Normal Affect, Normal Mood - Skin Skin Exam: Dry, Intact, Normal Color, Warm Assessment and Plan - Assessment and Plan (Free Text) Assessment: This is an 82 yo M with PMH of spinal stenosis, GERD, Pancreatic adenocarcinoma of the pancreatic head (on chemo and radiation tx), and hx of gastric ulcers who presented to [facility] for weakness, lack of appetite, fatigue, and nausea for several days, followed by several episodes of diarrhea and a fall in his kitchen , possibly 2/2 syncope. Plan: Adenocarcinoma of the pancreatic head Neutropenia - resolved, currently has leukocytosis Possible syncopal episode with fall Elevated trop with unclear etiology Decreased PO intake vs failure to thrive - unchanged, still has no appetite today -Was previously on chemo (Gemcitabine) and radiation treatments, on hold last week due to neutropenia, appears to be resolved -Received another round of radiation therapy this morning -Elevated trops, downtrending (3.79, 3.58, 2.77); Cardio consulted, appreciate their recs; continue daily aspirin and pending Echo -GI consulted, appreciate all recs; check stool for C. diff, recs PO mag and pacreatic enzyme supplements -Repeated falls at home, possible syncope; in setting of decreased PO intake and diarrhea, concern for orthostatic hypotension -Neuro and Nephro consulted, appreciate all recs -Continue gentle hydration at 70cc/hr -Continue carafate for PO intolerance -Orthostatic BPs positive as per Neuro, likely vasovagal syncope, continue hydration, compression stockings, maintain BP 120's-130s/70's-80's Patient reviewed and discussed at length with attending, Dr. Neil <Marta Neil - Last Filed: 11/11/17 19:21> Objective - Vital Signs/Intake and Output Vital Signs (last 24 hours): Temp Pulse Resp BP Pulse Ox 98 F 69 18 126/72 98 11/10/17 08:39 11/10/17 14:00 11/10/17 08:39 11/10/17 08:39 11/10/17 08:39 - Labs Labs: 11/10/17 05:30 11/10/17 05:30 Attending/Attestation - Attestation I have personally seen and examined this patient.: Yes I have fully participated in the care of the patient.: Yes I have reviewed all pertinent clinical information, including history, physical exam and plan: Yes
--- NOTE | 2017-11-07 16:28 | PN ---
DATE: SUBJECTIVE: The patient is currently seen lying supine on bed. At present, IV fluids are not infusing. The patient states he has had further episodes of diarrhea. Patient's orthostatic blood pressures from noontime showed a drop in blood pressure from 125/68 down to 80/49 standing. The patient will be restarted back on IV fluid hydration post returning from radiation therapy. MEDICATIONS: Medication list reviewed. The patient is currently on aspirin, Carafate, Protonix, normal saline 70 mL an hour, Tylenol p.r.n., Xanax p.r.n., and Zofran p.r.n. OBJECTIVE: INTAKE/OUTPUT: Intake 480, output 1375. VITAL SIGNS: Blood pressure lying is 125/68, sitting is 125/67, standing is 80/49. His heart rate rises from 79 to 97. HEENT: Shows him to be normocephalic, atraumatic. Conjunctivae are pale. Sclerae are nonicteric. NECK: Supple. No neck vein distention. CHEST: Clear to auscultation and percussion. No rales, rhonchi, or wheezing. CARDIOVASCULAR: Shows a regular rate and rhythm without murmurs, rubs, or gallops. ABDOMEN: Soft. Bowel sounds normal. No rebound or guarding. No masses. EXTREMITIES: Show no cyanosis, clubbing, or edema. LABORATORY DATA AND IMAGING: Labs: CBC today; white blood cell count 48.3, hemoglobin stable at 9.5, and platelet count is 157,000. Chemistry showed normal electrolytes. BUN is 14 with a creatinine of 0.8. Calcium 8.2 with an albumin of 2.3. Magnesium and phosphorus are normal. Liver enzymes are normal. Troponins continue to remain mildly elevated. His CEA level was 7.8. His CA 19-9 antigen was elevated at 3630. ASSESSMENT: 1. Orthostatic hypotension documented with blood pressures earlier today. The patient will remain on IV fluid hydration. It is problematic that the patient continues to have diarrhea which is likely a source of volume loss. The patient will be evaluated by GI for his diarrhea. Of note, his stools are positive for blood. Mainstay of therapy here is volume replacement rather than using ProAmatine. Once we are certain that he is euvolemic, we may add ProAmatine to act as a vasoconstrictor to keep his blood pressure from falling in an upright posture. 2. History of pancreatic cancer. The patient is just returned from radiation therapy. 3. Loss of appetite and weight loss secondary to pancreatic cancer. Albumin level is low. Encouraged the patient to try and increase p.o. intake. 4. History of anemia, likely secondary to malignancy. 5. Past history of borderline hypertension. The patient was never treated for blood pressure related issues and currently is borderline hypotensive. No medication indicated. 6. History of spinal stenosis, currently stable. 7. History of gastroesophageal reflux disease, currently stable. PLAN: 1. I have asked the staff to obtain his orthostatic blood pressure readings in the morning prior to breakfast on a daily basis. 2. Continue IV fluid hydration. I will increase normal saline to 100 mL an hour in light of his orthostatic hypotension. 3. Workup of his diarrhea in progress, perhaps secondary to radiation. 4. Continue radiation therapy as per Dr. Neil. 5. Encourage p.o. intake. 6. Management of his pancreatic malignancy as per Dr. Neil and Dr. Oron[place] and Radiation Oncology. Narciso Menendez MD
[2017-11-08 06:22] LABS: BASO # 0.08 K/mm3 (0.0-2.0); BASO % 0.6 % (0.0-3.0); EOS # 0.2 (0.0-0.7); EOS % 1.5 % (1.5-5.0); GRAN # 10.06 (1.4-6.5); GRAN % 76.3 % (50.0-68.0); HEMOGLOBIN 9.4 g/dL (14.0-18.0); LYMPH # 1.4 (1.2-3.4); LYMPH % 10.5 % (22.0-35.0); MEAN CELL VOLUME 95.7 fl (80.0-105.0); MEAN CORPUSCULAR HEMOGLOBIN 31.3 pg (25.0-35.0); MEAN CORPUSCULAR HGB CONC 32.8 g/dl (31.0-37.0); MEAN PLATELET VOLUME 9.9 fl (7.0-11.0); MONO # 1.5 (0.1-0.6); MONO % 11.1 % (1.0-6.0); WHITE BLOOD COUNT 13.2 10^3/ul (4.5-11.0)
[2017-11-08 07:06] LABS: ALBUMIN 2.3 g/dL (3.0-4.8); ALT/SGPT 39 U/L (7-56); AST/SGOT 24 U/L (17-59); BLOOD UREA NITROGEN 13 mg/dL (7-21); CALCIUM 8.2 mg/dL (8.4-10.5); GFR AFRICAN-AMERICAN > 60; GFR NON-AFRICAN AMERICAN > 60
--- NOTE | 2017-11-08 08:27 | PQF AMI ---
This form is a permanent part of the medical record Dr. Olivares, Patient had elevated troponins on admission. Your documentation notes r/o NJ. Please document, when determined, if NJ was present, ruled out. Clarification of your documentation is requested to better reflect the severity of illness and intensity of treatment of your patient. Indicators present [] Diagnosis of NJ without specification of time frame (within 28 days of admission of greater than 28 days prior to admission) [] Diagnosis of subsequent NJ (time frame of previous NJ within 28 days of admission or greater than 28 days of admission) [] Diagnosis of NJ w/o specified site [] EKG positive for changes (i.e.; ST elevation, non-ST elevation, Q-wave changes, etc.) [] Elevated Troponins [] Elevated Cardiac Enzymes [] Cardiac consult documentation of [] Chest pain/ACS/Unstable Angina [] Echo findings of [] Other: [] Location in the medical record that reflects the above clinical findings:[] Other Treatment Provided:[] PHYSICIAN'S RESPONSE Based on your medical judgment of the clinical indicators outlined above, are you treating this patient for a known or suspected: [ ] NSTEMI [ ] STEMI Site: [ ] [ ] ACS/Unstable Angina [ ] Angina :[ ] [ ] Other, please indicate [ ]___ If Unable to Determine, please check the box, sign and date Present On Admission (POA) Indicator: [ ] Present at the time of admission [ ] Not present at the time of admission [ ] Clinically Undetermined * If you have any questions please call:[ ] * Thank you, [ ]Delphine Urbina [facility], #[id number] care professional In responding to this query, please exercise your independent professional judgment. The fact that a question is asked does not imply that any particular answer is desired or expected. Thank you for your clarification on this documentation. BETH
[2017-11-08] MEDS: Sucralfate 1 gm/10 ml Oral Susp UD PO SCH ×2 (08:47→17:57)
[2017-11-08] MEDS: Pantoprazole 20 mg EC Tab PO SCH (10:51)
--- NOTE | 2017-11-08 16:00 | PN ---
SUBJECTIVE: The patient is currently seen supine in bed. He no longer has any diarrhea. No nausea or vomiting. He remains on IV fluid hydration. He remains, however, profoundly orthostatic. He has a 45-mm systolic drop in his blood pressure from the lying to the standing position. MEDICATIONS: Medication list reviewed. The patient is currently on aspirin, Carafate, IV fluid with potassium, Protonix, Tylenol, Xanax, and Zofran. OBJECTIVE: INTAKE/OUTPUT: Intake is 1340, output is 600. VITAL SIGNS: Supine blood pressure 142/76, sitting blood pressure 105/69, and standing blood pressure 97/57. The patient's heart rate is 70. Temperature 99.8 with a respiratory rate of 20. HEENT: Normocephalic, atraumatic. Conjunctivae are pale. Sclerae anicteric. NECK: Supple. No neck vein distention. CHEST: Clear to auscultation and percussion. No rales, rhonchi, or wheezing. CARDIOVASCULAR: Regular rate and rhythm without murmurs, rubs, or gallops. ABDOMEN: Soft. Bowel sounds normal. No rebound, guarding, or masses. EXTREMITIES: Show no cyanosis, clubbing, or edema. LABORATORY DATA: CBC today, white blood cell count is 13.2, hemoglobin 9.4, platelet count is 179,000. Chemistry showed normal electrolytes. BUN 13 with a creatinine of 0.8. Sodium 135, potassium 3.8, calcium 8.2, corrects to normal for an albumin of 2.3. Phosphorus is borderline low at 2.5. Magnesium is 2.1. ASSESSMENT: 1. Orthostatic hypotension, initially felt to be volume related. The patient has been in positive fluid balance since admission. Diarrhea has subsided. I will start the patient on ProAmatine 5 mg 3 times a day to hopefully decrease his systolic and diastolic falls in blood pressure with the upright position. 2. History of pancreatic cancer. The patient continues to get radiation therapy. 3. Loss of appetite and weight loss secondary to pancreatic cancer. Albumin level was low. Encouraged the patient to try and improve oral fluid intake and protein intake. 4. History of anemia, likely secondary to malignancy. 5. Past history of borderline hypertension. The patient was never treated for hypertension and currently he is hypotensive with orthostatic hypotension. 6. History of spinal stenosis, currently stable. 7. History of gastroesophageal reflux disease, currently stable, on protein pump inhibition therapy. PLAN: 1. Discussed with staff on 3R. I will begin the patient on ProAmatine 5 mg 3 times a day. This will hopefully allow him to assume an upright position without a significant orthostatic fall in blood pressure which leads him to recurrent falling and trauma. 2. I would continue IV fluid hydration at present time. 3. Continue radiation therapy under the guidance of Dr. Neil as per the radiation oncologist. 4. Management of his pancreatic malignancy as per Dr. Neil and Dr. [place]ron[place]. Narciso Menendez MD
--- NOTE | 2017-11-08 17:52 | CP.PCM.PN ---
<Mehdi Ruano - Last Filed: 11/08/17 17:43> Subjective - Date & Time of Evaluation Date of Evaluation: 11/08/17 Time of Evaluation: 11:30 - Subjective Subjective: GI Progress Note Dr Prado Pt was seen and examined at bedside. pt is tolerating po intake and denied any abdominal pain at this time. no acute or adverse events overnight as per nursing staff. pt denied fever, chills, sob, chest pains, abdominal pains, nausea, vomiting, diarrhea or constipation. Objective - Vital Signs/Intake and Output Vital Signs (last 24 hours): Temp Pulse Resp BP Pulse Ox 99.8 F H 37 L 20 142/76 97 11/08/17 06:00 11/08/17 10:00 11/08/17 06:00 11/08/17 06:00 11/08/17 06:00 Intake and Output: 11/08/17 11/08/17 06:59 18:59 Intake Total 1340 Output Total 600 Balance 740 - Medications Medications: Current Medications Acetaminophen (Tylenol 325mg Tab) 650 mg PO Q6H PRN PRN Reason: Fever >100.4 F Alprazolam (Xanax) 0.25 mg PO BID PRN; Protocol PRN Reason: Anxiety Stop: 11/12/17 17:14 Aspirin (Aspirin Chewable) 81 mg PO DAILY [facility] Last Admin: 11/08/17 10:51 Dose: 81 mg Potassium Chloride 10 meq/ (Sodium Chloride) 1,005 mls @ 100 mls/hr IV .Q10H3M [facility]S [facility] 234 BEDS AT [facility] Last Admin: 11/08/17 14:37 Dose: 100 mls/hr Midodrine (Proamatine) 5 mg PO TID [facility]CLUDE 234 BEDS AT THE [facility] Last Admin: 11/08/17 14:36 Dose: 5 mg Ondansetron HCl (Zofran Tab) 4 mg PO Q8 PRN PRN Reason: Nausea/Vomiting Pantoprazole Sodium (Protonix Ec Tab) 20 mg PO DAILY [facility] 234 B[facility]S AT [facility] Last Admin: 11/08/17 10:51 Dose: 20 mg Sucralfate (Carafate Oral Susp) 1 gm PO ACBD [facility] 234 BEDS AT [facility] Last Admin: 11/08/17 08:47 Dose: Not Given - Labs Labs: 11/08/17 06:00 11/08/17 06:00 - Constitutional Appears: No Acute Distress - Head Exam Head Exam: ATRAUMATIC, NORMAL INSPECTION, NORMOCEPHALIC - Eye Exam Eye Exam: EOMI, Normal appearance, PERRL Pupil Exam: NORMAL ACCOMODATION, PERRL - ENT Exam ENT Exam: Mucous Membranes Moist - Respiratory Exam Respiratory Exam: Clear to Ausculation Bilateral, NORMAL BREATHING PATTERN - Cardiovascular Exam Cardiovascular Exam: REGULAR RHYTHM, +S1, +S2. absent: Murmur - GI/Abdominal Exam GI & Abdominal Exam: Soft, Normal Bowel Sounds. absent: Tenderness - Neurological Exam Neurological Exam: Alert, Awake, CN II-XII Intact, Oriented x3 - Psychiatric Exam Psychiatric exam: Normal Affect, Normal Mood - Skin Skin Exam: Dry, Intact, Normal Color, Warm Assessment and Plan - Assessment and Plan (Free Text) Assessment: pancreatic cancer GERD Diverticulitis Gastric Ulcer ?tumor ulcer Plan: guiac stool + tolerating regular diet no plan for colonoscopy fu vit b12 pancreatic enzymes po PPI fu c diff Discussed with Dr. Prado <Keon Prado V - Last Filed: 11/08/17 22:15> Objective - Vital Signs/Intake and Output Vital Signs (last 24 hours): Temp Pulse Resp BP Pulse Ox 99.1 F 72 21 136/63 99 11/08/17 16:00 11/08/17 18:00 11/08/17 16:00 11/08/17 16:00 11/08/17 16:00 - Medications Medications: Current Medications Acetaminophen (Tylenol 325mg Tab) 650 mg PO Q6H PRN PRN Reason: Fever >100.4 F Alprazolam (Xanax) 0.25 mg PO BID PRN; Protocol PRN Reason: Anxiety Stop: 11/12/17 17:14 Amylase (Pancrease 13959 U-[id number] [id number] U) 5,000 unit PO [facility] Aspirin (Aspirin Chewable) 81 mg PO DAILY [facility] 234 BEDS AT [facility] Last Admin: 11/08/17 10:51 Dose: 81 mg Potassium Chloride 10 meq/ (Sodium Chloride) 1,005 mls @ 100 mls/hr IV .Q10H3M [facility]S [facility]CLUDE 234 BEDS AT [facility] Last Admin: 11/08/17 14:37 Dose: 100 mls/hr Midodrine (Proamatine) 5 mg PO TID [facility] 234 BEDS AT [facility] Last Admin: 11/08/17 17:57 Dose: 5 mg Ondansetron HCl (Zofran Tab) 4 mg PO Q8 PRN PRN Reason: Nausea/Vomiting Pantoprazole Sodium (Protonix Ec Tab) 20 mg PO DAILY [facility] 234 B[facility]S AT [facility] Last Admin: 11/08/17 10:51 Dose: 20 mg Sucralfate (Carafate Oral Susp) 1 gm PO ACBD [facility] 234 BEDS AT [facility] Last Admin: 11/08/17 17:57 Dose: 1 gm - Labs Labs: 11/08/17 06:00 11/08/17 06:00 Attending/Attestation - Attestation I have personally seen and examined this patient.: Yes I have fully participated in the care of the patient.: Yes I have reviewed all pertinent clinical information, including history, physical exam and plan: Yes Notes (Text): This is an addendum to GI progress report dictated by the Case Picker.The patient was seen and examined earlier. Medical records, lab studies, imagings were reviewed. Last 24 hours events reviewed. Agreed with the above treatment plan as outlined in Case Picker 's notes the with the addition of the following patient comfortably episodes of loose bowel movements before Pancreatic cancer History of recurrent for Occult blood positive Status post EGD colonoscopy done by Dr. Robles recently elevated troponin level Status post chemoradiation On examination abdomen soft nontender Continue PPI Follow-up with a hemoglobin hematocrit We'll start the patient on pancreatic enzyme supplements stools for c.diff still pending 11/08/17 22:14
--- NOTE | 2017-11-09 01:31 | PN ---
DATE: 11/08/2017 This is [facility]'s hospital visit on the medical floor. For Dr. Neil. SUBJECTIVE: The patient is an 82-year-old male, seen sitting up in bed, reporting that he has not been sitting in a chair since admission, except he was ambulated one time earlier today with the patient reporting that he has significant loss of appetite, with the patient now known to have had a significantly elevated troponin value of 3.58 two days prior with a repeat of 2.77 with his CA 19-9 value at 3,630, with a CEA of 7.8 on most recent testings two days prior. His stool for occult blood is positive with the patient failing to thrive at this point with multiple falls over the past few weeks with questionable syncopal episodes witnessed by family members for which he was hospitalized and then discharged referred to previous records. The patient was seen by Dr. Olivares, Cardiology, with Dr. Olivares believing that he should be worked up for his elevated troponins to rule out myocardial infarction along with restarting aspirin if okay with other physicians. PHYSICAL EXAMINATION: VITAL SIGNS: Temperature 99.8, pulse 72, respirations 20; blood pressure 97/57 standing with a lying blood pressure of 142/76. HEENT: Unremarkable. NECK: Supple. HEART: Regular rate. LUNGS: Clear. ABDOMEN: Soft, nontender. EXTREMITIES: No edema. SKIN: Warm and dry. NEUROLOGIC: Awake and alert, but the patient appears occasionally confused with questionable early dementia. LABORATORY DATA: The patient's labs were done. White blood cell count 13.2, hemoglobin 9.4, hematocrit 28.7, and platelet count of 179,000, with a chem metabolic panel showing normal chem metabolic panel, except for total protein of 4.6 and albumin of 2.3, with values as described above with an elevated troponin of 3.58, repeated at 2.77. The patient had an echocardiogram done earlier today that has not been read, with his official EKG read as sinus rhythm with premature atrial complexes, right bundle-branch block, inferior infarction, age indeterminate, abnormal EKG. ASSESSMENT: Orthostatic hypotension with syncopal episodes and falls, history of pancreatic cancer, failure to thrive, loss of appetite, weight loss, history of anemia, spinal stenosis, gastroesophageal reflux disease, early dementia, and status post radiation. PLAN: I had a conversation with Dr. Neil. He is to continue present medical regimen with workup as per Cardiology and Neurology, Dr. Richardson, with monitoring the patient while ProAmatine 5 mg three times a day is begun by Dr. Menendez with IV hydration. It should be noted that the patient did discontinue his IV as he was running to the bathroom too much. It was recommended that he does not interfere with recommendations for treatment as it might prolong his morbidity. Aspirin 81 mg daily was begun as per Dr. Olivares. Prognosis for this patient is guarded. This is a complex patient with a comprehensive medically necessary and appropriate visit carried out in excess of 40 minutes [id number] time with the patient for his multiple comorbidities. With this, we will also recommend a dietary consult for the patient to see if he can find foods that he would be more likely to have a taste for. Marty Orona MD
--- NOTE | 2017-11-09 01:39 | PN ---
DATE: 11/08/2017 SUBJECTIVE: The patient is seen lying in bed on 3R. He feels fatigued. His appetite is poor. He denies any chest pain. CURRENT MEDICATIONS: Include aspirin 81 mg daily, Carafate, Pancrease, midodrine 5 mg t.i.d., Protonix and Xanax p.r.n. OBJECTIVE: GENERAL: He is a elderly man who appears chronically ill. VITAL SIGNS: His blood pressure is 142/76 with pulse of 70 in sinus, respirations are 16. HEENT: No JVD. CHEST: Few scattered rhonchi heard. HEART: PMI displaced laterally with systolic murmur present at the base and left sternal border. ABDOMEN: Soft, nontender, normoactive bowel sounds. EXTREMITIES: No edema. IMPRESSION: 1. Weakness with poor oral appetite and evidence of orthostasis likely due to volume depletion and malnutrition. 2. Recently elevated troponin, possibly non ST segment elevation myocardial infarction, currently pain free. 3. Pancreatic cancer, undergoing chemotherapy and radiation. 4. History of colonic polyps, hemorrhoids and diverticulosis. 5. [id number] aortic stenosis. RECOMMENDATIONS: Continue conservative cardiac management appears most appropriate given his underlying malignancy. Increased oral intake was encouraged. Aspirin will be continued for now. His overall prognosis remains limited and comfort care is advised. We will be happy to follow along and make further recommendations as appropriate. Juvencio Flores MD
[2017-11-09 06:44] LABS: BASO # 0.09 K/mm3 (0.0-2.0); BASO % 0.7 % (0.0-3.0); EOS # 0.1 (0.0-0.7); EOS % 0.8 % (1.5-5.0); HEMOGLOBIN 9.9 g/dL (14.0-18.0); MEAN CELL VOLUME 95.8 fl (80.0-105.0); MEAN CORPUSCULAR HEMOGLOBIN 31.8 pg (25.0-35.0); MEAN CORPUSCULAR HGB CONC 33.2 g/dl (31.0-37.0); MONO % 7.4 % (1.0-6.0); PLATELET COUNT 233 10^3/uL (120.0-450.0); RBC 3.11 10^6/uL (3.5-6.1); RED CELL DISTRIBUTION WIDTH 17.2 % (11.5-14.5); WHITE BLOOD COUNT 13.3 10^3/ul (4.5-11.0)
[2017-11-09 07:04] LABS: ALB/GLOB RATIO 1.1 (1.1-1.8); ALBUMIN 2.5 g/dL (3.0-4.8); ALT/SGPT 35 U/L (7-56); AST/SGOT 26 U/L (17-59); BLOOD UREA NITROGEN 13 mg/dL (7-21); CALCIUM 8.5 mg/dL (8.4-10.5); GFR AFRICAN-AMERICAN > 60; GFR NON-AFRICAN AMERICAN > 60
[2017-11-09 08:20] LABS: BAND 2 % (0-2)
[2017-11-09 08:21] LABS: ATYPICAL LYMPHOCYTE 1 % (0.0-0.0); EOSINOPHIL 1 % (0.0-3.0); LYMPHOCYTE 11 % (22.0-35.0); MONOCYTE 9 % (1.0-6.0)
[2017-11-09 08:22] LABS: HYPOCHROMIA 2+; NEUTROPHIL 75 % (50.0-70.0); PLATELET ESTIMATE NORMAL (NORMAL); ROULEAU 2+; TARGET CELLS 1+; TOXIC GRANULATION 2+
[2017-11-09] MEDS: Sucralfate 1 gm/10 ml Oral Susp UD PO SCH ×2 (08:26→18:04)
[2017-11-09] MEDS: Amylase/Lipase/Protease 5,000 Units ECC PO SCH ×3 (08:26→18:07)
--- NOTE | 2017-11-09 10:07 | CARD ---
APPROVED REPORT EXAM: Two-dimensional and M-mode echocardiogram with Doppler and color Doppler. Other Information Quality : GoodRhythm : INDICATION + trops, R/O SD. 2D DIMENSIONS Left Atrium (2D)3.9 (1.6-4.0cm)IVSd1.3 (0.7-1.1cm) LVDd3.9 (3.9-5.9cm)LVOT Diameter2.1 (1.8-2.4cm) PWd1.3 (0.7-1.1cm)LVDs2.9 (2.5-4.0cm) FS (%) 23.6 %LVEF (%)48.0 (>50%) M-Mode DIMENSIONS Aortic Root3.30 (2.2-3.7cm)Aortic Cusp Exc.0.60 (1.5-2.0cm) Aortic Valve AoV Peak Sasdbfgm462.0cm/sAoV VTI68.5cmAO Peak GR.46mmHg LVOT Peak Gvukbqfq67.8cm/sLVOT VTI20.90cmAO Mean GR.25mmHg KECIA (VMAX)0.58pu8WAL (VTI)1.06cm2 Mitral Valve MV E Sacfruff75.4cm/sMV A Whyytujz158.0cm/sE/A ratio0.5 TDI E/Lateral E'0.0E/Medial E'0.0 Tricuspid Valve TR Peak Rhrfjjzz227zm/sRAP MZLSXUWT81fzArFY Peak Gr.20mmHg SVKY52ofEi LEFT VENTRICLE The left ventricle is normal size. There is mild concentric left ventricular hypertrophy. The left ventricular function is normal. The left ventricular ejection fraction is within the normal range. There is normal LV segmental wall motion. RIGHT VENTRICLE The right ventricle is normal size. ATRIA The left atrium size is normal. The right atrium size is normal. The interatrial septum is intact with no evidence for an atrial septal defect. AORTIC VALVE The aortic valve is moderately to severely calcified. There is moderate valvular aortic stenosis. MITRAL VALVE The mitral valve is mildly thickened but opens well. Mitral regurgitation is trace to mild. TRICUSPID VALVE The tricuspid valve is normal in structure. There is trace to mild tricuspid regurgitation. PULMONIC VALVE The pulmonic valve is not well visualized. There is mild pulmonic valvular regurgitation. GREAT VESSELS The aortic root is normal in size. PERICARDIAL EFFUSION There is no pericardial effusion. <Conclusion> The left ventricle is normal size. There is mild concentric left ventricular hypertrophy. The left ventricular function is normal. The aortic valve is moderately to severely calcified. There is moderate valvular aortic stenosis. Mitral regurgitation is trace to mild. There is trace to mild tricuspid regurgitation. There is mild pulmonic valvular regurgitation.
[2017-11-09] MEDS: Pantoprazole 20 mg EC Tab PO SCH (10:37)
--- NOTE | 2017-11-09 14:21 | CP.PCM.PN ---
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 Patient seen and examined at bedside. No acute events reported overnight. Underwent scheduled radiation therapy today. Denies acute complaints at time of exam, including chest pain, shortness of breath, emesis, hematochezia, melena , hemoptysis, hematuria, or lightheadedness/dizziness at rest. Still complains of lack of appetite. Was previously on IV fluids, but patient stopped himself due to feeling that it was making him go to the bathroom too often. Has been convinced to allow the fluids again. Objective - Vital Signs/Intake and Output Vital Signs (last 24 hours): Temp Pulse Resp BP Pulse Ox 97.5 F L 78 20 157/77 H 98 11/09/17 08:36 11/09/17 08:36 11/09/17 08:36 11/09/17 08:36 11/09/17 08:36 Intake and Output: 11/09/17 11/09/17 06:59 18:59 Intake Total 1700 Output Total 1000 Balance 700 - Medications Medications: Current Medications Acetaminophen (Tylenol 325mg Tab) 650 mg PO Q6H PRN PRN Reason: Fever >100.4 F Alprazolam (Xanax) 0.25 mg PO BID PRN; Protocol PRN Reason: Anxiety Stop: 11/12/17 17:14 Amylase (Pancrease 29279 U-5000 U-[id number] U) 5,000 unit PO WM [facility] Last Admin: 11/09/17 08:26 Dose: 5,000 unit Aspirin (Aspirin Chewable) 81 mg PO DAILY [facility] Last Admin: 11/09/17 10:37 Dose: 81 mg Megestrol Acetate (Megace) 600 mg PO DAILY [facility] Midodrine (Proamatine) 5 mg PO TID [facility] Last Admin: 11/09/17 10:37 Dose: 5 mg Ondansetron HCl (Zofran Tab) 4 mg PO Q8 PRN PRN Reason: Nausea/Vomiting Pantoprazole Sodium (Protonix Ec Tab) 20 mg PO DAILY [facility] Last Admin: 11/09/17 10:37 Dose: 20 mg Sucralfate (Carafate Oral Susp) 1 gm PO ACBD [facility] Last Admin: 11/09/17 08:26 Dose: 1 gm - Labs Labs: 11/09/17 05:30 11/09/17 05:30 - Additional Findings Additional findings: - Constitutional Appears: Non-toxic, No Acute Distress, Lethargic - Head Exam Head Exam: ATRAUMATIC, NORMAL INSPECTION, NORMOCEPHALIC - Eye Exam Eye Exam: EOMI, Normal appearance. absent: Conjunctival injection, Scleral icterus Pupil Exam: absent: Irregular, Unequal - ENT Exam ENT Exam: Mucous Membranes Moist, no petechiae noted, dentition intact - Neck Exam Neck Exam: Full ROM. absent: Lymphadenopathy, Thyromegaly - Respiratory Exam Respiratory Exam: Clear to Ausculation Bilateral, NORMAL BREATHING PATTERN. absent: Accessory Muscle Use, Decreased Breath Sounds, Rales, Rhonchi, Wheezes, Respiratory Distress - Cardiovascular Exam Cardiovascular Exam: REGULAR RHYTHM, RRR, +S1, +S2, Murmur (holosystolic murmur covering entire S1 sound, no single site of prominence on auscultation). absent : Bradycardia, Tachycardia, Irregular Rhythm, JVD, +S4 - GI/Abdominal Exam GI & Abdominal Exam: Soft, Hyperactive Bowel Sounds, Static abdominal discomfort but not acutely tender to palpation. absent: Distended, Firm, Rigid - Extremities Exam Extremities Exam: Normal Inspection. absent: Calf Tenderness, Pedal Edema, Tenderness - Neurological Exam Neurological Exam: Alert, Awake, Oriented x3, following all commands appropriately - Psychiatric Exam Psychiatric exam: Normal Affect, Normal Mood - Skin Skin Exam: Dry, Intact, Normal Color, Warm Assessment and Plan - Assessment and Plan (Free Text) Assessment: This is an 82 yo M with PMH of spinal stenosis, GERD, Pancreatic adenocarcinoma of the pancreatic head (on chemo and radiation tx), and hx of gastric ulcers who presented to [facility] for weakness, lack of appetite, fatigue, and nausea for several days, followed by several episodes of diarrhea and a fall in his kitchen , possibly 2/2 syncope. Plan: Adenocarcinoma of the pancreatic head Hx Neutropenia - currently remains leukocytotic Possible syncopal episode with fall, hx of similar episodes Elevated trop with unclear etiology Decreased PO intake vs failure to thrive - unchanged, still has no appetite today Orthostatic hypotension Deconditioning -Was previously on chemo (Gemcitabine) and radiation treatments, on hold last week due to neutropenia, appears to be resolved -Received another round of radiation therapy this morning -Elevated trops, downtrending (3.79, 3.58, 2.77); Cardio consulted, appreciate their recs; continue daily aspirin and pending Echo -Echo obtained, notable for EF 48%, moderate valvular aortic stenosis with moderate to severe calcifications -GI consulted, appreciate all recs; check stool for C. diff, recs PO mag and pacreatic enzyme supplements -Repeated falls at home, possible syncope; in setting of decreased PO intake and diarrhea, concern for orthostatic hypotension -Neuro consulted, appreciate all recs; hydrate, compression stockings to help prevent orthostatic hypotension, maintain BP 120's-130's/70's-80's -Nephro consulted, appreciate all recs; started Protamine for orthostatic hypotension, recs continuing IV fluids -Pt discontinued his IV fluids due to concern they are making him urinate too much -Continue carafate for PO intolerance, adding Megace daily, Calorie count x2 days -Given poor PO intake, deconditioning, and frequent falls and possible syncopal episodes at home (likely 2/2 orthostasis), put in for a TCU evaluation, so patient can continue to receive treatment while undergoing strengthening for eventual discharge home. Patient reviewed and discussed at length with attending, Dr. Neil
--- NOTE | 2017-11-09 14:41 | PN ---
DATE: SUBJECTIVE: The patient is currently seen lying supine in bed. Orthostatic blood pressures were not done this morning as ordered. The patient states that he did ambulate yesterday without any difficulty. The patient does remain on IV fluid hydration along with ProAmatine to increase his blood pressure. He no longer has any diarrhea of anything. The patient is constipated. He had just recently returned from radiation therapy for his pancreatic cancer. MEDICATIONS: Medication list reviewed. The patient is currently on aspirin, Carafate, Megace, Pancrease, IV fluids with potassium chloride, ProAmatine, Protonix, Tylenol p.r.n., Xanax p.r.n. and Zofran p.r.n. OBJECTIVE: INTAKE/OUTPUT: Intake is 1700, output is 1000. VITAL SIGNS: Blood pressure supine is 157/77, temperature is 97.5, respiratory rate is 20 with a pulse of 78, pulse ox 98%. HEENT: Normocephalic, atraumatic. Conjunctivae are pale. Sclerae are nonicteric. NECK: Supple. No neck vein distention. CHEST: Clear to auscultation and percussion. No rales, rhonchi or wheezing. CARDIOVASCULAR: Shows a regular rate and rhythm without audible murmurs, rubs or gallops. ABDOMEN: Soft. Bowel sounds normal. No rebound, guarding or masses. EXTREMITIES: Show no cyanosis, clubbing or edema. LABORATORY DATA AND IMAGING: CBC today: White blood cell count 13.3, hemoglobin 9.0 with a platelet count of 233,000. Chemistry showed normal electrolytes. BUN 13 with a creatinine of 0.8. Glucose is 174. Albumin is 2.5. ASSESSMENT: 1. Orthostatic hypotension. The patient is currently receiving both volume and vasoconstrictors. I stressed the importance to the nursing staff that they must do orthostatic blood pressure readings as ordered before breakfast everyday so that we could further adjust his IV fluids and adjust his medications. 2. History of pancreatic cancer. The patient continues to receive radiation therapy on a regular basis. 3. Loss of appetite and weight loss secondary to pancreatic cancer. Albumin levels are low. Encouraged the patient to try and improve p.o. intake and protein intake, especially. 4. History of anemia secondary to malignancy. 5. History of borderline hypertension. The patient was never treated for hypertension. Likely, his blood pressure issue will resolve once ProAmatine and IV fluids with normal saline are discontinued. 6. History of spinal stenosis, currently stable. 7. History of gastroesophageal reflux disease, currently stable, on proton pump inhibition therapy. PLAN: 1. Discussed with nursing outside machinist supervisor on 3R need to obtain orthostatic blood pressures on a daily basis. 2. I have encouraged that the patient was able to ambulate yesterday without difficulty. 3. I would like to discontinue IV fluids as soon as possible and perhaps maintain the patient on an as-needed dose of ProAmatine. 4. Continue radiation therapy under the guidance of Dr. Neil and his radiation oncologist. 5. Overall management of his pancreatic malignancy as per Dr. Neil and Dr. Orona. Narciso Menendez MD
--- NOTE | 2017-11-09 17:52 | CP.PCM.PN ---
Subjective - Date & Time of Evaluation Date of Evaluation: 11/09/17 Time of Evaluation: 11:00 - Subjective Subjective: Seen and examined at the bedside earlier today, chart review. Patient reports having loose p.m. yesterday, reports he has had no bowel movement as of this morning. Denies nausea, vomiting, or abdominal pain. No acute overnight events reported. Objective - Vital Signs/Intake and Output Vital Signs (last 24 hours): Temp Pulse Resp BP Pulse Ox 97.5 F L 78 20 157/77 H 98 11/09/17 08:36 11/09/17 08:36 11/09/17 08:36 11/09/17 08:36 11/09/17 08:36 Intake and Output: 11/09/17 11/09/17 06:59 18:59 Intake Total 1700 Output Total 1000 Balance 700 - Medications Medications: Current Medications Acetaminophen (Tylenol 325mg Tab) 650 mg PO Q6H PRN PRN Reason: Fever >100.4 F Alprazolam (Xanax) 0.25 mg PO BID PRN; Protocol PRN Reason: Anxiety Stop: 11/12/17 17:14 Amylase (Pancrease 87391 U-5000 U-96513 U) 5,000 unit PO WM [facility] Last Admin: 11/09/17 08:26 Dose: 5,000 unit Aspirin (Aspirin Chewable) 81 mg PO DAILY [facility] Last Admin: 11/09/17 10:37 Dose: 81 mg Megestrol Acetate (Megace) 600 mg PO DAILY [facility] Midodrine (Proamatine) 5 mg PO TID [facility] Last Admin: 11/09/17 10:37 Dose: 5 mg Ondansetron HCl (Zofran Tab) 4 mg PO Q8 PRN PRN Reason: Nausea/Vomiting Pantoprazole Sodium (Protonix Ec Tab) 20 mg PO DAILY [facility] Last Admin: 11/09/17 10:37 Dose: 20 mg Sucralfate (Carafate Oral Susp) 1 gm PO ACBD [facility] Last Admin: 11/09/17 08:26 Dose: 1 gm - Labs Labs: 11/09/17 05:30 11/09/17 05:30 - Constitutional Appears: No Acute Distress - Head Exam Head Exam: NORMOCEPHALIC - Eye Exam Eye Exam: Normal appearance. absent: Scleral icterus - ENT Exam ENT Exam: Mucous Membranes Moist - Respiratory Exam Respiratory Exam: NORMAL BREATHING PATTERN. absent: Respiratory Distress - Cardiovascular Exam Cardiovascular Exam: +S1, +S2 - GI/Abdominal Exam GI & Abdominal Exam: Soft, Normal Bowel Sounds. absent: Guarding, Tenderness, Rebound - Extremities Exam Extremities Exam: absent: Calf Tenderness, Pedal Edema - Neurological Exam Neurological Exam: Alert, Awake, Oriented x3 Assessment and Plan - Assessment and Plan (Free Text) Assessment: Assessment: Pancreatic cancer GERD Diverticulitis Gastric Ulcer Guiac positive, ?tumor ulcer Plan: Monitor H/H and for overt GIB tolerating regular diet continue pancreatic enzymes TID AC meal PPI fu c diff, stool for fat Seen and discussed with Dr. Prado
[2017-11-09] MEDS: Megestrol Acetate 40 mg/ml Cup PO SCH (18:03)
[2017-11-10 06:27] LABS: BASO # 0.08 K/mm3 (0.0-2.0); BASO % 0.7 % (0.0-3.0); EOS # 0.1 (0.0-0.7); EOS % 0.9 % (1.5-5.0); GRAN # 8.25 (1.4-6.5); GRAN % 76.3 % (50.0-68.0); HEMOGLOBIN 10.3 g/dL (14.0-18.0); LYMPH # 1.2 (1.2-3.4); LYMPH % 11.2 % (22.0-35.0); MEAN CELL VOLUME 96.4 fl (80.0-105.0); MEAN CORPUSCULAR HEMOGLOBIN 31.2 pg (25.0-35.0); MEAN CORPUSCULAR HGB CONC 32.4 g/dl (31.0-37.0); MEAN PLATELET VOLUME 9.6 fl (7.0-11.0); MONO # 1.2 (0.1-0.6); MONO % 10.9 % (1.0-6.0); RBC 3.3 10^6/uL (3.5-6.1); RED CELL DISTRIBUTION WIDTH 17.6 % (11.5-14.5); WHITE BLOOD COUNT 10.8 10^3/ul (4.5-11.0)
[2017-11-10] MEDS: Sucralfate 1 gm/10 ml Oral Susp UD PO SCH (06:42)
[2017-11-10 07:44] LABS: ALB/GLOB RATIO 1.1 (1.1-1.8); ALBUMIN 2.8 g/dL (3.0-4.8); ALT/SGPT 36 U/L (7-56); AST/SGOT 32 U/L (17-59); BLOOD UREA NITROGEN 14 mg/dL (7-21); CALCIUM 9.1 mg/dL (8.4-10.5); GFR AFRICAN-AMERICAN > 60; GFR NON-AFRICAN AMERICAN > 60
[2017-11-10 08:40] VITALS: BP 126/72; RESP 18; TEMP 98; O2SAT 98
[2017-11-10] MEDS: Amylase/Lipase/Protease 5,000 Units ECC PO SCH ×2 (09:21→12:28)
[2017-11-10] MEDS ORDERED: POLYETHYLENE GLYCOL 3350 17 GM/Dose PACKET PO SCH (10:15)
[2017-11-10] MEDS: Megestrol Acetate 40 mg/ml Cup PO SCH (10:51)
[2017-11-10] MEDS: Pantoprazole 20 mg EC Tab PO SCH (10:51)
--- NOTE | 2017-11-10 12:11 | CP.PCM.PN ---
Subjective - Date & Time of Evaluation Date of Evaluation: 11/10/17 Time of Evaluation: 09:15 - Subjective Subjective: GI Progress Note Dr. Prado Pt was seen and examined at bedside. Pt has complaints of constipation. Last BM was yesterday. Pt denied fever, chills, sob, chest pains, abdominal pain, diarrhea, or urinary symptoms. Pt is for rad/onc today. Objective - Vital Signs/Intake and Output Vital Signs (last 24 hours): Temp Pulse Resp BP Pulse Ox 98 F 74 18 126/72 98 11/10/17 08:39 11/10/17 08:39 11/10/17 08:39 11/10/17 08:39 11/10/17 08:39 Intake and Output: 11/10/17 11/10/17 06:59 18:59 Intake Total 120 Output Total 400 Balance -280 - Medications Medications: Current Medications Acetaminophen (Tylenol 325mg Tab) 650 mg PO Q6H PRN PRN Reason: Fever >100.4 F Alprazolam (Xanax) 0.25 mg PO BID PRN; Protocol PRN Reason: Anxiety Stop: 11/12/17 17:14 Amylase (Pancrease 00297 U-5000 U-[id number] U) 5,000 unit PO WM [facility] Last Admin: 11/10/17 09:21 Dose: 5,000 unit Aspirin (Aspirin Chewable) 81 mg PO DAILY [facility] Last Admin: 11/10/17 10:51 Dose: 81 mg Docusate Sodium (Colace) 100 mg PO BID [facility] Last Admin: 11/10/17 10:51 Dose: 100 mg Megestrol Acetate (Megace) 600 mg PO DAILY [facility] Last Admin: 11/10/17 10:51 Dose: 600 mg Midodrine (Proamatine) 5 mg PO TID [facility] Last Admin: 11/10/17 10:50 Dose: 5 mg Ondansetron HCl (Zofran Tab) 4 mg PO Q8 PRN PRN Reason: Nausea/Vomiting Pantoprazole Sodium (Protonix Ec Tab) 20 mg PO DAILY [facility] Last Admin: 11/10/17 10:51 Dose: 20 mg Polyethylene Glycol (Miralax) 17 gm PO BID [facility] Last Admin: 11/10/17 10:50 Dose: 17 gm Sucralfate (Carafate Oral Susp) 1 gm PO ACBD [facility] Last Admin: 11/10/17 06:42 Dose: 1 gm - Labs Labs: 11/10/17 05:30 11/10/17 05:30 - Constitutional Appears: In Acute Distress - Head Exam Head Exam: ATRAUMATIC, NORMAL INSPECTION, NORMOCEPHALIC - Eye Exam Eye Exam: EOMI, Normal appearance, PERRL Pupil Exam: NORMAL ACCOMODATION, PERRL - ENT Exam ENT Exam: Mucous Membranes Moist, Normal Exam - Neck Exam Neck Exam: Full ROM, Normal Inspection. absent: Lymphadenopathy - Respiratory Exam Respiratory Exam: Clear to Ausculation Bilateral, NORMAL BREATHING PATTERN - Cardiovascular Exam Cardiovascular Exam: REGULAR RHYTHM, +S1, +S2. absent: Murmur - GI/Abdominal Exam GI & Abdominal Exam: Soft, Normal Bowel Sounds. absent: Tenderness - Neurological Exam Neurological Exam: Alert, Awake, CN II-XII Intact, Oriented x3 - Psychiatric Exam Psychiatric exam: Normal Affect, Normal Mood - Skin Skin Exam: Dry, Intact, Normal Color, Warm Assessment and Plan - Assessment and Plan (Free Text) Assessment: Pancreatic cancer GERD Diverticulitis Gastric Ulcer Guiac positive, ?tumor ulcer Plan: Monitor H/H and for overt GIB tolerating regular diet continue pancreatic enzymes TID AC meal PPI fu c diff, stool for fat Miralax, colace and dulcolax for constipation Seen and discussed with Dr. Prado
--- NOTE | 2017-11-10 15:38 | CP.PCM.DIS ---
Provider - Provider Date of Admission: 11/06/17 17:20 Attending physician: Marty Orona MD Primary care physician: Marta Neli MD Consults: GI: Eve Nephro: Michael Bruce Onc: Lacy Neuro: Meg Richardson Cardio: Mark Time Spent in preparation of Discharge (in minutes): 35 Diagnosis - Discharge Diagnosis (1) Elevated troponin Status: Resolved Priority: Medium (2) Leukocytosis Status: Acute Priority: Medium (3) Pancreatic cancer Status: Chronic Priority: High (4) Abdominal pain Status: Resolved Priority: Medium Hospital Course - Lab Results Lab Results: Most Recent Lab Values WBC 10.8 10^3/ul (4.5-11.0) 11/10/17 05:30 RBC 3.30 10^6/uL (3.5-6.1) L 11/10/17 05:30 Hgb 10.3 g/dL (14.0-18.0) L 11/10/17 05:30 Hct 31.8 % (42.0-52.0) L 11/10/17 05:30 MCV 96.4 fl (80.0-105.0) 11/10/17 05:30 MCH 31.2 pg (25.0-35.0) 11/10/17 05:30 MCHC 32.4 g/dl (31.0-37.0) 11/10/17 05:30 RDW 17.6 % (11.5-14.5) H 11/10/17 05:30 Plt Count 269 10^3/uL (120.0-450.0) 11/10/17 05:30 MPV 9.6 fl (7.0-11.0) 11/10/17 05:30 Gran % 76.3 % (50.0-68.0) H 11/10/17 05:30 Lymph % (Auto) 11.2 % (22.0-35.0) L 11/10/17 05:30 [place] % (Auto) 10.9 % (1.0-6.0) H 11/10/17 05:30 Eos % (Auto) 0.9 % (1.5-5.0) L 11/10/17 05:30 Baso % (Auto) 0.7 % (0.0-3.0) 11/10/17 05:30 Gran # 8.25 (1.4-6.5) H 11/10/17 05:30 Lymph # (Auto) 1.2 (1.2-3.4) 11/10/17 05:30 [place] # (Auto) 1.2 (0.1-0.6) H 11/10/17 05:30 Eos # (Auto) 0.1 (0.0-0.7) 11/10/17 05:30 Baso # (Auto) 0.08 K/mm3 (0.0-2.0) 11/10/17 05:30 Neutrophils % (Manual) 75 % (50.0-70.0) H 11/09/17 05:30 Band Neutrophils % 2 % (0-2) 11/09/17 05:30 Lymphocytes % (Manual) 11 % (22.0-35.0) L 11/09/17 05:30 Atypical Lymphs % 1 % (0.0-0.0) H 11/09/17 05:30 Monocytes % (Manual) 9 % (1.0-6.0) H 11/09/17 05:30 Eosinophils % (Manual) 1 % (0.0-3.0) 11/09/17 05:30 Metamyelocytes % 4 % 11/07/17 05:45 Myelocytes % 7 % 11/07/17 05:45 Nucleated RBC % 1 % 11/06/17 06:00 Immature Lymphocytes 1 % 11/09/17 05:30 Toxic Granulation 2+ 11/09/17 05:30 Platelet Evaluation Normal (NORMAL) 11/09/17 05:30 Large Platelets Present 11/07/17 05:45 Polychromasia 1+ 11/07/17 05:45 Hypochromasia 2+ 11/09/17 05:30 Poikilocytosis (manual Slight 11/07/17 05:45 Anisocytosis (manual) Slight 11/07/17 05:45 Microcytosis (manual) Slight 11/07/17 05:45 Macrocytosis (manual) Slight 11/05/17 17:00 Spherocytes 1+ 11/05/17 17:00 Target Cells 1+ 11/09/17 05:30 Ovalocytes Slight 11/07/17 05:45 Stomatocytes Slight 11/05/17 17:00 Acanthocytes (Spur) Slight 11/05/17 17:00 Rouleaux 2+ 11/09/17 05:30 Sodium 133 mmol/L (132-148) 11/10/17 05:30 Potassium 4.3 mmol/L (3.6-5.0) 11/10/17 05:30 Chloride 101 mmol/L (98-107) 11/10/17 05:30 Carbon Dioxide 27 mmol/L (21-33) 11/10/17 05:30 Anion Gap 9 (10-20) L 11/10/17 05:30 BUN 14 mg/dL (7-21) 11/10/17 05:30 Creatinine 0.8 mg/dl (0.8-1.5) 11/10/17 05:30 Est GFR ( Amer) > 60 11/10/17 05:30 Est GFR (Non-Af Amer) > 60 11/10/17 05:30 Random Glucose 102 mg/dL (70-110) 11/10/17 05:30 Calcium 9.1 mg/dL (8.4-10.5) 11/10/17 05:30 Phosphorus 3.1 mg/dL (2.5-4.5) 11/10/17 05:30 Magnesium 2.2 mg/dL (1.7-2.2) 11/10/17 05:30 Total Bilirubin 0.5 mg/dL (0.2-1.3) 11/10/17 05:30 AST 32 U/L (17-59) 11/10/17 05:30 ALT 36 U/L (7-56) 11/10/17 05:30 Alkaline Phosphatase 78 U/L (38-126) 11/10/17 05:30 Lactate Dehydrogenase 791 U/L (333-699) H 11/06/17 15:50 Total Creatine Kinase 22 U/L (35-230) L 11/06/17 15:50 Troponin I 2.77 ng/mL H* D 11/06/17 15:50 Total Protein 5.3 g/dL (5.8-8.3) L 11/10/17 05:30 Albumin 2.8 g/dL (3.0-4.8) L 11/10/17 05:30 Globulin 2.5 gm/dL 11/10/17 05:30 Albumin/Globulin Ratio 1.1 (1.1-1.8) 11/10/17 05:30 Amylase < 30 U/L (35-125) L 11/06/17 06:00 Lipase < 10 U/L (23-300) L 11/06/17 06:00 Carcinoembryonic Ag 7.8 ng/mL (0.0-3.0) H 11/06/17 06:00 CA 19-9 Antigen 3630 U/mL (0-37) H 11/06/17 06:00 Stool Occult Blood Positive (NEGATIVE) H 11/06/17 18:15 - Hospital Course Hospital Course: Heme-onc Progress Note, Dilip [facility] BLUNT, PGY-2 This is an 82 yo M with PMH of spinal stenosis, GERD, 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 While here, he was seen by Cardio, Nephro, Neuro, GI, and Rad-onc. As per GI, advancing diet and encouraging patient to increase home PO intake. He was also determine to have orthostatic hypotension, with a systolic drop today from 130' s to 80's from sitting to standing. As per Nephro, patient encouraged to increase his PO fluid intake, and was given a script for Protamine 5mg PO TID for the orthostasis. Patient also encouraged to increase his PO intake, and improve his general nutrition. He was instructed to take the Protamine as instructed, to resume all home medications as previously prescribed, and to follow up with his PMD and Dr. Neil as an outpatient. He expressed understanding and agreement with these instructions, and was then discharged home. Patient reviewed and discussed at length with attending, Dr. Neil. Discharge Exam - Additional Findings Additional findings: - Constitutional Appears: Non-toxic, No Acute Distress, Lethargic - Head Exam Head Exam: ATRAUMATIC, NORMAL INSPECTION, NORMOCEPHALIC - Eye Exam Eye Exam: EOMI, Normal appearance. absent: Conjunctival injection, Scleral icterus Pupil Exam: absent: Irregular, Unequal - ENT Exam ENT Exam: Mucous Membranes Moist, no petechiae noted, dentition intact - Neck Exam Neck Exam: Full ROM. absent: Lymphadenopathy, Thyromegaly - Respiratory Exam Respiratory Exam: Clear to Ausculation Bilateral, NORMAL BREATHING PATTERN. absent: Accessory Muscle Use, Decreased Breath Sounds, Rales, Rhonchi, Wheezes, Respiratory Distress - Cardiovascular Exam Cardiovascular Exam: REGULAR RHYTHM, RRR, +S1, +S2, Murmur (holosystolic murmur covering entire S1 sound, no single site of prominence on auscultation). absent : Bradycardia, Tachycardia, Irregular Rhythm, JVD, +S4 - GI/Abdominal Exam GI & Abdominal Exam: Soft, Hyperactive Bowel Sounds, Static abdominal discomfort but not acutely tender to palpation. absent: Distended, Firm, Rigid - Extremities Exam Extremities Exam: Normal Inspection. absent: Calf Tenderness, Pedal Edema, Tenderness - Neurological Exam Neurological Exam: Alert, Awake, Oriented x3, following all commands appropriately - Psychiatric Exam Psychiatric exam: Normal Affect, Normal Mood - Skin Skin Exam: Dry, Intact, Normal Color, Warm Discharge Plan - Discharge Medications Prescriptions: Meclizine [Antivert] 12.5 mg PO BID #60 tab Midodrine [Proamatine] 5 mg PO TID #90 tab Ondansetron HCl [Zofran] 4 mg PO Q8 PRN #30 tablet PRN Reason: Nausea/Vomiting Oxybutynin [Ditropan Tab] 5 mg PO DAILY #30 tab - Follow Up Plan Condition: FAIR Disposition: HOME/ ROUTINE Instructions: Fatigue (DC), Generalized Weakness (DC), Pancreatic Cancer (DC), Leukocytosis (DC) Additional Instructions: -Please take your new medication (Protamine) as prescribed. -Please resume all home medications as prescribed. -When changing positions from lying to sitting, or sitting to standing, please remain still for at least 1 minute before attempting to do anything. If at any point you feel dizzy, lightheaded, or like you are about to pass out, sit down/ lay down immediately. -Please follow up with Dr. Neil as scheduled, and with your PMD within 1 week of discharge. -Please return to the hospital if you experience new or worsening symptoms. Referrals: Marta Neil MD [Primary Care Provider] -
[2017-11-10 16:04] VITALS: PULSE 69
== END 2017-11-10 16:18 | disposition home or self-care (01) | DRG 312 ==
LOC: ED 16:13 → ERH 17:58 → 3RNO 18:57 → OBSVTOIN 11-06 17:20
PROVIDERS: ADMIT Family Medicine; ATTEND Family Medicine
DX: I95.1 Orthostatic hypotension (principal); E46 Unspecified protein-calorie malnutrition; C25.0 Malignant neoplasm of head of pancreas; G62.9 Polyneuropathy, unspecified; D70.9 Neutropenia, unspecified; D63.0 Anemia in neoplastic disease; F03.90 Unspecified dementia, unspecified severity, without behavioral disturbance, psychotic disturbance, mood disturbance, and anxiety; K21.9 Gastro-esophageal reflux disease without esophagitis; R29.6 Repeated falls; R62.7 Adult failure to thrive; I35.0 Nonrheumatic aortic (valve) stenosis; K59.00 Constipation, unspecified; M48.00 Spinal stenosis, site unspecified; K25.9 Gastric ulcer, unspecified as acute or chronic, without hemorrhage or perforation; Z66 Do not resuscitate; Z68.21 Body mass index [BMI] 21.0-21.9, adult; K64.9 Unspecified hemorrhoids; Z86.010 Personal history of colon polyps; Z91.81 History of falling

== ENCOUNTER 2018-06-21 14:53 | Inpatient (IN) | payer MEDICARE, BC ==
[2018-06-21 14:54] VITALS: BMI 23.2
--- NOTE | 2018-06-21 15:54 | ED PDOC ---
Arrival/HPI - General Chief Complaint: Shortness Of Breath Time Seen by Provider: 06/21/18 15:16 Historian: Patient - History of Present Illness Narrative History of Present Illness (Text): 06/21/18 15:39 83 year old male, whose past medical history includes Stage 4 pancreatic cancer, anemia, and GERD, presents to the emergency department sent by Dr. Neil for shortness of breath on exertion that began 4 days ago. Patient had blood work done today with hemoglobin 3.2 and Troponin 0.8. Patient was sent in to rule out IA. Patient denies any fevers, chills, chest pain, abdominal pain, nausea, vomiting, diarrhea, back pain, neck pain, urinary symptoms, headache, dizziness, or any other complaint. Oncologist: Dr. Neil PMD: Yeyo Time/Duration: Other (4 days) Symptom Onset: Gradual Symptom Course: Unchanged Activities at Onset: Light Context: Exertion Past Medical History - Provider Review Nursing Documentation Reviewed: Yes - Past History Past History: No Previous - Infectious Disease Hx of Infectious Diseases: None - Cardiac Hx Cardiac Disorders: No Hx Pacemaker: No - Pulmonary Hx Respiratory Disorders: (denies left pneumothorax) - Neurological Hx Dizziness: Yes - HEENT Hx HEENT Disorder: Yes ([place] wears b/l hearing aids) - Hematological/Oncological Other/Comment: Last radiatiion Tx was 10/30/17. Per family the patient has 5 more treatments to go. - Integumentary Other/Comment: thick hard toenails, tatoo right arm, radiation markings to abd - Musculoskeletal/Rheumatological Hx Falls: Yes (recent frequent and today) - Gastrointestinal Hx Gastrointestinal Disorders: (poor appetite weight loss) Hx Diverticulitis: Yes Hx Gastroesophageal Reflux: Yes Hx Pancreatitis: (pancreatic ca) - Genitourinary/Gynecological Hx Genitourinary Disorders: No - Psychiatric Hx Psychophysiologic Disorder: No Hx Substance Use: No - Surgical History Other/Comment: epidural 04/2015, multiple colonoscopies last one on 01/18/17 with polypectomy dx hemorrhoids, diverticulosis, egd x7, ct scan guided bx of pancreas 09/15/17 - Anesthesia Hx Anesthesia: Yes Hx Anesthesia Reactions: No Hx Malignant Hyperthermia: No - Suicidal Assessment Feels Threatened In Home Enviroment: No Family/Social History - Physician Review Nursing Documentation Reviewed: Yes Family/Social History: No Known Family HX Smoking Status: Never Smoked Hx Alcohol Use: No Hx Substance Use: No Hx Substance Use Treatment: No Allergies/Home Meds Allergies/Adverse Reactions: Allergies No Known Allergies Allergy (Verified 11/05/17 16:31) Home Medications: Home Meds Medication Instructions Recorded Confirmed Finasteride [Proscar] 5 mg PO DAILY 06/21/18 06/21/18 Lipase/Protease/Amylase [Creon Dr 1 cap PO AC 06/21/18 06/21/18 12,000 Units Capsule] Lomotil 0.025-2.5 mg tablet 1 tab PO Q6H PRN 06/21/18 06/21/18 Midodrine HCl 10 mg PO TID 06/21/18 06/21/18 Sucralfate [Carafate Oral Susp] 10 ml PO AC 06/21/18 06/21/18 Tamsulosin [Flomax] 0.4 mg PO DAILY 06/21/18 06/21/18 Review of Systems - Physician Review All systems were reviewed & negative as marked: Yes - Review of Systems Constitutional: absent: Fevers, Other (Chills) Cardiovascular: CHARLES. absent: Chest Pain Gastrointestinal: absent: Abdominal Pain, Diarrhea, Nausea, Vomiting Genitourinary Male: absent: Frequency, Hematuria Musculoskeletal: absent: Back Pain, Neck Pain Neurological: absent: Headache, Dizziness Physical Exam Vital Signs Reviewed: Yes Vital Signs Temp Pulse Resp BP Pulse Ox 06/21/18 15:09 98.5 F 102 H 20 111/67 99 Temperature: Afebrile Blood Pressure: Normal Pulse: Tachycardic Respiratory Rate: Normal Appearance: Positive for: Well-Appearing, Non-Toxic, Comfortable Pain Distress: None Mental Status: Positive for: Alert and Oriented X 3 - Systems Exam Head: Present: Atraumatic, Normocephalic Pupils: Present: PERRL Extroacular Muscles: Present: EOMI Conjunctiva: Present: Normal Mouth: Present: Moist Mucous Membranes Neck: Present: Normal Range of Motion Respiratory/Chest: Present: Clear to Auscultation, Good Air Exchange. No: Respiratory Distress, Accessory Muscle Use Cardiovascular: Present: Regular Rate and Rhythm, Normal S1, S2. No: Murmurs Abdomen: No: Tenderness, Distention, Peritoneal Signs Back: Present: Normal Inspection Upper Extremity: Present: Normal Inspection. No: Cyanosis, Edema Lower Extremity: Present: Normal Inspection. No: Edema Neurological: Present: GCS=15, CN II-XII Intact, Speech Normal Skin: Present: Warm, Dry, Normal Color. No: Rashes Psychiatric: Present: Alert, Oriented x 3, Normal Insight, Normal Concentration Medical Decision Making ED Course and Treatment: 06/21/18 15:39 Impression: 83 year old male presents sent in to be evaluated for dyspnea on exertion for the past 6 days and abnormal lab work with hemoglobin 3.2 and Troponin 0.8. Differential Diagnosis included but are not limited to: ACS PNA CHF PE Plan: -- Labs -- Chest X-ray -- EKG -- O2 via Nasal Cannula -- Urinalysis -- Reassess and disposition Prior Visits: Notes and results from previous visits were reviewed. Progress Notes: 06/21/18 1700 Troponin noted to be 0.85, [place] [address]. CXR shows no pumonary infiltrates with slight cardiomegaly. Spoke to Dr. Bravo(cardiology covering for Dr. Olivares) who agrees with plan of management and requests cycling of troponins as well as SubQ heparin. Heparin ordered. Call placed to Dr. Neil(oncology). 06/21/18 17:[address] Meg Rollins(oncology) who accepts patient onto the service and will monitor labs. - Lab Interpretations I have reviewed the lab results: Yes - RAD Interpretation Radiology Orders: 06/21/18 15:17 CHEST PORTABLE [RAD] Stat Lapping Machine Operator: Radiologist - EKG Interpretation Interpreted by ED Physician: Yes Type: 12 lead EKG - Scribe Statement The provider has reviewed the documentation as recorded by the Walter Cervantes Provider Scribe Attestation: All medical record entries made by the Walter were at my direction and personally dictated by me. I have reviewed the chart and agree that the record accurately reflects my personal performance of the history, physical exam, medical decision making, and the department course for this patient. I have also personally directed, reviewed, and agree with the discharge instructions and disposition. Disposition/Present on Arrival - Present on Arrival Any Indicators Present on Arrival: No History of DVT/PE: No History of Uncontrolled Diabetes: No Urinary Catheter: No History of Decub. Ulcer: No History Surgical Site Infection Following: None - Disposition Have Diagnosis and Disposition been Completed?: Yes Diagnosis: NSTEMI (non-ST elevated myocardial infarction), Anemia Disposition: HOSPITALIZED Disposition Time: 18:30 Patient Plan: Admission Condition: FAIR
[2018-06-21 17:23] LABS: BASO # 0.02 K/mm3 (0.0-2.0); BASO % 0.2 % (0.0-3.0); EOS # 0.1 (0.0-0.7); GRAN # 5.9 (1.4-6.5); GRAN % 70.7 % (50.0-68.0); LYMPH # 1.2 (1.2-3.4); MEAN CELL VOLUME 88.9 fl (80.0-105.0); MEAN CORPUSCULAR HEMOGLOBIN 28.5 pg (25.0-35.0); MEAN PLATELET VOLUME 10.1 fl (7.0-11.0); MONO # 1.2 (0.1-0.6); MONO % 14.1 % (1.0-6.0); RBC 3.16 10^6/uL (3.5-6.1); RED CELL DISTRIBUTION WIDTH 15.3 % (11.5-14.5); WHITE BLOOD COUNT 8.4 10^3/uL (4.5-11.0)
[2018-06-21 17:27] LABS: INR 1.21; PARTIAL THROMBOPLASTIN TIME 33.3 Seconds (25.1-36.5); PROTHROMBIN TIME 13.9 SECONDS (9.4-12.5)
[2018-06-21 17:31] LABS: ALB/GLOB RATIO 1.2 (1.1-1.8); ALBUMIN 3.7 g/dL (3.0-4.8); CALCIUM 9.2 mg/dL (8.4-10.5)
[2018-06-21 17:50] LABS: TROPONIN I 0.85 ng/mL
[2018-06-21 18:26] LABS: URINE BILIRUBIN NEGATIVE (NEGATIVE); URINE BLOOD NEGATIVE (NEGATIVE); URINE GLUCOSE (UA) NEGATIVE (NEGATIVE); URINE LEUKOCYTE ESTERASE TRACE Leu/uL (NEGATIVE); URINE PROTEIN TRACE mg/dL (<30 mg/dL); URINE UROBILINOGEN 0.2 E.U./dL (<1 E.U./dL)
[2018-06-21 18:31] LABS: URINE APPEARANCE CLEAR (CLEAR); URINE COLOR DARK YELLOW (YELLOW)
[2018-06-21 18:38] LABS: URINE RBC NEGATIVE /hpf (0-2)
[2018-06-21 18:39] LABS: URINE BACTERIA NEG (NEG); URINE WBC 0 - 2 /hpf (0-6)
[2018-06-21] MEDS: Sucralfate 1 gm/10 ml Oral Susp UD PO SCH (21:00)
[2018-06-22 06:10] VITALS: O2SAT 98
[2018-06-22 06:36] LABS: BASO # 0.01 K/mm3 (0.0-2.0); BASO % 0.1 % (0.0-3.0); EOS # 0.1 (0.0-0.7); EOS % 1.9 % (1.5-5.0); GRAN # 4.25 (1.4-6.5); GRAN % 60.6 % (50.0-68.0); HEMOGLOBIN 7.6 g/dL (14.0-18.0); LYMPH # 1.4 (1.2-3.4); LYMPH % 19.4 % (22.0-35.0); MEAN CELL VOLUME 89.4 fl (80.0-105.0); MEAN CORPUSCULAR HEMOGLOBIN 27.8 pg (25.0-35.0); MEAN CORPUSCULAR HGB CONC 31.1 g/dl (31.0-37.0); MEAN PLATELET VOLUME 9.8 fl (7.0-11.0); MONO # 1.3 (0.1-0.6); RBC 2.73 10^6/uL (3.5-6.1); RED CELL DISTRIBUTION WIDTH 15.6 % (11.5-14.5)
[2018-06-22] MEDS ORDERED: Amylase/Lipase/Protease 5,000 Units ECC PO SCH ×3 (07:30→12:28)
[2018-06-22 07:43] LABS: TROPONIN I 1.07 ng/mL
[2018-06-22 07:56] LABS: ALB/GLOB RATIO 1.1 (1.1-1.8); ALBUMIN 2.8 g/dL (3.0-4.8); CALCIUM 8.9 mg/dL (8.4-10.5)
--- NOTE | 2018-06-22 08:54 | HP ---
DATE OF EXAM: 06/21/[address] Neil. CHIEF COMPLAINT: Elevated troponin and shortness of breath. HISTORY OF PRESENT ILLNESS: The patient is an 83-year-old male, admitted by the emergency room to the telemetry floor after being seen in the office earlier today with increasing shortness of breath as his main complaint. He is accompanied by his , known to suffer from stage IV pancreatic cancer with anemic indices for which he was to be transfused with orders written and the patient is being typed and crossed for blood for tomorrow, then labs sent from the office were noted to have an elevated troponin, for which the patient and were requested to return to the emergency room for admission and evaluation for his positive findings. The patient is in no acute distress at rest; however, shortness of breath on exertion persists. The patient is now for evaluation by Dr. Olivares and Mark, cardiologists, with the blood on hold for transfusion after evaluation by Cardiology with oxygen, in the interim as his hemoglobin had moderately improved possibly secondary to heme constriction. PAST MEDICAL HISTORY: Significant for stage IV adenocarcinoma of the pancreas status post radiation with Dr. House, history of hypotension, syncopal episodes, on midodrine, BPH, spinal stenosis, DJD, GERD, diverticulosis, status post polypectomy and hemorrhoids. FAMILY HISTORY AND SOCIAL HISTORY: Nonsmoker. Non-ethanolic. at the bedside. Otherwise noncontributory. ALLERGIES: NO KNOWN ALLERGIES. MEDICATIONS: At this time include, tamsulosin, Carafate, midodrine, Creon, Lomotil, finasteride and Tylenol. REVIEW OF SYSTEMS: Twelve-point review of systems was done, which is negative to question except for items mentioned in the history of the present illness as above. PHYSICAL EXAMINATION GENERAL: He appears frail, also questionable early dementia with decreased hearing noted, with bilateral hearing aids. VITAL SIGNS: Today, temperature 98.6, pulse 92, respirations 18, blood pressure 115/76 and pulse ox of 100%. HEENT: Otherwise unremarkable. NECK: Supple. CARDIOPULMONARY: Tachy rate, regular rhythm. Occasional ectopic beats. LUNGS: Clear. ABDOMEN: Soft, nontender with minimal discomfort on gentle palpation in the mid epigastrium. EXTREMITIES: No edema. SKIN: Warm and dry. NEUROLOGIC: Awake and alert, however, withdrawn with questions answered vaguely. LABORATORY DATA: The patient's labs were done. White blood cell count of 8.4, hemoglobin 9.0, improved from 8.6 and 8.2 on the two previous days, hematocrit of 28.1, and platelet count of 210,000. Chem metabolic panel shows a chloride of 109, carbon dioxide of 19, non-fasting glucose 146, alk phos of 132. LDH of 1005, with a troponin done earlier today at 0.84, later this afternoon at 0.85 [place] [address]. Iron saturation of 9%. The patient has begun oral iron in the form of Flintstones chewable iron tablets. His urinalysis showed trace of protein, trace leukocyte esterase with an INR of 1.21. The patient did have an EKG done earlier today to be read but the chest x-ray again not read, with preliminary interpretation as per emergency room doctor is that of no active disease. ASSESSMENT: For this patient is that of non-ST elevated myocardial infarction with abnormal troponin, anemia of chronic disease, stage IV pancreatic cancer, gastroesophageal reflux disease, shortness of breath on exertion, orthostatic hypotension, spinal stenosis, early dementia, also BPH. PLAN: For this patient after conversation with Dr. Neil is to continue his present medical regimen. We will ask for a consult with Dr. Flores, Cardiology. We will monitor clinically and with labs with prognosis guarded. This is a complex patient with the comprehensive medically necessary and appropriate visit carried out in excess of 70 minutes. Also for his anemia, we will check his labs in the morning to determine whether he will receive a transfusion after consultation with Dr. Flores as his hemoglobin improved mildly with oral iron started recently with modest effect. Again prognosis for this patient is guarded. Marty Oorna MD
[2018-06-22] MEDS: Sucralfate 1 gm/10 ml Oral Susp UD PO SCH (09:09)
--- NOTE | 2018-06-22 09:57 | RAD ---
Date of service: 06/21/2018 HISTORY: Chest pain COMPARISON: 11/05/2017. FINDINGS: LUNGS: No active pulmonary disease. PLEURA: No significant pleural effusion identified, no pneumothorax apparent. CARDIOVASCULAR: Atherosclerotic calcifications identified primarily aortic arch. No radiographic findings to suggest acute or significant cardiovascular disease. OSSEOUS STRUCTURES: No significant abnormalities. VISUALIZED UPPER ABDOMEN: Normal. OTHER FINDINGS: None. IMPRESSION: No active disease. No significant interval change compared to the prior examination(s).
--- NOTE | 2018-06-22 10:55 | CARD ---
APPROVED REPORT Date of service: 06/21/2018 EKG Measurement Heart [id number] <Conclusion> Normal sinus rhythm Right bundle branch block Inferior infarct, old STTW changes c/w ischemia
--- NOTE | 2018-06-22 11:27 | CARD ---
APPROVED REPORT Date of service: 06/22/2018 EKG Measurement Heart [id number] [place] [id number] <Conclusion> Normal sinus rhythm Right bundle branch block Inferior infarct, age undetermined STTW changes c/w ischemia. No change
[2018-06-22] MEDS: Amylase/Lipase/Protease 5,000 Units ECC PO SCH ×2 (12:35→17:19)
--- NOTE | 2018-06-22 15:47 | CP.PCM.PN ---
Subjective - Date & Time of Evaluation Date of Evaluation: 06/22/18 Time of Evaluation: 15:43 - Subjective Subjective: Hematology/Oncology Progress Note (Dr. Neil's Service) Patient seen and assessed at bedside. Patient was noted to have elevated tropo nins overnight and cardiology was made aware. Patient reports that he feels subjectively better than when he was admitted. Patient denies any further complaints at this time including fevers, chills, headache, chest pain, SOB, abdominal pain, N/V/D/C, changes in urine output, skin changes or any num bness/tingling of any extremity. Objective - Vital Signs/Intake and Output Vital Signs (last 24 hours): Temp Pulse Resp BP Pulse Ox 98.5 F 72 18 110/65 98 06/22/18 14:57 06/22/18 14:57 06/22/18 14:57 06/22/18 14:57 06/22/18 06:00 Intake and Output: 06/22/18 06/22/18 06:59 18:59 Intake Total 480 50 Output Total 600 Balance -120 50 - Medications Medications: Current Medications Amylase (Pancrease 92956 U-5000 U-53022 U) 5,000 unit PO AC [facility] Last Admin: 06/22/18 12:35 Dose: 5,000 unit Aspirin (Aspirin Chewable) 81 mg PO DAILY [facility] Finasteride (Proscar) 5 mg PO DAILY [facility] Last Admin: 06/22/18 09:09 Dose: 5 mg Heparin Sodium (Porcine) (Heparin) 5,000 units SC Q12H [facility]; Protocol Last Admin: 06/22/18 09:10 Dose: 5,000 units Metoprolol Tartrate (Lopressor) 25 mg PO BID [facility] Last Admin: 06/22/18 10:13 Dose: 25 mg Midodrine (Proamatine) 10 mg PO TID [facility] Last Admin: 06/22/18 14:59 Dose: 10 mg Sodium Chloride ([place] Nasal [place]) 0 ml NS Q12H [facility] Last Admin: 06/22/18 08:45 Dose: 2 sprays Sucralfate (Carafate Oral Susp) 1 gm PO BID [facility] Last Admin: 06/22/18 09:09 Dose: 1 gm Tamsulosin HCl (Flomax) 0.4 mg PO DAILY [facility] Last Admin: 06/22/18 09:09 Dose: 0.4 mg - Labs Labs: 06/22/18 06:00 06/22/18 06:00 PT 13.9 SECONDS (9.4-12.5) H 06/21/18 17:13 INR 1.21 06/21/18 17:13 APTT 33.3 Seconds (25.1-36.5) 06/21/18 17:13 - Constitutional Appears: Non-toxic - Head Exam Head Exam: ATRAUMATIC, NORMOCEPHALIC - Eye Exam Eye Exam: EOMI - ENT Exam ENT Exam: Mucous Membranes Moist Additional comments: Bilateral hearing aids noted - Neck Exam Neck Exam: Full ROM - Respiratory Exam Respiratory Exam: Clear to Ausculation Bilateral, NORMAL BREATHING PATTERN. absent: Rales, Rhonchi, Wheezes - Cardiovascular Exam Cardiovascular Exam: RRR, +S1, +S2. absent: Tachycardia - GI/Abdominal Exam GI & Abdominal Exam: Soft, Normal Bowel Sounds. absent: Tenderness - Extremities Exam Extremities Exam: absent: Calf Tenderness, Pedal Edema - Neurological Exam Neurological Exam: Alert, Awake - Psychiatric Exam Psychiatric exam: Normal Affect, Normal Mood - Skin Skin Exam: Dry, Intact, Normal Color, Warm Assessment and Plan - Assessment and Plan (Free Text) Assessment: 83 year old male with a past medical history significant for spinal stenosis, GERD, pancreatic adenocarcinoma of the pancreatic head (on chemo and radiation tx), and history of gastric ulcers who presented who presented after having been found to be acutely anemic and with elevated troponins as an outpatient. Plan: 1. NSTEMI -Serial troponins as follows: 0.84, 0.85 and 1.07 -EKG showing NSR with RBBB (unchanged from previous EKG) -Started on Metoprolol 25mg PO BID and ASA 81mg PO daily -Continue supplemental oxygen via [place] -Cardiology consulted, all recommendations appreciated 2. Anemia -H/H at 7.6/24.4 -Will transfuse two units of pRBC's -Premedicate as ordered to prevent transfusion reaction -Lasix 20mg IVP once after each unit to prevent fluid overload -Will continue to monitor with daily CBC's 3. Hypotension -Continue home Midodrine -Nephrology consulted, all recommendations appreciated 4. History of Pancreatic Cancer/Pancreatic Insufficiency -Continue home Pancrease 5. History of Gastric Ulcers -Continue home Carafate 6. History of BPH -Continue home Proscar and Flomax GI Prophylaxis: Carafate DVT Prophylaxis: Heparin Patient seen and case discussed with attending, Dr. Orona. Gonzalo Mccoy PGY2
--- NOTE | 2018-06-22 22:30 | CON ---
DATE: 06/22/2018 SUBJECTIVE: The patient is seen. REASON FOR CONSULTATION: Hypotension, pancreatic cancer, severe anemia. HISTORY OF PRESENT ILLNESS: An 83-year-old male previously unknown to me, was sent to the emergency room from oncologist's office because of severe anemia, shortness of breath, dyspnea on exertion. In the emergency room, he was found to have a blood pressure of 111/67. He was found to have a hemoglobin of 7.6, elevated troponin of 0.85, second troponin of 1.0. The patient is on ProAmatine at home. Consultation is requested for chronic hypotension. PAST MEDICAL AND SURGICAL HISTORY: He denies any history of hypertension. He reports pancreatic cancer that was diagnosed in 08/2017, he reports history of radiation and chemotherapy, history of hypotension, orthostatic hypotension, BPH, diverticulosis, severe anemia. FAMILY HISTORY: Noncontributory. SOCIAL HISTORY: No smoking, no alcohol use, no IV drug abuse. ALLERGIES: NO KNOWN DRUG ALLERGIES. MEDICATIONS AT HOME: Include Flomax, Carafate, midodrine 10 t.i.d., Creon, Lomotil, finasteride. REVIEW OF SYSTEMS: All systems are reviewed, pertinent positives as mentioned in history of presenting illness, rest unremarkable. PHYSICAL EXAMINATION: GENERAL: Elderly male lying in bed. VITAL SIGNS: Blood pressure 114/62, heart rate 72, respiratory rate 18, temperature 98.4. HEENT: Normocephalic, atraumatic, positive pallor. NECK: Supple, no JVD. LUNGS: Bilateral equal entry, bilateral equal expansion. CARDIAC: S1 and S2, regular rate and rhythm, no murmur, no rub. ABDOMEN: Obese, distended, soft, nontender. Bowel sounds present. EXTREMITIES: No lower extremity edema. INTAKE AND OUTPUT: Not charted. LABORATORY DATA: WBC 135, hemoglobin 4.6, hematocrit 11.1, CO2 20, BUN 18, creatinine 1.4, glucose 89, calcium 8.9, AST 31, ALT 42, albumin 2.8. Troponin 1.07. Urinalysis: Yellow, clear, pH 6.0, specific gravity 10.25, protein trace, nitrite negative, leukocyte esterase trace. CURRENT MEDICATIONS: Aspirin, Carafate, Flomax, heparin, Lopressor, ProAmatine 10 t.i.d., Proscar, Lasix 20 mg given this morning. ASSESSMENT: 1. Severe anemia. 2. Chronic hypotension. 3. Stage IV pancreatic cancer. 4.. Benign prostatic hyperplasia. PLAN: 1. Continue ProAmatine 10 t.i.d. 2. Transfuse 2 units of PRBCs. 3. Monitor H and H. 4. Cardiology evaluation. 5. Continue beta-suki, hold for blood pressure less than 120/ 80 Tamra Rodriguez MD
--- NOTE | 2018-06-22 22:42 | CON ---
DATE: 06/22/2018 INDICATIONS: NSTEMI. This is an 83-year-old man with stage IV pancreatic cancer undergoing radiation therapy who presented with increasing dyspnea on exertion, was found to have elevated troponins. He is admitted to telemetry. There is no chest pain, orthopnea, PND, syncope, presyncope, lightheadedness, dizziness, vertigo, palpitation, edema, claudication, fever, chills, cough, sputum production, hemoptysis, abdominal pain, nausea, vomiting, diarrhea, constipation, or melena. PAST MEDICAL HISTORY: Notable for stage IV pancreatic cancer. He has undergone radiation treatment under the care of Dr. Neil. He has a history of syncope, gastroesophageal reflux disease, diverticulosis, colonic polyps, hemorrhoids, spinal stenosis, BPH. There is no prior history of myocardial infarction, angina, rheumatic fever, arrhythmia, congestive heart failure. There is no history of diabetes, gout, stroke, TIA, or hypertension. He has had hypotension. MEDICATIONS ON ADMISSION: Flomax, Carafate, midodrine, Creon, Lomotil, finasteride, and Tylenol. ALLERGIES: NO MEDICATION ALLERGIES. SOCIAL HISTORY: He lives at home. He does not smoke. He does not drink. He is ambulatory, but limited. FAMILY HISTORY: Noncontributory. REVIEW OF SYSTEMS: A 10-point review of systems otherwise unremarkable except as noted above. PHYSICAL EXAMINATION: GENERAL: He is a well-developed male lying in bed on telemetry, in no acute distress. VITAL SIGNS: Notable for sinus rhythm 77 beats per minute. He is afebrile. Blood pressure 117/65, respirations 16 to 20, and O2 sat 95% to 98% on room air. HEENT: Reveals no neck vein distention, thyromegaly, carotid bruits. Mucous membranes moist. Conjunctiva pink. NECK: Supple. LUNGS: Lung cohen clear. HEART: Revealed normal first and second heart sounds. There is a systolic ejection murmur heard in the aortic space along the left sternal border. ABDOMEN: Soft. Bowel sounds present. No mass, organomegaly, tenderness, rebound, guarding. No CVA tenderness. No palpable abdominal aortic aneurysm. EXTREMITIES: Revealed no cyanosis, clubbing, or edema. NEUROLOGIC: Awake, alert, and oriented. SKIN: Warm and dry. No rash or cellulitis. PSYCHIATRIC: Normal as to mood and affect. LABORATORY AND IMAGING DATA: EKG demonstrates regular sinus rhythm, right bundle-branch block, inferior DE which is old. There is some increased ST depressions in lateral leads. Chest x-ray is not interpreted yet. Lung cohen are clear without infiltrate or effusion by my reading. White count is normal. Hemoglobin 7.6, hematocrit 24.4, and platelet count is normal. PT/INR and PTT unremarkable. Chemistries unremarkable. BUN 18, creatinine 1.4, blood sugar 146 and 89. Calcium, magnesium, LFTs unremarkable. Troponin 0.85 and 1.07. CK 51. BNP 13,200. Urinalysis is noted. IMPRESSION: Mohinder Bentley is an 83-year-old man with stage IV pancreatic cancer admitted with a recent dyspnea on exertion, found to have elevated troponins, abnormal EKG, probable non ST elevation myocardial infarction. He has a murmur c/w aortic stenosis, possibly severe.He is also anemic, which may contribute to the shortness of breath. He is on telemetry. Will get serial EKGs and enzymes. I will order an echocardiogram. I will give him aspirin and low-dose metoprolol cautiously given that his blood pressure has been low at times. He is getting subcutaneous heparin. Sucralfate, Flomax, Creon, ProAmatine and Proscar. We will monitor Is and Os. Check stool for occult blood. He can be out of bed to chair. He is followed by Dr. Neil for oncology. He is also followed by Dr. Orona. Given the advanced pancreatic cancer, a conservative course of cardiac care will be anticipated. I will follow along with you. I will make additional recommendations based on his clinical course. Cole Olivares MD B[facility]
[2018-06-23 07:02] LABS: GRAN # 6.84 (1.4-6.5); GRAN % 74.3 % (50.0-68.0); HEMOGLOBIN 8.9 g/dL (14.0-18.0); LYMPH # 1.2 (1.2-3.4); LYMPH % 13.4 % (22.0-35.0); MEAN CELL VOLUME 87.7 fl (80.0-105.0); MEAN CORPUSCULAR HGB CONC 31.9 g/dl (31.0-37.0); MONO # 1.1 (0.1-0.6); MONO % 12.3 % (1.0-6.0); RBC 3.18 10^6/uL (3.5-6.1); RED CELL DISTRIBUTION WIDTH 15.6 % (11.5-14.5); WHITE BLOOD COUNT 9.2 10^3/uL (4.5-11.0)
--- NOTE | 2018-06-23 08:02 | CP.PCM.PN ---
Subjective - Date & Time of Evaluation Date of Evaluation: 06/23/18 Time of Evaluation: 07:00 - Subjective Subjective: Stable on 2R. S/P 1 unit RBCs yesterday with IV Lasix. I spoke with Dr. Orona by phone yesterday. He feels OK today. No CP or SOB. V/S noted. RSR PE: Lungs: clear Cor.: KAYLEIGH Abd.: soft Ext.: no edema Neuro.: alert I/O: 1305/600 recorded Labs noted: H/H = 8.9/27.9 Echo: Mod. LVD, Mod/Sev . See full report. Objective - Vital Signs/Intake and Output Vital Signs (last 24 hours): Temp Pulse Resp BP Pulse Ox 97.4 F L 62 19 118/69 98 06/23/18 00:00 06/23/18 06:00 06/23/18 00:00 06/23/18 00:00 06/22/18 06:00 Intake and Output: 06/23/18 06/23/18 06:59 18:59 Intake Total 120 Output Total 600 Balance -480 - Medications Medications: Current Medications Amylase (Pancrease 54698 U-5000 U-26162 U) 5,000 unit PO AC [facility] Last Admin: 06/22/18 17:19 Dose: 5,000 unit Aspirin (Aspirin Chewable) 81 mg PO DAILY [facility] Finasteride (Proscar) 5 mg PO DAILY [facility] Last Admin: 06/22/18 09:09 Dose: 5 mg Heparin Sodium (Porcine) (Heparin) 5,000 units SC Q12H [facility]; Protocol Last Admin: 06/22/18 20:47 Dose: 5,000 units Metoprolol Tartrate (Lopressor) 25 mg PO BID [facility] Last Admin: 06/22/18 10:13 Dose: 25 mg Midodrine (Proamatine) 10 mg PO TID [facility] Last Admin: 06/22/18 14:59 Dose: 10 mg Sodium Chloride ([place] Nasal [place]) 0 ml NS Q12H [facility] Last Admin: 06/22/18 21:06 Dose: 2 sprays Sucralfate (Carafate Oral Susp) 1 gm PO BID [facility] Last Admin: 06/22/18 09:09 Dose: 1 gm Tamsulosin HCl (Flomax) 0.4 mg PO DAILY [facility] Last Admin: 06/22/18 09:09 Dose: 0.4 mg - Labs Labs: 06/23/18 05:30 06/22/18 06:00 PT 13.9 SECONDS (9.4-12.5) H 06/21/18 17:13 INR 1.21 06/21/18 17:13 APTT 33.3 Seconds (25.1-36.5) 06/21/18 17:13 Assessment and Plan - Assessment and Plan (Free Text) Assessment: Dyspnea NSTEMI Mod/Sev Mod. LVD Stage IV pancreatic cancer Anemia, s/p transfusion H/O syncope GERD Diverticulosis Colonic Polyps Hemorrhoids Spinal Stenosis BPH Plan: As per Parveen Orona and Jayce. Lasix with additional transfusion today ASA, metoprolol Conservative cardiac care Monitor: I/O, H/H, labs, sats., etc.
[2018-06-23] MEDS: Amylase/Lipase/Protease 5,000 Units ECC PO SCH ×2 (08:10→11:47)
[2018-06-23 08:33] LABS: ALB/GLOB RATIO 1.1 (1.1-1.8)
[2018-06-23 08:39] LABS: TROPONIN I 0.59 ng/mL
--- NOTE | 2018-06-23 09:53 | CARD ---
APPROVED REPORT Date of service: 06/22/2018 EXAM: Two-dimensional and M-mode echocardiogram with Doppler and color Doppler. Other Information Quality : AverageRhythm : INDICATION Aortic Valve Disease Dyspnea Non STEMI 2D DIMENSIONS IVSd1.1 (0.7-1.1cm)LVDd5.0 (3.9-5.9cm) LVOT Diameter2.1 (1.8-2.4cm)PWd1.1 (0.7-1.1cm) LVDs4.2 (2.5-4.0cm)FS (%) 16.7 % LVEF (%)34.0 (>50%) M-Mode DIMENSIONS Aortic Root2.70 (2.2-3.7cm)Aortic Cusp Exc.0.50 (1.5-2.0cm) Aortic Valve AoV Peak Dgpiphzm882.0cm/sAoV VTI73.6cmAO Peak GR.49mmHg LVOT Peak Lyibmjmm13.7cm/sLVOT VTI18.00cmAO Mean GR.24mmHg KECIA (VMAX)0.80ul3YXC (VTI)0.85cm2 Mitral Valve MV E Mtsriilv38.7cm/sMV A Gtfceeho684.0cm/sE/A ratio0.9 TDI E/Lateral E'0.0E/Medial E'0.0 Tricuspid Valve TR Peak Eiqmfhkg076kn/sRAP [id number] Peak Gr.11mmHg [id number] LEFT VENTRICLE The left ventricle is normal size. There is normal left ventricular wall thickness. Left ventricle systolic function is moderately to severely impaired. The Ejection Fraction is - 30 % There is moderate to severe global hypokinesis. RIGHT VENTRICLE The right ventricle is normal size. ATRIA The left atrium size is normal. The right atrium size is normal. The interatrial septum is intact with no evidence for an atrial septal defect. AORTIC VALVE The aortic valve is severely calcified. There is trace aortic regurgitation. There is moderate to severe valvular aortic stenosis. MITRAL VALVE The mitral valve is mildly thickened but opens well. Mitral annular calcification is moderate to severe. Mitral regurgitation is trace to mild. TRICUSPID VALVE The tricuspid valve is normal in structure. There is trace tricuspid regurgitation. PULMONIC VALVE The pulmonic valve is not well visualized. GREAT VESSELS The aortic root is normal in size. PERICARDIAL EFFUSION There is no pericardial effusion. <Conclusion> The left ventricle is normal size. There is normal left ventricular wall thickness. Left ventricle systolic function is moderately to severely impaired. The Ejection Fraction is - 30 % There is moderate to severe global hypokinesis. The aortic valve is severely calcified. There is moderate to severe valvular aortic stenosis. There is trace aortic regurgitation. Mitral regurgitation is trace to mild. There is trace tricuspid regurgitation.
[2018-06-23] MEDS: Sucralfate 1 gm/10 ml Oral Susp UD PO SCH (10:54)
--- NOTE | 2018-06-23 11:15 | PN ---
DATE: 06/23/2018 SUBJECTIVE: The patient is currently comfortable lying supine in bed. He states he will be receiving a unit of packed red blood cells and then likely be discharged home. The patient has a history of hypotension with orthostatic hypotension and stage IV pancreatic cancer. He came in for shortness of breath. He was found to have an acute NSTEMI, seen by Cardiology. MEDICATIONS: Medication list reviewed. The patient is currently on aspirin, Carafate, Flomax, subcu heparin, Lopressor, [place] nasal spray, pancreatic enzymes, ProAmatine, and Proscar. OBJECTIVE: INTAKE/OUTPUT: Intake 1305, output 600. VITAL SIGNS: Present blood pressure stable at 118/69, temperature 97.4, pulse of 67 with respiratory rate of 19. HEENT: Exam shows him to be normocephalic, atraumatic. Conjunctivae are pale. Sclerae are nonicteric. NECK: Supple. No neck vein distention. CHEST: Clear to auscultation and percussion. No rales, rhonchi or wheezing. CARDIOVASCULAR: Shows a regular rate and rhythm with /MR/TR. No S3, no S4, no rub. ABDOMEN: Soft. Bowel sounds normal. No rebound, guarding or masses. EXTREMITIES: Show no lower extremity cyanosis, clubbing or edema. LABORATORY DATA AND IMAGING: CBC; white blood cell count today 9.2, hemoglobin up to 8.9 from 7.6. His baseline is in the 10 range. Platelet count is 198,000. Chemistries today show a BUN of 26 with a creatinine of 1.4, his baseline. Chloride 110 with a CO2 of 20. Iron saturations were 9%. Phosphorus was normal. Calcium level was normal at 9. Troponins remain mildly elevated at 0.84 down to 0.59. Albumin is 3. Microbiology, no cultures were sent. ASSESSMENT: 1. Status post shortness of breath associated with an req-[id number] myocardial infarction. The patient seen by Cardiology. Echocardiogram repeat study is pending. The patient has known severe aortic stenosis with mitral regurgitation and tricuspid regurgitation. 2. History of hypotension with orthostatic hypotension. I have requested one set of orthostatic blood pressures. The patient will continue on ProAmatine. 3. History of stage IV pancreatic cancer, being followed by Oncology. The patient remains on pancreatic enzymes presently. 4. History of benign prostatic hypertrophy, stable. 5. History of gastroesophageal reflux disease, currently stable, off proton pump inhibitor therapy. The patient however remains on Carafate. 6. Anemia. The patient's hemoglobin on admission was down to 7.6, perhaps precipitating the cardiac event. Agree with transfusing the patient back up to the 10 range. PLAN: 1. Continue ProAmatine 10 mg three times a day and check orthostatic blood pressures. 2. Transfuse the patient up to hemoglobin of 10. 3. The patient can be monitored on telemetry during the remainder of the hospitalization. 4. Appreciate Cardiology followup. 5. Continue low-dose beta-suki therapy with close monitoring of his blood pressure. 6. From a Renal standpoint, once cleared by Cardiology, once blood pressure levels normalize, perhaps discharge home. Narciso Menendez MD
[2018-06-23 13:01] VITALS: RESP 18
[2018-06-23 14:50] VITALS: BP 103/52; PULSE 69; TEMP 98.2
--- NOTE | 2018-06-23 21:37 | DS ---
For Dr. Neil, SUBJECTIVE: The patient is an 83-year-old male seen sitting up his bed with his and daughter at the bedside in no acute distress being transfused with second unit of packed red blood cells after conversation with Dr. Olivares, Cardiology, as the patient did have positive findings with elevated troponins with patient suffering an non-ST elevated myocardial infarction. He is known to suffer from pancreatic cancer, stage IV and was due for chemotherapy to resume in 2 days' time. However, now that he is to be discharged today, we will hold off on chemotherapy for now with the patient to recuperate as per Dr. Olivares's recommendation. He is otherwise in no acute distress at this time to receive the second unit of packed red blood cells as is planned originally prior to his admission for symptomatic anemia. OBJECTIVE/PHYSICAL EXAMINATION: VITAL SIGNS: Temperature 97.3, pulse 72, respirations 20, blood pressure 136/65 with a pulse ox of 98%. HEENT: Unremarkable. NECK: Supple. HEART: Regular rate with faint 1/6 systolic ejection murmur. LUNGS: Clear. ABDOMEN: Soft and nontender. EXTREMITIES: No edema. SKIN: Warm and dry. NEUROLOGIC: Awake and alert with episodes of confusion in the past. LABORATORY DATA: The patient's labs were done. White blood cell count of 9.2, hemoglobin is 8.9 after transfusion of one unit of packed cells yesterday with additional unit to be transfused today for a hemoglobin yesterday of 7.6, hematocrit today 27.9 and platelet count of 198,000 with a chem metabolic panel from this morning showing a chloride of 110, carbon dioxide of 20, BUN of 26, with a creatine of 1.4, with an alk phos of 130 and a troponin of 0.59, down from 1.07 yesterday. MEDICATIONS: The patient's medicines include Ecotrin 81 mg daily, Carafate suspension 1 g twice a day, Flomax 0.4 daily, Lopressor 25 mg p.o. b.i.d., [place] Nasal [place], Pancrease t.i.d. with meals, midodrine 10 mg three times a day, Proscar 5 mg daily and Tylenol p.r.n. for pain. ASSESSMENT: For this patient is that of non-ST elevated myocardial infarction, symptomatic anemia, hypotension, orthostatic hypotension, stage IV pancreatic cancer, benign prostatic hyperplasia, gastroesophageal reflux disease, degenerative joint disease, hemorrhoids and early dementia. PLAN: For this patient, after conversation with Dr. Neil and Dr. Olivares, Cardiology is to discharge the patient home after his additional unit of packed red blood cell be transfused today with postponement of his planned chemotherapy for Monday; however, he is to follow up with Dr. Olivares in his office early next week and with Dr. Neil in his office at the end of the week. He is to continue his present medical regimen with patient's and daughter aware of the recommendations as the patient unfortunately suffers from mild dementia at times and decreased hearing. This is a complex patient with a comprehensive medical necessity and appropriate visit carried out in excess of 60 minutes with patient's and family's questions answered to their satisfaction. Marty Orona MD
== END 2018-06-23 15:39 | disposition home or self-care (01) | DRG 281 ==
LOC: ED 14:53 → ERH 18:55 → 2RNO 22:25
PROVIDERS: ADMIT Family Medicine; ATTEND Family Medicine
PROC: 30233N1 Transfusion of Nonautologous Red Blood Cells into Peripheral Vein, Percutaneous Approach (ICD-10-PCS; principal; 2018-06-22)
DX: I21.4 Non-ST elevation (NSTEMI) myocardial infarction (principal); C25.0 Malignant neoplasm of head of pancreas; K21.9 Gastro-esophageal reflux disease without esophagitis; D63.8 Anemia in other chronic diseases classified elsewhere; I95.1 Orthostatic hypotension; F03.90 Unspecified dementia, unspecified severity, without behavioral disturbance, psychotic disturbance, mood disturbance, and anxiety; I08.3 Combined rheumatic disorders of mitral, aortic and tricuspid valves; M48.00 Spinal stenosis, site unspecified; N40.0 Benign prostatic hyperplasia without lower urinary tract symptoms; K57.90 Diverticulosis of intestine, part unspecified, without perforation or abscess without bleeding; K64.9 Unspecified hemorrhoids; M19.90 Unspecified osteoarthritis, unspecified site; Z87.11 Personal history of peptic ulcer disease; Z86.010 Personal history of colon polyps

== ENCOUNTER 2018-07-15 23:21 | Emergency (ER) | payer MEDICARE, BC ==
[2018-07-15 23:25] VITALS: BMI 22.8
[2018-07-15] MEDS ORDERED: Sodium Chloride 0.9% 1,000 ML IV SCH (23:30)
--- NOTE | 2018-07-15 23:30 | EDPD ---
HPI Stroke - General Time Seen by Provider: 07/15/18 23:25 Historian: Patient, Spouse, EMS - History of Present Illness Narrative History of Present Illness (Free Text): 07/15/18 23:34 A 83 year old male, whose past medical history includes Stage 4 pancreatic cancer, anemia, and GERD, presents to the emergency department for an unwitnessed fall and left sided weakness around 4 hours ago. Per patient's , patient went into his bedroom to watch the television at around 7 pm and the patient's went into the bedroom at around 10:30 pm where she found the patient on the floor. The patient's states patient was awake after the fall but was unable to explain what happened. The patient's then called EMS and patient noted to have left sided weakness. Patient denies any fever, chills, shortness of breath, chest pain, diarrhea, nausea, vomiting, urinary symptoms, back pain, neck pain, headache, dizziness, or any other complaints. Onset:: Hours (4 hours ago) Timing: Constant Context: Other (fall), Home Associated Symptoms: Dysarthria - Location Locate Left: Face (Facial droop) rTPA Inclusion/Exclusion - Refusal of Treatment Patient Refused Treatment: No - Inclusion Criteria for Altepase Patient is 18 years or Older: Yes The Clinical Diagnosis of Ischemic Stroke That is Causing a Potentially Disabling Neurological Deficit: Yes Time of Onset is Well Established to be Less Than 270 Minute Before Treatment Would Begin: No Risk/Benefit Discussed With Patient/Family Member Present: Yes - Exclusion Criteria for Altepase Uncontrolled Hypertension at Time of Treatment (Systolic BP above 185 or Diastolic BP above 110 mmHg): No Active Internal Bleeding: No Known Bleeding Diathesis Including but Not Limited to: Platelets Below 100,000/mm,PTT Above 40 sec After Heparin Use, Current Use of Oral Anitcoagulant With INR Greater Than 1.7 or PT Greater Than 15 secs: No Evidence of an Intracranial Hemorrhage: No Evidence of Major Acute Infarct With Signs Greater Than 1/3 MCA Territory: No Suspicion of Subarachnoid Hemorrhage on Pretreatment Evaluation Even if CT Head Negative For Hemorrhage: No - Warning to TPA With Conditions Following Conditions Weighed Against Anticipated Benefit: Yes Condition: Age Greater Than 75 years Additional Condition (For 3-4.5 Hour Window): Age Greater Than 80 Past Medical History - Provider Review Nursing Documentation Reviewed: Yes - Past History Past History: No Previous - Infectious Disease Hx of Infectious Diseases: None - Cardiac Hx Angina: Yes Hx Hypertension: Yes - Pulmonary Hx Respiratory Disorders: (denies left pneumothorax) - Neurological Hx Dizziness: Yes - HEENT Hx HEENT Disorder: Yes ([place] wears b/l hearing aids) - Hematological/Oncological Hx Anemia: Yes - Integumentary Other/Comment: thick hard toenails, tatoo right arm, radiation markings to abd - Musculoskeletal/Rheumatological Hx Falls: Yes - Gastrointestinal Hx Gastrointestinal Disorders: Yes (colonoscopy) Hx Diverticulitis: Yes Hx Gastroesophageal Reflux: Yes Hx Pancreatitis: Yes (cancer) Other/Comment: polypectomy - Genitourinary/Gynecological Hx Genitourinary Disorders: No - Psychiatric Hx Substance Use: No - Surgical History Other/Comment: epidural 04/2015, multiple colonoscopies last one on 01/18/17 with polypectomy dx hemorrhoids, diverticulosis, egd x7, ct scan guided bx of pancreas 09/15/17 - Anesthesia Hx Anesthesia: Yes Hx Anesthesia Reactions: No Hx Malignant Hyperthermia: No - Suicidal Assessment Feels Threatened In Home Enviroment: No Allergies/Home Meds Allergies/Adverse Reactions: Allergies No Known Allergies Allergy (Verified 07/15/18 23:24) Home Medications: Home Meds Medication Instructions Recorded Confirmed Atropine/Diphenoxylate [Lonox 1 tab PO DAILY PRN 06/21/18 07/15/18 0.025 MG-2.5 MG] Lipase/Protease/Amylase [Creon Dr 1 each PO TID 06/21/18 07/15/18 12,000 Units Capsule] RX: Finasteride [Proscar] 5 mg PO DAILY 06/21/18 07/15/18 RX: Tamsulosin [Flomax] 0.4 mg PO DAILY 06/21/18 07/15/18 Sucralfate [Carafate Oral Susp] 10 ml PO AC 06/21/18 07/15/18 Review of Systems - Physician Review All systems were reviewed & negative as marked: Yes - Review of Systems Constitutional: absent: Fevers, Night Sweats Respiratory: absent: SOB Cardiovascular: absent: Chest Pain Gastrointestinal: absent: Diarrhea, Nausea, Vomiting Genitourinary Male: absent: Urinary Output Changes Musculoskeletal: absent: Back Pain, Neck Pain Neurological: absent: Headache, Dizziness ED Stroke Physical Exam Vital Signs Reviewed: Yes Temperature: Afebrile Blood Pressure: Normal Pulse: Tachycardic Respiratory Rate: Normal Appearance: Positive for: Well-Appearing, Non-Toxic, Comfortable Pain Distress: None Mental Status: Positive for: Alert and Oriented X 3 Finger Stick Blood Glucose: 141 - Systems Exam Head: Present: Atraumatic, Normocephalic Pupils: Present: PERRL Extroacular Muscles: Present: EOMI Conjunctiva: Present: Normal Ears: Present: Normal Mouth: Present: Moist Mucous Membranes Pharnyx: Present: Normal Neck: Present: Normal Range of Motion Respiratory/Chest: Present: Clear to Auscultation, Good Air Exchange. No: Respiratory Distress, Accessory Muscle Use Cardiovascular: Present: Regular Rate and Rhythm, Normal S1, S2. No: Murmurs Abdomen: Present: Normal Bowel Sounds. No: Tenderness, Distention, Peritoneal Signs Back: Present: Normal Inspection Upper Extremity: Present: Normal Inspection. No: Cyanosis, Edema Lower Extremity: Present: Normal Inspection. No: Edema Neurologic: Present: GCS=15, Normal Sensory Function, Facial Droop (+left sided facial droop), Other (+left sided upper and lower hemiplegia/dysarthria) Skin: Present: Warm, Dry, Normal Color. No: Rashes Lymphatic: Present: OX3, NI, NC Psychiatric: Present: Alert, Oriented x 3, Normal Insight, Normal Concentration Medical Decision Making ED Course and Treatment: 07/15/18 23:25 Impression: 83 year old male presenting to the emergency department for left sided weakness. Plan: -- Type and screen -- Head CT without contrast -- EKG -- Labs -- Stroke Team consult -- CBC -- COAGs -- Chest X-ray -- IV fluids -- Reassess and disposition Prior Visits: Notes and results from previous visits were reviewed. Patient was last seen in the emergency department on Progress Notes: 07/15/18 23:23 CODE STROKE called. 07/15/18 23:[address] Cisse, Neuro, who states patient is out of time window for TPA administration. Dr. Cisse recommends a CT angio at this time. Patient will be sent for imaging. 07/15/18 23:47 EKG: Ordered, reviewed, and independently interpreted the EKG. Rate : 72 BPM Rhythm : NSR Interpretation : Right bundle branch block, inferior infarction, non-specific ST changes. 07/15/18 23:50 PROCDURE: CT Head without Intravenous Contrast. IMPRESSION: 1. There is generalized parenchymal atrophy noted as demonstrated by symmetrical dilatation of ventricles and sulci. 2. Chronic periventricular and subcortical microvascular disease is seen. 3. No acute intracranial pathology. SIGNED BY: Dr. Nima Anderson M.D. 07/16/18 00:10 PROCDURE: CT angiography of the head/neckvessels. Findings: Occluded distal right M1 segment of the right middle cerebral artery. Calcified atheromatous plaques of the remaining arteries more prominent in the cavernous portions of internal carotid arteries with a secondary multifocal stenosis reaching 40%. No aneurysm formation. No other stenosis. 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 SIGNED BY: Dr. Melchor Goldstein M.D. 07/16/18 00:30 Case further discussed with Dr. Cisse who reviewed CTA scan which showed occlusion right MCA distribution. Family was consulted regarding possibility of patient undergoing interventional procedure at this time. Family and patient are in agreement with plan. Dr Cisse to arrange for transfer to [facility], for the intervention. 07/16/18 00:39 Case further discussed with Dr. Cisse who arranged for transfer of patient to go to ER prior to undergoing intervention by Dr. Juancho Knowles. Case discussed with [facility] ER attending, Dr. Galicia, who accepts on transfer. [place] is stable [place] [facility] [place] Critical Care Critical Care Minutes: 45 minutes - Scribe Statement The provider has reviewed the documentation as recorded by the Scribashtyn Kimball All medical record entries made by the Scribe were at my direction and personally dictated by me. I have reviewed the chart and agree that the record accurately reflects my personal performance of the history, physical exam, medical decision making, and the department course for this patient. I have also personally directed, reviewed, and agree with the discharge instructions and di sposition. NIHSS Scale (Thelma) Time Performed: 23:25 - How Severe is the Stoke Baseline Level of Consciousness: 0=Alert LOC to Questions: 0=Both comments correct LOC to commands: 0=Obeys both correctly Best Gaze: 0=Normal Visual: 0=No visual loss Facial: 2=Partial (lower face paralysis) Motor Arm - Left: 4=No movement Motor Arm - Right: 0=No drift Motor Leg - Left: 4=No movement Motor Leg - Right: 0=No drift Limb Ataxia: 0=Absent Sensory: 0=Normal Best Language: 0=No aphasia Dysarthia: 1=Mild to moderate slurring Extinction & Inattention (Neglect): 0=Normal, no object Score: 11 Risk Level: Mod Stroke Risk Disposition/Present on Arrival - Present on Arrival Any Indicators Present on Arrival: No History of DVT/PE: No History of Uncontrolled Diabetes: No Urinary Catheter: No History Surgical Site Infection Following: None - Disposition Have Diagnosis and Disposition been Completed?: Yes Diagnosis: CVA (cerebral vascular accident) Disposition: Trans to Other Acute Care Hosp Disposition Time: 01:20 Condition: STABLE Forms: [employer] (Setswana)
[2018-07-15 23:48] VITALS: O2SAT 100
[2018-07-15 23:55] LABS: BASO # 0.01 K/mm3 (0.0-2.0); BASO % 0.1 % (0.0-3.0); EOS % 0.3 % (1.5-5.0); GRAN # 6.77 (1.4-6.5); GRAN % 87.5 % (50.0-68.0); HEMOGLOBIN 10.2 g/dL (14.0-18.0); LYMPH # 0.5 (1.2-3.4); LYMPH % 6.2 % (22.0-35.0); MEAN CORPUSCULAR HEMOGLOBIN 27.9 pg (25.0-35.0); MEAN CORPUSCULAR HGB CONC 32.5 g/dl (31.0-37.0); MONO # 0.5 (0.1-0.6); MONO % 5.9 % (1.0-6.0); RBC 3.65 10^6/uL (3.5-6.1); RED CELL DISTRIBUTION WIDTH 15.2 % (11.5-14.5); WHITE BLOOD COUNT 7.7 10^3/uL (4.5-11.0)
[2018-07-15] MEDS ORDERED: Iodixanol 320 MG/ML 100 ML BOTTLE IV ONE (23:56)
[2018-07-15 23:58] LABS: INR 1.21; PARTIAL THROMBOPLASTIN TIME 28.4 Seconds (25.1-36.5); PROTHROMBIN TIME 13.9 SECONDS (9.4-12.5)
[2018-07-16 00:23] LABS: LDL CHOLESTEROL 66 mg/dL (0-129)
[2018-07-16 00:26] VITALS: RESP 18
[2018-07-16 00:40] LABS: ALBUMIN 3.4 g/dL (3.0-4.8); ALT/SGPT 131 U/L (7-56); AST/SGOT 92 U/L (17-59); BLOOD UREA NITROGEN 28 mg/dL (7-21); CALCIUM 9.1 mg/dL (8.4-10.5); GFR NON-AFRICAN AMERICAN > 60; HDL CHOLESTEROL 30 mg/dL (29-60); TROPONIN I 0.27 ng/mL
[2018-07-16 01:24] VITALS: BP 128/58; PULSE 63; TEMP 97.8
--- NOTE | 2018-07-16 08:47 | RAD ---
Date of service: 07/15/2018 PROCEDURE: CHEST RADIOGRAPH, 1 VIEW HISTORY: Code Stroke COMPARISON: 06/21/2018. FINDINGS: LUNGS: The lungs are well inflated and clear. PLEURA: No pneumothorax or pleural effusion. CARDIOVASCULAR: The heart is normal in size. No aortic atherosclerotic calcifications present. OSSEOUS STRUCTURES: Within normal limits for the patient's age. VISUALIZED UPPER ABDOMEN: Normal. OTHER FINDINGS: None. IMPRESSION: No active pulmonary disease.
--- NOTE | 2018-07-16 09:16 | CT ---
Date of service: 07/15/2018 PROCEDURE: CT HEAD WITHOUT CONTRAST. HISTORY: Code Stroke COMPARISON: 10/20/2017. TECHNIQUE: Axial computed tomography images were obtained through the head/brain without intravenous contrast. Radiation dose: Total exam DLP = 933.8 mGy-cm. This CT exam was performed using one or more of the following dose reduction techniques: Automated exposure control, adjustment of the mA and/or kV according to patient size, and/or use of iterative reconstruction technique. FINDINGS: HEMORRHAGE: No intracranial hemorrhage. BRAIN: There are mild chronic microangiopathic changes. There is no mass, mass effect or abnormal extra-axial fluid collection. There is no territorial infarction. The midline sagittal structures are normal.There are coarse atherosclerotic calcifications in the cavernous carotid arteries. VENTRICLES: There is mild age-related global parenchymal volume loss and proportionate enlargement of the ventricles and cortical sulci. CALVARIUM: There is no calvarial fracture or extracranial soft tissue swelling. PARANASAL SINUSES: Predominantly clear. MASTOID AIR CELLS: Predominantly clear. OTHER FINDINGS: None. IMPRESSION: No acute intracranial abnormality. If there is a persistent focal neurologic deficit and an ongoing clinical concern for acute infarction, an MRI of the brain without intravenous contrast would be a more sensitive modality for evaluation of hyperacute/acute ischemic infarction. A preliminary report was provided by [employer].
--- NOTE | 2018-07-16 10:03 | CT ---
Date of service: 07/16/2018 PROCEDURE: CTA HEAD AND NECK WITH CONTRAST HISTORY: CVA COMPARISON: None available. TECHNIQUE: Initial noncontrast head CT was performed. Subsequently, CT angiogram of the head and neck were performed after the intravenous administration of 80 mL of Omnipaque 350. Contiguous 1.5mm thick images were obtained in the axial plane of the neck. 2-D coronal and sagittal MPR images were obtained. Imaging postprocessing was performed with 3-D images also obtained. A delayed contrast head CT was also obtained. This CT exam was performed using one or more of the following dose reduction techniques: Automated exposure control, adjustment of the mA and/or kV according to patient size, and/or use of iterative reconstruction technique. Contrast dose: 100 mL Visipaque 320 Radiation dose: Total exam DLP = 537.20 mGy-cm. FINDINGS: HEAD: Right: There is occlusion of the right M1 segment at its origin with diminutive flow in the M1 and M2 segments as well as distal branches. The intracranial internal carotid artery, and anterior cerebral arteries are widely patent. Left: The intracranial internal carotid artery, and anterior and middle cerebral arteries are widely patent. Posterior circulation: The visualized intracranial vertebral arteries, basilar artery and posterior cerebral arteries are widely patent. There is no intracranial saccular aneurysm. NECK: There is a three vessel aortic arch. There is no stenosis at the origins of the great vessels at the level of the aortic arch. There are coarse atherosclerotic calcifications and mural plaques at the origin of great vessels, in the carotid bulbs and proximal internal carotid arteries. Right Carotid: On the right, the common carotid, internal carotid and external carotid arteries are widely patent. There is greater than 70% hemodynamically significant stenosis in the proximal internal carotid artery. Left Carotid: On the left, the common carotid, internal carotid and external carotid arteries are widely patent. There is approximately 68% stenosis in the proximal internal carotid artery. The vertebral arteries are widely patent. The right vertebral artery is hypoplastic, an anatomic variant. IMPRESSION: 1. Right M1 occlusion at its origin with diminutive flow in the remaining M1, M2 segments and distal branches. 2. Hemodynamically significant stenosis in the right internal carotid artery. 3. Approximately 68% stenosis in the left internal carotid artery. 3. Patent bilateral vertebral arteries. A preliminary report was provided by [employer]. There is a discrepancy with the preliminary report. The final report with additional findings has been tagged to the PA review folder.
--- NOTE | 2018-07-16 10:43 | CARD ---
APPROVED REPORT Date of service: 07/15/2018 EKG Measurement Heart [id number] <Conclusion> Normal sinus rhythm Right bundle branch block Inferior infarct, age undetermined Abnormal ECG
== END 2018-07-16 01:21 | disposition short-term general hospital (02) ==
LOC: ED 23:21
DX: I63.9 Cerebral infarction, unspecified (principal); R29.711 NIHSS score 11; I20.9 Angina pectoris, unspecified; I10 Essential (primary) hypertension; D64.9 Anemia, unspecified; K21.9 Gastro-esophageal reflux disease without esophagitis; Z85.07 Personal history of malignant neoplasm of pancreas; Z91.81 History of falling
CPT/HCPCS: 70450; 70496; 70498; 71045; 80053; 80061; 83036; 84484; 85025; 85610; 85730; 93005; 99291; J7030; Q9967

== ENCOUNTER 2018-08-13 15:39 | Inpatient (IN) | payer MEDICARE, BC ==
--- NOTE | 2018-08-13 16:31 | ED PDOC ---
Arrival/HPI - General Chief Complaint: Weakness/Neurological Deficit Time Seen by Provider: 08/13/18 15:43 Historian: Patient, Spouse - History of Present Illness Narrative History of Present Illness (Text): 08/13/18 16:22 An 83 year old male, whose past medical history includes Stage 4 pancreatic cancer, anemia, and GERD, stroke with embolectomy (07/15/18), presents to the emergency department for further evaluation of generalized weakness. The patient was sent in by Dr. Neil. The patient's notes that the patient has been unable to stand up on his own today due to weakness. The patient notes that he feels weak throughout his body, unlike previous stroke. He denies any fall or trauma. He denies any inability to feel in his legs or loss of bladder or bowel control. Patient had a stroke 07/15/18 with an embolectomy with near full return to baseline physical capacity. He was recently discharged from rehab and started on Eliquis. The patient's notes decreased appetite. He otherwise denies any chest pain or shortness of breath. He also denies any fevers, chills, headache, dizziness, dyspnea on exertion, cough, abdominal pain, nausea, vomiting, diarrhea, back pain, neck pain, urinary/bowel changes, or any other complaint. Oncologist/ PMD: Dr. Neil Time/Duration: Other (Today) Symptom Onset: Sudden Symptom Course: Unchanged Activities at Onset: Rest, Light Context: Home Past Medical History - Provider Review Nursing Documentation Reviewed: Yes - Past History Past History: No Previous - Infectious Disease Hx of Infectious Diseases: None - Cardiac Hx Angina: Yes Hx Hypertension: Yes - Pulmonary Hx Respiratory Disorders: (denies left pneumothorax) - Neurological Hx Dizziness: Yes - HEENT Hx HEENT Disorder: Yes ([place] wears b/l hearing aids) - Hematological/Oncological Hx Anemia: Yes - Integumentary Other/Comment: thick hard toenails, tatoo right arm, radiation markings to abd - Musculoskeletal/Rheumatological Hx Falls: Yes - Gastrointestinal Hx Gastrointestinal Disorders: Yes (colonoscopy) Hx Diverticulitis: Yes Hx Gastroesophageal Reflux: Yes Hx Pancreatitis: Yes (cancer) Other/Comment: polypectomy - Genitourinary/Gynecological Hx Genitourinary Disorders: No - Psychiatric Hx Psychophysiologic Disorder: No Hx Substance Use: No - Surgical History Other/Comment: epidural 04/2015, multiple colonoscopies last one on 01/18/17 with polypectomy dx hemorrhoids, diverticulosis, egd x7, ct scan guided bx of pancreas 09/15/17 - Anesthesia Hx Anesthesia: Yes Hx Anesthesia Reactions: No Hx Malignant Hyperthermia: No - Suicidal Assessment Feels Threatened In Home Enviroment: No Family/Social History - Physician Review Nursing Documentation Reviewed: Yes Family/Social History: No Known Family HX Smoking Status: Never Smoked Hx Alcohol Use: No Hx Substance Use: No Hx Substance Use Treatment: No Allergies/Home Meds Allergies/Adverse Reactions: Allergies No Known Allergies Allergy (Verified 07/15/18 23:24) Home Medications: Home Meds Medication Instructions Recorded Confirmed Atropine/Diphenoxylate [Lonox 1 tab PO DAILY PRN 06/21/18 07/15/18 0.025 MG-2.5 MG] Finasteride [Proscar] 5 mg PO DAILY 06/21/18 07/15/18 Lipase/Protease/Amylase [Creon Dr 1 each PO TID 06/21/18 07/15/18 12,000 Units Capsule] Sucralfate [Carafate Oral Susp] 10 ml PO AC 06/21/18 07/15/18 Tamsulosin [Flomax] 0.4 mg PO DAILY 06/21/18 07/15/18 Review of Systems - Physician Review All systems were reviewed & negative as marked: Yes - Review of Systems Constitutional: Fatigue. absent: Weight Change, Fevers, Night Sweats Eyes: absent: Vision Changes, Photophobia, Eye Pain ENT: absent: Hearing Changes, Tinnitus, TMJ Pain, Sore Throat, Rhinorrhea Respiratory: absent: SOB, Cough Cardiovascular: absent: Chest Pain, CHARLES Gastrointestinal: absent: Abdominal Pain, Stool Changes, Diarrhea, Nausea, Vomiting Genitourinary Male: absent: Dysuria, Frequency, Hematuria, Urinary Output Changes Musculoskeletal: absent: Back Pain, Neck Pain, Joint Swelling Skin: absent: Rash, Pruritis, Skin Lesions, Laceration Neurological: Other (Generalized weakness.). absent: Headache, Dizziness, Focal Weakness, Gait Changes, Speech Changes, Facial Droop, Disequilibrium Physical Exam Vital Signs Reviewed: Yes Vital Signs Temp Pulse Resp BP Pulse Ox 08/13/18 15:58 97.5 F L 82 18 138/79 95 Temperature: Hypothermic Blood Pressure: Normal Pulse: Regular Respiratory Rate: Normal Appearance: Positive for: Well-Appearing, Non-Toxic, Comfortable Pain Distress: None Mental Status: Positive for: Alert and Oriented X 3 - Systems Exam Head: Present: Atraumatic, Normocephalic Pupils: Present: PERRL Extroacular Muscles: Present: EOMI. No: Gaze Palsy, Entrapment Conjunctiva: Present: Normal Ears: Present: Normal, NORMAL TM. No: Erythema Mouth: Present: Moist Mucous Membranes Pharnyx: Present: Normal. No: ERYTHEMA, EXUDATE Nose (External): Present: Atraumatic Nose (Internal): Present: Normal Inspection Neck: Present: Normal Range of Motion. No: Meningeal Signs, MIDLINE TENDERNESS, Paraspinal Tenderness Respiratory/Chest: Present: Clear to Auscultation, Good Air Exchange. No: Respiratory Distress, Accessory Muscle Use Cardiovascular: Present: Regular Rate and Rhythm, Normal S1, S2. No: Murmurs, Irregular Rhythm Abdomen: Present: Normal Bowel Sounds. No: Tenderness, Distention, Peritoneal Signs Back: Present: Normal Inspection. No: CVA Tenderness, Midline Tenderness, Par aspinal Tenderness Upper Extremity: Present: Normal Inspection, NORMAL PULSES, Neurovascularly Intact, Norm 2-Pt Discrimination, Other (5/5 strength in UE). No: Cyanosis, Angel ma Lower Extremity: Present: Normal Inspection, NORMAL PULSES, Normal ROM, Capillary Refill < 2 s, Other (5/5 strength bilateral lower extremities). No: Edema, CALF TENDERNESS, Tenderness, Swelling Neurological: Present: GCS=15, CN II-XII Intact, Speech Normal, Motor Func Grossly Intact, Normal Sensory Function, Normal Cerebellar Funct, Gait Normal, Other (Diffusely weak. Normal strength throughout.) Skin: Present: Warm, Dry, Normal Color. No: Rashes Psychiatric: Present: Alert, Oriented x 3, Normal Insight, Normal Concentration Medical Decision Making ED Course and Treatment: 08/13/18 16:34 Impression: An 83 year old male presents to the emergency department with a complaint of generalized weakness, sent in by Dr. Neil. Denies any Chest pain or Shortness of breath. Normal neuro exam. No meningeal signs. No chest pain or shortness of breath. Decreased PO intake c/w FTT per PMD. No fever, chills or night sweats. Non-tachy, afebrile, without cough. No urinary complaints. No GI or complaints. ?electrolyte abnl vs infection. Plan: -- Head CT -- EKG -- Chest X-ray -- Labs -- Blood Culture -- Reassess and disposition Prior Visits: Notes and results from previous visits were reviewed. Progress Notes: 08/13/18 18:04 troponin elevated NSTEMI Pt continues denying any chest pain Cr 1.2, baseline 1.1 WBC 18k, previous blood culture ordered. No urinary complaints 08/13/18 18:31 appreciate consult w/ Dr. Neil: we are to consult Dr. moffett and Dr. Neil will accept admission. appreciate consult w/ Dr. Moffett: pt already on eliquis, no ASA or heparin at this time, likely conservative management Pt in NAD admitted to Dr. Watt service 08/13/18 19:10 CTH negative CXR unremarkable per my read UA ordered, to be followed by Inpatient team. - Lab Interpretations I have reviewed the lab results: Yes - RAD Interpretation Radiology Orders: 08/13/18 15:55 CHEST TWO VIEWS (PA/LAT) [RAD] Stat - EKG Interpretation EKG Interpretation (Text): EKG: Ordered, reviewed, and independently interpreted the EKG. Rate : 78 BPM Rhythm : NSR Interpretation : No STEMI Interpreted by ED Physician: Yes Type: 12 lead EKG - Scribe Statement The provider has reviewed the documentation as recorded by the Walter Dobbs Provider Scribe Attestation: All medical record entries made by the Scribe were at my direction and personally dictated by me. I have reviewed the chart and agree that the record accurately reflects my personal performance of the history, physical exam, medical decision making, and the department course for this patient. I have also personally directed, reviewed, and agree with the discharge instructions and disposition. Disposition/Present on Arrival - Present on Arrival Any Indicators Present on Arrival: No History of DVT/PE: No History of Uncontrolled Diabetes: No Urinary Catheter: No History of Decub. Ulcer: No History Surgical Site Infection Following: None - Disposition Have Diagnosis and Disposition been Completed?: No Diagnosis: NSTEMI (non-ST elevated myocardial infarction) Disposition Time: 18:12 Patient Problems: Current Active Problems Problem Status Onset NSTEMI (non-ST elevated myocardial infarction) Acute Condition: GUARDED
[2018-08-13 17:10] LABS: BASO # 0.02 K/mm3 (0.0-2.0); BASO % 0.1 % (0.0-3.0); EOS # 0.1 (0.0-0.7); EOS % 0.7 % (1.5-5.0); GRAN # 16.16 (1.4-6.5); GRAN % 88.2 % (50.0-68.0); HEMOGLOBIN 8.8 g/dL (14.0-18.0); LYMPH # 1.6 (1.2-3.4); LYMPH % 8.5 % (22.0-35.0); MEAN CELL VOLUME 86.6 fl (80.0-105.0); MEAN CORPUSCULAR HEMOGLOBIN 26.8 pg (25.0-35.0); MEAN PLATELET VOLUME 9.6 fl (7.0-11.0); MONO # 0.5 (0.1-0.6); MONO % 2.5 % (1.0-6.0); RBC 3.28 10^6/uL (3.5-6.1); RED CELL DISTRIBUTION WIDTH 17.1 % (11.5-14.5); WHITE BLOOD COUNT 18.3 10^3/uL (4.5-11.0)
[2018-08-13 17:58] LABS: ALB/GLOB RATIO 0.9 (1.1-1.8); ALBUMIN 2.5 g/dL (3.0-4.8); ALT/SGPT 56 U/L (7-56); AST/SGOT 71 U/L (17-59); BLOOD UREA NITROGEN 33 mg/dL (7-21); CALCIUM 8.9 mg/dL (8.4-10.5); GFR NON-AFRICAN AMERICAN 58; LIPASE < 10 U/L (23-300); TROPONIN I 3.69 ng/mL
--- NOTE | 2018-08-13 19:04 | CT ---
Date of service: 08/13/2018 PROCEDURE: CT HEAD WITHOUT CONTRAST. HISTORY: diffusely weak COMPARISON: 07/15/2018 TECHNIQUE: Axial computed tomography images were obtained through the head/brain without intravenous contrast. Radiation dose: Total exam DLP = 918.32 mGy-cm. This CT exam was performed using one or more of the following dose reduction techniques: Automated exposure control, adjustment of the mA and/or kV according to patient size, and/or use of iterative reconstruction technique. FINDINGS: HEMORRHAGE: No intracranial hemorrhage. BRAIN: No mass effect or edema. Microvascular changes are seen in the basal ganglia on the right. Moderate atrophy VENTRICLES: Unremarkable. No hydrocephalus. CALVARIUM: Unremarkable. PARANASAL SINUSES: Unremarkable as visualized. No significant inflammatory changes. MASTOID AIR CELLS: Unremarkable as visualized. No inflammatory changes. OTHER FINDINGS: None IMPRESSION: No acute intracranial finding
[2018-08-13 20:00] LABS: INR 2.78; PARTIAL THROMBOPLASTIN TIME 31.6 Seconds (25.1-36.5); PROTHROMBIN TIME 32.4 SECONDS (9.4-12.5)
[2018-08-13] MEDS ORDERED: Sodium Chloride 0.9% 1,000 ML IV SCH (23:45)
[2018-08-14 01:39] VITALS: BMI 20.2
[2018-08-14 01:45] LABS: TROPONIN I 3.34 ng/mL
[2018-08-14 07:09] LABS: BASO # 0.01 K/mm3 (0.0-2.0); BASO % 0.1 % (0.0-3.0); EOS # 0.2 (0.0-0.7); EOS % 1.1 % (1.5-5.0); GRAN # 16.63 (1.4-6.5); GRAN % 84.7 % (50.0-68.0); HEMOGLOBIN 7.5 g/dL (14.0-18.0); LYMPH # 0.8 (1.2-3.4); LYMPH % 4.2 % (22.0-35.0); MEAN CORPUSCULAR HGB CONC 31.4 g/dl (31.0-37.0); MEAN PLATELET VOLUME 9.2 fl (7.0-11.0); MONO % 9.9 % (1.0-6.0); PLATELET COUNT 266 10^3/uL (120.0-450.0); RBC 2.78 10^6/uL (3.5-6.1); RED CELL DISTRIBUTION WIDTH 17.1 % (11.5-14.5); WHITE BLOOD COUNT 19.6 10^3/uL (4.5-11.0)
[2018-08-14 07:16] LABS: ALB/GLOB RATIO 0.8 (1.1-1.8); ALBUMIN 2.4 g/dL (3.0-4.8); ALT/SGPT 55 U/L (7-56); AST/SGOT 57 U/L (17-59); BLOOD UREA NITROGEN 28 mg/dL (7-21); CALCIUM 8.1 mg/dL (8.4-10.5); GFR NON-AFRICAN AMERICAN > 60
[2018-08-14 07:27] LABS: URINE APPEARANCE CLEAR (CLEAR); URINE BILIRUBIN NEGATIVE (NEGATIVE); URINE BLOOD NEGATIVE (NEGATIVE); URINE COLOR YELLOW (YELLOW); URINE GLUCOSE (UA) NEGATIVE (NEGATIVE); URINE LEUKOCYTE ESTERASE NEGATIVE Leu/uL (NEGATIVE); URINE PROTEIN NEGATIVE mg/dL (<30 mg/dL)
[2018-08-14 08:08] LABS: EOSINOPHIL 1 % (0.0-3.0); LYMPHOCYTE 6 % (22.0-35.0); MONOCYTE 9 % (1.0-6.0); NEUTROPHIL 84 % (50.0-70.0)
[2018-08-14 08:09] LABS: ANISOCYTOSIS SLIGHT; PLATELET ESTIMATE NORMAL (NORMAL)
[2018-08-14] MEDS: Amylase/Lipase/Protease 5,000 Units ECC PO SCH ×3 (08:29→17:31)
--- NOTE | 2018-08-14 08:31 | RAD ---
Date of service: 08/13/2018 HISTORY: weak COMPARISON: 07/15/2018 TECHNIQUE: Chest PA and lateral FINDINGS: LUNGS: No active pulmonary disease. PLEURA: No significant pleural effusion identified. No pneumothorax apparent. CARDIOVASCULAR: Aortic calcification Normal cardiac size. No pulmonary vascular congestion. OSSEOUS STRUCTURES: No significant abnormalities. VISUALIZED UPPER ABDOMEN: Normal. OTHER FINDINGS: None. IMPRESSION: No active disease.
[2018-08-14 09:51] LABS: TROPONIN I 2.85 ng/mL
--- NOTE | 2018-08-14 11:23 | CARD ---
APPROVED REPORT Date of service: 08/13/2018 EKG Measurement Heart [id number] <Conclusion> Sinus rhythm with premature atrial complexes Right bundle branch block Inferior infarct, age undetermined STTW changes c/w ischemia, new since ECG 07/15/18
--- NOTE | 2018-08-14 11:40 | CARD ---
APPROVED REPORT Date of service: 08/14/2018 EKG Measurement Heart [id number] <Conclusion> Sinus rhythm with premature atrial complexes Right bundle branch block Minimal voltage criteria for LVH, may be normal variant Inferior infarct, age undetermined STTW changes c/w ischemia No change
[2018-08-14] MEDS: Sucralfate 1 gm/10 ml Oral Susp UD PO SCH ×3 (13:20→22:01)
--- NOTE | 2018-08-14 15:53 | CP.PCM.APN ---
Subjective - Date & Time of Evaluation Date of Evaluation: 08/14/18 Time of Evaluation: 10:35 - Subjective Subjective: An 83 year old male, whose past medical history includes Stage 4 pancreatic cancer, anemia, and GERD, stroke with embolectomy (07/15/18), presents to the emergency department for further evaluation of generalized weakness. The patient was sent in by Dr. Neil. The patient's notes that the patient has been unable to stand up on his own today due to weakness. The patient notes that he feels weak throughout his body, unlike previous stroke. He denies any fall or trauma. He denies any inability to feel in his legs or loss of bladder or bowel control. Patient had a stroke 07/15/18 with an embolectomy with near full return to baseline physical capacity. He was recently discharged from rehab and started on Eliquis. The patient's notes decreased appetite. Pt. admitted for weakness and cardiac enzymes in ED, revealed NSTEMI. Pt. seen and examined at bedside. He denies any chest pain or shortness of breath. He also denies any fevers, chills, headache, dizziness, dyspnea on exertion, cough, abdominal pain, nausea, vomiting, diarrhea, back pain, neck pain, urinary/bowel changes. He does complain of "stomach burning", which he states takes Carafate for. Nurse expressed patient had run of SVT, Dr. Olivares made aware ,no new orders received, patient is other stokes stable, per. Dr. Olivares will treat conservatively. Pt. has chronic elevated Troponin, since last admit on 11/06/17. Review of Systems - Review of Systems All systems: reviewed and no additional remarkable complaints except - Constitutional Constitutional: As Per HPI - Cardiovascular Cardiovascular: As Per HPI - Respiratory Respiratory: As Per HPI - Gastrointestinal Gastrointestinal: Dyspepsia - Genitourinary Genitourinary: As Per HPI - Musculoskeletal Musculoskeletal: As Per HPI - Integumentary Integumentary: As Per HPI - Neurological Neurological: As Per HPI Objective - Vital Signs/Intake and Output Vital Signs (last 24 hours): Temp Pulse Resp BP Pulse Ox 99.1 F 89 16 97/54 L 97 08/14/18 15:30 08/14/18 15:30 08/14/18 15:30 08/14/18 15:30 08/14/18 05:52 Intake and Output: 08/14/18 08/14/18 06:59 18:59 Intake Total 540 0 Output Total 200 Balance 340 0 - Medications Medications: Current Medications Acetaminophen (Tylenol 325mg Tab) 650 mg PO Q6H PRN PRN Reason: pain/fever Last Admin: 08/14/18 13:20 Dose: 650 mg Amylase (Pancrease 54749 U-5000 [id number] U) 5,[address] [facility] Last Admin: 08/14/18 11:48 Dose: 5,000 unit Apixaban (Eliquis) 2.[address] [facility]; Protocol Last Admin: 08/14/18 09:37 Dose: 2.5 mg Finasteride (Proscar) [address] [facility] Last Admin: 08/14/18 09:37 Dose: 5 mg Sodium Chloride (Sodium Chloride 0.9%) 1,000 mls @ 60 mls/hr IV .[id number] [facility] Stop: 08/14/18 16:24 Last Admin: 08/14/18 00:10 Dose: 60 mls/hr Sucralfate (Carafate Oral Susp) [address] [facility] Last Admin: 08/14/18 13:20 Dose: 1 gm Tamsulosin HCl (Flomax) 0.[address] [facility] Last Admin: 08/14/18 00:09 Dose: 0.4 mg Tramadol HCl (Ultram) 50 mg PO Q8 PRN PRN Reason: pain Last Admin: 08/14/18 13:20 Dose: 50 mg - Labs Labs: 08/14/18 06:00 08/14/18 06:00 PT 32.4 SECONDS (9.4-12.5) H 08/13/18 18:41 INR 2.78 08/13/18 18:41 APTT 31.6 Seconds (25.1-36.5) 08/13/18 18:41 - Constitutional Appears: Well - Head Exam Head Exam: NORMAL INSPECTION - Eye Exam Eye Exam: Normal appearance - ENT Exam ENT Exam: Mucous Membranes Moist - Neck Exam Neck Exam: Normal Inspection - Respiratory Exam Respiratory Exam: NORMAL BREATHING PATTERN - Cardiovascular Exam Cardiovascular Exam: REGULAR RHYTHM - GI/Abdominal Exam GI & Abdominal Exam: Normal Bowel Sounds - Rectal Exam Rectal Exam: Deferred - Extremities Exam Extremities Exam: Full ROM, Normal Inspection - Back Exam Back Exam: NORMAL INSPECTION - Neurological Exam Neurological Exam: Alert, Awake, Oriented x3 - Skin Skin Exam: Dry, Intact, Normal Color, Warm Assessment and Plan - Assessment and Plan (Free Text) Assessment: 1. NSTEMI Being evaluated by cardiology, elevated troponin is chronic, will continue conservative managment, pt. DNR. 2. Anemia Pt. to receive 2 units PRBCs as per Dr. Neil, will monitor cbc. stool for occult blood pending. 3. Episode of SVT Continue to monitor, REcs as per cardiology, awaiting transfer to remote telemetry. Repeat EKG showed NSR. 4. Hx of pancreatic CA Recs as per Dr. Neil. 5. Weakness likely secondary to anemia, awaiting PT eval for recommendation, poss. TCU vs. [facility]. Will continue to follow and monitor closely.
--- NOTE | 2018-08-15 01:37 | HP ---
DATE OF EXAM: 08/14/2018 LOCATION: The patient is in room 271, bed 1. This patient was admitted through the night yesterday 08/13/2018. HISTORY OF PRESENT ILLNESS: This is an 83-year-old white male, who was seen by us in the office with progressive weakness with inability to standup on his own today in the office. The patient notes that he has been feeling weak throughout his body, unlike his previous stroke. Denies any history of fall or trauma. Denies any inability to feel his legs or loss of bladder or bowel control. The patient had a stroke on 07/15/2018 with an embolectomy with near full recovery to baseline physical capacity. The patient since then has been on Eliquis. He was recently discharged from rehab and started on Eliquis. The patient's noticed decreased appetite. Denies any history of chest pain, though he has been having heaviness in breathing and he has been complaining of midepigastric and mid back pain off late over the last 24-48 hours. The patient denies any history of fever, chills, headache, dyspnea, cough, nausea or vomiting. Pain has been significant. The patient says that when he tries to get up to go to urinate, he also has involuntary loss of control of his bowel. Bowels are loose in nature almost like pudding. PAST MEDICAL HISTORY: Significant for stage IV pancreatic cancer, which was diagnosed last year and has been on systemic chemotherapy with a combination of Abraxane and gemcitabine with the disease being kept in control. The patient has been off chemotherapy now for about two months and unfortunately the patient's most recent PET/CT scan which was done a day and a half ago at least on initial review appears to show progression of disease both in the liver and the pancreas. The patient was advised to go to the emergency room because of concern as to what could be the cause of the sudden weakness and inability to even get up and have a tendency to fall. History of peptic ulcer disease. The patient has also history of anxiety state in the past. FAMILY HISTORY: Noncontributory. SOCIAL HISTORY: The patient does not have any smoking history. The patient has remote history of alcohol abuse, but quit drinking many many years. HOME MEDICATIONS: The patient's home medications were reviewed. He is on Proscar 5 mg daily, he is on Flomax 0.4 mg at bedtime, he is on sucralfate 1 g b.i.d., he is on Lomotil as needed for his diarrhea, he is on Creon 12,000 units capsules 1 tablet t.i.d., he is off most of the other medicines and he is on Eliquis now 5 mg b.i.d. REVIEW OF SYSTEMS: A 12-system review of systems is done negative except what is mentioned in the HPI. PHYSICAL EXAMINATION: GENERAL: The patient is awake, alert, and oriented. The patient has temporal muscle wasting noted, chronically ill looking. VITAL SIGNS: T-max is 97.5, pulse is 82, respirations 18, blood pressure is 138/79, and pulse ox is 95% on room air. HEENT: Head is normocephalic and atraumatic. Conjunctivae pale. Sclerae are anicteric. Pupils are equally reactive to light and accommodation. Examination of the oropharynx reveals no oropharyngeal lesions. Tongue is dry and coated. NECK: Supple. There is no adenopathy. LUNGS: Clear to percussion and auscultation. CARDIOVASCULAR: Reveals PMI to be in the fifth intercostal space, inside the midclavicular line. S1 and S2 are normal. No gallops or murmur is heard. ABDOMEN: Protuberant, slightly distended. Edge of the liver is palpable below the right costal margin, slightly tender. The patient has mostly discomfort in the periumbilical and epigastric area, radiating to the back across the lateral margins. Pain score on the scale of 0-10 is around 5. No definite masses are felt in rest of the examination of the abdomen. Bowel sounds are hyperactive. EXTREMITIES: Reveals no cyanosis, clubbing or edema. NEUROLOGIC: Reveals higher functions to be normal. No focal deficits are noted. Plantars are flexors. SKIN: Turgor is decreased. No skin lesions are noted. No rashes are noted. PSYCHIATRIC: The patient's affect is normal. He is awake, alert and oriented x3. GENITOURINARY AND RECTAL: Deferred at this time. LABORATORY DATA: The patient had blood work done in the emergency room and a blood work revealed the following; it showed an elevated troponins which was of concern to us. Initial troponin was 3.69. AST was 71, ALT 56, alkaline phosphatase of 502, total protein is 5.4 with an albumin of 2.5. Sodium is 131, K is 4, BUN was 33 with a creatinine of 1.82. Hemoglobin on admission revealed white count of 18.3, hemoglobin of 8.8 with hematocrit 28.4, and platelet count of 306,000. With this concern, the patient could have demand ischemia, anemia could be contributing to it. The patient has had in the previous admissions documented [id number] WA thought to be demand ischemia, was treated medically and the patient improved after getting blood transfusion. Concern was that he may be developing another [id number] WA and that we should admit him and monitor him accordingly. The patient may need to be typed and crossmatch and may receive 2 units of blood. Meanwhile, reach out to Dr. Olivares and see if he needs to have any other medications for his evolving cardiac dysfunction. Meanwhile, we will continue his current medications that he is on. The patient is going to be on sucralfate 1 g b.i.d., Eliquis 2.5 mg b.i.d., Flomax 0.4 mg at bedtime, Pancrease 27,000 units/15,000 units/ units/5000 units p.o. a.c. and at bedtime, Proscar 5 mg p.o. daily, and tramadol 50 mg p.o. every 8 hours p.r.n. for pain. The patient received IV fluids through the night and today he is going to be getting blood transfusion. He is going to get Tylenol, Benadryl, and Solu-Cortef in preparation for the transfusion. ASSESSMENT, NOTES, AND PLAN: The patient has stage IV metastatic carcinoma of the pancreas with new onset of elevation of troponins indicative for demand ischemia or evolving subendocardial myocardial infarction remains to be proven. Cardiology is on the case and we will managed the patient conservatively at this point in time. The patient has advanced directive, so we will make him a do not resuscitate/do not intubate. In the meantime, we will continue aggressive supportive care. The patient will receive 2 units of blood. In view of his elevated blood count, we will check for procalcitonin and check for blood cultures and have Infectious Disease see the patient as well. Time spent with the patient is greater than 80 minutes correlating all the facts and discussing in detail with the patient and speaking to the family. Routine post-exam instructions have been given to the patient. We will follow the patient very carefully over the next 2-3 days to make further decisions as far as his management is concerned. Some of the pain that the patient is experiencing currently could be related to his underlying progression of pancreatic cancer itself, especially with involving the celiac axis. Marta Neil MD
[2018-08-15 06:55] LABS: HEMOGLOBIN 9.9 g/dL (14.0-18.0); MEAN CELL VOLUME 87.2 fl (80.0-105.0); MEAN CORPUSCULAR HEMOGLOBIN 27.5 pg (25.0-35.0); MEAN CORPUSCULAR HGB CONC 31.5 g/dl (31.0-37.0); MEAN PLATELET VOLUME 9.4 fl (7.0-11.0); RBC 3.6 10^6/uL (3.5-6.1); RED CELL DISTRIBUTION WIDTH 16.5 % (11.5-14.5); WHITE BLOOD COUNT 19.7 10^3/uL (4.5-11.0)
[2018-08-15 07:13] LABS: ALB/GLOB RATIO 0.8 (1.1-1.8); ALBUMIN 2.4 g/dL (3.0-4.8); ALT/SGPT 47 U/L (7-56); AST/SGOT 59 U/L (17-59); BLOOD UREA NITROGEN 26 mg/dL (7-21); CALCIUM 8.6 mg/dL (8.4-10.5); GFR NON-AFRICAN AMERICAN > 60
[2018-08-15] MEDS: Amylase/Lipase/Protease 5,000 Units ECC PO SCH ×3 (08:47→16:14)
[2018-08-15] MEDS: Sucralfate 1 gm/10 ml Oral Susp UD PO SCH ×4 (09:26→21:39)
--- NOTE | 2018-08-15 14:37 | CP.PCM.APN ---
Subjective - Date & Time of Evaluation Date of Evaluation: 08/15/18 Time of Evaluation: 14:35 - Subjective Subjective: An 83 year old male, whose past medical history includes Stage 4 pancreatic cancer, anemia, and GERD, stroke with embolectomy (07/15/18), presents to the emergency department for further evaluation of generalized weakness. The patient was sent in by Dr. Neil. The patient's notes that the patient has been unable to stand up on his own today due to weakness. The patient notes that he feels weak throughout his body, unlike previous stroke. He denies any fall or trauma. He denies any inability to feel in his legs or loss of bladder or bowel control. Patient had a stroke 07/15/18 with an embolectomy with near full return to baseline physical capacity. He was recently discharged from rehab and started on Eliquis. The patient's notes decreased appetite. Pt. admitted for weakness and cardiac enzymes in ED, revealed NSTEMI. Pt. seen and examined at bedside. He denies any chest pain or shortness of breath. He also denies any fevers, chills, headache, dizziness, dyspnea on exertion, cough, abdominal pain, nausea, vomiting, diarrhea, back pain, neck pain, urinary/bowel changes. Observed to be sitting up visiting with family members. Review of Systems - Constitutional Constitutional: As Per HPI - EENT Eyes: As Per HPI Ears: As Per HPI Nose/Mouth/Throat: As Per HPI - Cardiovascular Cardiovascular: As Per HPI - Respiratory Respiratory: As Per HPI - Gastrointestinal Gastrointestinal: As Per HPI - Genitourinary Genitourinary: As Per HPI - Reproductive: Male Reproductive:Male: As Per HPI - Musculoskeletal Musculoskeletal: As Per HPI - Integumentary Integumentary: As Per HPI - Neurological Neurological: As Per HPI - Psychiatric Psychiatric: As Per HPI - Endocrine Endocrine: As Per HPI - Hematologic/Lymphatic Hematologic: As Per HPI Objective - Vital Signs/Intake and Output Vital Signs (last 24 hours): Temp Pulse Resp BP Pulse Ox 97.3 F L 62 19 112/61 99 08/15/18 06:00 08/15/18 06:00 08/15/18 06:00 08/15/18 06:00 08/15/18 06:00 Intake and Output: 08/15/18 08/15/18 06:59 18:59 Intake Total 650 Output Total 100 Balance 550 - Medications Medications: Current Medications Acetaminophen (Tylenol 325mg Tab) 650 mg PO Q6H PRN PRN Reason: pain/fever Last Admin: 08/14/18 13:20 Dose: 650 mg Amylase (Pancrease 00953 U-5000 U-[id number] U) 5,000 unit PO AC [facility] Last Admin: 08/15/18 11:21 Dose: 5,000 unit Apixaban (Eliquis) 2.5 mg PO BID [facility]; Protocol Last Admin: 08/15/18 09:26 Dose: 2.5 mg Finasteride (Proscar) 5 mg PO DAILY [facility] Last Admin: 08/15/18 09:26 Dose: 5 mg Sucralfate (Carafate Oral Susp) 1 gm PO QID [facility] Last Admin: 08/15/18 14:17 Dose: 1 gm Tamsulosin HCl (Flomax) 0.4 mg PO HS [facility] Last Admin: 08/14/18 22:01 Dose: 0.4 mg Tramadol HCl (Ultram) 50 mg PO Q8 PRN PRN Reason: pain Last Admin: 08/14/18 13:20 Dose: 50 mg - Labs Labs: 08/15/18 06:00 08/15/18 06:00 PT 32.4 SECONDS (9.4-12.5) H 08/13/18 18:41 INR 2.78 08/13/18 18:41 APTT 31.6 Seconds (25.1-36.5) 08/13/18 18:41 - Constitutional Appears: Well - Head Exam Head Exam: NORMAL INSPECTION - Eye Exam Eye Exam: Normal appearance - ENT Exam ENT Exam: Mucous Membranes Moist - Neck Exam Neck Exam: Normal Inspection - Respiratory Exam Respiratory Exam: NORMAL BREATHING PATTERN - Cardiovascular Exam Cardiovascular Exam: +S1, +S2, Murmur - GI/Abdominal Exam GI & Abdominal Exam: Soft, Normal Bowel Sounds - Rectal Exam Rectal Exam: Deferred - Extremities Exam Extremities Exam: Normal Inspection - Neurological Exam Neurological Exam: Alert, Awake Assessment and Plan - Assessment and Plan (Free Text) Assessment: Laboratory Results - last 24 hr 08/14/18 08/15/18 08/15/18 11:00 06:00 06:00 WBC 19.7 H RBC 3.60 Hgb 9.9 L D Hct 31.4 L MCV 87.2 MCH 27.5 MCHC 31.5 RDW 16.5 H Plt Count 228 MPV 9.4 Sodium 135 Potassium 3.7 Chloride 104 Carbon Dioxide 22 Anion Gap 13 BUN 26 H Creatinine 1.0 Est GFR ( Amer) > 60 Est GFR (Non-Af Amer) > 60 Random Glucose 167 H Calcium 8.6 Total Bilirubin 1.4 H AST 59 ALT 47 Alkaline Phosphatase 462 H Troponin I Total Protein 5.3 L Albumin 2.4 L Globulin 2.9 Albumin/Globulin Ratio 0.8 L Blood Type A POSITIVE Antibody Screen Negative Crossmatch See Detail BBK History Checked Patient has bt 08/15/18 13:11 WBC RBC Hgb Hct MCV MCH MCHC RDW Plt Count MPV Sodium Potassium Chloride Carbon Dioxide Anion Gap BUN Creatinine Est GFR ( Amer) Est GFR (Non-Af Amer) Random Glucose Calcium Total Bilirubin AST ALT Alkaline Phosphatase Troponin I 2.13 H* D Total Protein Albumin Globulin Albumin/Globulin Ratio Blood Type Antibody Screen Crossmatch BBK History Checked Microbiology 08/14/18 14:50 Urine Culture - Final Urine No Growth (<1,000 CFU/ML) 08/13/18 17:30 Blood Culture - Preliminary Blood NO GROWTH AFTER 24 HOURS 08/13/18 17:02 Blood Culture - Preliminary Blood NO GROWTH AFTER 24 HOURS 1. NSTEMI Being evaluated by cardiology, elevated troponin is chronic, will continue conservative managment, pt. DNR. 2. Anemia Pt. to receive 2 units PRBCs as per Dr. Neil, will monitor cbc. stool for occult blood pending. 3. Episode of SVT Continue to monitor, REcs as per cardiology, awaiting transfer to remote telemetry. Repeat EKG showed NSR. 4. Hx of pancreatic CA Recs as per Dr. Neil. 5. Weakness likely secondary to anemia, PT has recommended TCU for strengthening. SW note noted. Pt. may be considered for hospice eval. Awaiting TCU eval, may be for possible DC to TCU tommorow if medically cleared. Will continue to follow and monitor closely.
[2018-08-15 16:46] VITALS: RESP 20
--- NOTE | 2018-08-15 18:10 | PQF ---
PROVIDER RESPONSE TEXT: Anemia is due to chronic blood loss from a combination of factors including a recent proceedure for d eclotting for acute cva,and underlying progresssion of his stage four pancreatic ca REVIEWER QUERY TEXT: Anemia Type Anemia is documented in the Medical Record. Please specify the cause (includes suspected or probable cause) Such as: -- Due to acute blood loss -- Due to chronic blood loss -- Due to iron deficiency -- Due to postoperative blood loss -- Due to chronic disease -- Other, please specify The patient's Clinical Indicators include: Query created by: Carri Harper on 08/15/2018 10:10 AM Electronically signed by: Marta Neil MD 08/15/2018 6:07 PM
--- NOTE | 2018-08-16 00:04 | PN ---
DATE: 08/15/2018 ONCOLOGY PROGRESS NOTE LOCATION: The patient is in room 372, bed 1. Subjectively, the patient is lying in bed. The patient is examined with his family at the bedside. His and his daughter are here with me to discuss our treatment plans. The patient tells me he had no overnight unforeseen events. No fever. No nausea. No vomiting. Abdominal pain appears to be better controlled at this time. The patient was able to get up and walk to the bathroom with nursing assistants teacher and felt wobbly, but able to get around. Pain on the score of 0-10 is around 4 at this point in time. HISTORY OF PRESENT ILLNESS: This is an 82-year-old male who has been seen by us in the office with progressive weakness and inability to stand up on his own in the office, which was progressively worsening over the past 48 to 72 hours. The patient had been feeling weak throughout his body since his recent stroke for which he had declotting following which he has been placed on Eliquis. The patient denies any history of fall or trauma. Denies any inability to feel his legs or loss of bladder or bowel movement at this time. The patient had a stroke on 07/15/2018 for which he had an embolectomy and near full recovery to his baseline physical capacity. The patient is being on Eliquis since then. He was discharged on Eliquis. The patient has noticed decrease in appetite and was also noticed by his . The patient denies any chest pain. Has been having increasing left upper quadrant pain, radiating to the back. The patient also has been complaining of heaviness in breathing and has been complaining of this also for the past 24 to 48 hours. The patient has lost control of his bouts because he is feeling weak when he stands up to urinate. Sometimes, he loses his bowel control and he has a bowel movement as well. The patient has been having problems with urination for which he is on both Proscar and Flomax. PAST MEDICAL HISTORY: Significant for the fact he has stage IV metastatic pancreatic CA for which he has proceeded initially for locally advanced disease, primary radiation to the pancreas along with gemcitabine and then progression of disease to the liver. The patient was added on double therapy with Abraxane and gemcitabine given every 2 weeks. The patient has been on this for about a year until recently when he had a stroke event. The patient has been off chemotherapy now for more than six weeks. PHYSICAL EXAMINATION: GENERAL: Today reveals the patient to be awake, alert, and oriented, in no acute distress. VITAL SIGNS: Stable as stated in the chart. HEENT: Reveals head to be normocephalic and atraumatic. Conjunctivae are clear. Sclerae are anicteric. Pupils are equally reactive to light and accommodation. Exam of the oropharynx reveals no oropharyngeal lesions. NECK: Supple. There is no adenopathy. LUNGS: Clear to percussion and auscultation. CARDIOVASCULAR: Exam of cardiovascular system reveals PMI to be in the fifth intercostal space, inside the midclavicular line. S1 and S2 are normal. No gallop or murmur is heard. ABDOMEN: Soft and protuberant. Edges of liver are palpable below the right costal margin. Most of the pain is in the periumbilical and epigastric region, radiating to back across the lateral margins. Pain score has improved this morning. No definite masses are felt. Bowel sounds are present. EXTREMITIES: There is no cyanosis, clubbing or edema. GENITOURINARY: Deferred. RECTAL: Deferred. NEUROLOGIC: Higher functions are normal. No focal deficits are noted. MEDICATIONS: The patient's medications were reviewed. He is on the following medications: He is on Carafate 1 g four times a day, Eliquis 2.5 mg b.i.d., Flomax 0.4 mg p.o. at bedtime, Pancreaze supplements 5000 units p.o before meals and at bedtime, Proscar 5 mg daily, tramadol (Ultram) 50 mg p.o. every 8 hours. LABORATORY DATA: The patient's lab data post-transfusion shows the following: White count is 19.7, hemoglobin 9.9, hematocrit 31.4, platelets count of 228,000. Chemistry was reviewed. Chemistry is reasonable with a BUN of 26, creatinine of 1. Troponin is trending down to 2.13 from 3.34. Total protein 5.3 with albumin of 2.4. Alkaline phosphatase is 465. ASSESSMENT, NOTES AND PLAN: A detailed discussion with the patient's family, and daughter included. They were inquiring about hospice. I told them that would not be reasonable in view of his progressive disease and his decompensation right now with failure to thrive. Our plan is right now to give him blood transfusion, which he already had. We will watch his blood counts carefully over the next 24 hours if he need any additional blood transfusion at this time. Pain seems to be well controlled on tramadol in request what the family had wanted. The patient is already a Do Not Resuscitate and Do Not Intubate. We have watched many compassionate hospice to come and evaluate the patient for hospice down the road. In the meantime, we are going to try to see the patient can be assessed for physical therapy, so he can go to the transitional care unit to recover to get his strength back since his embolectomy for cerebrovascular accident that he had few weeks ago. Once he gets his bearing back and is able to ambulate, we can always send him home on home hospice. There, he can be monitored and if he should have further deterioration at that point in time, I will adjust pain medicines or any other medicines that he might need. Family specifically the and the daughter are in agreement and given to proceed in that direction as soon as it is feasible. Routine post-exam instructions have been given to the patient's family. The patient's family was counseled at great length regarding what hospice says, what and how we need to have a person that is going to be home care healthcare deliverer and for that, his daughter is also going to take time off from her work in order to be with him as long as it is possible. I told the family that this does not mean we are going to abandon his care, but we will continue aggressive medical care. If he continues to improve, then we can always listen the hospice and decide if anything else needs to be done, but the chances of that appear to be slim given the fact at least on the more recent PET/CT scan less than three days ago shows significant progression of disease. Please make a note that this is a complex patient with multiple comorbid medical issues. As far as his cardiac issues are concerned, we are just going to manage him conservatively at this point. Marta Neil MD
[2018-08-16 06:06] VITALS: O2SAT 97
[2018-08-16] MEDS: Amylase/Lipase/Protease 5,000 Units ECC PO SCH ×3 (08:39→16:44)
[2018-08-16] MEDS: Sucralfate 1 gm/10 ml Oral Susp UD PO SCH ×3 (09:53→17:05)
[2018-08-16 11:03] LABS: HEMOGLOBIN 10.9 g/dL (14.0-18.0); MEAN CELL VOLUME 87.3 fl (80.0-105.0); MEAN CORPUSCULAR HEMOGLOBIN 27.6 pg (25.0-35.0); MEAN CORPUSCULAR HGB CONC 31.6 g/dl (31.0-37.0); MEAN PLATELET VOLUME 9.2 fl (7.0-11.0); RBC 3.95 10^6/uL (3.5-6.1); RED CELL DISTRIBUTION WIDTH 16.6 % (11.5-14.5)
[2018-08-16 11:10] LABS: WHITE BLOOD COUNT 25.5 10^3/uL (4.5-11.0)
[2018-08-16 11:43] LABS: ALB/GLOB RATIO 0.8 (1.1-1.8); ALBUMIN 2.2 g/dL (3.0-4.8); ALT/SGPT 51 U/L (7-56); AST/SGOT 60 U/L (17-59); BLOOD UREA NITROGEN 24 mg/dL (7-21); CALCIUM 8.5 mg/dL (8.4-10.5); GFR NON-AFRICAN AMERICAN > 60
[2018-08-16 17:26] VITALS: BP 104/64; PULSE 81; TEMP 98.5
--- NOTE | 2018-08-17 16:07 | CON ---
DATE: 08/17/2018 CHIEF COMPLAINT: Back pain. HISTORY OF PRESENT ILLNESS: This is an 83-year-old male with a history of pancreatic cancer, who is admitted with progressive weakness, inability to stand up on his own. He is complaining of progressively worsening low back pain. Urologically, the patient has a history of BPH. He reports that he is voiding okay. He has no current dysuria or gross hematuria. He has mild frequency, but his force of urinary stream is unchanged. He is not straining to void. He feels he is emptying okay and having nocturia approximately two times per night. consultation was requested regarding his voiding. The patient does state when he stands up to urinate he has been losing control of his bowels and having multiple soft bowel movements as well. PAST MEDICAL HISTORY: Significant for stage IV pancreatic cancer on chemotherapy, BPH, peptic ulcer disease, anxiety, depression, back pain, CVA. HOME MEDICATIONS: Included Flomax, Proscar, Carafate, Lomotil, Creon, Eliquis. CURRENT MEDICATIONS: Include Carafate, Eliquis, Flomax, amylase, finasteride, Tylenol and Ultram. ALLERGIES: NO KNOWN DRUG ALLERGIES. FAMILY HISTORY: Noncontributory for this event. SOCIAL HISTORY: No smoking history. No history of EtOH or drug use. REVIEW OF SYSTEMS: Obtained from the patient and his . The patient is complaining of low back pain, weakness, difficulty ambulating, multiple soft bowel movements, and difficulty controlling bowel movements. SYSTEM: See history of present illness. PSYCHIATRIC: Does report some anxiety and depression. CARDIAC: Denies any chest pain or palpitations. RESPIRATORY: Denies cough or shortness of breath. Other systems are negative. PHYSICAL EXAMINATION: GENERAL: The patient is awake, alert, and answering questions. He is in no acute distress. He is afebrile. VITAL SIGNS: Temperature of 98.5, pulse of 84, BP 126/67, respirations 16. NECK: Supple. There is no obvious adenopathy or mass. CHEST: Exam of the chest reveals a normal inspiratory effort. CARDIAC: Exam shows positive S1, S2. There is some mild peripheral edema noted. GASTROINTESTINAL: On abdominal exam, the abdomen is soft, nontender, nondistended. There is no costovertebral angle tenderness. The bladder is not palpably distended, possible small ascitic waves. GENITOURINARY: Phallus is normal. There is a phimotic foreskin; however, the meatus can be visualized. Scrotum is normal. Testes are bilaterally descended, nontender, no masses. Epididymis are normal. EXTREMITIES: There is no cyanosis. There is mild peripheral edema. LABORATORY DATA: Urinalysis from 08/14/2018 showed negative RBC, 0 to 2 WBC, nitrites were negative. GFR of 57. Elevated troponin 1. WBC count 25.5, hemoglobin 10.9, platelets 227. On radiologic exam, the patient had a PET/CT on 08/13/2018, which showed interval progression of metastatic disease in the hepatic parenchyma. Lesions have markedly increased in size and had become coalescent with new additional lesions. There is an ill-defined soft tissue mass in the region of the pancreatic head and proximal body, diverticulosis, and enlarged prostate gland with prostatic calcifications. Lytic lesions in the left iliac bone and T6 vertebral body segment. IMPRESSION AND PLAN: This is an unfortunate 83-year-old male with stage IV metastatic pancreatic cancer, which appears to be progressing despite treatment. Urologically, the patient is stable. He should continue the Flomax and Proscar, as he is emptying adequately. He does not need a Mark catheter at this time. Continue care as per Oncology with palliative and supportive care. The patient is currently a DNR status and appears to be progressing despite treatment. No acute urologic intervention is necessary. I will continue to follow the patient with you. Thank you for this consult. Bob Stephens MD
== END 2018-08-16 17:55 | DRG 281 ==
LOC: ED 15:39 → ERH 18:32 → 2RSO 22:10 → 3RSO 08-14 21:33
PROVIDERS: ADMIT Family Medicine; ATTEND Family Medicine
PROC: 30233N1 Transfusion of Nonautologous Red Blood Cells into Peripheral Vein, Percutaneous Approach (ICD-10-PCS; principal; 2018-08-14)
DX: I21.4 Non-ST elevation (NSTEMI) myocardial infarction (principal); C25.9 Malignant neoplasm of pancreas, unspecified; I47.1 Supraventricular tachycardia; I21.A1 Myocardial infarction type 2; R62.7 Adult failure to thrive; I10 Essential (primary) hypertension; F41.1 Generalized anxiety disorder; D50.0 Iron deficiency anemia secondary to blood loss (chronic); Z79.899 Other long term (current) drug therapy; K21.9 Gastro-esophageal reflux disease without esophagitis; Z86.73 Personal history of transient ischemic attack (TIA), and cerebral infarction without residual deficits; Z87.11 Personal history of peptic ulcer disease; Z66 Do not resuscitate

== ENCOUNTER 2018-08-16 17:29 | Inpatient (IN) | payer OTHER, BC ==
[2018-08-16] MEDS: Sucralfate 1 gm/10 ml Oral Susp UD PO SCH (21:38)
[2018-08-17] MEDS: Amylase/Lipase/Protease 5,000 Units ECC PO SCH ×3 (07:51→17:20)
[2018-08-17] MEDS: Sucralfate 1 gm/10 ml Oral Susp UD PO SCH ×4 (09:39→21:04)
--- NOTE | 2018-08-17 17:17 | HP ---
DATE OF EXAM: 08/17/2018 This is Mohinder Bentley's admission history and physical to the Transitional Care Unit. For Dr. Neil. CHIEF COMPLAINT: Deconditioning. HISTORY OF PRESENT ILLNESS: The patient is an 83-year-old male seen lying, awake in bed, at the bedside with the patient now transferred to TCU for reconditioning prior to discharge home after being admitted to the medical floor recently for evaluation of evolving subendocardial AL, for which he was worked up and eventually recommended for reconditioning on TCU. He also saw , lacquer sizer. The patient at present is in no acute distress; however, he has poor appetite with recommendations for food to be brought from home. ALLERGIES: NO KNOWN ALLERGIES. PAST MEDICAL HISTORY: Significant for stage IV adenocarcinoma of the pancreas, status post radiation with Dr. House, history of hypotension, syncopal episodes on midodrine, history of BPH, spinal stenosis, DJD, GERD, diverticulosis, status post polypectomy, hemorrhoids anxiety. FAMILY HISTORY AND SOCIAL HISTORY: Nonsmoker, history of alcohol abuse in the past, but quit drinking many years ago. MEDICATIONS ON ADMISSION: Include Proscar, Flomax, Carafate, Lomotil, Creon, Eliquis most recently. The patient is also status post a stroke in 06/2018 with embolectomy done at that time. At that time, he was started on Eliquis. REVIEW OF SYSTEMS: Twelve-point review of systems was done, which was negative to questioning except for items mentioned in the history of present illness. The patient's present medical regimen includes Carafate, Eliquis, Flomax, Pancrease, Proscar, Tylenol and tramadol. OBJECTIVE/PHYSICAL EXAMINATION: VITAL SIGNS: Temperature 98.5, pulse 84, respirations 16, blood pressure 126/67, pulse ox 97%. HEENT: Unremarkable. NECK: Supple. HEART: Regular rate. LUNGS: Clear. ABDOMEN: Soft, nontender with mid low back pain, discomfort to general palpation. EXTREMITIES: No edema. SKIN: Warm and dry. NEUROLOGIC: Awake and alert. LABORATORY DATA: The patient's labs were done yesterday to include white blood cell count of 25,500 from 19,000 yesterday, hemoglobin 10.9, hematocrit of 34.5 with a platelet count of 227,000. The patient was transfused earlier this hospital stay 2 units of packed red blood cells on 08/14/2018 for hemoglobin of 7.5, it is now 10.9 as of yesterday. Chem metabolic panel for yesterday showed sodium 130 with an AST of 60, troponin of 2.13 the day prior. ASSESSMENT: The assessment for this patient is that of stage IV pancreatic cancer; recent cerebrovascular accident with embolectomy, on Eliquis; deconditioning; anemia of chronic disease, status post transfusion; subendocardial myocardial infarction; gastroesophageal reflux disease; orthostatic hypotension; spinal stenosis; early dementia; benign prostatic hypertrophy. PLAN: The plan for this patient after conversation with Dr. Neil is to, continued protocols as per TCU with reconditioning. We will continue present medical regimen as above with repeat of his labs as per TCU protocols with the patient to continue DNR/DNI with consideration for hospice as indicated. This is a complex patient with a comprehensive medical necessary and appropriate visit carried out in excess of 40 minutes with the patient's questions and his 's questions answered to their satisfaction. Marty Orona MD (Delete this signature block when dictator is a preceptor.)
[2018-08-17] MEDS: Megestrol Acetate 40 mg/ml Cup PO SCH (17:20)
[2018-08-18] MEDS: Amylase/Lipase/Protease 5,000 Units ECC PO SCH ×3 (08:24→17:15)
[2018-08-18] MEDS: Sucralfate 1 gm/10 ml Oral Susp UD PO SCH ×3 (09:57→17:15)
[2018-08-18] MEDS: Megestrol Acetate 40 mg/ml Cup PO SCH (09:59)
[2018-08-18] MEDS: Sodium Chloride 0.9% 1,000 ML IV SCH (13:13)
[2018-08-18] MEDS ORDERED: Sucralfate 1 gm/10 ml Oral Susp UD PO SCH (16:00)
--- NOTE | 2018-08-18 20:33 | PN ---
DATE: 08/18/2018 This is [facility] on TCU. For Dr. Neil. SUBJECTIVE: The patient is an 83-year-old male seen lying awake in bed after an episode while having lunch in the dining room of TCU. The patient developed an episode of weakness with his blood pressure noted to be low. The patient now feels better; however, has noted that midodrine was the medication that the patient was on previously; however, this was not renewed after his recent events in the hospital with consult with Dr. Olivares and Dr. Flores in Cardiology, and Dr. Rodriguez, Renal, now being requested to reevaluate the patient. We will restart midodrine as per Dr. Rodriguez as indicated for the patient. At present, he is in no acute distress with his appetite still compromised with Megace begun yesterday. The patient is known to suffer from stage IV pancreatic cancer. PHYSICAL EXAMINATION: VITAL SIGNS: Temperature 98.3, pulse 81, respirations 20, blood pressure 123/70 with a repeat of 95/58, with a pulse ox of 95%. HEENT: Tongue is dry. NECK: Supple. HEART: Regular rate. Occasional ectopic beat. LUNGS: Clear. ABDOMEN: Soft, nontender. EXTREMITIES: No edema. SKIN: Warm and dry. NEUROLOGIC: Awake and alert this visit. LABORATORY DATA: The patient's labs were not done. According to TCU protocols, we will order them for the morning. ASSESSMENT: For this patient is that of presyncopal episodes; deconditioning; stage IV pancreatic cancer; history of cerebrovascular accident with embolectomy, on Eliquis; anemia of chronic disease, status post transfusion; subendocardial myocardial infarction; gastroesophageal reflux disease; spinal stenosis; early dementia; benign prostatic hypertrophy. PLAN: After conversation with Dr. Neil, he is to continue his medical regimen. We will restart midodrine only as per freight traffic consultant's recommendations with Taty to continue, the patient to be sitting at a 90-degree angle for his meals to facilitate digestion. We will check his labs in the a.m. He continues DNR/DNI as per his and family's request. This is a complex patient with a comprehensive medically necessary and appropriate visit carried out in excess of 30 minutes with the patient's treatment plan reviewed with the nurses at the bedside. We will also begin IV normal saline at 50 mL an hour in the interim. Marty Orona MD
[2018-08-19] MEDS: Sucralfate 1 gm/10 ml Oral Susp UD PO SCH ×2 (05:11→17:15)
[2018-08-19] MEDS: Amylase/Lipase/Protease 5,000 Units ECC PO SCH ×3 (08:01→17:15)
[2018-08-19] MEDS: Sodium Chloride 0.9% 1,000 ML IV SCH (08:20)
[2018-08-19 08:23] LABS: BASO # 0.02 K/mm3 (0.0-2.0); BASO % 0.1 % (0.0-3.0); EOS # 0.1 (0.0-0.7); EOS % 0.4 % (1.5-5.0); GRAN # 20.43 (1.4-6.5); GRAN % 88.6 % (50.0-68.0); LYMPH # 0.6 (1.2-3.4); LYMPH % 2.5 % (22.0-35.0); MEAN CELL VOLUME 87.3 fl (80.0-105.0); MEAN CORPUSCULAR HEMOGLOBIN 27.7 pg (25.0-35.0); MEAN CORPUSCULAR HGB CONC 31.7 g/dl (31.0-37.0); MEAN PLATELET VOLUME 9.5 fl (7.0-11.0); MONO % 8.4 % (1.0-6.0); PLATELET COUNT 164 10^3/uL (120.0-450.0); RBC 3.61 10^6/uL (3.5-6.1); RED CELL DISTRIBUTION WIDTH 16.6 % (11.5-14.5); WHITE BLOOD COUNT 23.1 10^3/uL (4.5-11.0)
[2018-08-19 08:42] LABS: ALB/GLOB RATIO 0.8 (1.1-1.8); ALBUMIN 2.2 g/dL (3.0-4.8); ALT/SGPT 51 U/L (7-56); AST/SGOT 80 U/L (17-59); BLOOD UREA NITROGEN 34 mg/dL (7-21); CALCIUM 8.6 mg/dL (8.4-10.5); GFR NON-AFRICAN AMERICAN > 60
[2018-08-19 08:56] LABS: ATYPICAL LYMPHOCYTE 1 % (0.0-0.0); BAND 1 % (0-2); LYMPHOCYTE 2 % (22.0-35.0); MONOCYTE 9 % (1.0-6.0); NEUTROPHIL 87 % (50.0-70.0)
[2018-08-19 08:57] LABS: HYPOCHROMIA 2+; PLATELET ESTIMATE NORMAL (NORMAL); ROULEAU 2+; TOXIC GRANULATION 1+
[2018-08-19] MEDS: Megestrol Acetate 40 mg/ml Cup PO SCH (10:24)
[2018-08-19] MEDS ORDERED: POLYETHYLENE GLYCOL 3350 17 GM/Dose PACKET PO ONE (12:38)
[2018-08-19 12:54] LABS: T4 4.5 ug/dL (5.5-11.0)
--- NOTE | 2018-08-19 13:42 | CON ---
DATE OF CONSULTATION: 08/19/2018 REFERRING PHYSICIAN: Marty Orona MD REASON FOR CONSULTATION: Evaluation of a patient well known to me with a history of orthostatic hypotension who now presents with orthostatic hypotension and hyponatremia. HISTORY OF PRESENT ILLNESS: The patient is an 83-year-old white male, known to me from multiple in-hospital evaluations. History of stage IV pancreatic cancer. Positive recent PET/CT scan showing progressive liver metastasis and lymphadenopathy. History of hypotension with orthostatic hypotension. The patient had been on midodrine in the outpatient setting. History of BPH. History of spinal stenosis, status post recent subdural injection. History of a CVA back in 06/2018, on anticoagulation status post embolectomy. History of ASHD, status post a recent NSTEMI. History of GERD, stable on medication. History of anemia secondary to cancer. The patient is now a DNR/DNI. We were asked to see the patient because of evaluation of his orthostatic hypotension and hyponatremia. The patient is currently in the TCU. PAST MEDICAL HISTORY: Significant for metastatic pancreatic cancer, DNR/DNI, orthostatic hypotension, BPH, history of spinal stenosis, history of recent CVA, history of ASHD with a recent NSTEMI, history of reflux, history of anemia, alcohol use. FAMILY HISTORY: Parents of complications of COPD and a blood disorder. SOCIAL HISTORY: No history of cigarette smoking. HOME MEDICATIONS: Ultram, Flomax, Carafate, Proscar, Lonox, Eliquis, pancreatic enzymes, and Tylenol p.r.n. CURRENT MEDICATIONS IN HOSPITAL: Normal saline 50 mL an hour, Carafate, Eliquis, Flomax, Megace, pancreatic enzymes, ProAmatine which was started yesterday, Proscar, Tylenol and Ultram. ALLERGIES: NO KNOWN ALLERGIES TO MEDICATIONS. REVIEW OF SYSTEMS: Obtained essentially from the patient's as the patient is sleeping lying in bed. GENERAL: Continued loss of appetite and weight loss. ENT: No hearing or visual problems. PULMONARY: No shortness of breath, but the patient is completely sedentary. CARDIAC: History of ASHD with no recent chest pains. Positive recent AL. GI: History of reflux and constipation. : History of BPH with increased urinary frequency. ENDOCRINE: No history of diabetes. MUSCULOSKELETAL: Chronic low back pain status post recent epidural injection for spinal stenosis. NEURO: History of a recent CVA in 06/2018, status post embolectomy, status post anticoagulation. HEME/ONC: History of malignancy, stage IV prostate cancer with history of anemia likely secondary to cancer. PSYCHIATRIC: History is negative. PHYSICAL EXAMINATION: GENERAL: The patient is currently seen in TCU, bed 18. He is sleepy, but arousable. His is at bedside answering all questions. VITAL SIGNS: Blood pressure with the patient lying supine in bed in the morning was 113/65. Previous blood pressures were less than 100 systolic. Temperature 97.6, pulse of 82 with a respiratory rate of 18. HEENT: Exam shows him to be normocephalic, atraumatic. Conjunctivae are pale. Sclerae are nonicteric. NECK: Supple. No neck vein distention. No thyromegaly. No lymphadenopathy. No bruits. CHEST: Clear to auscultation and percussion. No rales, rhonchi or wheezing. CARDIOVASCULAR: Regular rate and rhythm with /MR/TR. No S3, no S4, no rub. ABDOMEN: Soft. Bowel sounds normal. No rebound, guarding or masses. EXTREMITIES: No lower extremity cyanosis, clubbing or edema. BACK: No CVAT. No spinal tenderness. NEURO: Shows him to be alert, but sleepy. He is not answering any questions for me presently. He apparently has no gross focal motor or sensory deficits. LABORATORY DATA AND IMAGING STUDIES: Labs today showed a white cell count of 23.1, hemoglobin stable at 10.0, platelet count is 164,000. Coags: PT of 32.4 with an INR of 2.78. Chemistry shows sodium in the 129-135 range, today's is 129. BUN is 34 with a creatinine of 0.9. Glucose is 116. Calcium is 8.6. Bilirubin is 1.5. AST is 80. Alkaline phosphatase is 269. Albumin level is low at 2.2. No recent imaging studies done. Microbiology: No recent cultures are done. ASSESSMENT: 1. Orthostatic hypotension in a patient with known orthostatic hypotension. The patient was increasing the sodium in his diet and had been on ProAmatine at home. As per my discussion with the TCU yesterday, ProAmatine was restarted. The patient does remain on normal saline. For the most part, the patient is lying supine in bed, there is a limited activity. There is very little concern that the patient will have a fall from his orthostatic hypotension. Nevertheless, we will try to normalize his blood pressures in the sitting and perhaps standing position. 2. Hyponatremia. We will check a urine sodium, urine osmolality, TSH, T4, and cortisol level. The patient will continue on normal saline. His oral fluid intake is little, so there is no concern about a delusional hyponatremia from excessive water or fluid intake. 3. History of stage IV pancreatic cancer with mets to liver and lymph nodes. The patient is being managed by Dr. Neil and Dr. Orona. The patient is being evaluated for hospice. 4. History of benign prostatic hypertrophy, currently stable on present medical therapy. 5. History of spinal stenosis, status post recent epidural injection. 6. Status post recent cerebrovascular accident, status post embolectomy, on chronic anticoagulation, stable. 7. History of arteriosclerotic heart disease, status post recent myocardial infarction. No significant interventional cardiac workup plan. 8. History of gastroesophageal reflux disease. The patient is stable on present medical therapy. 9. History of anemia likely secondary to underlying malignancy. 10. DNR/DNI with hospice evaluation in progress. PLAN: 1. We will continue IV fluid hydration with normal saline. 2. Urine sodium, urine osmolality. 3. Check T4, TSH. Check cortisol level. 4. If possible, try and obtain orthostatic blood pressure readings. 5. We will follow along with you in the TCU. 6. His prognosis unfortunately is poor. Thank you for letting me partake and share in the care of your patient. Narciso Menendez MD
[2018-08-19 14:04] LABS: INR 2.12; PROTHROMBIN TIME 24.5 SECONDS (9.4-12.5)
[2018-08-19] MEDS ORDERED: POLYETHYLENE GLYCOL 3350 17 GM/Dose PACKET PO PRN (19:00)
--- NOTE | 2018-08-19 19:03 | PN ---
DATE: 08/19/2018 This is [facility] visit on TCU. For Dr. Neil. SUBJECTIVE: The patient is an 83-year-old male, seen sitting up in bed, at the bedside, feeding him lunch, which the patient is now enjoying as he has a regular diet with Megace begun recently. The patient had an episode of hypotension yesterday, for which a consult was asked for with Dr. Menendez, Renal with restart of his midodrine. Also, Dr. Olivares of Cardiology has seen the patient with recommendations to continue symptomatic care with medical treatment for his recent NM. The patient still describes low back discomfort, for which Tramadol does not help. We will offer oxycodone for severe pain, Tramadol for moderate pain, and Tylenol for mild pain. The patient continues on his present medical regimen, which includes Eliquis with an INR noted to be supratherapeutic recently. We will repeat this on labs already drawn today along with the uric acid. Other labs due to TCU protocols will be done if necessary on an urgent basis. OBJECTIVE: VITAL SIGNS: Temperature 97.6, pulse 82, respirations 18, blood pressure 113/65, and pulse oximetry 96%. HEENT: Unremarkable. Tongue is moist. NECK: Supple. HEART: Regular rate. LUNGS: Clear. ABDOMEN: Soft, nontender, with minimal tenderness to palpation over the mid lower back. EXTREMITIES: No edema. SKIN: Warm and dry. NEUROLOGIC: Awake and alert. LABORATORY DATA: Labs were drawn this morning, to include white blood cell count of 23.1, hemoglobin of 10, hematocrit 31.5, and platelet count 164,000 with a chem metabolic panel showing a sodium of 129, T bili of 1.5, AST of 80, alkaline phosphatase of 269, with a TSH is 0.5. Urine osmolality and urine sodium were within normal range. ASSESSMENT: The assessment for this patient is that of stage IV pancreatic cancer, presyncope secondary to hypotension, midodrine was started, deconditioning, history of cerebrovascular accident with embolectomy, on Eliquis, anemia of chronic disease, status post transfusion, subendocardial myocardial infarction, medical treatment recommended by Dr. Olivares, gastroesophageal reflux disease, spinal stenosis, early dementia, benign prostatic hypertrophy, and hyponatremia. PLAN: The plan for this patient after conversation with Dr. Olivares and Nursing staff is to continue present medical regimen. We will ask for an INR value to be drawn today with medical care continuing as above. We will discontinue his IV fluids, which were given when his hypotensive episode was noted and continue his regular soft diet with DNR/DNI to continue with consideration of hospice in the future as indicated. The patient appears to be in no acute distress with his analgesic change with Tramadol now for moderate pain, oxycodone for severe pain, and Tylenol for mild pain as needed. The patient also reports constipation, for which we will give MiraLAX with consideration for enema if there are no results. This is a complex patient with a comprehensive medically necessary and appropriate visit carried out in excess of 20 minutes with the patient's 's questions answered to her satisfaction. Marty Orona MD
[2018-08-19] MEDS: oxyCODONE 5 mg Immediate Release Tab PO PRN (21:14)
[2018-08-20] MEDS: Sucralfate 1 gm/10 ml Oral Susp UD PO SCH ×2 (05:04→16:07)
[2018-08-20] MEDS: oxyCODONE 5 mg Immediate Release Tab PO PRN (05:04)
--- NOTE | 2018-08-20 07:46 | CP.PCM.PN ---
Subjective - Date & Time of Evaluation Date of Evaluation: 08/20/18 Time of Evaluation: 07:00 - Subjective Subjective: Stable on TCU. + back pain but no CP or SOB V/S noted. PE: Lungs: clear Cor.: KAYLEIGH Abd.: soft Ext.: no edema Neuro.: alert Labs 08/19 noted Objective - Vital Signs/Intake and Output Vital Signs (last 24 hours): Temp Pulse Resp BP Pulse Ox 98.1 F 80 18 115/70 97 08/19/18 16:00 08/19/18 16:00 08/19/18 16:00 08/19/18 16:00 08/19/18 16:00 - Medications Medications: Current Medications Acetaminophen (Tylenol 325mg Tab) 650 mg PO Q6H PRN PRN Reason: Pain, Mild (1-3) Amylase (Pancrease 23900 U-5000 [id number] U) 5,000 unit PO AC [facility] Last Admin: 08/19/18 17:15 Dose: 5,000 unit Apixaban (Eliquis) 2.5 mg PO BID [facility]; Protocol Last Admin: 08/19/18 17:15 Dose: 2.5 mg Finasteride (Proscar) 5 mg PO DAILY [facility] Last Admin: 08/19/18 10:25 Dose: 5 mg Megestrol Acetate (Megace) 200 mg PO DAILY [facility] Last Admin: 08/19/18 10:24 Dose: 200 mg Midodrine (Proamatine) 5 mg PO TID [facility] Last Admin: 08/19/18 17:16 Dose: 5 mg Oxycodone HCl (Oxycodone Immediate Release Tab) 5 mg PO Q8H PRN PRN Reason: Pain, severe (8-10) Last Admin: 08/20/18 05:04 Dose: 5 mg Polyethylene Glycol (Miralax) 17 gm PO DAILY PRN PRN Reason: Constipation Sucralfate (Carafate Oral Susp) 1 gm PO 0600,1600 [facility] Last Admin: 08/20/18 05:04 Dose: 1 gm Tamsulosin HCl (Flomax) 0.4 mg PO HS [facility] Last Admin: 08/19/18 21:14 Dose: 0.4 mg Tramadol HCl (Ultram) 50 mg PO Q8 PRN PRN Reason: Pain, moderate (4-7) - Labs Labs: 08/19/18 07:30 08/19/18 07:30 PT 24.5 SECONDS (9.4-12.5) H 08/19/18 13:45 INR 2.12 08/19/18 13:45 Assessment and Plan - Assessment and Plan (Free Text) Assessment: Back Pain Orthostatic hypotension, chroni Stage IV pancreatic cancer/s/p XRT/Liver mets and adenopathy Recent NSTEMI Mod./Sev. Mod. LVD CVA/s/p embolectomy Anemia/s/p transfusions H/O Syncope GERD Diverticulosis Colonic Polyps Hemmhoroids Spinal Stenosis BPH DNR/DNI status Plan: Conservative cardiac care Comfort care. As per Onc., Renal, Paliative Care. Cse d/w Dr. Orona yesterday.
[2018-08-20] MEDS: Amylase/Lipase/Protease 5,000 Units ECC PO SCH ×3 (07:54→17:13)
[2018-08-20] MEDS: Megestrol Acetate 40 mg/ml Cup PO SCH (09:28)
[2018-08-20] MEDS: Sodium Chloride 0.9% 500 ML IV SCH (15:01)
--- NOTE | 2018-08-20 18:52 | PN ---
DATE: 08/20/2018 SUBJECTIVE: The patient is currently seen lying supine in bed in the TCU. Family is at bedside. The patient apparently has had a difficult day. He has been unable to sit or stand. He has difficulty swallowing. Hospice evaluation has been planned. The IV fluids have been discontinued. Because of the new policy in the TCU, blood work is only allowed twice during the hospitalization. Hence blood work ordered was canceled for today. PHYSICAL EXAMINATION: VITAL SIGNS: Blood pressure 127/70, supine in bed. Temperature 98, respiratory rate 60 with a pulse of 90. HEENT: Shows the patient to be normocephalic, atraumatic. Conjunctivae are pale. Sclerae are nonicteric. NECK: Supple. No neck vein distention. CARDIOPULMONARY: Shows a regular rate and rhythm with /MR/TR. No S3, S4. No rub. LUNGS: Clear to auscultation and percussion. No rales, rhonchi or wheezing. ABDOMEN: Soft. Bowel sounds normal. No rebound, guarding or masses. EXTREMITIES: Show no lower extremity cyanosis, clubbing or edema. NEUROLOGIC: Shows him to be awake and alert. He is sleepy and when spoken to he opens his eyes. LABORATORY DATA AND IMAGING: CBC and chemistries were ordered for today. Uric acid level was ordered for today. Thyroid functions was ordered for today and cortisol level was ordered for today. Urine sodium, urine osmolality were also ordered for today. None of these were done and most of these were canceled. MEDICATIONS: Medication list reviewed. The patient is on Carafate, Eliquis, Flomax, Megace, MiraLax, oxycodone, Pancrease, Pepcid, ProAmatine, Proscar, Tylenol p.r.n. and Ultram p.r.n. ASSESSMENT: 1. Orthostatic hypotension. The patient is currently off saline. He does remain on ProAmatine 5 mg three times a day. The patient is just too weak to sit up in bed or stand. NO orthostatic blood pressures were done. Nevertheless, we will continue the patient on ProAmatine 5 mg three times a day. 2. Mild hyponatremia. Perhaps, we will try and repeat a set of lab work for tomorrow. It appears that the urine studies might have been sent, but no results are back yet. 3. History of stage IV pancreatic cancer with metastasis to the liver and lymph nodes. The patient is being managed by Dr. Neil and Dr. Orona. The patient is being evaluated for hospice care. 4. History of benign prostatic hypertrophy, currently stable. 5. History of spinal stenosis, status post recent epidural injection. No apparent complaints. 6. Status post recent cerebrovascular accident, status post embolectomy on chronic anticoagulation, stable with no bleeding. 7. History of arteriosclerotic heart disease, status post recent myocardial infarction. No significant interventional cardiac workup plan. 8. History of gastroesophageal reflux disease. The patient remained stable on Carafate and Pepcid. 9. History of anemia secondary to underlying malignancy, stable. 10. DNR/DNI with hospice evaluation in progress. PLAN: Discussed with Dr. Orona and with staff in TCU. Unfortunately, new policy blood tests will be done ONLY twice during the 8-day stay in the TCU. We will try again to get laboratory work tomorrow. I will await the results of his urine studies. Again given his very poor prognosis and hospice evaluation. We will try and keep the patient as comfortable as possible and try and normalize his blood work as best as I can given the limitations of being able to follow his lab work. Narciso Menendez MD MTDD
--- NOTE | 2018-08-20 20:42 | PN ---
DATE: 08/20/2018 This is [facility] visit on TCU. For Dr. Neil. SUBJECTIVE: The patient is an 83-year-old male. Seen lying, awake in bed with belching since having a hamburger yesterday and oatmeal this morning. With his diet improved; however, now the patient has gastrointestinal discomfort. Midodrine was restarted by Dr. Menendez, renal supervisor home energy consultant. Dr. Olivares's note is appreciated for his recent myocardial infarction. The patient continues to be DNR/DNI for his stage IV pancreatic cancer with labs to be drawn again tomorrow morning as per Dr. Menendez's recommendation for appropriate care of this patient. In the interim, we will restart his IV fluids with normal saline at 50 mL an hour, and we will ask for consult with Dr. Prado, gastrointestinal supervisor home energy consultant with clear liquids to be given for the time being. We will also give Zofran as needed for nausea and vomiting. OBJECTIVE/PHYSICAL EXAMINATION: VITAL SIGNS: Temperature 98, pulse 90, respirations 16, blood pressure 127/70, and pulse oximetry 94%. HEENT: Tongue is moist. NECK: Supple. HEART: Regular rate. LUNGS: Clear. ABDOMEN: Soft, nontender. EXTREMITIES: No edema. SKIN: Warm and dry. NEUROLOGIC: Awake and alert. LABORATORY DATA: The patient's labs were done yesterday with an INR noted to be 2.1 with a chem metabolic panel yesterday showing a T-bili of 1.5, AST of 80, TSH of 0.5 with 23,000 white blood cell count. Uric acid was to be done on service rendered blood; however, this is not done by the lab despite requested to do so. ASSESSMENT: For this patient is that of stage IV pancreatic cancer, deconditioning, status post myocardial infarction, atherosclerotic cardiovascular disease, history of cardiovascular accident, orthostatic hypotension, hyponatremia, benign prostatic hypertrophy, spinal stenosis, anemia of chronic disease, gastroesophageal reflux disease, failure to thrive, anticoagulation on Eliquis, early dementia. PLAN: The plan for this patient after conversation with Dr. Menendez and nursing staff and Dr. Olivares and Dr. Prado is to just continue with his diet in favor of clear liquids with as he swallows liquids well. We will start IV fluids at 50 mL an hour normal saline with medicines to be crushed for swallowing. He is to sit at 90-degree angle when is to have any nutrition. We will continue the present medical regimen with oxycodone to be discontinued for now as he did get a dose earlier today, may have been contributing to his untoward symptoms. However, he will get tramadol or Tylenol as needed for mild or moderate pain. We will also check labs in the morning as per Dr. Menendez's recommendation. Marty Orona MD
[2018-08-21] MEDS: Sodium Chloride 0.9% 500 ML IV SCH ×3 (02:00→21:19)
[2018-08-21] MEDS: Sucralfate 1 gm/10 ml Oral Susp UD PO SCH ×2 (05:09→17:06)
[2018-08-21 06:55] LABS: HEMOGLOBIN 9.5 g/dL (14.0-18.0); MEAN CELL VOLUME 87.5 fl (80.0-105.0); MEAN CORPUSCULAR HGB CONC 30.8 g/dl (31.0-37.0); MEAN PLATELET VOLUME 9.5 fl (7.0-11.0); RBC 3.52 10^6/uL (3.5-6.1); WHITE BLOOD COUNT 21.6 10^3/uL (4.5-11.0)
[2018-08-21 07:05] LABS: INR 2.36; PARTIAL THROMBOPLASTIN TIME 31.6 Seconds (25.1-36.5); PROTHROMBIN TIME 27.6 SECONDS (9.4-12.5)
[2018-08-21 07:30] LABS: ALB/GLOB RATIO 0.8 (1.1-1.8); ALBUMIN 2.2 g/dL (3.0-4.8); ALT/SGPT 40 U/L (7-56); AST/SGOT 61 U/L (17-59); BLOOD UREA NITROGEN 31 mg/dL (7-21); CALCIUM 8.8 mg/dL (8.4-10.5); GFR NON-AFRICAN AMERICAN > 60; URIC ACID 4.5 mg/dL (3.5-8.5)
[2018-08-21] MEDS: Amylase/Lipase/Protease 5,000 Units ECC PO SCH ×3 (08:04→16:59)
[2018-08-21] MEDS: Megestrol Acetate 40 mg/ml Cup PO SCH (10:05)
--- NOTE | 2018-08-21 12:52 | PN ---
DATE: 08/21/2018 SUBJECTIVE: The patient is currently seen in the TCU, bed 18. Family is in the room. The patient's eyes are closed, but he does open his eyes to verbal communication. He has been unable to sit up in bed or stand up. Hence, we have no orthostatic blood pressure readings. The patient continues on normal saline 50 mL an hour because of difficulty taking oral intake. He did eat part of his breakfast today according to family. MEDICATIONS: Medication list reviewed. The patient is currently on Carafate, Eliquis, Flomax, Megace, MiraLax, pancreatic enzymes, Pepcid, ProAmatine, Proscar, normal saline 50 mL an hour, Tylenol p.r.n., Ultram and Zofran. OBJECTIVE: VITAL SIGNS: Blood pressure 121/74, supine in bed. Temperature 97.6, respiratory rate is 16 with a pulse of 74. HEENT: Shows him to be normocephalic, atraumatic. Conjunctiva are pale. Sclerae nonicteric. NECK: Supple. No neck vein distention. CHEST: Clear to auscultation and percussion. No rales, rhonchi or wheezing. CARDIOVASCULAR: Regular rate and rhythm with /MR/TR. No S3, no S4, no rub. ABDOMEN: Soft. Bowel sounds normal. No rebound, guarding or masses. EXTREMITIES: Show no lower extremity cyanosis, clubbing or edema. NEUROLOGIC: Shows him to be alert when spoken to. Otherwise his eyes are closed. The patient is sleepy. LABORATORY DATA AND IMAGING STUDIES: CBC, white blood cell count 21.6, hemoglobin 9.5 with a platelet count of 176,000. INR is 2.36 with a PT of 27.6 and PTT of 31.6. Chemistry shows sodium slightly improved at 131. BUN remains mildly elevated at 31, creatinine of 1.0. Glucose is 174. Uric acid is 4.5. Calcium, phosphorus, magnesium levels are normal. Liver enzymes are mildly elevated. Albumin remains low at 2.2. Urine studies show urine osmolality of 642 with a urine sodium of less than 5. ASSESSMENT: 1. Orthostatic hypotension. The patient is back on saline because of difficulty taking in reasonable amounts of liquids. The patient will continue on ProAmatine. It is unlikely that in the present states he will stand up or even set up in bed. 2. Mild hyponatremia. The patient is back on normal saline. Urine studies are positive for a depletional hyponatremia. We can add salt to the patient's diet if he eats. Otherwise, the patient should continue on normal saline for the time being. 3. 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 The patient is being managed by Dr. Neil and Dr. Orona. The patient is being evaluated for hospice care. 4. History of benign prostatic hyperplasia, currently stable. 5. History of spinal stenosis status post recent epidural injections no apparent complaints. 6. History of a recent cerebrovascular accident, status post embolectomy on chronic anticoagulation with no bleeding. 7. History of arteriosclerotic heart disease with a recent myocardial infarction. No interventional cardiac workup plan. History of valvular heart disease, stable. 8. History of gastroesophageal reflux disease, currently stable on Carafate and Pepcid. 9. History of anemia secondary to underlying malignancy. Hemoglobin stable 9.5. 10. DO NOT RESUSCITATE/DO NOT INTUBATE with hospice evaluation in progress. PLAN: 1. Discussed with the patient's family. Agree with decision for the patient to be evaluated for hospice. 2. Continue normal saline. 3. Thyroid function tests are normal, a.m. cortisol was requested, results are still pending. 4. Try and encourage increased p.o. sodium intake in his diet. 5. Because of the pollices in the TCU, will not request blood work until later in the week. 6. Long-term prognosis poor. Family aware. Narciso Menendez MD MTDD
--- NOTE | 2018-08-21 19:00 | PN ---
DATE: 08/21/2018 This is [facility] visit on TCU. For Dr. Neil: SUBJECTIVE: The patient is an 83-year-old male seen lying awake in bed, more comfortable today after having belching and hiccups with abdominal discomfort after having a hamburger from hospital cafeteria yesterday with the patient on clear liquids tolerated well. A consult with Dr. Prado, Gastrointestinal was appreciated with normal saline IV and clear liquid diet being given for now. Dr. Menendez's renal principal consultant's note is appreciated with the patient in no acute distress this visit. OBJECTIVE/PHYSICAL EXAMINATION VITAL SIGNS: Temperature 97.6, pulse 74, respirations 16, blood pressure 121/74, pulse ox 100%. GENERAL: He appears mildly cachectic. HEENT: Sunken temples. NECK: Supple. HEART: Regular rate. LUNGS: Clear. ABDOMEN: Soft, minimal vague tenderness to gentle palpation. EXTREMITIES: No edema. SKIN: Warm and dry. NEUROLOGICAL: Awake and alert. LABORATORY DATA: The patient's labs were done this morning; white blood cell count of 21.6, hemoglobin 9.5, hematocrit 30.8, platelet count of 176,000. Metabolic panel showing his sodium of 131, BUN of 31, creatinine of 1, nonfasting glucose of 176, T-bili of 3. AST of 61, ALT of 40, alk phos of 231 with an INR of 2.36. ASSESSMENT: For this patient, deconditioning abdominal pain, stage IV pancreatic cancer, history of recent myocardial infarction, atherosclerotic cardiovascular disease, history of cerebrovascular accident, orthostatic hypotension, hyponatremia, anemia of chronic disease, benign prostatic hyperplasia, spinal stenosis, gastroesophageal reflux disease, failure to thrive, anticoagulation on Eliquis, early dementia, constipation, abnormal liver function tests, leukocytosis. PLAN: The plan for this patient after consultation with Dr. Neil, the patient's family members, and Dr. Prado is to continue his present medical regimen with consideration for a barium swallow as he is not a candidate for EGD due to anesthesia, possible complications. We will discontinue his Megace and hold it for now as the patient is on clear liquids with IV fluids also. I will maintain him with saline at 50 mL an hour and tramadol for his pain. We will monitor clinically with labs. This is a complex patient with a comprehensive medical necessary and appropriate visit carried out in excess of 20 minutes with the patient and his family's questions answered to their satisfaction. Marty Orona MD
[2018-08-22] MEDS: Sucralfate 1 gm/10 ml Oral Susp UD PO SCH ×2 (05:06→17:04)
[2018-08-22] MEDS: Sodium Chloride 0.9% 500 ML IV SCH ×3 (07:41→21:33)
[2018-08-22] MEDS: Amylase/Lipase/Protease 5,000 Units ECC PO SCH ×3 (07:41→17:04)
--- NOTE | 2018-08-22 14:17 | PN ---
DATE: 08/22/2018 SUBJECTIVE: The patient is currently seen sitting up in bed in the TCU. He appears to be having a better day. He is alert, responsive and answering questions. He does remain on normal saline. He is tolerating a liquid diet. As per my discussion with Dr. Neil, the patient will be placed on hospice and this will be his support structure when he goes home in 2 days. MEDICATIONS: Medication list reviewed. The patient is currently on Carafate, Eliquis, Flomax, Megace is on hold, MiraLax, pancreatic enzymes, Pepcid, ProAmatine, Proscar, normal saline 50 mL an hour, Tylenol p.r.n., Ultram p.r.n., and Zofran p.r.n. OBJECTIVE: INTAKE/OUTPUT: Intake and output are not charted. The patient is in the TCU. VITAL SIGNS: Blood pressure 125/77, which is stable, this is lying supine in bed. Temperature 97.5, pulse of 88 with a respiratory rate of 14. Pulse ox is 93%. HEENT: Exam shows him to be normocephalic, atraumatic. Conjunctivae remain pale. Sclerae are nonicteric. NECK: Supple. No neck vein distention. CHEST: Clear to auscultation and percussion. No rales, rhonchi or wheezing. CARDIOVASCULAR: Shows a regular rate and rhythm with /MR/TR. No S3, no S4, no rub. ABDOMEN: Soft. Bowel sounds normal. No rebound, guarding or masses. EXTREMITIES: Show no lower extremity cyanosis, clubbing, or edema. NEUROLOGIC: Shows him to be alert and awake. He is appropriately answering all questions today. LABORATORY DATA AND IMAGING: No new labs available. Last white blood cell count was 21.6 with a hemoglobin of 9.5. Chemistries showed a sodium of 131, BUN 31, creatinine of 1. In all likelihood, no further labs will be checked in the TCU. Liver enzymes remain elevated. Bilirubin 3. AST is 61. Alkaline phosphatase 231. Albumin level is low at 2.2. ASSESSMENT: 1. Orthostatic hypotension. Unable to check orthostatic blood pressures because the patient is unable to sit up and certainly, the patient is not able to stand. He will continue on ProAmatine empirically to support his blood pressure. 2. Depletional hyponatremia. The patient continues on normal saline. The patient can have salt added to his food. The patient may remain on normal saline for the duration of the transitional care unit stay. 3. History of stage IV pancreatic cancer with metastasis to liver and lymph nodes. The patient is being managed by Dr. Neil and Dr. Orona. The patient will be accepted into hospice upon discharge. 4. History of benign prostatic hypertrophy, currently stable. 5. History of spinal stenosis, status post epidural injections with no apparent complaints. 6. Past history of a recent cerebrovascular accident, status post embolectomy, on chronic anticoagulation with no bleeding. 7. History of atherosclerotic heart disease with recent myocardial infarction. No intervention or workup planned. History of valvular heart disease, stable. 8. History of gastroesophageal reflux disease, currently stable on medical therapy. 9. History of anemia secondary to underlying malignancy. Hemoglobin is stable at 9.5. 10. Do not resuscitate/do not intubate. Hospice evaluation in progress. The patient will be placed on hospice in plan to discharge home. PLAN: 1. Discussed with Dr. Neil and the patient's . Everybody is agreeable with the plan for hospice. 2. Will continue normal saline for the duration of the TCU stay. 3. Unfortunately, not able to check any more labs as per the new protocol. In the TCU, labs are only permitted twice during the 8-day TCU stay. 4. Long-term prognosis poor. Narciso Menendez MD
[2018-08-22 17:22] LABS: BASO # 0.02 K/mm3 (0.0-2.0); BASO % 0.1 % (0.0-3.0); EOS % 0.1 % (1.5-5.0); GRAN # 22.67 (1.4-6.5); GRAN % 89.8 % (50.0-68.0); HEMOGLOBIN 9.6 g/dL (14.0-18.0); LYMPH # 1.2 (1.2-3.4); LYMPH % 4.6 % (22.0-35.0); MEAN CELL VOLUME 86.7 fl (80.0-105.0); MEAN CORPUSCULAR HEMOGLOBIN 27.7 pg (25.0-35.0); MONO # 1.4 (0.1-0.6); MONO % 5.4 % (1.0-6.0); PLATELET COUNT 219 10^3/uL (120.0-450.0); RBC 3.46 10^6/uL (3.5-6.1); RED CELL DISTRIBUTION WIDTH 17.2 % (11.5-14.5)
[2018-08-22 17:25] LABS: WHITE BLOOD COUNT 25.2 10^3/uL (4.5-11.0)
[2018-08-22 17:35] LABS: ALB/GLOB RATIO 0.8 (1.1-1.8); ALBUMIN 2.3 g/dL (3.0-4.8); ALT/SGPT 49 U/L (7-56); AST/SGOT 61 U/L (17-59); BLOOD UREA NITROGEN 30 mg/dL (7-21); CALCIUM 8.7 mg/dL (8.4-10.5); GFR NON-AFRICAN AMERICAN > 60
--- NOTE | 2018-08-22 17:40 | PCM.RRT ---
<Brad Wills - Last Filed: 08/22/18 17:33> BUSINESS DATABASE ANALYST Nurse Assessment - Situation Date: 08/22/18 Time BUSINESS DATABASE ANALYST was called: 16:35 BUSINESS DATABASE ANALYST Responder Arrival Time: 16:36 BUSINESS DATABASE ANALYST Location:: Transitional Care Unit BUSINESS DATABASE ANALYST Reason for Call: Not Responding to Urgent Treatment, Change in Mental Status, Looks Sicker BUSINESS DATABASE ANALYST Called By: RN - IV IV Inserted during BUSINESS DATABASE ANALYST?: No - Respiratory Oxygen Delivery Method: Nasal Cannula @L/min Oxygen Flow Rate: 2 Was the Patient Ventilated with Bag/Mask 100% O2?: No Secretions Suctioned?: No Was the Patient Intubated?: No - Medication Medications Administered During BUSINESS DATABASE ANALYST: none - Diagnostic Test Ordered Chest X-Ray: Yes CPR started during BUSINESS DATABASE ANALYST?: No - Vital Signs Vital Sign: Rapid Response Vital Sign Blood Pressure 134/72 Pulse Rate 100 Respiratory Rate 14 Oxygen Saturation 96 - Finger Stick Blood Glucose Finger Stick Blood Glucose: 134 - Time BUSINESS DATABASE ANALYST Ended Time BUSINESS DATABASE ANALYST Ended: 16:36 - Vital Signs at end of BUSINESS DATABASE ANALYST Vital Signs at end of BUSINESS DATABASE ANALYST: Rapid Response End Vital Sign Blood Pressure 132/72 Pulse Rate 100 Respiratory Rate 14 O2 Sat by Pulse Oximetry 96 - Recommendations Notifications: Attending Physician I.Reason for BUSINESS DATABASE ANALYST - A) Acute Change in Patient: Subjective: BUSINESS DATABASE ANALYST called for 83 y o male who had altered mental status as per RN. States that pt was non-responsive to verbal commands and was unable to hold cup to drink fluids. Last known normal was about 2.5 hrs prior. Pt admitted to TCU for re- conditioning prior to d/c to home after being admitted to the medical floor recently for subendocardial OK as per chart review. 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 Further ROS unobtainable due to pt's current mental status. - Respiratory Oxygen Delivery Method: Nasal Cannula @L/min Oxygen Flow Rate: 2 - Constitutional Appears: Non-toxic, No Acute Distress - Head Head Exam: ATRAUMATIC, NORMOCEPHALIC - Eyes Eye Exam: EOMI, PERRL, Scleral icterus - Respiratory Exam Respiratory Exam: Clear to Ausculation Bilateral, NORMAL BREATHING PATTERN. absent: Rales, Rhonchi, Wheezes - Cardiovascular Exam Cardiovascular Exam: REGULAR RHYTHM, +S1, +S2. absent: Gallop, Rubs, Murmur - GI/Abdominal Exam GI & Abdominal Exam: Soft, Normal Bowel Sounds. absent: Distended, Firm, Tenderness, Organomegaly - Neurological Exam Neurological Exam: Alert, Awake, CN II-XII Intact. absent: Motor Sensory Deficit Additional exam: AAOx1 - Extremities Exam Extremities Exam: Full ROM, Normal Capillary Refill, Normal Inspection. 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 R/o aspiration PNA, electrolyte disturbance. On exam was able to follow commands and speak verbally. No acute distress. Vitals stable. Plan: -CBC, CMP -CXR Case was discussed with PMD Dr. Neil, who recommended CBC, CMP and CXR. States that pt is to be discharged tomorrow to hospice. Further recommendations as per primary team. Attending physician Dr. Fong present at bedside during Rapid Response. <Deonna Fong - Last Filed: 08/24/18 08:51> BUSINESS DATABASE ANALYST Nurse Assessment - Vital Signs Vital Sign: Rapid Response Vital Sign Blood Pressure 134/72 Pulse Rate 100 Respiratory Rate 14 Oxygen Saturation 96 - Vital Signs at end of BUSINESS DATABASE ANALYST Vital Signs at end of BUSINESS DATABASE ANALYST: Rapid Response End Vital Sign Blood Pressure 132/72 Pulse Rate 100 Respiratory Rate 14 O2 Sat by Pulse Oximetry 96 Attending/Attestation - Attestation I have personally seen and examined this patient.: Yes I have fully participated in the care of the patient.: Yes I have reviewed all pertinent clinical information, including history, physical exam and plan: Yes
[2018-08-22 18:08] LABS: BAND 1 % (0-2); NEUTROPHIL 94 % (50.0-70.0)
[2018-08-22 18:09] LABS: EOSINOPHIL 1 % (0.0-3.0); LYMPHOCYTE 2 % (22.0-35.0); MONOCYTE 2 % (1.0-6.0)
[2018-08-22] MEDS: Vancomycin 1gm in NS 250ml 1 GM/250 ML BAG IVPB SCH (19:35)
[2018-08-22] MEDS: Piperacillin/Tazobact 3.375 gm 100 ML IVPB SCH (22:15)
--- NOTE | 2018-08-23 01:30 | PN ---
DATE: 08/22/2018 ONCOLOGY PROGRESS NOTE LOCATION: The patient is in room 318, bed 1. SUBJECTIVE: The patient is seen sitting up in the bed in the TCU. Appears to have a reasonably decent gait. Alert, responsive, and asking questions. The patient is on IV fluids. He says he is not able to tolerate anything orally except liquid diet. The patient is being assessed by home hospice with the support structure being setup at home in about two days. MEDICATIONS: The patient's medication list was reviewed. He is currently on Carafate, Eliquis, Flomax, Megace is on hold, MiraLax, pancreatic enzymes, Pepcid, ProAmatine, Proscar, normal saline 50 mL an hour, Tylenol p.r.n., Ultram p.r.n., and Zofran p.r.n. OBJECTIVE: VITAL SIGNS: Stable. Blood pressure is 125/77. T-max is 98.4, pulse is 88, respiration rate of 14, pulse oximetry is 92% on room air. GENERAL: The patient is lying supine in bed. HEENT: Head is normocephalic and atraumatic. Conjunctivae clear. Temporal muscle wasting is noted. NECK: Supple. There is no jugular venous distention noted. LUNGS: Clear to percussion and auscultation exam. CARDIOVASCULAR SYSTEM: Revealed S1 and S2 to be normal. No gallop or murmur is heard. ABDOMEN: Soft. Nontender. Scaphoid abdomen is noted. No rebound, rigidity, or guarding is noted. EXTREMITIES: Reveals no cyanosis, clubbing, or edema. NEUROLOGIC: Reveals higher functions to be normal. The patient is appropriately answering all questions. LABORATORY DATA: Reviewed. No new labs have been ordered. Last CBC showed white count of 21,000 with a hemoglobin of 9.5. Chemistry showed a sodium of 131, BUN of 31, creatinine of 1. LFTs appear to be elevated. Total bilirubin of 3. AST of 61, alkaline phosphatase 231, albumin of 2.2. ASSESSMENT, NOTES, AND PLAN: The patient has aggressive metastatic stage IV carcinoma of the pancreas with liver metastasis; orthostatic hypotension; depression; hyponatremia; history of benign prostatic hypertrophy with urinary incontinence, currently stable; history of spinal stenosis, status post epidural injection; history of recent cerebrovascular accident, status post embolectomy, on chronic anticoagulation with no bleeding; history of atherosclerotic heart disease with recent [id number] myocardial infarction; history of gastroesophageal reflux, currently stable on vancomycin therapy; history of anemia secondary to underlying malignancy, hemoglobin stable around 9.7. The patient is a Do Not Resuscitate and Do Not Intubate, and plan is to place the patient on home hospice if conditions remain the same. Plans are discussed in detail with the patient's family including a daughter regarding further management at home. In the meantime, if his condition should worsen, we may have to consider inpatient hospice as the patient may not be able to be managed at home as his is the only caregiver. We will continue intravenous fluids for now and supportive care. snf prognosis appears poor. Marta Neil MD [facility] # [id number]
[2018-08-23] MEDS: Sucralfate 1 gm/10 ml Oral Susp UD PO SCH ×2 (05:34→16:36)
[2018-08-23] MEDS: Sodium Chloride 0.9% 500 ML IV SCH ×3 (05:34→16:36)
[2018-08-23] MEDS: Piperacillin/Tazobact 3.375 gm 100 ML IVPB SCH (05:36)
[2018-08-23] MEDS: Vancomycin 1gm in NS 250ml 1 GM/250 ML BAG IVPB SCH (06:18)
[2018-08-23] MEDS: Amylase/Lipase/Protease 5,000 Units ECC PO SCH (08:09)
--- NOTE | 2018-08-23 08:37 | CP.PCM.CON ---
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 Hospitalization was complicated by GI bleed and NSTEMI. His Hb dropped to 7.5 with positive heme occult and got 2u pRBC. He was found to have NSTEMI, elected to be on medical treatment. He was transfered to TCU for rehab. A rapid response was called on 08/22 for change of mental status. During [employer], pt was non-responsive to verbal commands. Last known normal was about 2.5 hrs prior. T normal. HR 100. BP 132/72, RR 14, PaO2 was 96 on 2L NC. blood culture was ordered. CXR showed RLL infiltrate pending official read. He received zosyn x 1 d and on vancomycin currently. WBC was 25, Na 130 (chronic, baseline), BUN 30/cre 1, TB 5, AST 61, ALt 49, Alk phos 224. PMH Stage 4 pancreatic ca s/p radiation with liver mets stroke with embolectomy (07/15/18) with near full return to baseline physical capacity, started eliquis orthostatic hypotension with syncope on midodrine anemia gerd BPH w urinary incontinent spinal stenosis, DJD diverticulosis, hemorrhoids, s/p polypectomy anxiety hard of hearing, b/l hearing aids PSH colonoscopy, polypectomy epidural 04/2015, multiple colonoscopies last one on 01/18/17 with polypectomy dx hemorrhoids, diverticulosis, egd x7, ct scan guided bx of pancreas 09/15/17 SH Non smoker Hx of alcohol abuse in the past, quit many years ago All NKDA Med See MAR Past Patient History - Infectious Disease Hx of Infectious Diseases: None - Past Social History Smoking Status: Former Smoker - CARDIAC Hx Cardiac Disorders: Yes Hx Hypertension: Yes - PULMONARY Hx Respiratory Disorders: (denies left pneumothorax) - NEUROLOGICAL HX Cerebrovascular Accident: Yes - HEENT Hx HEENT Problems: Yes (andreafski wears b/l hearing aids) - HEMATOLOGICAL/ONCOLOGICAL Hx Blood Disorders: Yes Hx Cancer: Yes (stage 4 pancreatic last chemo 07/07/2018) - INTEGUMENTARY Hx Dermatological Problems: Yes - MUSCULOSKELETAL/RHEUMATOLOGICAL Hx Falls: No - GASTROINTESTINAL Hx Gastrointestinal Disorders: Yes (colonoscopy) Hx Diverticulitis: Yes Hx Gastroesophageal Reflux: Yes Hx Pancreatitis: Yes (cancer) Other/Comment: polypectomy - GENITOURINARY/GYNECOLOGICAL Hx Reproductive Disorders: No - PSYCHIATRIC Hx Psychophysiologic Disorder: No - SURGICAL HISTORY Hx Surgeries: Yes Other/Comment: epidural 04/2015, multiple colonoscopies last one on 01/18/17 with polypectomy dx hemorrhoids, diverticulosis, egd x7, ct scan guided bx of pancrea s 09/15/17 - ANESTHESIA Hx Anesthesia: Yes Hx Anesthesia Reactions: No Hx Malignant Hyperthermia: No Meds Allergies/Adverse Reactions: Allergies Allergy/AdvReac Type Severity Reaction Status Date / Time No Known Allergies Allergy Verified 07/15/18 23:24 - Medications Medications: Current Medications Acetaminophen (Tylenol 325mg Tab) 650 mg PO Q6H PRN PRN Reason: Pain, Mild (1-3) Amylase (Pancrease 79712 U-5000 [id number] U) 5,000 unit PO AC [facility] Last Admin: 08/23/18 08:09 Dose: Not Given Apixaban (Eliquis) 2.5 mg PO BID [facility]; Protocol Last Admin: 08/22/18 17:04 Dose: Not Given Famotidine (Pepcid) 10 mg PO HS [facility] Last Admin: 08/22/18 21:30 Dose: Not Given Finasteride (Proscar) 5 mg PO DAILY [facility] Last Admin: 08/22/18 11:00 Dose: 5 mg Vancomycin HCl (Vancomycin 1gm) 1 gm in 250 mls @ 167 mls/hr IVPB Q12H [facility]; Protocol Last Admin: 08/23/18 06:18 Dose: 167 mls/hr Sodium Chloride (Sodium Chloride 0.9%) 500 mls @ 70 mls/hr IV .Q7H9M [facility] Last Admin: 08/23/18 08:09 Dose: 70 mls/hr Megestrol Acetate (Megace) 200 mg PO DAILY [facility] Last Admin: 08/21/18 10:05 Dose: 200 mg Midodrine (Proamatine) 5 mg PO TID [facility] Last Admin: 08/22/18 21:30 Dose: Not Given Ondansetron HCl (Zofran Inj) 4 mg IVP Q6H PRN PRN Reason: Nausea/Vomiting Polyethylene Glycol (Miralax) 17 gm PO DAILY PRN PRN Reason: Constipation Sucralfate (Carafate Oral Susp) 1 gm PO 0600,1600 [facility] Last Admin: 08/23/18 05:34 Dose: Not Given Tamsulosin HCl (Flomax) 0.4 mg PO HS [facility] Last Admin: 08/22/18 21:30 Dose: Not Given Tramadol HCl (Ultram) 50 mg PO Q8 PRN PRN Reason: Pain, moderate (4-7) Last Admin: 08/22/18 05:00 Dose: 50 mg Physical Exam - Constitutional Appears: No Acute Distress Additional comments: Give one word answer, able to make needs known - Head Exam Head Exam: ATRAUMATIC, NORMAL INSPECTION, NORMOCEPHALIC - Eye Exam Eye Exam: EOMI, Normal appearance, PERRL. absent: Scleral icterus Pupil Exam: NORMAL ACCOMODATION - ENT Exam ENT Exam: Mucous Membranes Dry Additional comments: red plaques and scabs on throat and roof of mouth - Neck Exam Additional comments: supple - Respiratory Exam Respiratory Exam: Clear to Auscultation Bilateral, NORMAL BREATHING PATTERN. absent: Decreased Breath Sounds, Rales, Rhonchi, Wheezes - Cardiovascular Exam Cardiovascular Exam: REGULAR RHYTHM, +S1, +S2, Systolic Murmur - GI/Abdominal Exam GI & Abdominal Exam: Normal Bowel Sounds, Soft. absent: Distended, Firm, Guarding, Rigid - Extremities Exam Extremities exam: Negative for: pedal edema - Back Exam Back exam: absent: CVA tenderness (L), CVA tenderness (R) - Neurological Exam Neurological exam: Alert Additional comments: communicate with one word able to make needs known - Psychiatric Exam Psychiatric exam: Flat Affect - Skin Skin Exam: Dry, Warm Results - Vital Signs Recent Vital Signs: Last Vital Signs Temp 97.5 F L 08/22/18 09:26 Pulse 93 H 08/22/18 17:02 Resp 14 08/22/18 09:26 BP 125/77 18 09:26 Pulse Ox 95 08/22/18 17:02 - Labs Result Diagrams: 08/22/18 17:10 08/22/18 17:10 Labs: Laboratory Results - last 24 hr 08/22/18 08/22/18 08/22/18 16:36 17:10 17:10 WBC 25.2 H* RBC 3.46 L Hgb 9.6 L Hct 30.0 L MCV 86.7 MCH 27.7 MCHC 32.0 RDW 17.2 H Plt Count 219 MPV 10.0 Gran % 89.8 H Lymph % (Auto) 4.6 L Dodge % (Auto) 5.4 Eos % (Auto) 0.1 L Baso % (Auto) 0.1 Gran # 22.67 H Lymph # (Auto) 1.2 Dodge # (Auto) 1.4 H Eos # (Auto) 0.0 Baso # (Auto) 0.02 Neutrophils % (Manual) 94 H Band Neutrophils % 1 Lymphocytes % (Manual) 2 L Monocytes % (Manual) 2 Eosinophils % (Manual) 1 Sodium 130 L Potassium 3.9 Chloride 102 Carbon Dioxide 22 Anion Gap 10 BUN 30 H Creatinine 1.0 Est GFR ( Amer) > 60 Est GFR (Non-Af Amer) > 60 POC Glucose (mg/dL) 134 H Random Glucose 144 H Calcium 8.7 Total Bilirubin 5.0 H AST 61 H ALT 49 Alkaline Phosphatase 224 H Total Protein 5.2 L Albumin 2.3 L Globulin 2.9 Albumin/Globulin Ratio 0.8 L Assessment & Plan - Assessment and Plan (Free Text) Plan: Mr Bentley, 83M, with recent stroke 1 month ago s/p embolectomy started eliquis, recent GI bleed requiring 2u pRBC, NSTEMI, was transfered to TCU for rehab. A rapid response was called on 08/22 for change of mental status. CXR showed RLL infiltrate. WBC was 25 Hospital acquired pneumonia, RLL Oropharyngeal candidiasis Prolonged QT QTc 537 Recent NSTEMI on medical management Recent GI bleed s/p 2u PRBC transfusion DNR/DNI - Vancomycin and cefepime (day 1) - Hold antifungal due to high risk of cardiac toxicity outweighing benefit of treatment - Pending hospice evaluation - Follow culture, lab, clinical course s/r/d/w Dr Parr <Isaac Parr - Last Filed: 08/23/18 15:33> Meds - Medications Medications: Current Medications Acetaminophen (Tylenol 325mg Tab) 650 mg PO Q6H PRN PRN Reason: Pain, Mild (1-3) Amylase (Pancrease 18424 U-5000 U-[id number] U) 5,000 unit PO AC [facility] Last Admin: 08/23/18 08:09 Dose: Not Given Apixaban (Eliquis) 2.5 mg PO BID [facility]; Protocol Last Admin: 08/23/18 15:13 Dose: Not Given Famotidine (Pepcid) 10 mg PO HS [facility] Last Admin: 08/22/18 21:30 Dose: Not Given Finasteride (Proscar) 5 mg PO DAILY [facility] Last Admin: 08/23/18 15:15 Dose: Not Given Sodium Chloride (Sodium Chloride 0.9%) 500 mls @ 70 mls/hr IV .Q7H9M [facility] Last Admin: 08/23/18 08:09 Dose: 70 mls/hr Cefepime HCl (Maxipime 2gm) 2 gm in 100 mls @ 100 mls/hr IVPB Q8 [facility]; Protocol Stop: 08/28/18 09:31 Last Admin: 08/23/18 10:47 Dose: 100 mls/hr Megestrol Acetate (Megace) 200 mg PO DAILY [facility] Last Admin: 08/21/18 10:05 Dose: 200 mg Midodrine (Proamatine) 5 mg PO TID [facility] Last Admin: 08/23/18 15:15 Dose: Not Given Morphine Sulfate (Morphine) 1 mg IVP Q3H PRN PRN Reason: Pain, moderate (4-7) Last Admin: 08/23/18 12:00 Dose: 1 mg Ondansetron HCl (Zofran Inj) 4 mg IVP Q6H PRN PRN Reason: Nausea/Vomiting Polyethylene Glycol (Miralax) 17 gm PO DAILY PRN PRN Reason: Constipation Sucralfate (Carafate Oral Susp) 1 gm PO 0600,1600 [facility] Last Admin: 08/23/18 05:34 Dose: Not Given Tamsulosin HCl (Flomax) 0.4 mg PO [facility] Last Admin: 08/22/18 21:30 Dose: Not Given Results - Vital Signs Recent Vital Signs: Last Vital Signs Temp 97.5 F L 08/22/18 09:26 Pulse 93 H 08/22/18 17:02 Resp 14 12/26/18 09:26 BP 125/77 08/22/18 09:26 Pulse Ox 95 08/22/18 17:02 - Labs Result Diagrams: 08/22/18 17:10 08/22/18 17:10 Labs: Laboratory Results - last 24 hr 08/22/18 08/22/18 08/22/18 16:36 17:10 17:10 WBC 25.2 H* RBC 3.46 L Hgb 9.6 L Hct 30.0 L MCV 86.7 MCH 27.7 MCHC 32.0 RDW 17.2 H Plt Count 219 MPV 10.0 Gran % 89.8 H Lymph % (Auto) 4.6 L Dodge % (Auto) 5.4 Eos % (Auto) 0.1 L Baso % (Auto) 0.1 Gran # 22.67 H Lymph # (Auto) 1.2 Dodge # (Auto) 1.4 H Eos # (Auto) 0.0 Baso # (Auto) 0.02 Neutrophils % (Manual) 94 H Band Neutrophils % 1 Lymphocytes % (Manual) 2 L Monocytes % (Manual) 2 Eosinophils % (Manual) 1 Sodium 130 L Potassium 3.9 Chloride 102 Carbon Dioxide 22 Anion Gap 10 BUN 30 H Creatinine 1.0 Est GFR ( Amer) > 60 Est GFR (Non-Af Amer) > 60 POC Glucose (mg/dL) 134 H Random Glucose 144 H Calcium 8.7 Total Bilirubin 5.0 H AST 61 H ALT 49 Alkaline Phosphatase 224 H Total Protein 5.2 L Albumin 2.3 L Globulin 2.9 Albumin/Globulin Ratio 0.8 L Assessment & Plan - Assessment and Plan (Free Text) Plan: Infectious diseases Attending Physician Attestation Patient seen and examined, discussed with medical education manager. I have reviewed the patient's history of present illness, past medical, social, personal and family histories, pertinent physical exam findings, course so far in this hospital admission, pertinent laboratory and imaging results. I agree with the above find ings, assessment and plan. In addition, we have started Vancomycin and Cefepime for probable right lower lobe hospital-acquired pneumonia in this patient with pancreatic CA. Follow up cultures. Overall prognosis is poor.
--- NOTE | 2018-08-23 09:21 | RAD ---
Date of service: 08/22/2018 HISTORY: aspiration risk COMPARISON: 08/13/2018 FINDINGS: LUNGS: Hazy infiltrate at the right lung base PLEURA: Small right pleural effusion CARDIOVASCULAR: Aortic calcification Mild cardiomegaly no pulmonary vascular congestion. OSSEOUS STRUCTURES: No significant abnormalities. VISUALIZED UPPER ABDOMEN: Normal. OTHER FINDINGS: None. IMPRESSION: Small right pleural effusion. Minimal hazy infiltrate right lung base
[2018-08-23] MEDS: Cefepime IV 2 gm in NS 2 GM/100 ML BAG IVPB SCH ×2 (10:47→16:11)
[2018-08-23] MEDS: Morphine 2 mg/ml ISec IVP PRN ×2 (12:00→16:21)
[2018-08-23 16:43] VITALS: BP 136/81; PULSE 94; RESP 18; TEMP 99.5; O2SAT 98
--- NOTE | 2018-08-23 20:11 | PN ---
DATE: 08/23/2018 SUBJECTIVE: The patient is currently seen with family in the room. He is going to be transferred over to inpatient hospice later today. The patient's eyes are closed. He remains on IV fluid hydration. P.o. intake is poor. PHYSICAL EXAMINATION VITAL SIGNS: Blood pressure with the patient lying supine in bed 136/81, temperature 99.5, respiratory rate is 80 with a pulse of 94. HEENT: Eyes are closed. NECK: No neck vein distention. CARDIOPULMONARY: Shows a regular rate and rhythm with /MR/TR. No S3. No S4. No rub. LUNGS: Clear to auscultation and percussion. No rales, rhonchi or wheezing. ABDOMEN: Soft. Bowel sounds normal. No rebound, guarding or masses. EXTREMITIES: Show no lower extremity cyanosis, clubbing or edema. NEUROLOGIC: Shows him to be poorly responsive. Eyes are closed. LABORATORY DATA AND IMAGING: White blood cell count from last night up to 25.2, hemoglobin 9.6, platelet count of 219,000. Chemistries from yesterday showed a procalcitonin of 0.61. No other chemistries were done. MEDICATIONS: Medication list reviewed. The patient is on Carafate, Eliquis is on hold, Flomax is on hold, Maxipime, Megace, Inderal XR on hold, morphine, pancreatic enzymes are on hold, Pepcid, ProAmatine, Proscar is on hold, normal saline 70 mL an hour, Tylenol and Zofran p.r.n. ASSESSMENT: 1. Orthostatic hypotension. The patient is currently supine in bed. In all likelihood, he will not sit up or stand up. He may continue on ProAmatine. We are unable to check postural blood pressures. 2. History of depletional hyponatremia. Urine sodium was low. The patient continues on normal saline. It appears that he is not taking any significant amount of oral intake. 3. History of stage IV pancreatic cancer with metastasis to liver and lymph nodes. The patient is starting inpatient hospice shortly. He is being managed by Dr. Neil and Dr. Orona. 4. History of benign prostatic hypertrophy, currently stable. 5. Past history of spinal stenosis status post epidural injections. 6. Past history of recent cerebrovascular accident, status post embolectomy on chronic anticoagulation, no bleeding. Anticoagulation is currently discontinued. 7. History of atherosclerotic heart disease with a recent myocardial infarction. History of valvular heart disease, stable. 8. History of gastroesophageal reflux disease. The patient remains on oral Pepcid if he is able to tolerate p.o. intake and take the medication. 9. History of anemia. This is likely secondary to underlying malignancy. 10. DNR/DNI. The patient again is being transferred shortly for inpatient hospice. PLAN: 1. No further renal intervention. There is no further laboratory work to be done. 2. From my standpoint, ProAmatine can be discontinued as the patient will not to sit up for stand. Thank you for letting me partake and share in the care of your patient. No further renal followup necessary. Narciso Menendez MD
--- NOTE | 2018-08-23 22:00 | PN ---
DATE: 08/23/2018 ONCOLOGY PROGRESS NOTE LOCATION: The patient is in room 318, bed 1. PROBLEMS: This is an 83-year-old male, currently DNR/DNI, is going to be placed on hospice, was in the TCU for deconditioning, status post recent stroke about a month ago, status post embolectomy, started on Eliquis and was back to baseline at home, who was recently hospitalized in the acute site with generalized weakness. was complicated by GI bleed and non-ST [place]. The patient's hemoglobin dropped to 7.5, got 2 units of the packed red blood cells. He was transferred to TCU after medical management for rehab and during the holiday weekend, the patient had episode of nausea and vomiting, stated on IV fluids and kept on clear liquids and then yesterday in the afternoon right after therapy the patient collapsed and a rapid response was called. The patient was found to be nonverbal, unresponsive and the patient was started on IV fluids. Chest x-ray was obtained. Labs are obtained. White count was elevated. Chest x-ray showed a possible right lower lobe infiltrate. The patient was started on broad-spectrum antibiotics. ID consultation was obtained as well. In the meantime, we had approached the family and spoke to the daughter and the on 08/22/2018 and basically because we were trying to send him home on hospice, we decided that with this chain of events, we will see how he does over the next 24 hours and plan for inpatient hospice at this point in time. PHYSICAL EXAMINATION: GENERAL: The patient is examined in bed. The patient is moaning and groaning when you touch him, assuming that he is in some pain especially in the epigastric area probably related to his underlying malignancy. The patient is responsive only to noxious stimuli. VITAL SIGNS: T-max is 99.5, pulse rate is 94, blood pressure is 136/81, and O2 sat is 98% on nasal cannula. HEENT: Head is normocephalic and atraumatic. Temporal muscle wasting is noted. The patient is breathing through his mouth. Mouth appears to be dry with tongue is with oropharyngeal candidiasis noted on physical exam. NECK: Supple. There is no significant jugular venous distention. LUNGS: Reveal decreased breath sounds on the right side posteriorly without any significant rales or wheezes. CARDIOVASCULAR: Reveals S1 and S2 with a systolic ejection murmur. ABDOMEN: Scaphoid, the patient has some epigastric tenderness as when we press him, the patient appears to be grimacing. EXTREMITIES: Reveal no significant pedal edema. BACK: Reveals no significant findings. NEUROLOGIC: The patient was unable to communicate with me and he is unresponsive at this time. GENITOURINARY AND RECTAL: Deferred. The patient has IV going in and he has a Mark catheter in place. LABORATORY DATA: Reveals a white count of 25.2, hemoglobin is 9.6, hematocrit is 30 and platelet count of 219,000. Sodium is 130, K is 3.9, chloride is 102, CO2 is 22, BUN is 30, creatinine 1, and blood sugar is 144. ASSESSMENT, NOTES AND PLAN: Detailed discussion with the family, I already spoke to from [facility]. I spoke to the addiction social worker in the Transitional Care Unit along with the nurse taking care of the patient today. Our plan is to wait for the hospice nurse who is going to be coming to see the patient later on this afternoon. Then, we are going to transfer him to inpatient care where he will be placed on inpatient hospice while we continue our current management. The patient is also being started on morphine for pain control and we will continue to monitor him. If need be, we will give him BOTT[employer]ER morphine if the pain should worsen. In the meantime, our assessment the patient is probably had a cerebrovascular accident, has an acquired-hospital pneumonia, oropharyngeal candidiasis, prolonged QT, [id number] myocardial infarction, on medical management, history of gastrointestinal blood loss with blood transfusion. The patient is on antibiotics, currently on vancomycin and cefepime. Being assessed for hospice, which is going to ensue within the next several hours. Family is aware of the prognosis for the patient and they are in agreement that whatever is being offered to the patient at this point in time. Overall, prognosis is poor. The patient's prognosis at this point is terminal. Please make a note time spent in correlating all the data and trying to coordinate hospice care with the hospice nurses and the discharge planing nurses as well. Marta Neil MD [facility] # [id number]
== END 2018-08-23 21:00 | disposition hospice, inpatient (51) | DRG 281 ==
LOC: TRCU 17:29
PROVIDERS: ADMIT Family Medicine; ATTEND Family Medicine
PROC: F07Z9FZ Gait Training/Functional Ambulation Treatment using Assistive, Adaptive, Supportive or Protective Equipment (ICD-10-PCS; principal; 2018-08-17)
PROC: F07M6ZZ Therapeutic Exercise Treatment of Musculoskeletal System - Whole Body (ICD-10-PCS; 2018-08-17)
PROC: F08Z2ZZ Grooming/Personal Hygiene Treatment (ICD-10-PCS; 2018-08-17)
PROC: F08Z1ZZ Dressing Techniques Treatment (ICD-10-PCS; 2018-08-17)
PROC: F08Z0ZZ Bathing/Showering Techniques Treatment (ICD-10-PCS; 2018-08-17)
DX: I21.4 Non-ST elevation (NSTEMI) myocardial infarction (principal); C25.9 Malignant neoplasm of pancreas, unspecified; C77.9 Secondary and unspecified malignant neoplasm of lymph node, unspecified; C78.7 Secondary malignant neoplasm of liver and intrahepatic bile duct; E87.1 Hypo-osmolality and hyponatremia; K92.2 Gastrointestinal hemorrhage, unspecified; I25.10 Atherosclerotic heart disease of native coronary artery without angina pectoris; D63.8 Anemia in other chronic diseases classified elsewhere; I95.1 Orthostatic hypotension; F03.90 Unspecified dementia, unspecified severity, without behavioral disturbance, psychotic disturbance, mood disturbance, and anxiety; H91.93 Unspecified hearing loss, bilateral; I10 Essential (primary) hypertension; K21.9 Gastro-esophageal reflux disease without esophagitis; K57.90 Diverticulosis of intestine, part unspecified, without perforation or abscess without bleeding; Z86.010 Personal history of colon polyps; M48.00 Spinal stenosis, site unspecified; N40.0 Benign prostatic hyperplasia without lower urinary tract symptoms; R13.10 Dysphagia, unspecified; Z51.5 Encounter for palliative care; Z66 Do not resuscitate; Z79.01 Long term (current) use of anticoagulants; Z82.5 Family history of asthma and other chronic lower respiratory diseases; Z86.73 Personal history of transient ischemic attack (TIA), and cerebral infarction without residual deficits; Z87.891 Personal history of nicotine dependence; Z92.3 Personal history of irradiation; K64.9 Unspecified hemorrhoids

== ENCOUNTER 2018-08-23 21:04 | Inpatient (IN) | payer OTHER ==
[2018-08-23 22:32] VITALS: BP 140/87; PULSE 93; RESP 22; TEMP 98.9
[2018-08-23] MEDS: Morphine PCA 1 mg/ml (30ml) 30 ML IV PRN (23:18)
--- NOTE | 2018-08-24 19:18 | HP ---
DATE OF VISIT: 08/24/2018 This is Mr. Mohinder Bentley's hospital/hospice admission history and physical. HISTORY OF PRESENT ILLNESS: The patient is an 83-year-old male, seen lying supine in bed, arousable to painful stimuli after being transferred from TCU when he was noted to deteriorate with possible new CVA. The patient's family is at the bedside with request for inpatient hospice to be implemented, which is now being done. The patient suffers from stage IV metastatic pancreatic cancer, history of recent DC, ASCVD, history of CVA in the past and now more recently, orthostatic hypotension. He appears to be in no acute distress. OBJECTIVE/PHYSICAL EXAMINATION VITAL SIGNS: Temperature 98.9, pulse 93, respirations 22, blood pressure 140/87, pulse ox 98%. GENERAL: He appears jaundiced, cachectic, responsive only to noxious stimuli. HEENT: Temporal muscle wasting is noted. Mouth open. Tongue dry. NECK: Supple. HEART: Regular rate with 1/6 systolic ejection murmur. LUNGS: Decreased breath sounds on the right, greater than left. ABDOMEN: Scaphoid, nontender. EXTREMITIES: No edema. SKIN: Icteric. NEUROLOGIC: Unresponsive, except painful stimuli with wincing. ASSESSMENT: For this patient is that of end-stage stage IV pancreatic cancer; history of recent myocardial infarction; history of recent cerebrovascular accident; atherosclerotic cardiovascular disease; orthostatic hypotension; anemia of chronic disease; spinal stenosis; gastroesophageal reflux disease; failure to thrive; anticoagulation, on Eliquis; early dementia. PLAN: For this patient is to continue hospice protocols for comfort care as per the patient's and family's request. Marty Orona MD
[2018-08-25] MEDS: Morphine PCA 1 mg/ml (30ml) 30 ML IV PRN (05:20)
--- NOTE | 2018-08-25 21:20 | PN ---
DATE: 08/25/2018 This is [facility]'s inpatient hospice for Dr. Neil. SUBJECTIVE: The patient is an 83-year-old male with end-stage stage IV pancreatic cancer, history of recent MS, history of recent CVAs, ASCVD, orthostatic hypertension, now on hospice as per the patient and family's request with the patient resting comfortably in no acute distress. Family at the bedside. PHYSICAL EXAMINATION: HEENT: Unremarkable. NECK: Supple. HEART: Regular rate. LUNGS: Scattered rhonchi. ABDOMEN: Soft. EXTREMITIES: No edema. SKIN: Icteric. NEUROLOGIC: The patient is unresponsive except to painful stimuli with a wince, which was done yesterday, will not be repeated today. ASSESSMENT: End-stage stage IV pancreatic cancer, history of recent myocardial infarction, atherosclerotic cardiovascular disease, and history of cerebrovascular accident. PLAN: Continue hospice protocols for comfort measures as per hospice nurse recommendations. Marty Orona MD
[2018-08-26] MEDS: Morphine PCA 1 mg/ml (30ml) 30 ML IV PRN (12:54)
--- NOTE | 2018-08-26 14:07 | PN ---
DATE: 08/26/2018 This is [facility]'s hospital visit on the medical floor for inpatient hospice. SUBJECTIVE: The patient is an 83-year-old male seen resting comfortably, in no acute distress with hospice protocol continuing for his end-stage stage IV pancreatic cancer. PHYSICAL EXAMINATION: HEENT: Unremarkable. Tongue is dry, as the patient is mouth breathing. NECK: Supple. HEART: Tachy rate, regular rhythm. LUNGS: Scattered rhonchi. ABDOMEN: Soft. EXTREMITIES: No edema. SKIN: Icteric. NEUROLOGIC: The patient is unresponsive to painful stimuli. ASSESSMENT: End-stage stage IV pancreatic cancer, on hospice, history of recent myocardial infarction, atherosclerotic cardiovascular disease, and history of cerebrovascular accident. PLAN: Continue his present medical regimen, on hospice care with comfort measures . Marty Orona MD
--- NOTE | 2018-08-26 15:21 | CP.PCM.PRO ---
Pronouncement of Note - Clinical Findings Physical Exam: No Response Verbal/Painful Stimuli, Absent Peripheral Puls es{Carotid & Femoral}, Absent Heart & Breath Sounds, Pupils Fixed & Dilated, Absence of Vital Signs - Pronouncement Time Time of Pronouncement of : 14:47 - Notifications Pronouncement Notifications: Family Notified, Atending Notified Checkroom Chief Notified: No - Autopsy Autopsy Requested: No [place] [id number] Additional Comments: Patient while on inpatient hospice care.
== END 2018-08-26 14:47 | DRG 951 ==
LOC: 3RNO 21:04
PROVIDERS: ADMIT Family Medicine; ATTEND Family Medicine
DX: Z51.5 Encounter for palliative care (principal); C25.9 Malignant neoplasm of pancreas, unspecified; R64 Cachexia; I25.2 Old myocardial infarction; Z86.73 Personal history of transient ischemic attack (TIA), and cerebral infarction without residual deficits; I25.10 Atherosclerotic heart disease of native coronary artery without angina pectoris; I95.1 Orthostatic hypotension; K21.9 Gastro-esophageal reflux disease without esophagitis; F03.90 Unspecified dementia, unspecified severity, without behavioral disturbance, psychotic disturbance, mood disturbance, and anxiety; D63.8 Anemia in other chronic diseases classified elsewhere; R62.7 Adult failure to thrive; Z68.20 Body mass index [BMI] 20.0-20.9, adult; M62.58 Muscle wasting and atrophy, not elsewhere classified, other site; R01.1 Cardiac murmur, unspecified